=== PATIENT | female | born 1930 | race Caucasian/White ===

== ENCOUNTER 2017-03-31 17:36 | Inpatient (IN) ==
--- NOTE | 2017-03-31 18:25 | Emergency Department Note ---
Disposition Clinical Impression: Elevated troponin Atrial fibrillation Qualifiers: Atrial fibrillation type: unspecified Qualified Code(s): I48.91 - Unspecified atrial fibrillation Chronic kidney disease Qualifiers: Chronic kidney disease stage: unspecified stage Qualified Code(s): N18.9 - Chronic kidney disease, unspecified Disposition: Admitted As Inpatient Condition: Good Referrals: NONE,PCP [Non-Partnered Physician] - Forms: ED Satisfaction Letter General Adult HPI - General Chief complaint: ED Arrhythmia/Palpitations Stated complaint: AFIB per Dr. Schuler Time Seen by Provider: 03/31/17 18:13 Source: patient Limitations: no limitations Nursing Notes Reviewed: Yes Vital Signs Reviewed: Yes - History of Present Illness HPI Narrative: 86 y/o female who has had 2 days of intermittent CP and palpitations. History of Afib many years ago and had an ablation. Has not seen cardiology in approximately 10 years because she has had no issues. No anticoagulation. No other heart history according to the patient. She has not been on rate control medications. Other medical problems include CHF (on lasix) and HTN. She went to see her PCP who recommended she come to the ER. She does not currently feel CP or palpitations. No modifying factors known. Pain Scale: 0 Improves with: nothing Worsens with: nothing Associated symptoms: Reports: denies other symptoms Treatments Prior to Arrival: none - Related Data Home Medications Medication Instructions Recorded Confirmed Multi-Day Vitamins 04/25/15 04/25/15 Oxycodone HCl 04/25/15 04/25/15 Previous Rx's Medication Instructions Recorded Amoxicillin/Clavulanate [Augmentin] 875 mg PO BIDWM #20 tablet 04/25/15 Allergies Allergy/AdvReac Type Severity Reaction Status Date / Time aspirin Allergy Rash Verified 03/31/17 17:52 codeine Allergy Rash Verified 03/31/17 17:52 All systems ED: reviewed and negative except as stated. Constitutional: Denies: fever ENT ED: Denies: throat pain Cardiovascular: Reports: chest pain, palpitations. Denies: dyspnea on exertion Gastrointestinal: Denies: abdominal pain Genitourinary: Denies: dysuria Musculoskeletal: Denies: back pain Integumentary: Denies: rash Neurological: Denies: headache Endocrine: Denies: fatigue Past Medical History - Past Medical History Medical history: Reports: atrial fibrillation, osteoporosis Psychiatric history: Reports: no psych history - Social History Smoking Status: Never smoker Smokeless Tobacco Status: No Alcohol use: Reports: none Drug use: Reports: none Physical Exam - General Limitations: no limitations General appearance: alert, in no apparent distress - Head Head exam: atraumatic - Eye Eye exam: Present: normal appearance, PERRL - ENT ENT exam: normal exam - Neck Neck exam: Present: normal inspection - Chest Chest inspection: Present: normal inspection, symmetric chest wall rise - Respiratory Respiratory exam: Present: normal lung sounds bilaterally. Absent: respiratory distress - Cardiovascular Cardiovascular exam: Present: irregular rhythm - Abdominal Exam Abdominal exam: Present: soft, Non-Tender - Extremities Exam Extremities exam: Present: other (1+ LE edema) - Neurological Exam Neurological exam: Present: alert, oriented X3 - Psychiatric Psychiatric exam: Present: normal affect, normal mood - Skin Skin exam: Present: warm, dry Course Course Narrative: She is currently symptoms free but in an obvious irregular rhythm with a HR in the low 100's. EKG shows HR of 99 with atrial fibrillation. No significant ST deviation is present. Creatinine is at baseline. Troponin is elevated at 0.08. Heparin drip has been ordered. Accepted by Debbi Vital Signs Temperature 98.3 F 03/31/17 17:47 Pulse Rate 106 03/31/17 17:47 Respiratory Rate 16 03/31/17 17:47 Blood Pressure 112/70 03/31/17 17:47 O2 Sat by Pulse Oximetry 94 03/31/17 17:47 Temperature 98.3 F 03/31/17 17:47 Pulse Rate 82 03/31/17 18:41 Respiratory Rate 17 03/31/17 18:41 Blood Pressure 127/72 03/31/17 18:41 O2 Sat by Pulse Oximetry 95 03/31/17 18:41 Oxygen Delivery Oxygen Delivery Room Air Medical Decision Making - Medical Records Medical records reviewed: Yes I reviewed the patient's medical records. - Lab Data Lab results reviewed: Yes I reviewed the patient's lab results. Result diagrams: 03/31/17 18:10 03/31/17 18:10 Lab Results 03/31/17 03/31/17 03/31/17 Range/Units 18:10 18:10 18:10 WBC 7.3 (4.3-11.1) K/mcL RBC 4.82 (3.82-4.97) M/mcL Hgb 14.2 (11.5-15.4) g/dL Hct 45.5 H (35.3-44.9) % MCV 94.4 (83.0-100.0) fL MCH 29.5 (28.0-33.3) pg MCHC 31.2 L (31.6-35.5) g/dL RDW 13.0 (11.5-14.5) % Plt Count 201 (140-400) K/mcL MPV 11.0 (9.4-12.4) fL Immature Gran % 0.5 (0-4) % Seg Neutrophils % 76.9 % Lymphocytes % 14.5 % Monocytes % 5.2 % Eosinophils % 2.2 % Basophils % 0.7 % Neutrophils # 5.6 (1.6-8.9) K/mcL Lymphocytes # 1.1 (0.6-4.6) K/mcL Monocytes # 0.4 (0.0-1.3) K/mcL Eosinophils # 0.2 (0.0-0.6) K/mcL Basophils # 0.1 (0.0-0.2) K/mcL PT 10.6 (9.4-12.1) Seconds INR 1.0 APTT 28.6 (26.0-36.0) Seconds Sodium 140 (136-145) mEq/L Potassium 4.9 H (3.5-4.5) mEq/L Chloride 100 (98-109) mEq/L Carbon Dioxide 32 H (19-29) mEq/L BUN 35 H (7-20) mg/dL Creatinine 1.53 H (0.57-1.11) mg/dL Est GFR ( Amer) 39 L (> 60) Est GFR (Non-Af Amer) 32 L (> 60) BUN/Creatinine Ratio 23 (6-26) Glucose 144 H (70-99) mg/dL Calculated Osmolality 301 H (280-300) Calcium 10.1 (8.6-10.8) mg/dL Magnesium 2.0 (1.6-2.6) mg/dL Troponin I (0-0.03) ng/mL TSH 1.998 (0.350-4.840) mcIU/mL 03/31/17 Range/Units 18:10 WBC (4.3-11.1) K/mcL RBC (3.82-4.97) M/mcL Hgb (11.5-15.4) g/dL Hct (35.3-44.9) % MCV (83.0-100.0) fL MCH (28.0-33.3) pg MCHC (31.6-35.5) g/dL RDW (11.5-14.5) % Plt Count (140-400) K/mcL MPV (9.4-12.4) fL Immature Gran % (0-4) % Seg Neutrophils % % Lymphocytes % % Monocytes % % Eosinophils % % Basophils % % Neutrophils # (1.6-8.9) K/mcL Lymphocytes # (0.6-4.6) K/mcL Monocytes # (0.0-1.3) K/mcL Eosinophils # (0.0-0.6) K/mcL Basophils # (0.0-0.2) K/mcL PT (9.4-12.1) Seconds INR APTT (26.0-36.0) Seconds Sodium (136-145) mEq/L Potassium (3.5-4.5) mEq/L Chloride (98-109) mEq/L Carbon Dioxide (19-29) mEq/L BUN (7-20) mg/dL Creatinine (0.57-1.11) mg/dL Est GFR ( Amer) (> 60) Est GFR (Non-Af Amer) (> 60) BUN/Creatinine Ratio (6-26) Glucose (70-99) mg/dL Calculated Osmolality (280-300) Calcium (8.6-10.8) mg/dL Magnesium (1.6-2.6) mg/dL Troponin I 0.08 H* (0-0.03) ng/mL TSH (0.350-4.840) mcIU/mL - Radiology Data Radiology results reviewed: Yes I reviewed the patient's radiology results. - EKG Data EKG #1 EKG attestation: Yes I reviewed and interpreted this EKG. Rate: tachycardia Imbler/QRS: normal Interpretation: other (New onset atrial fibrillation. HR of 99.)
[2017-03-31 18:28] LABS: Basophils # 0.1 K/mcL (0.0-0.2); Basophils % 0.7 %; Eosinophils # 0.2 K/mcL (0.0-0.6); Eosinophils % 2.2 %; Hematocrit 45.5 % (35.3-44.9); Hemoglobin 14.2 g/dL (11.5-15.4); Immature Granulocytes % 0.5 % (0-4); Lymphocytes # 1.1 K/mcL (0.6-4.6); Lymphocytes % 14.5 %; Mean Corpuscular HGB Conc 31.2 g/dL (31.6-35.5); Mean Corpuscular Hemoglobin 29.5 pg (28.0-33.3); Mean Corpuscular Volume 94.4 fL (83.0-100.0); Monocytes # 0.4 K/mcL (0.0-1.3); Monocytes % 5.2 %; Neutrophils # 5.6 K/mcL (1.6-8.9); Platelet Count 201 K/mcL (140-400); Red Blood Count 4.82 M/mcL (3.82-4.97); Segmented Neutrophils % 76.9 %
[2017-03-31 18:35] LABS: Prothrombin Time 10.6 Seconds (9.4-12.1)
[2017-03-31 18:38] LABS: Activated Partial Thrombo Time 28.6 Seconds (26.0-36.0)
[2017-03-31 18:42] LABS: Calcium 10.1 mg/dL (8.6-10.8); Potassium 4.9 mEq/L (3.5-4.5)
--- NOTE | 2017-03-31 18:52 | Emergency Department Note ---
START Narrative - START START: I examined this patient and my medical decision-making was reviewed with the Resident Physician. I agree with the documented findings, disposition and treatment plan as described except to the extent set forth below. 86 y/o female who has had 2 days of intermittent CP and palpitations. History of Afib many years ago and had an ablation. Has not seen cardiology in approximately 10 years because she has had no issues. No anticoagulation. No other heart history according to the patient. She has not been on rate control medications. Patient in no distress at this time. Patient will need to be admitted.
[2017-03-31] MEDS ORDERED: *HR* Heparin 5,000 UNIT/ML VIAL IVP ONE (19:02)
[2017-03-31] MEDS ORDERED: *HR* Heparin 5,000 UNIT/ML VIAL IVP PRN ×2 (19:02)
[2017-03-31 19:04] LABS: Thyroid Stimulating Hormone 1.998 mcIU/mL (0.350-4.840)
[2017-03-31] MEDS ORDERED: Heparin 25,000 UNIT/500 ML D5W 25,000 UNIT/500 ML MLS IVC SCH (19:15)
[2017-03-31 19:46] LABS: Bilirubin,Urine Negative (Negative); Blood,Urine Negative (Negative); Clarity,Urine Clear (Clear); Color,Urine Yellow (Yellow); Glucose,Urine (UA) Normal (Normal); Ketones,Urine Negative (Negative); Leukocyte Esterase,Urine Small (Negative); Nitrite,Urine Negative (Negative); Protein,Urine Trace mg/dL (Neg-Trace); Specific Gravity,Urine 1.018 (1.010-1.025); Urobilinogen,Urine Normal (Normal)
[2017-03-31 19:49] LABS: Bacteria,Urine None Seen per hpf (None-Few); Hyaline Casts,Urine None Seen per lpf (None-Few); RBC,Urine 0-3 per hpf (0-3); Squamous Epithelial Cell,Urine Many per lpf (None-Few); WBC,Urine 0-3 per hpf (0-3)
[2017-03-31 19:59] LABS: Hematocrit 40.3 % (35.3-44.9); Mean Corpuscular Hemoglobin 29.2 pg (28.0-33.3); Mean Corpuscular Volume 94.2 fL (83.0-100.0); Mean Platelet Volume 10.9 fL (9.4-12.4); Platelet Count 185 K/mcL (140-400); Red Blood Count 4.28 M/mcL (3.82-4.97); Red Cell Distribution Width 12.9 % (11.5-14.5)
[2017-03-31 20:00] LABS: Hemoglobin 12.5 g/dL (11.5-15.4)
[2017-03-31] MEDS ORDERED: Acetaminophen 325 MG TABLET PO PRN (20:32)
[2017-03-31] MEDS ORDERED: Ondansetron 4 MG/2 ML VIAL IVP PRN (20:32)
[2017-03-31] MEDS ORDERED: *HR* Morphine 2 MG/ML SYRINGE IVP PRN (20:32)
[2017-03-31] MEDS ORDERED: Naloxone 0.4 MG/ML INJ IVP PRN (20:32)
--- NOTE | 2017-03-31 21:57 | Internal Med History&Physical ---
Date of Encounter: 04/01/17 Time of Encounter: 21:45 Assessment and Plan (1) Atrial fibrillation Current visit: Yes Status: Acute Paroxysmal Atrial Fibrillation - rate controlled, h/o ablation for A. fib Continue IV Heparin, add Lopressor, statin Patient has not been on any rate controlling medication Cardiology consult Cardiac telemetry, labs in a.m., monitor closely Qualifiers: Atrial fibrillation type: paroxysmal Qualified Code(s): I48.0 - Paroxysmal atrial fibrillation (2) CHF (congestive heart failure) Current visit: Yes Status: Chronic Mild acute exacerbation of chronic diastolic CHF LVEF 65-70% Continue home dose of Lasix, fluid restriction, daily weight, strict I's and O's Cardiac telemetry Qualifiers: Congestive heart failure type: diastolic Congestive heart failure chronicity: acute on chronic Qualified Code(s): I50.33 - Acute on chronic diastolic (congestive) heart failure (3) Elevated troponin Current visit: Yes Status: Acute Slightly elevated troponin, 0.08 - likely due to CHF and atrial fibrillation Patient is asymptomatic - unlikely to be ACS Cycle troponin, continue IV heparin, patient is allergic to aspirin Cardiology consult (4) Chronic kidney disease Current visit: Yes Status: Chronic Chronic kidney disease stage III - stable, GFR and creatinine likely at baseline Repeat labs in a.m. Qualifiers: Chronic kidney disease stage: stage 3 (moderate) Qualified Code(s): N18.3 - Chronic kidney disease, stage 3 (moderate) Internal Medicine - H&P: HPI Chief complaint: Palpitations Admitted From: Emergency Dept Plans for Post Hospital Care: Home History of present illness: Ms. Francois is a 86 year old female with past medical history of atrial fibrillation, chronic back pain, severe diastolic CHF and osteoporosis. Patient presents to the ED with complaints of chest pain and palpitations. Examined. Patient is awake and alert. Not in any distress. Able to provide history. No family members at bedside. Patient states she developed intermittent chest pain and palpitations about 2-3 days ago. She has a history of atrial fibrillation and has had an ablation in the past. She has not followed up with cardiology in several years. She is not on any anticoagulation. She has no other cardiac history. She is not on any rate controlling medication. Patient initially went to see her primary care physician, and was recommended to go to the ER. At present patient denies chest pain, denies palpitations, denies shortness of breath. She states her symptoms have now almost resolved. Patient denies cough, denies headache or vomiting or abdominal pain. No other acute complaints. Initial workup in the ED revealed atrial fibrillation with a controlled rate. Troponin is elevated at 0.08. Patient is on IV heparin. Unlikely to be ACS. BNP peptide is elevated. Patient is being admitted for atrial fibrillation and elevated troponin. CODE STATUS full code. Past Med Surg Social Fam HX - Past Medical History Medical history: atrial fibrillation, osteoporosis Psychiatric history: no psych history - Past Surgical History Surgical History: cholecystectomy, hysterectomy, knee replacement (Bilateral), orthopedic, other (Shoulder surgery) - Social History Smoking Status: Never smoker Smokeless Tobacco Status: No Alcohol use: none Drug use: none - Family History Daughter Living Status: Hx Family Cancer: Yes Internal Medicine - H&P: Meds Multivitamin [Multi-Day Vitamins] 1 each PO DAILY 04/25/15 [History] Oxycodone HCl [Roxicodone 30 MG Immed Release] 30 mg PO QID PRN 04/25/15 [ History] Calcium Carbonate [Calcium] 500 mg PO DAILY 03/31/17 [History] Cephalexin [Keflex] 250 mg PO DAILY 03/31/17 [History] Furosemide [Lasix] 20 mg PO DAILY 03/31/17 [History] Gabapentin [Neurontin] 600 mg PO TID 03/31/17 [History] Magnesium Oxide [Mag-Ox] 400 mg PO DAILY 03/31/17 [History] [place]-3 Fatty Acids [Fish Oil] 600 mg PO DAILY 03/31/17 [History] Potassium Chloride [K-Tab ER] 8 meq PO DAILY 03/31/17 [History] Vit C/Vit E/Lutein/Min/[place]-3 [Ocuvite Softgel] 1 each PO DAILY 03/31/17 [ History] traZODone [TraZODone] 50 mg PO HS PRN 03/31/17 [History] 3 Allergy/AdvReac Type Severity Reaction Status Date / Time aspirin Allergy Rash Verified 03/31/17 17:52 codeine Allergy Rash Verified 03/31/17 17:52 All Systems PM: A 10-system review of systems was performed and is negative for pertinent findings except as documented above in the HPI. - Constitutional Constitutional: no fatigue, no fever(s), no weakness - EENT Eyes: no blurry vision - Cardiovascular Cardiovascular ROS IM: palpitations, no chest pain, no diaphoresis, no dyspnea, no dyspnea on exertion, no edema, no lightheadedness, no orthopnea, no syncope - Respiratory Respiratory: no cough, no dyspnea, no dyspnea on exertion, no wheezing, no chest congestion - Gastrointestinal Gastrointestinal: no abdominal pain, no belching, no bloating, no cramping, no diarrhea, no hematemesis, no hematochezia, no nausea, no vomiting - Genitourinary Genitourinary: no dysuria - Musculoskeletal Musculoskeletal ROS IM: back pain - Neurological Neurological ROS: no abnormal gait, no confusion, no dizziness, no loss of vision, no numbness, no tingling - Constitutional Vitals: Temp Pulse Resp BP Pulse Ox 98.0 F 73 18 148/81 91 03/31/17 21:10 03/31/17 21:10 03/31/17 21:10 03/31/17 21:10 03/31/17 21:10 General appearance: Present: A&O X 3, pleasant, no acute distress, answers questions appropriately - Head Head exam: Present: atraumatic - Eye Eye exam: Present: EOMI - ENT ENT exam: Present: mucous membranes moist - Respiratory Respiratory exam: Present: CTAB. Absent: rales, rhonchi, wheezes, tachypnea - Cardiovascular Cardiovascular exam: Present: irregular rhythm, +S1, +S2 - GI/Abdominal GI/Abdominal exam: Present: soft. Absent: distended, firm, guarding, tenderness - Extremities Exam Extremities exam: Present: radial pulses palpable and symmetrical. Absent: calf tenderness, cyanotic, pedal edema - Neurological Exam Neurological exam: Present: alert, oriented X3, no focal deficits. Absent: facial droop, speech deficit Internal Med - H&P Results - Labs CBC & Chem 7: 03/31/17 19:54 03/31/17 18:10 Labs: Cardiac Enzymes 03/31/17 Range/Units 20:52 Troponin I 0.06 H* (0-0.03) ng/mL
[2017-03-31] MEDS ORDERED: *HR* OxyCODONE Immed Rel 15 MG TABLET PO PRN (23:09)
[2017-03-31] MEDS: Gabapentin 300 MG CAPSULE PO SCH (23:18)
[2017-03-31] MEDS: traZODone 50 MG TABLET PO PRN (23:52)
[2017-04-01 03:33] LABS: INR 1.1; Prothrombin Time 11.6 Seconds (9.4-12.1)
[2017-04-01 04:23] LABS: Calcium 9.4 mg/dL (8.6-10.8); Chol/HDL Ratio 3.2 (0-4.9); Magnesium 1.9 mg/dL (1.6-2.6); Potassium 4.6 mEq/L (3.5-4.5)
[2017-04-01] MEDS ORDERED: Famotidine 20 MG/2 ML VIAL IVP SCH (06:00)
--- NOTE | 2017-04-01 08:13 | Internal Med Progress Note ---
<BertMary - Last Filed: 04/01/17 15:02> Date of Encounter: 04/01/17 Time of Encounter: 08:13 - Assessment and plan (1) Atrial fibrillation Current Visit: Yes Status: Acute Assessment and plan: 86 yo F with Hx of Afib (CHADVASC = 5), HF with preserved ejection fraction, HLD , HTN and osteoporosis presenting with "violent shakes". States the began night prior to admission at 1 AM. Per ED note, patient presented with increased palpitations associated with SOB., twice a week x 2 weeks. She was not on anticoagulation. -This morning, denies SOB, chest pain, palpitations -Increased metoprolol to 25 mg BID - may be used as pt's EF is preserved -TTE 02/2017 showed EF 65-70%. Severe diastolic dysfunction, severely dilated LA. No mitral stenosis. -Nonvalvular Afib -Cardiology on consult and recommend warfarin or Eliquis, appreciate recs - Pt on Eliquis Qualifiers: Atrial fibrillation type: persistent Qualified Code(s): I48.1 - Persistent atrial fibrillation (2) Elevated troponin Current Visit: Yes Status: Acute Assessment and plan: Troponin #1 0.07. Troponin #2 = 0.06 Elevated 2/2 to demand issues vs. renal dysfunction (3) CHF (congestive heart failure) Current Visit: Yes Status: Chronic Assessment and plan: 03/31 CXR - Lungs are clear. Cardiac and mediastinal silhouettes are within normal limits with heart size at upper limits of normal. Currently appears euvolemic. W/o dyspnea, peripheral edema, RUQ Continue conservative PO lasix dose, with some current evidence of decreased organ perfusion with elevated Cr levels Timed BMP Qualifiers: Congestive heart failure type: diastolic Congestive heart failure chronicity: acute on chronic Qualified Code(s): I50.33 - Acute on chronic diastolic (congestive) heart failure (4) Acute kidney injury Current Visit: Yes Status: Acute Assessment and plan: Creatinine of 1.4 is up from baseline GFR decrease > 25% Will monitor closely with, Timed BMP. - Subjective Interval history: Denies SOB. Denies chest pain. Denies heart palpitation when resident MD visited room with notice of elevated HR on telemetry. Increased the metoprolol to 25 mg BID following interview. Active Medications Generic Name Dose Route Start Last Admin Trade Name Freq PRN Reason Stop Dose Admin Acetaminophen 650 mg 03/31/17 20:32 Tylenol PO 09/30/17 20:33 Q6HR PRN Mild Pain (1-3) Apixaban 5 mg 04/01/17 12:30 04/01/17 13:38 Eliquis PO 10/01/17 12:31 5 mg BID HEIDI Administration Calcium Carbonate 500 mg 04/01/17 09:00 04/01/17 08:30 Tums PO 10/01/17 09:01 500 mg DAILY HEIDI Administration Famotidine 20 mg 04/01/17 16:30 Pepcid PO 10/01/17 16:31 0730,1630 [facility] Protocol Furosemide 20 mg 04/01/17 09:00 04/01/17 08:30 Lasix PO 10/01/17 09:01 20 mg DAILY HEIDI Administration Gabapentin 600 mg 03/31/17 21:00 04/01/17 08:30 Neurontin PO 09/30/17 21:01 600 mg TID HEIDI Administration Magnesium Oxide 400 mg 04/01/17 09:00 04/01/17 08:30 Mag-Ox PO 10/01/17 09:01 400 mg DAILY HEIDI Administration Protocol Metoprolol Tartrate 25 mg 04/01/17 21:00 Lopressor PO 10/01/17 21:01 BID [facility] Naloxone HCl 0.4 mg 03/31/17 20:32 Narcan IVP 09/30/17 20:33 Q2MIN PRN Opioid Reversal Ondansetron HCl 4 mg 03/31/17 20:32 Zofran IVP 09/30/17 20:33 Q8HR PRN Nausea And Vomiting Simvastatin 10 mg 04/01/17 21:00 Zocor PO 10/01/17 21:01 HS HEIDI Protocol Trazodone HCl 50 mg 03/31/17 20:37 03/31/17 23:52 Trazodone PO 09/30/17 20:38 50 mg HS PRN Administration Sleep - Constitutional Vitals: Temp Pulse Resp BP Pulse Ox 98.3 F 94 16 143/75 94 04/01/17 07:47 04/01/17 07:47 04/01/17 07:47 04/01/17 07:47 04/01/17 07:47 General appearance: Present: cooperative, A&O X 3, pleasant, no acute distress, answers questions appropriately - Head Head exam: Present: atraumatic, normocephalic - Respiratory Respiratory exam: Present: CTAB. Absent: accessory muscle use, rales, rhonchi, wheezes - Cardiovascular Cardiovascular exam: Present: irregular rhythm, +S1, +S2, tachycardia. Absent: gallop, rubs - GI/Abdominal GI/Abdominal exam: Present: normal bowel sounds, soft, no peritoneal signs. Absent: distended, tenderness Internal Medicine: Result - Labs CBC & Chem 7: 04/01/17 08:37 04/01/17 02:40 Labs: BMP 04/01/17 02:40 Sodium 139 Potassium 4.6 H Chloride 105 Carbon Dioxide 27 BUN 34 H Creatinine 1.40 H Glucose 100 H Calcium 9.4 Cardiac Enzymes 03/31/17 04/01/17 Range/Units 20:52 02:40 Troponin I 0.06 H* 0.07 H* (0-0.03) ng/mL - ABG Interpretation ABG results: PT/INR, D-dimer PT 11.6 Seconds (9.4-12.1) 04/01/17 02:40 Consult Discharge Plan - Plan Referrals: Ernst Schuler MD [Primary Care Provider] - 04/09/17 11:30 am () <Natanael Ivan P - Last Filed: 04/01/17 17:45> Date of Encounter: 04/01/17 - Constitutional Vitals: Temp Pulse Resp BP Pulse Ox 97.7 F 86 17 127/77 94 04/01/17 16:45 04/01/17 16:45 04/01/17 16:45 04/01/17 16:45 04/01/17 16:45 Internal Medicine: Result - Labs CBC & Chem 7: 04/01/17 08:37 04/01/17 02:40 Labs: Short CBC 04/01/17 Range/Units 08:37 WBC 5.7 (4.3-11.1) K/mcL Hgb 12.4 (11.5-15.4) g/dL Hct 40.1 (35.3-44.9) % Plt Count 180 (140-400) K/mcL BMP 04/01/17 02:40 Sodium 139 Potassium 4.6 H Chloride 105 Carbon Dioxide 27 BUN 34 H Creatinine 1.40 H Glucose 100 H Calcium 9.4 Cardiac Enzymes 03/31/17 04/01/17 04/01/17 Range/Units 20:52 02:40 08:37 Troponin I 0.06 H* 0.07 H* 0.06 H* (0-0.03) ng/mL - ABG Interpretation ABG results: PT/INR, D-dimer PT 11.6 Seconds (9.4-12.1) 04/01/17 02:40 - Attending Attestation I examined this patient and my medical decision-making was reviewed with the Resident Physician. I agree with the documented findings, disposition and treatment plan as described except to the extent set forth below.
[2017-04-01] MEDS: Furosemide 20 MG TABLET PO SCH (08:30)
[2017-04-01] MEDS: Gabapentin 300 MG CAPSULE PO SCH ×3 (08:30→20:14)
[2017-04-01] MEDS: Magnesium Oxide 400 MG TABLET PO SCH (08:30)
[2017-04-01] MEDS ORDERED: (Ocuvite Softgel) PO SCH (09:00)
[2017-04-01] MEDS ORDERED: FISH OIL PO SCH (09:00)
[2017-04-01 09:34] LABS: Hematocrit 40.1 % (35.3-44.9); Hemoglobin 12.4 g/dL (11.5-15.4); Mean Corpuscular HGB Conc 30.9 g/dL (31.6-35.5); Mean Corpuscular Hemoglobin 29.4 pg (28.0-33.3); Mean Platelet Volume 11.5 fL (9.4-12.4); Platelet Count 180 K/mcL (140-400); Red Blood Count 4.22 M/mcL (3.82-4.97); Red Cell Distribution Width 13.1 % (11.5-14.5)
--- NOTE | 2017-04-01 10:07 | Cardiology Consult Note ---
Date of Encounter: 04/01/17 Time of Encounter: 10:02 Assessment and Plan (1) Atrial fibrillation Current Visit: Yes Status: Acute Atrial fibrillation with RVR. Reports history of atrial fibrillation seen several years ago. She was transferred to outside hospital and underwent cardioversion. Denies being placed on any medication to control HR or for anticoagulation at that time. HR now rate controlled. Avg HR over 24 hours was 94 bpm. Metoprolol increased this morning. Continue rate control strategy. In-regards to anticoagulation, she is a CHADS VASc=5 (ChF, age2, gender, HTN). Anticoagulation with warfarin or NOAC recommended. I will lay check eliquis. Continue heaprin gtt for now. TTE 02/2017 showed EF 65-70%. Severe daistolic dysfunction, severely dilated LA. Mild MR, mild TR, mild pulmonary hypertension. TSH normal. Qualifiers: Atrial fibrillation type: paroxysmal Qualified Code(s): I48.0 - Paroxysmal atrial fibrillation (2) Elevated troponin Current Visit: Yes Status: Acute Mild troponin elevation, 0.08, 0.07, 0.06. Likely demand ischemia in the setting of atrial fibrillation with RVR, DCHF, and CKD. TTE one month ago showed preserved EF. She denies chest pain. Continue medical management. (3) CHF (congestive heart failure) Current Visit: Yes Status: Chronic H/o severe chronic diastolic CHF. CXR shows no acute finding. BNP 708. No previous BNP to compare. Currently appears euvolemic. Continue oral lasix. Potassium held d/t hyperkalemia. CHF education. Low sodium diet. Qualifiers: Congestive heart failure type: diastolic Congestive heart failure chronicity: acute on chronic Qualified Code(s): I50.33 - Acute on chronic diastolic (congestive) heart failure Discussion w patient/family: The assessment and plan as outlined above was discussed with the patient and/or family members who expressed understanding and agreement. All questions were answered. Thank you for involving us in the care of your patient. Please call with any questions. History of Present Illness Consult date: 04/01/17 Requesting physician: Natanael Ivan Consult reason: Atrial fibrillation Chief complaint: palpitations, SOB History of present illness: Ms. Francois is a 86 year old female with a reported history of PAF s/p previous cardioversion several years ago, HTN, HLD, and severe diastolic dysfunction who presented with increasing palpitations associated with SOB. Reports having palpitations last week that lasted for five hours. She felt it was very hard to breath when the palpitations would occur. Reports symptoms twice a week for the past two weeks. Typically only had symptoms a couple times a month. She was recently seen by her PCP and treated for diastolic CHF with diuretics. She states that after her cardioversion she did not routinely follow with cardiology. She is currently not on anticoagulation. She reports allergy to asa due to rash. Past Med Surg Social Fam HX - Past Medical History Medical history: atrial fibrillation, CHF, hyperlipidemia, hypertension, osteoporosis Psychiatric history: no psych history - Past Surgical History Surgical History: cholecystectomy, hysterectomy, knee replacement (Bilateral), orthopedic, other (Shoulder surgery) - Social History Smoking Status: Never smoker Smokeless Tobacco Status: No Alcohol use: none Drug use: none - Family History Daughter Living Status: Hx Family Cancer: Yes Medications and Allergies Multivitamin [Multi-Day Vitamins] 1 each PO DAILY 04/25/15 [History] Oxycodone HCl [Roxicodone 30 MG Immed Release] 30 mg PO QID PRN 04/25/15 [ History] Calcium Carbonate [Calcium] 500 mg PO DAILY 03/31/17 [History] Cephalexin [Keflex] 250 mg PO DAILY 03/31/17 [History] Furosemide [Lasix] 20 mg PO DAILY 03/31/17 [History] Gabapentin [Neurontin] 600 mg PO TID 03/31/17 [History] Magnesium Oxide [Mag-Ox] 400 mg PO DAILY 03/31/17 [History] [place]-3 Fatty Acids [Fish Oil] 600 mg PO DAILY 03/31/17 [History] Potassium Chloride [K-Tab ER] 8 meq PO DAILY 03/31/17 [History] Vit C/Vit E/Lutein/Min/[place]-3 [Ocuvite Softgel] 1 each PO DAILY 03/31/17 [ History] traZODone [TraZODone] 50 mg PO HS PRN 03/31/17 [History] 3 Allergy/AdvReac Type Severity Reaction Status Date / Time aspirin Allergy Rash Verified 03/31/17 17:52 codeine Allergy Rash Verified 03/31/17 17:52 All Systems Review: A 10-system review of systems was performed and is negative for pertinent findings except as documented above in the HPI. Physical Examination Vital Signs, Last 4 Hours Temp Pulse Resp BP Pulse Ox 04/01/17 07:47 98.3 F 94 16 143/75 94 General: Conversant, No Apparent Distress HEENT: Atraumatic, Normocephaly, Mucus Membranes Moist Neck: No JVD, Normal carotid pulses Cardiac: Other (apical irregular) Lungs: Normal Breath Sounds, No Wheeze, Rales, Rhonchi Neuro: Alert and responsive, No focal deficits noted Abdomen: Soft, Non-Tender Skin: No rashes noted on visualized skin Musculoskeletal: No Chest Wall Tenderness Extremities: No Clubbing, No Cyanosis, No Edema, Normal Pulses Results 04/01/17 08:37 04/01/17 02:40 Lab Results 03/31/17 04/01/17 04/01/17 20:52 02:40 02:40 WBC Hgb Hct Plt Count INR 1.1 APTT Sodium Potassium Chloride Carbon Dioxide BUN Creatinine Glucose Calcium Magnesium Troponin I 0.06 H* 0.07 H* 04/01/17 04/01/17 04/01/17 02:40 02:40 08:37 WBC Hgb Hct Plt Count INR APTT 88.4 H D Sodium 139 Potassium 4.6 H Chloride 105 Carbon Dioxide 27 BUN 34 H Creatinine 1.40 H Glucose 100 H Calcium 9.4 Magnesium 1.9 Troponin I 0.06 H* 04/01/17 04/01/17 08:37 08:37 WBC 5.7 Hgb 12.4 Hct 40.1 Plt Count 180 INR APTT 83.1 H Sodium Potassium Chloride Carbon Dioxide BUN Creatinine Glucose Calcium Magnesium Troponin I Chest X-Ray 03/31/17 18:21 IMPRESSION: No evidence for acute cardiopulmonary process. D/ / 03/31/2017 19:05:30 Erick Mace MD / [email or web address] Interpreting Provider: Erick Mace MD - EKG Interpretation EKG results cardiology: personally reviewed (atrial fibrillation with RVR. No acute ST changes.) Consult Discharge Plan - Plan Referrals: Ernst Schuler MD [Primary Care Provider] - (Web requested 04/01/17)
[2017-04-01] MEDS: APIXABAN 5 MG TABLET PO SCH ×2 (13:38→20:14)
[2017-04-01] MEDS: Famotidine 20 MG TABLET PO SCH (14:54)
[2017-04-02] MEDS: traZODone 50 MG TABLET PO PRN ×2 (00:01→22:57)
[2017-04-02 04:14] LABS: Basophils % 0.7 %; Eosinophils # 0.3 K/mcL (0.0-0.6); Eosinophils % 4.7 %; Hematocrit 39.3 % (35.3-44.9); Hemoglobin 12.3 g/dL (11.5-15.4); Immature Granulocytes % 0.3 % (0-4); Lymphocytes # 1.6 K/mcL (0.6-4.6); Lymphocytes % 27.3 %; Mean Corpuscular HGB Conc 31.3 g/dL (31.6-35.5); Mean Corpuscular Hemoglobin 29.4 pg (28.0-33.3); Mean Platelet Volume 11.3 fL (9.4-12.4); Monocytes # 0.6 K/mcL (0.0-1.3); Neutrophils # 3.3 K/mcL (1.6-8.9); Platelet Count 187 K/mcL (140-400); Red Blood Count 4.18 M/mcL (3.82-4.97); Red Cell Distribution Width 12.9 % (11.5-14.5)
[2017-04-02 04:32] LABS: Calcium 9.5 mg/dL (8.6-10.8); Potassium 4.2 mEq/L (3.5-4.5)
--- NOTE | 2017-04-02 08:07 | Discharge Summary ---
Date of Encounter: 04/02/17 Time of Encounter: 08:06 - Discharge Diagnosis (1) Atrial fibrillation Status: Acute Qualifiers: Atrial fibrillation type: persistent Qualified Code(s): I48.1 - Persistent atrial fibrillation (2) Elevated troponin Status: Acute (3) CHF (congestive heart failure) Status: Chronic Qualifiers: Congestive heart failure type: diastolic Congestive heart failure chronicity: acute on chronic Qualified Code(s): I50.33 - Acute on chronic diastolic (congestive) heart failure (4) Acute kidney injury Status: Acute - Discharge Medications Home Medications: Multivitamin [Multi-Day Vitamins] 1 each PO DAILY 04/25/15 [History] Oxycodone HCl [Roxicodone 30 MG Immed Release] 30 mg PO QID PRN 04/25/15 [ History] Calcium Carbonate [Calcium] 500 mg PO DAILY 03/31/17 [History] Cephalexin [Keflex] 250 mg PO DAILY 03/31/17 [History] Furosemide [Lasix] 20 mg PO DAILY 03/31/17 [History] Gabapentin [Neurontin] 600 mg PO TID 03/31/17 [History] Magnesium Oxide [Mag-Ox] 400 mg PO DAILY 03/31/17 [History] [place]-3 Fatty Acids [Fish Oil] 600 mg PO DAILY 03/31/17 [History] Potassium Chloride [K-Tab ER] 8 meq PO DAILY 03/31/17 [History] Vit C/Vit E/Lutein/Min/[place]-3 [Ocuvite Softgel] 1 each PO DAILY 03/31/17 [ History] traZODone [TraZODone] 50 mg PO HS PRN 03/31/17 [History] Allergies/Adverse Reactions: 3 Allergy/AdvReac Type Severity Reaction Status Date / Time aspirin Allergy Rash Verified 03/31/17 17:52 codeine Allergy Rash Verified 03/31/17 17:52 Date of admission: 03/31/17 20:32 Primary care physician: Ernst Schuler MD Consults: 03/31/17 20:36 Consult to Cardiology [CONS] Routine Comment: Consulting Provider: Cardiology Dittmer Reason for Consult: afib, chest pain, elevated troponin Call Completed: No - Patient Status Condition: Good - Discharge Instructions Follow Up With: Ernst Schuler MD [Primary Care Provider] - 04/09/17 11:30 am () Hospital course: Ms. Francois is a 86 year old female with a past medical history of atrial fibrillation, HF with preserved ejection fraction, hyperlipidemia, hypertension , chronic back pain and osteoporosis presenting with increased palpitations associated with SOB., twice a week x 2 weeks. She was not on anticoagulation. For the patients back pain, she endorsed being recently prescribed roxicodone, which she associated with violent shakes the night prior to admission. She was admitted for atrial fibrillation and mild acute exacerbation of CHF. Over hospitalization, patients heart rate increased to 170s to 180s with activity. Cardiology was placed on consult, she was placed on continuous telemetry, and recommended anticoagulation for nonvalvular atrial fibrillation. Transthoracic echocardiogram in 02/2017 demonstrated EF 65-70% severely dilated LA and no mitral stenosis. CXR showed clear lungs. Cardiac and mediastinal silhouettes were within normal limits with heart size at upper limits of normal. Patients CHADVASC score was 5. For anticoagulation, she was placed on Eliquis. The patients rate was medically managed with metoprolol. - Time Spent with Patient Total time spent providing and/or coordinating discharge services: - Constitutional Vitals: Temp Pulse Resp BP Pulse Ox 97.4 F L 91 15 150/91 97 04/02/17 07:25 04/02/17 07:25 04/02/17 07:25 04/02/17 07:25 04/02/17 07:25 General appearance: Present: cooperative, A&O X 3, pleasant, no acute distress, answers questions appropriately
[2017-04-02] MEDS: Famotidine 20 MG TABLET PO SCH ×2 (08:41→16:12)
[2017-04-02] MEDS: APIXABAN 5 MG TABLET PO SCH (08:42)
[2017-04-02] MEDS: Gabapentin 300 MG CAPSULE PO SCH ×3 (08:42→20:30)
[2017-04-02] MEDS: Magnesium Oxide 400 MG TABLET PO SCH (08:42)
[2017-04-02] MEDS: Furosemide 20 MG TABLET PO SCH (08:42)
--- NOTE | 2017-04-02 09:04 | Internal Med Progress Note ---
Addendum entered and electronically signed by Mary Noel MD 04/02/17 16:51: Addendum -web developer programmer consult was initially made via paging call -Consult service answered by Prashanth NICHOLS -We Requested consult due to blood in vaginal vault on physical exam -Consult advised that if history of hysterectomy, consult would unlikely to be appropriate -Consult was cancelled -Consult service returned call confirming hysterectomy in 1965, and that primary service could "probably cancel the ultrasound" -Primary consult discussed U/S with patient. Patient verbalized understanding she may refuse U/S at any time, even mid-procedure if she elects not to complete -U/S planned for 1700 -Conversation documented per assembly line supervisor request Original Note: <Mary Noel - Last Filed: 04/02/17 14:22> Date of Encounter: 04/02/17 Time of Encounter: 09:02 - Assessment and plan (1) Atrial fibrillation Current Visit: Yes Status: Acute Assessment and plan: 86 yo F with Hx of Afib (CHADVASC = 5), HF with preserved ejection fraction, HLD , HTN and osteoporosis presenting with "violent shakes". States the began night prior to admission at 1 AM. Per ED note, patient presented with increased palpitations associated with SOB., twice a week x 2 weeks. She was not on anticoagulation. -This morning, denies SOB, chest pain, palpitations -Increased metoprolol to 50 mg BID for rate control, compatible with preserved EF per ACCF/AHA guidelines -TTE 02/2017 showed EF 65-70%. Severe diastolic dysfunction, severely dilated LA. No mitral stenosis. -Nonvalvular Afib -Cardiology on consult and recommended warfarin or Eliquis, appreciate recs - Pt was placed on Eliquis, however concern for bleeding this AM - Will hold Eliquis Qualifiers: Atrial fibrillation type: persistent Qualified Code(s): I48.1 - Persistent atrial fibrillation (2) Anticoagulation management encounter Current Visit: Yes Status: Acute Assessment and plan: Pt evaluated this morning for response to Eliquis Hgb stable from yesterday, H/H pending this evening Vaginal speculum exam: bleeding in vaginal vault PLAN: Hold Eliquis Timed H/H Pelvic ultrasound STAT today Hemeoccult pending web developer programmer consult, greatly appreciate recs (3) Elevated troponin Current Visit: Yes Status: Acute Assessment and plan: Troponin #1 0.07. Troponin #2 = 0.06 Elevated 2/2 to demand issues vs. renal dysfunction (4) CHF (congestive heart failure) Current Visit: Yes Status: Chronic Assessment and plan: 03/31 CXR - Lungs are clear. Cardiac and mediastinal silhouettes are within normal limits with heart size at upper limits of normal. Currently appears euvolemic. W/o dyspnea, peripheral edema, RUQ Continue Lasix 20 mg PO Qualifiers: Congestive heart failure type: diastolic Congestive heart failure chronicity: acute on chronic Qualified Code(s): I50.33 - Acute on chronic diastolic (congestive) heart failure (5) Acute kidney injury Current Visit: Yes Status: Acute Assessment and plan: Creatinine of 1.4 on admit up from baseline. Today at 1.19 Overall, GFR decrease > 25% PLAN: Continue to monitor with BMP Will maintain current PO dose of lasix, avoid higher dose if possible And avoid nephrotoxic agents - Subjective Interval history: HR at 170s on mild activity overnight. Pt states that this morning she noticed blood in urine. She noticed dried blood spots on floor. No chest pain. No hemoptysis. No bleeding in gums. Pt has not passed stool today. - Constitutional Vitals: Temp Pulse Resp BP Pulse Ox 97.4 F L 91 15 150/91 97 04/02/17 07:25 04/02/17 07:25 04/02/17 07:25 04/02/17 07:25 04/02/17 07:25 General appearance: Present: cooperative, A&O X 3, pleasant, no acute distress, answers questions appropriately Exam: Dried blood spots on floor and on bed - Respiratory Respiratory exam: Present: CTAB. Absent: accessory muscle use, rales, rhonchi, wheezes - Cardiovascular Cardiovascular exam: Present: irregular rhythm, RRR, +S1, +S2. Absent: rubs, tachycardia - GI/Abdominal GI/Abdominal exam: Present: normal bowel sounds, soft, no peritoneal signs. Absent: distended, tenderness - Specululm exam: Present: vaginal bleeding (blood in vaginal vault ). Absent: vaginal discharge Internal Medicine: Result - Labs CBC & Chem 7: 04/02/17 03:52 04/02/17 03:52 Labs: Short CBC 04/01/17 04/02/17 Range/Units 08:37 03:52 WBC 5.7 5.7 (4.3-11.1) K/mcL Hgb 12.4 12.3 (11.5-15.4) g/dL Hct 40.1 39.3 (35.3-44.9) % Plt Count 180 187 (140-400) K/mcL Neutrophils # 3.3 (1.6-8.9) K/mcL BMP 04/02/17 03:52 Sodium 138 Potassium 4.2 Chloride 105 Carbon Dioxide 25 BUN 28 H Creatinine 1.19 H Glucose 99 Calcium 9.5 Cardiac Enzymes 04/01/17 Range/Units 08:37 Troponin I 0.06 H* (0-0.03) ng/mL - ABG Interpretation ABG results: PT/INR, D-dimer PT 11.6 Seconds (9.4-12.1) 04/01/17 02:40 Consult Discharge Plan - Plan Referrals: Carlos Carmona CNP [Advanced Practice Nurse] - 04/28/17 3:30 pm (please follow up as schedule) Ernst Schuler MD [Primary Care Provider] - 04/09/17 11:30 am () <Natanael Ivan P - Last Filed: 04/02/17 17:45> Date of Encounter: 04/02/17 - Constitutional Vitals: Temp Pulse Resp BP Pulse Ox 98.0 F 84 16 137/87 95 04/02/17 16:58 04/02/17 16:58 04/02/17 16:58 04/02/17 16:58 04/02/17 16:58 Internal Medicine: Result - Labs CBC & Chem 7: 04/02/17 16:33 04/02/17 03:52 Labs: Short CBC 04/02/17 04/02/17 04/02/17 Range/Units 03:52 14:44 16:33 WBC 5.7 6.7 (4.3-11.1) K/mcL Hgb 12.3 13.8 D 13.4 (11.5-15.4) g/dL Hct 39.3 43.3 41.1 (35.3-44.9) % Plt Count 187 192 (140-400) K/mcL Neutrophils # 3.3 5.0 (1.6-8.9) K/mcL BMP 04/02/17 03:52 Sodium 138 Potassium 4.2 Chloride 105 Carbon Dioxide 25 BUN 28 H Creatinine 1.19 H Glucose 99 Calcium 9.5 - ABG Interpretation ABG results: PT/INR, D-dimer PT 11.6 Seconds (9.4-12.1) 04/01/17 02:40 - Impressions Impressions Pelvis Ultrasound 04/02/17 17:00 IMPRESSION: Prior hysterectomy. Nonvisualization of the ovaries. D/ / Cory Mcclellan MD / Cory Mcclellan MD Interpreting Provider: Cory Mcclellan MD - Attending Attestation I examined this patient and my medical decision-making was reviewed with the Resident Physician. I agree with the documented findings, disposition and treatment plan as described except to the extent set forth below. Appreciate cardiology input. We will await for FISHERIES TECHNICIAN responce
--- NOTE | 2017-04-02 10:27 | Cardiology Progress Note ---
Date of Encounter: 04/02/17 Time of Encounter: 10:25 Assessment and Plan (1) Atrial fibrillation Current Visit: Yes Status: Acute Atrial fibrillation with RVR. Reports history of atrial fibrillation seen several years ago. She was transferred to outside hospital and underwent cardioversion at that time. Denies being placed on any medication to control HR or for anticoagulation at that time. HR now rate controlled. Avg HR over 24 hours was 94 bpm. Noted to have afib with RVR with minimal activity, HR up to 160. Continue rate control strategy. Increase metoprolol as tolerated. In-regards to anticoagulation, she is a CHADS VASc=5 (ChF, age2, gender, HTN). Heparin gtt converted to eliquis yesterday. Patient noted to have bleeding from wanda-area. Reported pink urine this morning but she continued to have drainage. Hold eliquis until further evaluation of possible vaginal bleeding in an [address] Ivan notified. Hg stable. Consider re-starting after evaluation if able d/t high risk for CVA. TTE 02/2017 showed EF 65-70%. Severe diastolic dysfunction, severely dilated LA. Mild MR, mild TR, mild pulmonary hypertension. TSH normal. Qualifiers: Atrial fibrillation type: persistent Qualified Code(s): I48.1 - Persistent atrial fibrillation (2) Elevated troponin Current Visit: Yes Status: Acute Mild troponin elevation, 0.08, 0.07, 0.06. Likely demand ischemia in the setting of atrial fibrillation with RVR, DCHF, and CKD. TTE one month ago showed preserved EF. She denies chest pain. Continue medical management. (3) CHF (congestive heart failure) Current Visit: Yes Status: Chronic H/o severe chronic diastolic CHF. CXR shows no acute finding. BNP 708. No previous BNP to compare. Currently appears euvolemic. Continue oral lasix. Potassium held d/t hyperkalemia. CHF education. Low sodium diet. Qualifiers: Congestive heart failure type: diastolic Congestive heart failure chronicity: acute on chronic Qualified Code(s): I50.33 - Acute on chronic diastolic (congestive) heart failure Discussion w patient/family: The assessment and plan as outlined above was discussed with the patient and/or family members who expressed understanding and agreement. All questions were answered. Thank you for involving us in the care of your patient. Please call with any questions. Subjective Principal diagnosis: atrial fibrillation with RVR Interval history: We were called for recommendations after patient had recurrent afib with RVR through the night with activity. She denies palpitations, SOB, or chets pain. Patient noted to have blood on floor , bed, and legs. States urine was pink but she thinks she may have blood coming from somewhere else. She has a history of complete hysterectomy. Objective Vital Signs, Last 4 Hours Temp Pulse Resp BP Pulse Ox 04/02/17 07:25 97.4 F L 91 15 150/91 97 General: Conversant, No Apparent Distress HEENT: Atraumatic, Normocephaly, Mucus Membranes Moist Neck: No JVD, Normal carotid pulses Cardiac: Other (Irregularly irregular.) Lungs: Normal Breath Sounds, No Wheeze, Rales, Rhonchi Neuro: Alert and responsive, No focal deficits noted Abdomen: Soft, Non-Tender Skin: No rashes noted on visualized skin Musculoskeletal: No Chest Wall Tenderness Extremities: No Clubbing, No Cyanosis, No Edema, Normal Pulses Other: Noted to have blood in wanda-area Results 04/02/17 03:52 04/02/17 03:52 Lab Results 04/02/17 04/02/17 04/02/17 03:52 03:52 08:26 WBC 5.7 Hgb 12.3 Hct 39.3 Plt Count 187 APTT 30.2 D Sodium 138 Potassium 4.2 Chloride 105 Carbon Dioxide 25 BUN 28 H Creatinine 1.19 H Glucose 99 Calcium 9.5 - EKG Interpretation EKG results cardiology: personally reviewed Consult Discharge Plan - Plan Referrals: Ernst Schuler MD [Primary Care Provider] - 04/09/17 11:30 am ()
[2017-04-02 14:54] LABS: Hematocrit 43.3 % (35.3-44.9); Hemoglobin 13.8 g/dL (11.5-15.4)
[2017-04-02 16:48] LABS: Basophils # 0.1 K/mcL (0.0-0.2); Basophils % 0.7 %; Eosinophils # 0.2 K/mcL (0.0-0.6); Eosinophils % 2.7 %; Hematocrit 41.1 % (35.3-44.9); Hemoglobin 13.4 g/dL (11.5-15.4); Immature Granulocytes % 0.1 % (0-4); Immature Platelets 4.2 % (1.1-6.1); Lymphocytes # 0.9 K/mcL (0.6-4.6); Lymphocytes % 13.5 %; Mean Corpuscular HGB Conc 32.6 g/dL (31.6-35.5); Mean Corpuscular Hemoglobin 30.5 pg (28.0-33.3); Mean Corpuscular Volume 93.4 fL (83.0-100.0); Mean Platelet Volume 10.9 fL (9.4-12.4); Monocytes # 0.5 K/mcL (0.0-1.3); Monocytes % 7.9 %; Platelet Count 192 K/mcL (140-400); Segmented Neutrophils % 75.1 %
[2017-04-03 05:49] LABS: Basophils % 0.6 %; Eosinophils # 0.3 K/mcL (0.0-0.6); Eosinophils % 3.9 %; Hematocrit 41.6 % (35.3-44.9); Hemoglobin 13.6 g/dL (11.5-15.4); Immature Granulocytes % 0.1 % (0-4); Immature Platelets 4.4 % (1.1-6.1); Lymphocytes # 1.6 K/mcL (0.6-4.6); Lymphocytes % 22.5 %; Mean Corpuscular HGB Conc 32.7 g/dL (31.6-35.5); Mean Corpuscular Hemoglobin 30.5 pg (28.0-33.3); Mean Corpuscular Volume 93.3 fL (83.0-100.0); Mean Platelet Volume 11.1 fL (9.4-12.4); Monocytes # 0.8 K/mcL (0.0-1.3); Neutrophils # 4.3 K/mcL (1.6-8.9); Platelet Count 195 K/mcL (140-400); Red Blood Count 4.46 M/mcL (3.82-4.97); Red Cell Distribution Width 12.9 % (11.5-14.5); Segmented Neutrophils % 61.9 %
[2017-04-03 06:03] LABS: Calcium 9.9 mg/dL (8.6-10.8); Potassium 4.6 mEq/L (3.5-4.5)
[2017-04-03 07:24] VITALS: BP 126/70
[2017-04-03] MEDS: Famotidine 20 MG TABLET PO SCH (08:45)
[2017-04-03] MEDS: Magnesium Oxide 400 MG TABLET PO SCH (08:45)
[2017-04-03] MEDS: Gabapentin 300 MG CAPSULE PO SCH (08:45)
[2017-04-03] MEDS: Furosemide 20 MG TABLET PO SCH (08:46)
--- NOTE | 2017-04-03 09:56 | Discharge Summary ---
Date of Encounter: 04/03/17 Time of Encounter: 09:53 - Discharge Diagnosis (1) Atrial fibrillation Priority: Primary Status: Acute Qualifiers: Atrial fibrillation type: persistent Qualified Code(s): I48.1 - Persistent atrial fibrillation (2) Chronic kidney disease Priority: Secondary Status: Chronic Qualifiers: Chronic kidney disease stage: stage 3 (moderate) Qualified Code(s): N18.3 - Chronic kidney disease, stage 3 (moderate) (3) CHF (congestive heart failure) Priority: Secondary Status: Chronic Qualifiers: Congestive heart failure type: diastolic Congestive heart failure chronicity: chronic Qualified Code(s): I50.32 - Chronic diastolic (congestive ) heart failure (4) Elevated troponin Priority: Secondary Status: Acute - Discharge Medications Prescriptions: Metoprolol [Lopressor] 50 mg PO BID #120 tab Simvastatin [Zocor] 10 mg PO HS #120 tab Home Medications: Multivitamin [Multi-Day Vitamins] 1 each PO DAILY 04/25/15 [History] Oxycodone HCl [Roxicodone 30 MG Immed Release] 30 mg PO QID PRN 04/25/15 [ History] Calcium Carbonate [Calcium] 500 mg PO DAILY 03/31/17 [History] Cephalexin [Keflex] 250 mg PO DAILY 03/31/17 [History] Furosemide [Lasix] 20 mg PO DAILY 03/31/17 [History] Gabapentin [Neurontin] 600 mg PO TID 03/31/17 [History] Magnesium Oxide [Mag-Ox] 400 mg PO DAILY 03/31/17 [History] [place]-3 Fatty Acids [Fish Oil] 600 mg PO DAILY 03/31/17 [History] Potassium Chloride [K-Tab ER] 8 meq PO DAILY 03/31/17 [History] Vit C/Vit E/[place]/Min/[place]-3 [Ocuvite Softgel] 1 each PO DAILY 03/31/17 [ History] traZODone [TraZODone] 50 mg PO HS PRN 03/31/17 [History] Metoprolol [Lopressor] 50 mg PO BID #120 tab 04/03/17 [Rx] Simvastatin [Zocor] 10 mg PO HS #120 tab 04/03/17 [Rx] Allergies/Adverse Reactions: 3 Allergy/AdvReac Type Severity Reaction Status Date / Time aspirin Allergy Rash Verified 03/31/17 17:52 codeine Allergy Rash Verified 03/31/17 17:52 Procedures/tests Complete & Pending: Procedures Performed prior 72 hours Category Date Time Status US pelvis extended [US] Stat Exams 04/02/17 17:00 Completed Date of admission: 03/31/17 20:32 Primary care physician: Ernst Schuler MD Consults: 03/31/17 20:36 Consult to Cardiology [CONS] Routine Comment: Consulting Provider: Cardiology Jeanette Reason for Consult: afib, chest pain, elevated troponin Call Completed: No Discharging clinician: Natanael Ivan - Patient Status Disposition: Home, Self-Care Condition: Good Functional capacity at discharge: independent ambulation Overall status at discharge: patient is progressing back to baseline - Discharge Instructions Follow Up With: Carlos Carmona CNP [Advanced Practice Nurse] - 04/28/17 3:30 pm (please follow up as schedule) Ernst Schuler MD [Primary Care Provider] - 04/09/17 11:30 am () - Diet and Activity Activity: increase activity as tolerated Diet: low fat, low cholesterol Interval History: Patient states she developed intermittent chest pain and palpitations about 2-3 days ago. She has a history of atrial fibrillation and has had an ablation in the past. She has not followed up with cardiology in several years. She is not on any anticoagulation. She has no other cardiac history. She is not on any rate controlling medication. Patient initially went to see her primary care physician, and was recommended to go to the ER. Initial workup in the ED revealed atrial fibrillation with a controlled rate. Troponin is elevated at 0.08. Patient is on IV heparin. Unlikely to be ACS. BNP peptide is elevated. Patient is being admitted for atrial fibrillation and elevated troponin. CODE STATUS full code. Hospital course: Patient was hospitalized. She was started on the metoprolol. She responded well to metoprolol. Her heart rate was controlled. She was started on anticoagulation with the novel anticoagulant. Patient started bleeding from vaginal. Vaginal examination revealed blood. SPOT WELDER was consulted. As per SPOT WELDER patient has a previous hysterectomy in 1965 and the consult was not needed. Ultrasound of the lower abdomen was done. Plan: Patient is keen to go home today. Her heart rate is well controlled. Patient will be going home on a new medication 1. Metoprolol 2. Simvastatin Due to per vaginal bleeding no anticoagulants were prescribed. We will give SPOT WELDER follow-up appointment along with the PCP follow-up. - Time Spent with Patient Total time spent providing and/or coordinating discharge services: - Constitutional Vitals: Temp Pulse Resp BP Pulse Ox 98.4 F 89 17 126/70 95 04/03/17 07:23 04/03/17 07:23 04/03/17 07:23 04/03/17 07:23 04/03/17 07:23 General appearance: Present: cooperative, A&O X 3, pleasant, no acute distress, answers questions appropriately - Head Head exam: Present: atraumatic, normocephalic - Eye Eye exam: Present: PERRL, conjuntiva pink, sclera anicteric Pupils: Present: PERRL - Neck Neck exam general surgery: Present: supple, trachea midline. Absent: lymphadenopathy - Respiratory Respiratory exam: Present: CTAB. Absent: accessory muscle use, rales, rhonchi, wheezes - Cardiovascular Cardiovascular exam: Present: RRR, +S1, +S2. Absent: diastolic murmur, gallop, rubs, systolic murmur - GI/Abdominal GI/Abdominal exam: Present: normal bowel sounds, soft, no peritoneal signs. Absent: distended, tenderness - Extremities Exam Extremities exam: Present: warm, radial pulses palpable and symmetrical. Absent : calf tenderness, cyanotic, pedal edema - Neurological Exam Neurological exam: Present: CN II-XII intact, oriented X3, no focal deficits. Absent: pronater drift, facial droop, speech deficit - Skin Skin exam: Present: dry, intact - VTE Documentation of Mechanical Device: Intermittent pneumatic compression device
[2017-04-03] MEDS ORDERED: FLUARIX QUAD 2017-18 36MOS UP/PF 0.5 ML SYRINGE IM ONE (11:22)
--- NOTE | 2017-04-05 18:42 | Electrocardiograph Report ---
[address] [address] Test Date: 2017-03-31 Pat Name: Nelda Francois Department: 102 Room: 2A Gender: F Resident Care Aid: : 1930 Requested By: Percy Gibbons Order Number: [id number] Reading MD: Tato Rico MD Measurements Intervals [place] Rate: 99 P: IN: 0 QRS: 46 QRSD: 91 T: 39 QT: 338 QTc: 394 Interpretive Statements ATRIAL FIBRILLATION Electronically Signed On 04-05-2017 18:41:18 EDT by Tato Rico MD
== END 2017-04-03 12:45 | disposition home or self-care (01) | DRG 308 ==
LOC: EMEROO 17:36 → 2ANU 17:36
PROVIDERS: ADMIT Pediatrics; ATTEND Internal Medicine

== ENCOUNTER 2017-04-15 01:17 | Observation (INO) ==
--- NOTE | 2017-04-15 01:50 | Emergency Department Note ---
Disposition Clinical Impression: Nausea & vomiting Qualifiers: Vomiting type: unspecified Vomiting Intractability: unspecified Qualified Code( s): R11.2 - Nausea with vomiting, unspecified Disposition: Admitted As Inpatient Condition: Good Time of Disposition: 03:44 Abdominal Pain HPI - General Chief Complaint: ED Nausea/Vomiting/Diarrhea Stated Complaint: "i feel sick" Time Seen by Provider: 04/15/17 01:24 Source: patient Nursing Notes Reviewed: Yes Vital Signs Reviewed: Yes - History of Present Illness HPI Narrative: Patient is a 86-year-old female that presents from home with abdominal pain. Shestates"I feel sick". She was seen in this department approximately 2 days ago for n/v and diarrhea. She had been discharged to home, but return with no improvement of her symptoms. She does describe weakness, decreased appetite, and unable to drink fluids. She describes only being able to drink one bottle of water over the past few days. Pt denies bloody stools, fever, confusion, chest pain, sob, vaginal or GI bleeding. Pain Scale: 6 - Related Data Home Medications Medication Instructions Recorded Confirmed Multivitamin [Multi-Day Vitamins] 1 each PO DAILY 04/25/15 03/31/17 Oxycodone HCl [Roxicodone 30 MG 30 mg PO QID PRN 04/25/15 03/31/17 Immed Release] Calcium Carbonate [Calcium] 500 mg PO DAILY 03/31/17 03/31/17 Cephalexin [Keflex] 250 mg PO DAILY 03/31/17 03/31/17 Furosemide [Lasix] 20 mg PO DAILY 03/31/17 03/31/17 Gabapentin [Neurontin] 600 mg PO TID 03/31/17 03/31/17 Magnesium Oxide [Mag-Ox] 400 mg PO DAILY 03/31/17 03/31/17 [place]-3 Fatty Acids [Fish Oil] 600 mg PO DAILY 03/31/17 03/31/17 Potassium Chloride [K-Tab ER] 8 meq PO DAILY 03/31/17 03/31/17 Vit C/Vit E/[place]in/Min/[place]-3 1 each PO DAILY 03/31/17 03/31/17 [Ocuvite Softgel] traZODone [TraZODone] 50 mg PO HS PRN 03/31/17 03/31/17 Previous Rx's Medication Instructions Recorded Metoprolol [Lopressor] 50 mg PO BID #120 tab 04/03/17 Simvastatin [Zocor] 10 mg PO HS #120 tab 04/03/17 Ondansetron ODT [Zofran ODT] 4 mg SL Q6HR PRN #30 tab.rapdis 04/14/17 Allergies Allergy/AdvReac Type Severity Reaction Status Date / Time aspirin Allergy Rash Verified 04/15/17 01:28 codeine Allergy Rash Verified 04/15/17 01:28 All systems ED: reviewed and negative except as stated. Constitutional: Denies: fever, chills Eyes: Denies: eye discharge, vision change ENT ED: Denies: throat pain Cardiovascular: Denies: palpitations Respiratory: Denies: dyspnea Gastrointestinal: Reports: as per HPI, abdominal pain, nausea, vomiting, diarrhea Genitourinary: Denies: dysuria Musculoskeletal: Denies: back pain Integumentary: Denies: rash Neurological: Denies: weakness Psychiatric: Denies: anxiety Endocrine: Denies: fatigue Hematological/Lymphatic: Denies: easy bleeding Allergic/Immunologic: Denies: facial swelling Abdominal Pain PMH - Past Medical History Medical history: Reports: atrial fibrillation, CHF, hyperlipidemia, hypertension , osteoporosis Female Surgical History: Reports: appendectomy, cholecystectomy Psychiatric history: Reports: no psych history - Social History Smoking status: Never smoker Alcohol use: Reports: none Drug use: Reports: none Physical Exam - General Limitations: no limitations General appearance: alert, in no apparent distress - Head Head exam: normocephalic - Eye Eye exam: Present: EOMI. Absent: conjunctival injection - ENT ENT exam: mucous membranes moist - Neck Neck exam: Present: full ROM - Chest Chest inspection: Present: symmetric chest wall rise - Respiratory Respiratory exam: Present: normal lung sounds bilaterally. Absent: respiratory distress - Cardiovascular Cardiovascular exam: Present: regular rate - Abdominal Exam Abdominal exam: Present: soft, Non-Tender - Extremities Exam Extremities exam: Present: normal inspection, full ROM, normal capillary refill - Back Exam Back exam: Present: normal inspection, full ROM - Neurological Exam Neurological exam: Present: alert, oriented X3 - Psychiatric Psychiatric exam: Present: normal affect, normal mood - Skin Skin exam: Present: warm, dry, intact, normal color. Absent: rash, cyanosis, diaphoresis Course Course Narrative: Patient is a 86-year-old female that presents from home with abdominal pain. She was seen in this department approximately 2 days ago for n/v and diarrhea. She had been discharged to home, but return with no improvement of her symptoms. Patient's lab work was unremarkable at that time, she did have a hyperdensity on her abdominal CT possible choledocholithiasis , and pt status post cholecystectomy. Patient was discussed with Dr. Crowder who also had face time with patient. Movement will repeat her lab work tonight, and consider admission for pain intervention and GI consult. Workup initiated. Pt appears dry mentions no fluid intake at home, will order fluids here, antiemetics and pain meds. Review of Medical records shows h/o of Afib with admission two weeks ago. - Reevaluation(s) Reevaluation #1: Patient's lab work: Some evidence of urinary tract infection. Urine culture pending. Troponin within normal limits. slight elevation of AST and potassium. Hg 11.2. Discussed meds with patient. She seems confused on some of her medications. She seems sure she is not on a anticoagulant, but is uncertain if she is on metoprolol or Lasix or potassium. She feels she may not have been taking her "water pill" Some improvement in her nausea. Will page hospitalist. Time: 03:30 Reevaluation #2: Patient was discussed with hospitalist, Dr. Harry , who accepted patient for observation. Time: 03:44 Vital Signs Temperature 98.3 F 04/15/17 01:18 Pulse Rate 60 04/15/17 01:18 Respiratory Rate 20 04/15/17 01:18 Blood Pressure 157/86 04/15/17 01:18 O2 Sat by Pulse Oximetry 97 04/15/17 01:18 Temperature 98.3 F 04/15/17 01:18 Pulse Rate 82 04/15/17 03:54 Respiratory Rate 12 04/15/17 03:54 Blood Pressure 154/89 04/15/17 03:54 O2 Sat by Pulse Oximetry 97 04/15/17 03:54 Oxygen Delivery Oxygen Delivery Nasal Cannula Abdominal Pain - MDM Narrative Medical decision making narrative: All Lab Results (24 Hours) 04/15/17 04/15/17 04/15/17 Range/Units 01:59 01:59 01:59 WBC 5.9 (4.3-11.1) K/mcL RBC 3.72 L (3.82-4.97) M/mcL Hgb 11.2 L (11.5-15.4) g/dL Hct 35.6 (35.3-44.9) % MCV 95.7 (83.0-100.0) fL MCH 30.1 (28.0-33.3) pg MCHC 31.5 L (31.6-35.5) g/dL RDW 13.0 (11.5-14.5) % Plt Count 165 (140-400) K/mcL MPV 11.1 (9.4-12.4) fL Immature Gran % 0.3 (0-4) % Seg Neutrophils % 76.6 % Lymphocytes % 13.1 % Monocytes % 7.5 % Eosinophils % 2.2 % Basophils % 0.3 % Neutrophils # 4.5 (1.6-8.9) K/mcL Lymphocytes # 0.8 (0.6-4.6) K/mcL Monocytes # 0.4 (0.0-1.3) K/mcL Eosinophils # 0.1 (0.0-0.6) K/mcL Basophils # 0.0 (0.0-0.2) K/mcL Sodium 140 (136-145) mEq/L Potassium 4.7 H (3.5-4.5) mEq/L Chloride 104 (98-109) mEq/L Carbon Dioxide 26 (19-29) mEq/L BUN 18 (7-20) mg/dL Creatinine 1.12 H (0.57-1.11) mg/dL Est GFR ( Amer) 56 L (> 60) Est GFR (Non-Af Amer) 46 L (> 60) BUN/Creatinine Ratio 16 (6-26) Glucose 92 (70-99) mg/dL Calculated Osmolality 292 (280-300) Lactic Acid (0.5-2.2) mmol/L Calcium 9.3 (8.6-10.8) mg/dL Total Bilirubin 0.6 (0.2-1.2) mg/dL Direct Bilirubin 0.3 (0.0-0.5) mg/dL Indirect Bilirubin 0.3 (0.0-1.2) mg/dL AST 35 H (5-34) Units/L ALT 27 (0-55) Units/L Alkaline Phosphatase 82 (38-126) Units/L Troponin I 0.03 (0-0.03) ng/mL Serum Total Protein 6.7 (6.0-8.3) g/dL Albumin 3.7 (3.5-5.0) g/dL Globulin 3.0 (2.4-3.5) g/dL Albumin/Globulin Ratio 1.2 (1.1-2.2) Lipase 23 (8-78) Units/L Urine Color (Yellow) Urine Clarity (Clear) Urine pH (5.0-8.0) pH Units Ur Specific [place] (1.010-1.025) Urine Protein (Neg-Trace) mg/dL Urine Glucose (UA) (Normal) mg/dL Urine Ketones (Negative) mg/dL Urine Blood (Negative) Urine Nitrite (Negative) Urine Bilirubin (Negative) Urine Urobilinogen (Normal) mg/dL Ur Leukocyte Esterase (Negative) Urine Microscopic RBC (0-3) per hpf Urine Microscopic WBC (0-3) per hpf Ur Squamous Epith Cells (None-Few) per lpf Urine Bacteria (None-Few) per hpf Hyaline Casts (None-Few) per lpf Ur Culture Indicated? (NO) 04/15/17 04/15/17 Range/Units 02:25 02:45 WBC (4.3-11.1) K/mcL RBC (3.82-4.97) M/mcL Hgb (11.5-15.4) g/dL Hct (35.3-44.9) % MCV (83.0-100.0) fL MCH (28.0-33.3) pg MCHC (31.6-35.5) g/dL RDW (11.5-14.5) % Plt Count (140-400) K/mcL MPV (9.4-12.4) fL Immature Gran % (0-4) % Seg Neutrophils % % Lymphocytes % % Monocytes % % Eosinophils % % Basophils % % Neutrophils # (1.6-8.9) K/mcL Lymphocytes # (0.6-4.6) K/mcL Monocytes # (0.0-1.3) K/mcL Eosinophils # (0.0-0.6) K/mcL Basophils # (0.0-0.2) K/mcL Sodium (136-145) mEq/L Potassium (3.5-4.5) mEq/L Chloride (98-109) mEq/L Carbon Dioxide (19-29) mEq/L BUN (7-20) mg/dL Creatinine (0.57-1.11) mg/dL Est GFR ( Amer) (> 60) Est GFR (Non-Af Amer) (> 60) BUN/Creatinine Ratio (6-26) Glucose (70-99) mg/dL Calculated Osmolality (280-300) Lactic Acid 0.7 (0.5-2.2) mmol/L Calcium (8.6-10.8) mg/dL Total Bilirubin (0.2-1.2) mg/dL Direct Bilirubin (0.0-0.5) mg/dL Indirect Bilirubin (0.0-1.2) mg/dL AST (5-34) Units/L ALT (0-55) Units/L Alkaline Phosphatase (38-126) Units/L Troponin I (0-0.03) ng/mL Serum Total Protein (6.0-8.3) g/dL Albumin (3.5-5.0) g/dL Globulin (2.4-3.5) g/dL Albumin/Globulin Ratio (1.1-2.2) Lipase (8-78) Units/L Urine Color Yellow (Yellow) Urine Clarity Cloudy A (Clear) Urine pH 5.5 (5.0-8.0) pH Units Ur Specific [place] 1.019 (1.010-1.025) Urine Protein 30 H (Neg-Trace) mg/dL Urine Glucose (UA) Normal (Normal) mg/dL Urine Ketones 15 H (Negative) mg/dL Urine Blood Negative (Negative) Urine Nitrite Negative (Negative) Urine Bilirubin Small H (Negative) Urine Urobilinogen Normal (Normal) mg/dL Ur Leukocyte Esterase Moderate H (Negative) Urine Microscopic RBC 3-5 H (0-3) per hpf Urine Microscopic WBC 15-30 H (0-3) per hpf Ur Squamous Epith Cells Many H (None-Few) per lpf Urine Bacteria Few (None-Few) per hpf Hyaline Casts None Seen (None-Few) per lpf Ur Culture Indicated? YES A (NO) - Lab Data Lab results reviewed: Yes I reviewed the patient's lab results. Result diagrams: 04/15/17 01:59 04/15/17 01:59 Lab Results 04/15/17 04/15/17 04/15/17 Range/Units 01:59 01:59 01:59 WBC 5.9 (4.3-11.1) K/mcL RBC 3.72 L (3.82-4.97) M/mcL Hgb 11.2 L (11.5-15.4) g/dL Hct 35.6 (35.3-44.9) % MCV 95.7 (83.0-100.0) fL MCH 30.1 (28.0-33.3) pg MCHC 31.5 L (31.6-35.5) g/dL RDW 13.0 (11.5-14.5) % Plt Count 165 (140-400) K/mcL MPV 11.1 (9.4-12.4) fL Immature Gran % 0.3 (0-4) % Seg Neutrophils % 76.6 % Lymphocytes % 13.1 % Monocytes % 7.5 % Eosinophils % 2.2 % Basophils % 0.3 % Neutrophils # 4.5 (1.6-8.9) K/mcL Lymphocytes # 0.8 (0.6-4.6) K/mcL Monocytes # 0.4 (0.0-1.3) K/mcL Eosinophils # 0.1 (0.0-0.6) K/mcL Basophils # 0.0 (0.0-0.2) K/mcL Sodium 140 (136-145) mEq/L Potassium 4.7 H (3.5-4.5) mEq/L Chloride 104 (98-109) mEq/L Carbon Dioxide 26 (19-29) mEq/L BUN 18 (7-20) mg/dL Creatinine 1.12 H (0.57-1.11) mg/dL Est GFR ( Amer) 56 L (> 60) Est GFR (Non-Af Amer) 46 L (> 60) BUN/Creatinine Ratio 16 (6-26) Glucose 92 (70-99) mg/dL Calculated Osmolality 292 (280-300) Lactic Acid (0.5-2.2) mmol/L Calcium 9.3 (8.6-10.8) mg/dL Total Bilirubin 0.6 (0.2-1.2) mg/dL Direct Bilirubin 0.3 (0.0-0.5) mg/dL Indirect Bilirubin 0.3 (0.0-1.2) mg/dL AST 35 H (5-34) Units/L ALT 27 (0-55) Units/L Alkaline Phosphatase 82 (38-126) Units/L Troponin I 0.03 (0-0.03) ng/mL Serum Total Protein 6.7 (6.0-8.3) g/dL Albumin 3.7 (3.5-5.0) g/dL Globulin 3.0 (2.4-3.5) g/dL Albumin/Globulin Ratio 1.2 (1.1-2.2) Lipase 23 (8-78) Units/L Urine Color (Yellow) Urine Clarity (Clear) Urine pH (5.0-8.0) pH Units Ur Specific [place] (1.010-1.025) Urine Protein (Neg-Trace) mg/dL Urine Glucose (UA) (Normal) mg/dL Urine Ketones (Negative) mg/dL Urine Blood (Negative) Urine Nitrite (Negative) Urine Bilirubin (Negative) Urine Urobilinogen (Normal) mg/dL Ur Leukocyte Esterase (Negative) Urine Microscopic RBC (0-3) per hpf Urine Microscopic WBC (0-3) per hpf Ur Squamous Epith Cells (None-Few) per lpf Urine Bacteria (None-Few) per hpf Hyaline Casts (None-Few) per lpf Ur Culture Indicated? (NO) 04/15/17 04/15/17 Range/Units 02:25 02:45 WBC (4.3-11.1) K/mcL RBC (3.82-4.97) M/mcL Hgb (11.5-15.4) g/dL Hct (35.3-44.9) % MCV (83.0-100.0) fL MCH (28.0-33.3) pg MCHC (31.6-35.5) g/dL RDW (11.5-14.5) % Plt Count (140-400) K/mcL MPV (9.4-12.4) fL Immature Gran % (0-4) % Seg Neutrophils % % Lymphocytes % % Monocytes % % Eosinophils % % Basophils % % Neutrophils # (1.6-8.9) K/mcL Lymphocytes # (0.6-4.6) K/mcL Monocytes # (0.0-1.3) K/mcL Eosinophils # (0.0-0.6) K/mcL Basophils # (0.0-0.2) K/mcL Sodium (136-145) mEq/L Potassium (3.5-4.5) mEq/L Chloride (98-109) mEq/L Carbon Dioxide (19-29) mEq/L BUN (7-20) mg/dL Creatinine (0.57-1.11) mg/dL Est GFR ( Amer) (> 60) Est GFR (Non-Af Amer) (> 60) BUN/Creatinine Ratio (6-26) Glucose (70-99) mg/dL Calculated Osmolality (280-300) Lactic Acid 0.7 (0.5-2.2) mmol/L Calcium (8.6-10.8) mg/dL Total Bilirubin (0.2-1.2) mg/dL Direct Bilirubin (0.0-0.5) mg/dL Indirect Bilirubin (0.0-1.2) mg/dL AST (5-34) Units/L ALT (0-55) Units/L Alkaline Phosphatase (38-126) Units/L Troponin I (0-0.03) ng/mL Serum Total Protein (6.0-8.3) g/dL Albumin (3.5-5.0) g/dL Globulin (2.4-3.5) g/dL Albumin/Globulin Ratio (1.1-2.2) Lipase (8-78) Units/L Urine Color Yellow (Yellow) Urine Clarity Cloudy A (Clear) Urine pH 5.5 (5.0-8.0) pH Units Ur Specific [place] 1.019 (1.010-1.025) Urine Protein 30 H (Neg-Trace) mg/dL Urine Glucose (UA) Normal (Normal) mg/dL Urine Ketones 15 H (Negative) mg/dL Urine Blood Negative (Negative) Urine Nitrite Negative (Negative) Urine Bilirubin Small H (Negative) Urine Urobilinogen Normal (Normal) mg/dL Ur Leukocyte Esterase Moderate H (Negative) Urine Microscopic RBC 3-5 H (0-3) per hpf Urine Microscopic WBC 15-30 H (0-3) per hpf Ur Squamous Epith Cells Many H (None-Few) per lpf Urine Bacteria Few (None-Few) per hpf Hyaline Casts None Seen (None-Few) per lpf Ur Culture Indicated? YES A (NO) - Radiology Data Radiology results reviewed: Yes I reviewed the patient's radiology results. - EKG Data EKG attestation: Yes I reviewed and interpreted this EKG. EKG results narrative: irreregular junctional, intermittent P waves, and occasional PVCs. CO int 103, qrs dur 94, QT/QTc 438/456 Attestation Statement - Attestation Attestation: I, Brody Crowder MD, personally evaluated this patient and discussed their management with the midlevel provicer, PAC/DOCTOR OF NURSE ANESTHESIA. I reviewed the midlevel provider 's note and agree with the documented findings, medical decision making, and plan of care. 86-year-old female who was seen here 24 hours ago for complaint of nausea and upper abdominal discomfort. She had a workup including a CT scan. CT showed some distal stomach wall thickening consistent with gastritis. Labs were unremarkable. Patient was discharged home but returns tonight complaining of continued severe nausea and some upper abdominal discomfort. No vomiting. On examination patient is a well-developed well-nourished elderly female in no acute distress. She is alert and oriented 3. There is no cyanosis or diaphoresis. Breath sounds are clear and equal bilaterally. Heart regular rate and rhythm. Abdomen is soft with normal bowel sounds. There is mild epigastric tenderness. Labs reviewed. The hospitalist, Dr. Harry, was consulted and accepted admission of the patient.
[2017-04-15] MEDS ORDERED: Ondansetron 4 MG/2 ML VIAL IVP ONE (01:52)
[2017-04-15] MEDS ORDERED: 0.9 % Sodium Chloride 1,000 ML IVC ONE (01:52)
[2017-04-15] MEDS ORDERED: *HR* Morphine 2 MG/ML SYRINGE IVP ONE (01:52)
[2017-04-15 02:05] LABS: Basophils % 0.3 %; Eosinophils # 0.1 K/mcL (0.0-0.6); Eosinophils % 2.2 %; Hematocrit 35.6 % (35.3-44.9); Hemoglobin 11.2 g/dL (11.5-15.4); Immature Granulocytes % 0.3 % (0-4); Lymphocytes # 0.8 K/mcL (0.6-4.6); Lymphocytes % 13.1 %; Mean Corpuscular HGB Conc 31.5 g/dL (31.6-35.5); Mean Corpuscular Hemoglobin 30.1 pg (28.0-33.3); Mean Corpuscular Volume 95.7 fL (83.0-100.0); Mean Platelet Volume 11.1 fL (9.4-12.4); Monocytes # 0.4 K/mcL (0.0-1.3); Monocytes % 7.5 %; Neutrophils # 4.5 K/mcL (1.6-8.9); Platelet Count 165 K/mcL (140-400); Red Blood Count 3.72 M/mcL (3.82-4.97); Segmented Neutrophils % 76.6 %
[2017-04-15 02:22] LABS: Albumin 3.7 g/dL (3.5-5.0); Albumin/Globulin Ratio 1.2 (1.1-2.2); Bilirubin,Direct 0.3 mg/dL (0.0-0.5); Bilirubin,Indirect 0.3 mg/dL (0.0-1.2); Bilirubin,Total 0.6 mg/dL (0.2-1.2); Calcium 9.3 mg/dL (8.6-10.8); Potassium 4.7 mEq/L (3.5-4.5); Total Protein 6.7 g/dL (6.0-8.3)
[2017-04-15 02:51] LABS: Bilirubin,Urine Small (Negative); Blood,Urine Negative (Negative); Clarity,Urine Cloudy (Clear); Color,Urine Yellow (Yellow); Glucose,Urine (UA) Normal (Normal); Ketones,Urine 15 mg/dL (Negative); Leukocyte Esterase,Urine Moderate (Negative); Nitrite,Urine Negative (Negative); PH,Urine 5.5 pH Units (5.0-8.0); Protein,Urine 30 mg/dL (Neg-Trace); Specific Gravity,Urine 1.019 (1.010-1.025); Urobilinogen,Urine Normal (Normal)
[2017-04-15 02:53] LABS: Bacteria,Urine Few per hpf (None-Few); Hyaline Casts,Urine None Seen per lpf (None-Few); Squamous Epithelial Cell,Urine Many per lpf (None-Few); WBC,Urine 15-30 per hpf (0-3)
--- NOTE | 2017-04-15 03:46 | Internal Med History&Physical ---
Date of Encounter: 04/15/17 Time of Encounter: 03:46 Assessment and Plan (1) Abdominal pain Current visit: No Status: Acute CT abd/plv reveals nonspecific mild distal gastric wall thickening which could relate to gastritis. No obstruction, perforation, or abscess. Indeterminate 9 mm long linear hyperdensity at the julian hepatis, choledocholithiasis cannot be excluded. There is no evidence of significant biliary dilatation. Last colonoscopy 12 years ago. FOBT pending NPO Zofran prn Pain control MRCP in AM Recommend GI consult if MRCP abnormal Qualifiers: Abdominal location: generalized Qualified Code(s): R10.84 - Generalized abdominal pain (2) UTI (urinary tract infection) Current visit: Yes Status: Acute Rocephin 1g daily Urine culture pending Qualifiers: Urinary tract infection type: acute cystitis Hematuria presence: without hematuria Qualified Code(s): N30.00 - Acute cystitis without hematuria (3) Atrial fibrillation Current visit: No Status: Acute CHADS-VASc Score 5 Patient was hospitalized 2 weeks ago for atrial fibrillation and was not started on anticoagulation due to vaginal bleeding. Qualifiers: Atrial fibrillation type: persistent Qualified Code(s): I48.1 - Persistent atrial fibrillation (4) HTN (hypertension) Current visit: Yes Status: Acute Continue home meds Qualifiers: Hypertension type: unspecified Qualified Code(s): I10 - Essential (primary ) hypertension (5) HLD (hyperlipidemia) Current visit: Yes Status: Acute Continue home meds Qualifiers: Hyperlipidemia type: unspecified Qualified Code(s): E78.5 - Hyperlipidemia , unspecified (6) CHF (congestive heart failure) Current visit: No Status: Chronic No acute exacerbate. Qualifiers: Congestive heart failure type: diastolic Congestive heart failure chronicity: chronic Qualified Code(s): I50.32 - Chronic diastolic (congestive ) heart failure (7) CKD (chronic kidney disease) stage 3, GFR 30-59 ml/min Current visit: Yes Status: Acute Gentle hydration Continue to monitor (8) DVT prophylaxis Current visit: Yes Status: Acute SCDs Internal Medicine - H&P: HPI Chief complaint: Abd Pain Admitted From: Home Plans for Post Hospital Care: Home History of present illness: Ms. Francois is a 86 year old female with a PMH of atrial fibrillation, CHF, hyperlipidemia, hypertension, and osteoporosis presented c/o abd pain and nausea for the past 3 days. She reports associated anorexia, diarrhea 2 days ago , and inability to tolerate oral pain medicines down due to nausea. Patient was seen in the ED 2 days ago for same and reports no improvement in symptoms. Abdominal CT at that time revealed possible choledocholithiasis and gastritis. She reports prior cholecystectomy due to ruptured gallbladder a few years ago. Patient denies fever, chills, CP, SOB, vomiting, or recent illness. Of note, patient was hospitalized 2 weeks ago for atrial fibrillation and was not started on anticoagulation due to vaginal bleeding. Last colonoscopy was 12 years ago. Past Med Surg Social Fam HX - Past Medical History Medical history: atrial fibrillation, CHF, hyperlipidemia, hypertension, osteoporosis Psychiatric history: no psych history - Past Surgical History Surgical History: cholecystectomy, hysterectomy, knee replacement (Bilateral), orthopedic, other (Shoulder surgery) - Social History Smoking Status: Never smoker Smokeless Tobacco Status: No Alcohol use: none Drug use: none Current living situation: Home, With Family - Family History Daughter Living Status: Hx Family Cancer: Yes Internal Medicine - H&P: Meds Multivitamin [Multi-Day Vitamins] 1 each PO DAILY 04/25/15 [History] Oxycodone HCl [Roxicodone 30 MG Immed Release] 30 mg PO QID PRN 04/25/15 [ History] Calcium Carbonate [Calcium] 500 mg PO DAILY 03/31/17 [History] Cephalexin [Keflex] 250 mg PO DAILY 03/31/17 [History] Furosemide [Lasix] 20 mg PO DAILY 03/31/17 [History] Gabapentin [Neurontin] 600 mg PO TID 03/31/17 [History] Magnesium Oxide [Mag-Ox] 400 mg PO DAILY 03/31/17 [History] [place]-3 Fatty Acids [Fish Oil] 600 mg PO DAILY 03/31/17 [History] Potassium Chloride [K-Tab ER] 8 meq PO DAILY 03/31/17 [History] Vit C/Vit E/Lutein/Min/[place]-3 [Ocuvite Softgel] 1 each PO DAILY 03/31/17 [ History] traZODone [TraZODone] 50 mg PO HS PRN 03/31/17 [History] Metoprolol [Lopressor] 50 mg PO BID #120 tab 04/03/17 [Rx] Simvastatin [Zocor] 10 mg PO HS #120 tab 04/03/17 [Rx] Ondansetron ODT [Zofran ODT] 4 mg SL Q6HR PRN #30 tab.rapdis 04/14/17 [Rx] 3 Allergy/AdvReac Type Severity Reaction Status Date / Time aspirin Allergy Rash Verified 04/15/17 01:28 codeine Allergy Rash Verified 04/15/17 01:28 All Systems PM: A 10-system review of systems was performed and is negative for pertinent findings except as documented above in the HPI. - Constitutional Constitutional: anorexia, no chills, no fatigue, no fever(s), no lethargy, no weight gain, no weight loss - EENT Eyes: no change in vision Ears: decreased hearing Nose, mouth and throat: no nasal congestion, no sinus pressure - Cardiovascular Cardiovascular ROS IM: no chest pain, no diaphoresis, no dyspnea, no palpitations - Respiratory Respiratory: no cough, no dyspnea, no excessive phlegm production - Gastrointestinal Gastrointestinal: abdominal pain, diarrhea, nausea, no bloating, no constipation , no excessive flatus, no hematemesis, no hematochezia, no melena, no vomiting - Genitourinary Genitourinary: no dysuria, no urinary frequency, no urinary urgency - Musculoskeletal Musculoskeletal ROS IM: arthralgias, back pain, no muscle cramps - Integumentary Integumentary IM: no new lesions, no rash - Neurological Neurological ROS: no dizziness, no numbness, no weakness - Psychiatric Psychiatric: anxiety, no depression - Endocrine Endocrine IM: no polydipsia, no polyphagia, no polyuria - Constitutional Vitals: Temp Pulse Resp BP Pulse Ox 98.3 F 82 18 126/52 96 04/15/17 01:18 04/15/17 03:23 04/15/17 03:23 04/15/17 03:23 04/15/17 03:23 Internal Med - H&P Results - Labs CBC & Chem 7: 04/15/17 01:59 04/15/17 01:59 Labs: Short CBC 04/15/17 Range/Units 01:59 WBC 5.9 (4.3-11.1) K/mcL Hgb 11.2 L (11.5-15.4) g/dL Hct 35.6 (35.3-44.9) % Plt Count 165 (140-400) K/mcL Neutrophils # 4.5 (1.6-8.9) K/mcL BMP 04/15/17 01:59 Sodium 140 Potassium 4.7 H Chloride 104 Carbon Dioxide 26 BUN 18 Creatinine 1.12 H Glucose 92 Calcium 9.3 Cardiac Enzymes 04/15/17 Range/Units 01:59 Troponin I 0.03 (0-0.03) ng/mL Liver Function 04/15/17 Range/Units 01:59 Total Bilirubin 0.6 (0.2-1.2) mg/dL Direct Bilirubin 0.3 (0.0-0.5) mg/dL AST 35 H (5-34) Units/L ALT 27 (0-55) Units/L Alkaline Phosphatase 82 (38-126) Units/L Albumin 3.7 (3.5-5.0) g/dL Urine 04/15/17 Range/Units 02:45 Urine Color Yellow (Yellow) Urine Clarity Cloudy A (Clear) Urine pH 5.5 (5.0-8.0) pH Units Ur Specific [place] 1.019 (1.010-1.025) Urine Protein 30 H (Neg-Trace) mg/dL Urine Glucose (UA) Normal (Normal) mg/dL
--- NOTE | 2017-04-15 04:28 | Event Note ---
Date of Encounter: 04/15/17 Time of Encounter: 04:24 Patient seen and examined with emergency medical technician/driver. Patient presents with a main complain of nausea. CT 2 days ago showed gastritis. She denies any hematemesis, melena and hematochezia. Also, questionable UTI. Will start PPI, ceftriaxone, fluids. Observation admission
[2017-04-15] MEDS ORDERED: *HR* Morphine 2 MG/ML SYRINGE IVP PRN (04:41)
[2017-04-15] MEDS ORDERED: Naloxone 0.4 MG/ML INJ IVP PRN (04:41)
[2017-04-15] MEDS ORDERED: Metoclopramide 10 MG/2 ML VIAL IVP PRN (05:46)
[2017-04-15] MEDS: 0.9 % Sodium Chloride 1,000 ML IVC SCH ×2 (05:48→23:41)
[2017-04-15] MEDS ORDERED: Famotidine 20 MG/2 ML VIAL IVP SCH (06:00)
[2017-04-15 10:05] LABS: Magnesium 1.7 mg/dL (1.6-2.6)
[2017-04-15 10:35] LABS: INR 1.1
[2017-04-15 10:38] LABS: Activated Partial Thrombo Time 28.1 Seconds (26.0-36.0)
[2017-04-15] MEDS: *HR* HYDROmorphone (PF) 1 MG/ML SYRINGE IVP PRN ×2 (12:28→21:41)
--- NOTE | 2017-04-15 13:21 | Internal Med Progress Note ---
Date of Encounter: 04/15/17 Time of Encounter: 09:00 - Assessment and plan (1) Abdominal pain Current Visit: Yes Status: Acute Assessment and plan: Pt denies abdominal pain currently. She was admitted with abdominal pain last night, states it was diffuse and not relieved. CT abdomen/pelvis showed nonspecific mild distal gastric wall thickening which could relate to gastritis. There is no obstruction, perforation, or abscess. There is an indeterminate 9 mm long linear height did not T and choledocholithiasis cannot be excluded. Patient is to have an MRCP today. As of this time, has not been done yet. Nothing by mouth Zofran as needed Pain control GI consult if MRCP is abnormal Qualifiers: Abdominal location: generalized Qualified Code(s): R10.84 - Generalized abdominal pain (2) Nausea Current Visit: Yes Status: Acute Assessment and plan: Pt presents with abdominal pain and nausea. Denies now. Continue antiemetics as needed and IVF hydration. (3) UTI (urinary tract infection) Current Visit: Yes Status: Acute Assessment and plan: Urinalysis showed cloudy urine with moderate leukocyte esterase, 5-30 white cells, few bacteria. Culture is pending. She is being treated for urinary tract infection at this point with Rocephin 1000 mg IV daily. Will adjust or discontinue antibiotics when culture results are available. Qualifiers: Urinary tract infection type: acute cystitis Hematuria presence: without hematuria Qualified Code(s): N30.00 - Acute cystitis without hematuria (4) Atrial fibrillation Current Visit: Yes Status: Chronic Assessment and plan: Recent diagnosis. Pt has not started anticoagulation due to vaginal bleeding. Denies vaginal bleeding now and states that she did not follow up for the vaginal bleeding. Qualifiers: Atrial fibrillation type: persistent Qualified Code(s): I48.1 - Persistent atrial fibrillation (5) CHF (congestive heart failure) Current Visit: Yes Status: Chronic Assessment and plan: History. No acute exacerbation. No peripheral edema, lungs are clear. Denies chest pain. Qualifiers: Congestive heart failure type: diastolic Congestive heart failure chronicity: chronic Qualified Code(s): I50.32 - Chronic diastolic (congestive ) heart failure (6) Gastritis Current Visit: No Status: Suspected Assessment and plan: CT/CT abd pelvis wo no iv no oral IMPRESSION: 1. Nonspecific mild distal gastric wall thickening which could relate to gastritis. No obstruction, perforation, or abscess. 2. Indeterminate 9 mm long linear hyperdensity at the julian hepatis, choledocholithiasis cannot be excluded. If clinically indicated further evaluation with MRCP may be helpful. There is no evidence of significant biliary dilatation. 3. Rectocele. D/ / 04/13/2017 22:55:15 Krishna Martines MD / dayron Interpreting Provider: Krishna Martines MD Qualifiers: Gastritis type: unspecified gastritis Chronicity: acute Gastritis bleeding: without bleeding Qualified Code(s): K29.00 - Acute gastritis without bleeding (7) DVT prophylaxis Current Visit: Yes Status: Acute Assessment and plan: Pt takes Xarelto, has been held. Calf pumps and up to chair bid. (8) HLD (hyperlipidemia) Current Visit: Yes Status: Chronic Assessment and plan: Chronic. Continue simvastatin and fish oil after discharge. Qualifiers: Hyperlipidemia type: unspecified Qualified Code(s): E78.5 - Hyperlipidemia , unspecified (9) HTN (hypertension) Current Visit: Yes Status: Chronic Assessment and plan: Chronic. Continue home medications. Well-controlled in inpatient setting. Qualifiers: Hypertension type: unspecified Qualified Code(s): I10 - Essential (primary ) hypertension (10) CKD (chronic kidney disease) stage 3, GFR 30-59 ml/min Current Visit: Yes Status: Chronic Assessment and plan: Serum creatinine is 1.12, GFR is 46. Continue to avoid nephrotoxins, this appears to be patient's baseline. Continue to monitor labs. - Time Spent With Patient less than 15 minutes - Subjective Interval history: Patient was seen and assessed at 9 AM. She was asleep, arouses easily. Currently she denies any abdominal pain or nausea. She states that she never did have abdominal pain, that it was more nausea than anything. Her abdomen is mildly tender in right upper quadrant and epigastric area. Patient is aware of plan of care, questions answered. - Constitutional Vitals: Temp Pulse Resp BP Pulse Ox 98.3 F 66 14 152/83 93 04/15/17 11:00 04/15/17 11:00 04/15/17 11:00 04/15/17 11:00 04/15/17 11:00 General appearance: Present: cooperative, pleasant, no acute distress, answers questions appropriately - Head Head exam: Present: atraumatic, normal inspection, normocephalic - Eye Eye exam: Present: normal appearance, conjuntiva pink, sclera anicteric - Neck Neck exam general surgery: Present: supple, trachea midline. Absent: lymphadenopathy - Respiratory Respiratory exam: Present: decreased breath sounds, CTAB. Absent: accessory muscle use, chest wall tenderness, rales, rhonchi, wheezes - Cardiovascular Cardiovascular exam: Present: RRR, +S1, +S2. Absent: diastolic murmur, gallop, rubs, systolic murmur - GI/Abdominal GI/Abdominal exam: Present: hypoactive bowel sounds, soft, tenderness, no peritoneal signs. Absent: distended, hepatomegaly - Extremities Exam Extremities exam: Present: normal capillary refill, normal inspection, warm, radial pulses palpable and symmetrical. Absent: calf tenderness, cyanotic, pedal edema, tenderness - Neurological Exam Neurological exam: Present: alert, oriented X3, no focal deficits. Absent: facial droop, speech deficit - Skin Skin exam: Present: dry, intact, normal color, warm. Absent: rash Internal Medicine: Result - Labs CBC & Chem 7: 04/15/17 01:59 04/15/17 01:59 - ABG Interpretation ABG results: PT/INR, D-dimer PT 12.0 Seconds (9.4-12.1) 04/15/17 10:23 Consult Discharge Plan - Plan Referrals: Ernst Schuler MD [Primary Care Provider] -
[2017-04-15] MEDS: Ondansetron 4 MG/2 ML VIAL IVP PRN (15:14)
[2017-04-15] MEDS ORDERED: *HR* OxyCODONE Immed Rel 15 MG TABLET PO ONE (23:24)
[2017-04-16] MEDS ORDERED: *HR* Digoxin 0.5 MG/2 ML AMPUL IVP ONE (00:10)
[2017-04-16] MEDS: Ondansetron 4 MG/2 ML VIAL IVP PRN (00:20)
[2017-04-16] MEDS ORDERED: *HR* Metoprolol 5 MG/5 ML VIAL IVP ONE ×2 (00:31→00:38)
[2017-04-16 04:36] LABS: Basophils % 0.5 %; Eosinophils # 0.1 K/mcL (0.0-0.6); Eosinophils % 2.1 %; Hematocrit 37.2 % (35.3-44.9); Hemoglobin 11.8 g/dL (11.5-15.4); Immature Granulocytes % 0.2 % (0-4); Lymphocytes # 1.1 K/mcL (0.6-4.6); Mean Corpuscular HGB Conc 31.7 g/dL (31.6-35.5); Mean Corpuscular Hemoglobin 30.1 pg (28.0-33.3); Mean Corpuscular Volume 94.9 fL (83.0-100.0); Mean Platelet Volume 11.6 fL (9.4-12.4); Monocytes # 0.5 K/mcL (0.0-1.3); Monocytes % 8.6 %; Neutrophils # 4.5 K/mcL (1.6-8.9); Platelet Count 168 K/mcL (140-400); Red Blood Count 3.92 M/mcL (3.82-4.97); Segmented Neutrophils % 71.6 %
[2017-04-16 04:48] LABS: BUN/Creatinine Ratio 14 (6-26); Blood Urea Nitrogen 13 mg/dL (7-20); Calcium 9.1 mg/dL (8.6-10.8); Carbon Dioxide 24 mEq/L (19-29); Chloride 103 mEq/L (98-109); Glucose 70 mg/dL (70-99); Osmolality,Calculated 283 (280-300); Potassium 4.2 mEq/L (3.5-4.5); Sodium 137 mEq/L (136-145); eGFR For African Americans > 60 (> 60); eGFR For Non-African Americans 56 (> 60)
[2017-04-16] MEDS ORDERED: Famotidine 20 MG/2 ML VIAL IVP SCH (06:00)
[2017-04-16] MEDS ORDERED: *HR* OxyCODONE Immed Rel 15 MG TABLET PO PRN (08:28)
[2017-04-16] MEDS ORDERED: traZODone 50 MG TABLET PO PRN (08:28)
[2017-04-16] MEDS ORDERED: Magnesium Oxide 400 MG TABLET PO SCH (09:00)
[2017-04-16] MEDS ORDERED: Furosemide 20 MG TABLET PO SCH (09:00)
[2017-04-16] MEDS ORDERED: Gabapentin 300 MG CAPSULE PO SCH (09:00)
[2017-04-16] MEDS ORDERED: Multivit/Ca/Min/Fe/FA 1 TAB TABLET PO SCH (09:00)
[2017-04-16 16:28] VITALS: BP 136/63
--- NOTE | 2017-04-16 18:15 | Discharge Summary ---
Date of Encounter: 04/16/17 Time of Encounter: 09:00 - Discharge Diagnosis (1) Abdominal pain Priority: Primary Status: Acute Comments: Pt denies abdominal pain currently.CT abdomen/pelvis showed nonspecific mild distal gastric wall thickening which could relate to gastritis. There is no obstruction, perforation, or abscess. There is an indeterminate 9 mm long linear height did not T and choledocholithiasis cannot be excluded. MRCP negative. Will send Zofran home for nausea as needed. Patient has advanced to full liquid diet. She denies pain with eating and will advance to regular diet at dinnertime prior to discharge. Abdomen is soft, slightly rounded, nontender to palpation today, bowel sounds present. Qualifiers: Abdominal location: generalized Qualified Code(s): R10.84 - Generalized abdominal pain (2) Nausea Priority: Secondary Status: Acute Comments: Patient denies nausea. She will sent home with prescription for Zofran ODT. (3) UTI (urinary tract infection) Priority: Secondary Status: Acute Comments: Urine culture was negative. No pathogens isolated. Antibiotic has been stopped. Qualifiers: Urinary tract infection type: acute cystitis Hematuria presence: without hematuria Qualified Code(s): N30.00 - Acute cystitis without hematuria (4) Atrial fibrillation Priority: Secondary Status: Chronic Comments: Patient recently admitted with A. cookie. She was sent home only with medication for rate control. At that time, patient was found to have vaginal bleeding. IN[facility]TEBRATE PALEONTOLOGIST was consulted, they did not see her, or if they did they did not write a note. I spoke with the collection systems technician today who states that she feels she remembers hearing about this patient and that she had heard that perhaps the patient had had a pelvic exam in the emergency department which cause trauma due to the atrophy of her vaginal jefferson which caused bleeding. Pelvic ultrasound was done in previous admission that showed prior hysterectomy. Business Services Administrator and I discussed that patient could perhaps have a cervix, however, the risk of no anticoagulation is greater than the risk of vaginal bleeding at this time. I also discussed this with Karuna Mccarty CNP for cardiology, we agreed that patient will start anticoagulation on discharge. She was originally discharged with Eliquis , which she has taken, and will not be able to afford to fill. Patient recently had a prescription for Xarelto filled at [facility] pharmacy on . She will continue this on discharge. She will follow up in the office with cardiology for evaluation, if patient begins to bleed. They will stop the Xarelto. She is currently rate controlled with metoprolol 75 mg by mouth twice daily. Qualifiers: Atrial fibrillation type: persistent Qualified Code(s): I48.1 - Persistent atrial fibrillation (5) CHF (congestive heart failure) Priority: Secondary Status: Chronic Comments: No acute exacerbation. No peripheral edema, lungs are clear. Denies chest pain. Qualifiers: Congestive heart failure type: diastolic Congestive heart failure chronicity: chronic Qualified Code(s): I50.32 - Chronic diastolic (congestive ) heart failure (6) Gastritis Priority: Secondary Status: Suspected Comments: Per CT scan. Patient denies abdominal pain now. She is able to eat. Abdomen is slightly rounded, soft, nontender. Patient will need to follow with primary care for further evaluation. Qualifiers: Gastritis type: unspecified gastritis Chronicity: acute Gastritis bleeding: without bleeding Qualified Code(s): K29.00 - Acute gastritis without bleeding (7) DVT prophylaxis Priority: Secondary Status: Acute (8) HLD (hyperlipidemia) Priority: Secondary Status: Chronic Comments: Chronic. Continue statin. Qualifiers: Hyperlipidemia type: unspecified Qualified Code(s): E78.5 - Hyperlipidemia , unspecified (9) HTN (hypertension) Priority: Secondary Status: Chronic Comments: Chronic. Continue home medications. Qualifiers: Hypertension type: unspecified Qualified Code(s): I10 - Essential (primary ) hypertension (10) CKD (chronic kidney disease) stage 3, GFR 30-59 ml/min Priority: Secondary Status: Chronic Comments: Renal function has returned to normal. Serum creatinine is 0.94, GFR is 56. Continue to avoid nephrotoxins and follow with primary care for continued evaluation and monitoring. - Discharge Medications Prescriptions: Ondansetron ODT [Zofran ODT] 4 mg SL Q6HR PRN #30 tab.rapdis PRN Reason: Nausea And Vomiting Home Medications: Multivitamin [Multi-Day Vitamins] 1 each PO DAILY 04/25/15 [History] Oxycodone HCl [Roxicodone 30 MG Immed Release] 30 mg PO QID PRN 04/25/15 [ History] Calcium Carbonate [Calcium] 500 mg PO DAILY 03/31/17 [History] Furosemide [Lasix] 20 mg PO DAILY 03/31/17 [History] Gabapentin [Neurontin] 600 mg PO TID 03/31/17 [History] Magnesium Oxide [Mag-Ox] 400 mg PO DAILY 03/31/17 [History] [employer] Fatty Acids [Fish Oil] 600 mg PO DAILY 03/31/17 [History] Potassium Chloride [K-Tab ER] 8 meq PO DAILY 03/31/17 [History] Vit C/Vit E/Lutein/Min/[employer] [Ocuvite Softgel] 1 each PO DAILY 03/31/17 [ History] traZODone [TraZODone] 50 mg PO HS PRN 03/31/17 [History] Metoprolol [Lopressor] 50 mg PO BID #120 tab 04/03/17 [Rx] Simvastatin [Zocor] 10 mg PO HS #120 tab 04/03/17 [Rx] Metoprolol [Lopressor] 50 mg PO BID #0 tablet 04/16/17 [Rx] Multivit/Ca/Min/Fe/FA [Thera M Plus] 1 tab PO DAILY tablet 04/16/17 [Rx] Ondansetron ODT [Zofran ODT] 4 mg SL Q6HR PRN #30 tab.rapdis 04/16/17 [Rx] Allergies/Adverse Reactions: 3 Allergy/AdvReac Type Severity Reaction Status Date / Time aspirin Allergy Rash Verified 04/15/17 01:28 codeine Allergy Rash Verified 04/15/17 01:28 Procedures/tests Complete & Pending: Procedures Performed prior 72 hours Category Date Time Status MR MRCP [MR abdomen wo con] [MR] Routine MRI 04/15/17 05:10 Completed ECG 12 lead ECG [ECG] Routine Y 04/15/17 01:35 Completed Date of admission: 04/15/17 03:52 Primary care physician: Ernst Schuler MD Consults: 04/16/17 11:16 Consult to Gym Manager [CONS] Routine Reason for SW Consult: Xarelto Discharging clinician: Maryanne Lobato Anticipated date of discharge: 04/16/17 - Patient Status Disposition: Home, Self-Care Condition: Good Functional capacity at discharge: uses cane/walker Overall status at discharge: patient is back to baseline - Discharge Instructions Follow Up With: Ernst Schuler MD [Primary Care Provider] - Additional Instructions: Follow-up with your primary care provider within the next 7-10 days for a follow -up visit. Follow-up with cardiology as scheduled. Start taking the Xarelto at home. Continue the rest of her home medications. Resume normal activities as tolerated. Return to the emergency department as needed for any other problems or concerns , or if symptoms return or worsen. - Diet and Activity Activity: increase activity as tolerated Diet: advance to your usual diet Hospital course: Ms. Francois is a 86 year old female with past medical history of coronary artery disease, congestive heart failure, anxiety, recent diagnosis of A. fib, COPD stage III, hyperlipidemia, hypertension. She presented to the emergency department with abdominal pain and weakness. She is being treated for urinary tract infection. Culture returned negative and antibiotics were stopped. She had CT abdomen and pelvis in the emergency department that showed nonspecific mild distal gastric wall thickening which could be related to gastritis. There is an indeterminate 9 mm long linear hyperdensity at the julian hepatis choledocholithiasis cannot be excluded. Patient also has a rectocele. MRCP showed no biliary ductal dilatation or definitive evidence for choledocholithiasis. Patient states that she feels significantly better and is ready to go home. Abdomen is rounded slightly, soft, bowel sounds present, no tenderness to palpation. She is able to eat and drink. Labs have returned to normal, including renal function. Labs are stable and within normal limits. Patient has recent diagnosis of atrial fibrillation. That time she was sent home with no anticoagulation due to possible vaginal bleeding of unknown etiology. She did not follow-up with the vaginal bleeding. Today she tells me that she has not had vaginal bleeding for 10 years. I spoke with the nurse collection systems technician for the SENIOR DIRECT[employer] group, Evon. She states that although the INVERTEBRATE PALEONTOLOGIST consult was made, no one saw her, or there is no note in that we can find. She states that she remembers hearing about the patient and perhaps had heard that she had had a pelvic exam done in the emergency department and vaginal bleeding was due to a tear due to atrophy of patient's vaginal jefferson. Patient is not having a vaginal bleeding at this time. I also discussed this case with cardiology LOG DRIVER, we all agree that the risk of not anticoagulating the patient is higher than if we do. Patient had a pelvic ultrasound done that showed that she has had a prior hysterectomy. She may indeed have a cervix, however cardiology LOG DRIVER states that she will follow up with her and if she does start bleeding they will stop the medication. She was originally discharged with a prescription for Eliquis, and after the first month, she was unable to afford it. Somehow she obtained a prescription for Xarelto, which she just had filled on April 12. She will continue this at home. She will follow up with cardiology outpatient, she will follow up with primary care for continued evaluation and possible evaluation of the rectocele. Patient is ready for discharge. - Time Spent with Patient Total time spent providing and/or coordinating discharge services: Less than 30 minutes - Constitutional Vitals: Temp Pulse Resp BP Pulse Ox 98.4 F 72 15 136/63 92 04/16/17 16:28 04/16/17 16:28 04/16/17 16:28 04/16/17 16:28 04/16/17 16:28 General appearance: Present: cooperative, pleasant, no acute distress, answers questions appropriately - Head Head exam: Present: atraumatic, normal inspection, normocephalic - Eye Eye exam: Present: normal appearance, conjuntiva pink, sclera anicteric - Neck Neck exam general surgery: Present: supple, trachea midline. Absent: lymphadenopathy, tenderness - Respiratory Respiratory exam: Present: CTAB. Absent: accessory muscle use, rales, respiratory distress, rhonchi, wheezes - Cardiovascular Cardiovascular exam: Present: irregular rhythm, +S1, +S2. Absent: diastolic murmur, gallop, rubs, systolic murmur - GI/Abdominal GI/Abdominal exam: Present: normal bowel sounds, soft, no peritoneal signs. Absent: distended, hepatomegaly, tenderness - Extremities Exam Extremities exam: Present: normal capillary refill, normal inspection, warm, radial pulses palpable and symmetrical. Absent: calf tenderness, cyanotic, pedal edema - Neurological Exam Neurological exam: Present: alert, oriented X3, no focal deficits. Absent: facial droop, speech deficit - Skin Skin exam: Present: dry, intact, normal color, warm. Absent: rash - VTE Documentation of Mechanical Device: Intermittent pneumatic compression device
--- NOTE | 2017-04-19 17:19 | Electrocardiograph Report ---
[place] [address] Test Date: 2017-04-16 Pat Name: Nelda Francois Department: 113 Room: 3B23 Gender: F Tobacco Roller: : 1930 Requested By: Maryanne Lobato Order Number: [id number] Reading MD: Kayla Montalvo Measurements Intervals [place] Rate: 113 P: AR: 0 QRS: 66 QRSD: 97 T: -43 QT: 251 QTc: 318 Interpretive Statements ATRIAL FLUTTER/TACHYCARDIA WITH RAPID VENTRICULAR RESPONSE NONSPECIFIC ST & T-WAVE ABNORMALITY Electronically Signed On 04-19-2017 17:18:12 EDT by Kayla Montalvo
--- NOTE | 2017-04-20 17:29 | Electrocardiograph Report ---
[address] [address] Test Date: 2017-04-15 Pat Name: Nelda Francois Department: 103 Room: 3B23 Gender: F Supervisor: BYRON : 1930 Requested By: Maryanne Lobato Order Number: [id number] Reading MD: Mati Gonzalez Measurements Intervals [place] Rate: 69 P: 251 WI: 103 QRS: 42 QRSD: 94 T: 61 QT: 438 QTc: 456 Interpretive Statements Sinus rhythm with a run of PAT Electronically Signed On 04-20-2017 17:27:44 EDT by Mati Gonzalez
== END 2017-04-16 17:01 | disposition home or self-care (01) ==
LOC: 3BNU 01:17 → EMEROO 01:17 → 3BNU 04:21
PROVIDERS: ADMIT Hospitalist; ATTEND Registered Nurse

== ENCOUNTER 2017-05-31 21:54 | Inpatient (IN) ==
--- NOTE | 2017-05-31 22:08 | Emergency Department Note ---
Disposition Clinical Impression: Atrial fibrillation, HLD (hyperlipidemia), HTN (hypertension), Dehydration, Frail elderly, Atrial fibrillation with RVR, Anemia Disposition: Admitted As Inpatient Referrals: Ernst Schuler MD [Primary Care Provider] - Forms: ED Satisfaction Letter General Adult HPI - General Chief complaint: ED Arrhythmia/Palpitations Stated complaint: Tachycardia Source: patient, EMS Limitations: no limitations - History of Present Illness HPI Narrative: 86-year-old female with a history of atrial fibrillation reports emergency department complaining of a high heart rate. The patient is not passed out. She denies chest pain or acute shortness of breath. No leg swelling or pain or coughing up blood. The patient denies anticoagulant therapy. The patient states she takes medication to help regulate her heart rate. There is been no difficulty moving the arms or legs, no unilateral arm or leg weakness or numbness no slurred speech or facial droop no confusion headache neck stiffness rash abdominal pain vomiting or diarrhea. No urinary symptoms. No syncope. She has had no fever. There is no history of bleeding of any type or other complaints or concerns. The patient reports her heart rate is been very fast and slow down some since she got here. Pain Scale: 0 - Related Data Home Medications Medication Instructions Recorded Confirmed RX: Multivitamin [Multi-Day 1 each PO DAILY 04/25/15 04/15/17 Vitamins] RX: Oxycodone HCl [Roxicodone 30 30 mg PO QID PRN 04/25/15 04/15/17 MG Immed Release] RX: Calcium Carbonate [Calcium] 500 mg PO DAILY 03/31/17 04/15/17 RX: Furosemide [Lasix] 20 mg PO DAILY 03/31/17 04/15/17 RX: Gabapentin [Neurontin] 600 mg PO TID 03/31/17 04/15/17 RX: Magnesium Oxide [Mag-Ox] 400 mg PO DAILY 03/31/17 04/15/17 RX: [place]-3 Fatty Acids [Fish Oil] 600 mg PO DAILY 03/31/17 04/15/17 RX: Potassium Chloride [K-Tab ER] 8 meq PO DAILY 03/31/17 04/15/17 RX: Vit C/Vit E/Lutein/Min/[place]-3 1 each PO DAILY 03/31/17 04/15/17 [Ocuvite Softgel] RX: traZODone [TraZODone] 50 mg PO HS PRN 03/31/17 04/15/17 Previous Rx's Medication Instructions Recorded RX: Metoprolol [Lopressor] 50 mg PO BID #120 tab 04/03/17 RX: Simvastatin [Zocor] 10 mg PO HS #120 tab 04/03/17 RX: Metoprolol [Lopressor] 50 mg PO BID #0 tablet 04/16/17 RX: Multivit/Ca/Min/Fe/FA [Thera M 1 tab PO DAILY tablet 04/16/17 Plus] RX: Ondansetron ODT [Zofran ODT] 4 mg SL Q6HR PRN #30 tab.rapdis 04/16/17 Allergies Allergy/AdvReac Type Severity Reaction Status Date / Time aspirin Allergy Rash Verified 04/15/17 01:28 codeine Allergy Rash Verified 04/15/17 01:28 All systems ED: reviewed and negative except as stated. Past Medical History - Past Medical History Medical history: Reports: atrial fibrillation, CHF, hyperlipidemia, hypertension , osteoporosis Surgical history: Reports: cholecystectomy, hysterectomy, knee replacement ( Bilateral), orthopedic, other (Shoulder surgery) Psychiatric history: Reports: no psych history - Social History Smoking Status: Never smoker Smokeless Tobacco Status: No Alcohol use: Reports: none Drug use: Reports: none Physical Exam - General Limitations: no limitations General appearance: alert, in no apparent distress - Head Head exam: atraumatic, normocephalic, normal inspection - Eye Eye exam: Present: normal appearance, PERRL, EOMI - ENT ENT exam: normal exam, normal oropharynx, mucous membranes moist, TM's normal bilaterally, normal external ear exam - Neck Neck exam: Present: normal inspection, full ROM, trachea midline - Chest Chest inspection: Present: symmetric chest wall rise. Absent: tenderness - Respiratory Respiratory exam: Present: normal lung sounds bilaterally - Cardiovascular Cardiovascular exam: Present: tachycardia, irregular rhythm - Abdominal Exam Abdominal exam: Present: soft, Non-Tender, normal bowel sounds. Absent: tenderness, distention, guarding, rebound, rigidity - Extremities Exam Extremities exam: Present: normal inspection, full ROM, normal capillary refill. Absent: tenderness, pedal edema, joint swelling, calf tenderness - Expanded Lower Extremity Exam Lower leg exam: Absent: Homans' sign Neurovascular/Tendon exam: Present: normal capillary refill. Absent: motor deficit, sensory deficit, tendon deficit, extremity cold to touch, pallor - Back Exam Back exam: Present: normal inspection, full ROM. Absent: tenderness, CVA tenderness (R), CVA tenderness (L), vertebral tenderness - Neurological Exam Neurological exam: Present: alert, oriented X3, CN II-XII intact. Absent: motor sensory deficit - Psychiatric Psychiatric exam: Present: normal affect, normal mood - Skin Skin exam: Present: warm, dry, intact, normal color. Absent: rash, cyanosis, diaphoresis, erythema, pallor, mottled Course Vital Signs Temperature 98.2 F 05/31/17 21:56 Pulse Rate 94 05/31/17 21:56 Respiratory Rate 22 05/31/17 21:56 Blood Pressure 142/92 05/31/17 21:56 O2 Sat by Pulse Oximetry 96 05/31/17 21:56 Temperature 98.2 F 05/31/17 21:56 Pulse Rate 94 06/01/17 00:00 Respiratory Rate 18 06/01/17 00:00 Blood Pressure 120/85 06/01/17 00:00 O2 Sat by Pulse Oximetry 93 06/01/17 00:00 Oxygen Delivery Oxygen Delivery Nasal Cannula Medical Decision Making - [facility] Narrative Medical decision making narrative: The patient complains of a fast heart rate, her EKG showed atrial fibrillation just over 100 but in the emergency department her rate went up to 125, she appears to have an element of dehydration, she has a history of chronic renal insufficiency, notably her last BUN was 13 and her creatinine was 0.94. Significant changes noted at 38 and 1.5 today. She may have an element of acute renal insufficiency The patient has not been experiencing chest pain, however persistent tachycardia is noted. The patient was given IV fluids in the emergency department and monitored closely. Based on her age and evident tachycardia and likely dehydration and potential acute kidney injury, I have consult with the hospitalist on-call, I feel be appropriate to admit the patient to the hospital based on her age, abnormal vital signs, and abnormal laboratory testing. The hospitalist has accepted the patient to their care. The patient is currently stable and agreeable. IV fluids were given in the ED. - Lab Data Lab results reviewed: Yes I reviewed the patient's lab results. Result diagrams: 05/31/17 22:23 05/31/17 22:23 Lab Results 11/05/31/17 05/31/17 Range/Units 22:23 22:23 22:23 WBC 5.3 (4.3-11.1) K/mcL RBC 3.57 L (3.82-4.97) M/mcL Hgb 10.9 L (11.5-15.4) g/dL Hct 34.8 L (35.3-44.9) % MCV 97.5 (83.0-100.0) fL MCH 30.5 (28.0-33.3) pg MCHC 31.3 L (31.6-35.5) g/dL RDW 14.5 (11.5-14.5) % Plt Count 149 (140-400) K/mcL MPV 11.3 (9.4-12.4) fL Immature Gran % 0.2 (0-4) % Seg Neutrophils % 75.9 % Lymphocytes % 12.7 % Monocytes % 8.3 % Eosinophils % 2.3 % Basophils % 0.6 % Neutrophils # 4.0 (1.6-8.9) K/mcL Lymphocytes # 0.7 (0.6-4.6) K/mcL Monocytes # 0.4 (0.0-1.3) K/mcL Eosinophils # 0.1 (0.0-0.6) K/mcL Basophils # 0.0 (0.0-0.2) K/mcL PT 16.3 H (9.4-12.1) Seconds INR 1.5 APTT 34.1 (26.0-36.0) Seconds Sodium 140 (136-145) mEq/L Potassium 4.9 H (3.5-4.5) mEq/L Chloride 105 (98-109) mEq/L Carbon Dioxide 28 (19-29) mEq/L BUN 38 H (7-20) mg/dL Creatinine 1.50 H (0.57-1.11) mg/dL Est GFR ( Amer) 40 L (> 60) Est GFR (Non-Af Amer) 33 L (> 60) BUN/Creatinine Ratio 25 (6-26) Glucose 123 H (70-99) mg/dL POC Glucose (58-89) Calculated Osmolality 300 (280-300) Lactic Acid (0.5-2.2) mmol/L Calcium 9.3 (8.6-10.8) mg/dL Magnesium 2.0 (1.6-2.6) mg/dL Total Bilirubin (0.2-1.2) mg/dL Direct Bilirubin (0.0-0.5) mg/dL Indirect Bilirubin (0.0-1.2) mg/dL AST (5-34) Units/L ALT (0-55) Units/L Alkaline Phosphatase (38-126) Units/L Troponin I (0-0.03) ng/mL C-Reactive Protein 2 (Less than 5) mg/L Serum Total Protein (6.0-8.3) g/dL Albumin (3.5-5.0) g/dL Globulin (2.4-3.5) g/dL Albumin/Globulin Ratio (1.1-2.2) Urine Color (Yellow) Urine Clarity (Clear) Urine pH (5.0-8.0) pH Units Ur Specific [place] (1.010-1.025) Urine Protein (Neg-Trace) mg/dL Urine Glucose (UA) (Normal) mg/dL Urine Ketones (Negative) mg/dL Urine Blood (Negative) Urine Nitrite (Negative) Urine Bilirubin (Negative) Urine Urobilinogen (Normal) mg/dL Ur Leukocyte Esterase (Negative) Urine Microscopic RBC (0-3) per hpf Urine Microscopic WBC (0-3) per hpf Ur Squamous Epith Cells (None-Few) per lpf Urine Bacteria (None-Few) per hpf Hyaline Casts (None-Few) per lpf Ur Culture Indicated? (NO) 05/31/17 05/31/17 05/31/17 Range/Units 22:23 22:23 22:23 WBC (4.3-11.1) K/mcL RBC (3.82-4.97) M/mcL Hgb (11.5-15.4) g/dL Hct (35.3-44.9) % MCV (83.0-100.0) fL MCH (28.0-33.3) pg MCHC (31.6-35.5) g/dL RDW (11.5-14.5) % Plt Count (140-400) K/mcL MPV (9.4-12.4) fL Immature Gran % (0-4) % Seg Neutrophils % % Lymphocytes % % Monocytes % % Eosinophils % % Basophils % % Neutrophils # (1.6-8.9) K/mcL Lymphocytes # (0.6-4.6) K/mcL Monocytes # (0.0-1.3) K/mcL Eosinophils # (0.0-0.6) K/mcL Basophils # (0.0-0.2) K/mcL PT (9.4-12.1) Seconds INR APTT (26.0-36.0) Seconds Sodium (136-145) mEq/L Potassium (3.5-4.5) mEq/L Chloride (98-109) mEq/L Carbon Dioxide (19-29) mEq/L BUN (7-20) mg/dL Creatinine (0.57-1.11) mg/dL Est GFR ( Amer) (> 60) Est GFR (Non-Af Amer) (> 60) BUN/Creatinine Ratio (6-26) Glucose (70-99) mg/dL POC Glucose (58-89) Calculated Osmolality (280-300) Lactic Acid 0.9 (0.5-2.2) mmol/L Calcium (8.6-10.8) mg/dL Magnesium (1.6-2.6) mg/dL Total Bilirubin 0.3 (0.2-1.2) mg/dL Direct Bilirubin 0.3 (0.0-0.5) mg/dL Indirect Bilirubin 0.0 (0.0-1.2) mg/dL AST 80 H (5-34) Units/L ALT 65 H (0-55) Units/L Alkaline Phosphatase 104 (38-126) Units/L Troponin I 0.02 (0-0.03) ng/mL C-Reactive Protein (Less than 5) mg/L Serum Total Protein 6.5 (6.0-8.3) g/dL Albumin 3.6 (3.5-5.0) g/dL Globulin 2.9 (2.4-3.5) g/dL Albumin/Globulin Ratio 1.2 (1.1-2.2) Urine Color (Yellow) Urine Clarity (Clear) Urine pH (5.0-8.0) pH Units Ur Specific [place] (1.010-1.025) Urine Protein (Neg-Trace) mg/dL Urine Glucose (UA) (Normal) mg/dL Urine Ketones (Negative) mg/dL Urine Blood (Negative) Urine Nitrite (Negative) Urine Bilirubin (Negative) Urine Urobilinogen (Normal) mg/dL Ur Leukocyte Esterase (Negative) Urine Microscopic RBC (0-3) per hpf Urine Microscopic WBC (0-3) per hpf Ur Squamous Epith Cells (None-Few) per lpf Urine Bacteria (None-Few) per hpf Hyaline Casts (None-Few) per lpf Ur Culture Indicated? (NO) 05/31/17 05/31/17 Range/Units 22:35 23:30 WBC (4.3-11.1) K/mcL RBC (3.82-4.97) M/mcL Hgb (11.5-15.4) g/dL Hct (35.3-44.9) % MCV (83.0-100.0) fL MCH (28.0-33.3) pg MCHC (31.6-35.5) g/dL RDW (11.5-14.5) % Plt Count (140-400) K/mcL MPV (9.4-12.4) fL Immature Gran % (0-4) % Seg Neutrophils % % Lymphocytes % % Monocytes % % Eosinophils % % Basophils % % Neutrophils # (1.6-8.9) K/mcL Lymphocytes # (0.6-4.6) K/mcL Monocytes # (0.0-1.3) K/mcL Eosinophils # (0.0-0.6) K/mcL Basophils # (0.0-0.2) K/mcL PT (9.4-12.1) Seconds INR APTT (26.0-36.0) Seconds Sodium (136-145) mEq/L Potassium (3.5-4.5) mEq/L Chloride (98-109) mEq/L Carbon Dioxide (19-29) mEq/L BUN (7-20) mg/dL Creatinine (0.57-1.11) mg/dL Est GFR ( Amer) (> 60) Est GFR (Non-Af Amer) (> 60) BUN/Creatinine Ratio (6-26) Glucose (70-99) mg/dL POC Glucose 116 H (58-89) Calculated Osmolality (280-300) Lactic Acid (0.5-2.2) mmol/L Calcium (8.6-10.8) mg/dL Magnesium (1.6-2.6) mg/dL Total Bilirubin (0.2-1.2) mg/dL Direct Bilirubin (0.0-0.5) mg/dL Indirect Bilirubin (0.0-1.2) mg/dL AST (5-34) Units/L ALT (0-55) Units/L Alkaline Phosphatase (38-126) Units/L Troponin I (0-0.03) ng/mL C-Reactive Protein (Less than 5) mg/L Serum Total Protein (6.0-8.3) g/dL Albumin (3.5-5.0) g/dL Globulin (2.4-3.5) g/dL Albumin/Globulin Ratio (1.1-2.2) Urine Color Yellow (Yellow) Urine Clarity Clear (Clear) Urine pH 7.5 (5.0-8.0) pH Units Ur Specific [place] 1.020 (1.010-1.025) Urine Protein 100 H (Neg-Trace) mg/dL Urine Glucose (UA) Normal (Normal) mg/dL Urine Ketones Negative (Negative) mg/dL Urine Blood Negative (Negative) Urine Nitrite Negative (Negative) Urine Bilirubin Negative (Negative) Urine Urobilinogen Normal (Normal) mg/dL Ur Leukocyte Esterase Negative (Negative) Urine Microscopic RBC 5-15 H (0-3) per hpf Urine Microscopic WBC 0-3 (0-3) per hpf Ur Squamous Epith Cells Many H (None-Few) per lpf Urine Bacteria None Seen (None-Few) per hpf Hyaline Casts None Seen (None-Few) per lpf Ur Culture Indicated? NO (NO) - Radiology Data Radiology results reviewed: Yes I reviewed the patient's radiology results.
[2017-05-31 22:40] LABS: Basophils % 0.6 %; Eosinophils # 0.1 K/mcL (0.0-0.6); Eosinophils % 2.3 %; Hematocrit 34.8 % (35.3-44.9); Hemoglobin 10.9 g/dL (11.5-15.4); Immature Granulocytes % 0.2 % (0-4); Lymphocytes # 0.7 K/mcL (0.6-4.6); Lymphocytes % 12.7 %; Mean Corpuscular HGB Conc 31.3 g/dL (31.6-35.5); Mean Corpuscular Hemoglobin 30.5 pg (28.0-33.3); Mean Corpuscular Volume 97.5 fL (83.0-100.0); Mean Platelet Volume 11.3 fL (9.4-12.4); Monocytes # 0.4 K/mcL (0.0-1.3); Monocytes % 8.3 %; Platelet Count 149 K/mcL (140-400); Red Blood Count 3.57 M/mcL (3.82-4.97); Red Cell Distribution Width 14.5 % (11.5-14.5); Segmented Neutrophils % 75.9 %
[2017-05-31 22:47] LABS: INR 1.5; Prothrombin Time 16.3 Seconds (9.4-12.1)
[2017-05-31 22:50] LABS: Activated Partial Thrombo Time 34.1 Seconds (26.0-36.0)
[2017-05-31 22:54] LABS: Calcium 9.3 mg/dL (8.6-10.8); Potassium 4.9 mEq/L (3.5-4.5)
[2017-05-31 22:56] LABS: Albumin 3.6 g/dL (3.5-5.0); Albumin/Globulin Ratio 1.2 (1.1-2.2); Bilirubin,Direct 0.3 mg/dL (0.0-0.5); Globulin 2.9 g/dL (2.4-3.5); Total Protein 6.5 g/dL (6.0-8.3)
[2017-05-31 23:04] LABS: Bilirubin,Total 0.3 mg/dL (0.2-1.2)
[2017-05-31] MEDS ORDERED: 0.9 % Sodium Chloride 1,000 ML IVC SCH (23:45)
[2017-05-31 23:52] LABS: Bilirubin,Urine Negative (Negative); Blood,Urine Negative (Negative); Clarity,Urine Clear (Clear); Color,Urine Yellow (Yellow); Glucose,Urine (UA) Normal (Normal); Ketones,Urine Negative (Negative); Leukocyte Esterase,Urine Negative (Negative); Nitrite,Urine Negative (Negative); PH,Urine 7.5 pH Units (5.0-8.0); Protein,Urine 100 mg/dL (Neg-Trace); Urobilinogen,Urine Normal (Normal)
[2017-05-31 23:54] LABS: Bacteria,Urine None Seen per hpf (None-Few); Hyaline Casts,Urine None Seen per lpf (None-Few); Squamous Epithelial Cell,Urine Many per lpf (None-Few); WBC,Urine 0-3 per hpf (0-3)
--- NOTE | 2017-06-01 06:40 | Internal Med History&Physical ---
Date of Encounter: 06/01/17 Time of Encounter: 06:39 Assessment and Plan (1) Atrial fibrillation with RVR Current visit: Yes Status: Acute rate controlled after Cardizem push and hydration.. (2) Acute kidney injury Current visit: No Status: Acute Hydrate (3) Anemia Current visit: Yes Status: Acute Normocytic normochromic anemia. Stable. Likely anemia of chronic disease. Qualifiers: Qualified Code(s): D64.9 - Anemia, unspecified (4) Transaminitis Current visit: Yes Status: Acute Hold statins. Check Tylenol level. Check right upper quadrant ultrasound Internal Medicine - H&P: HPI Chief complaint: palpitations History of present illness: Ms. Francois is a 86 year old female presents to the emergency room today with the main complaint palpitations. Patient describes palpitations as rapid irregular associated with worsening shortness of breath. Patient was found to be in aFib with RVR on arrival to emergency room. Patient denies any lower extremity swelling. she mentioned that she has not been drinking enough fluids recently. She denies any fevers chills cough expectoration. Past Med Surg Social Fam HX - Past Medical History Medical history: atrial fibrillation, CHF, hyperlipidemia, hypertension, osteoporosis Psychiatric history: no psych history - Past Surgical History Surgical History: cholecystectomy, hysterectomy, knee replacement, orthopedic, other - Social History Smoking Status: Never smoker Smokeless Tobacco Status: No Alcohol use: none Drug use: none - Family History Daughter Living Status: Hx Family Cancer: Yes Father Living Status: Hx Family Cardiac Disorders: Yes (heart attack) Internal Medicine - H&P: Meds Multivitamin [Multi-Day Vitamins] 1 each PO DAILY 04/25/15 [History] Oxycodone HCl [Roxicodone 30 MG Immed Release] 30 mg PO QID PRN 04/25/15 [ History] Calcium Carbonate [Calcium] 500 mg PO DAILY 03/31/17 [History] Furosemide [Lasix] 20 mg PO DAILY 03/31/17 [History] Gabapentin [Neurontin] 600 mg PO TID 03/31/17 [History] Magnesium Oxide [Mag-Ox] 400 mg PO DAILY 03/31/17 [History] [place]-3 Fatty Acids [Fish Oil] 600 mg PO DAILY 03/31/17 [History] Potassium Chloride [K-Tab ER] 8 meq PO DAILY 03/31/17 [History] Vit C/Vit E/Lutein/Min/[place]-3 [Ocuvite Softgel] 1 each PO DAILY 03/31/17 [ History] traZODone [TraZODone] 50 mg PO HS PRN 03/31/17 [History] Metoprolol [Lopressor] 50 mg PO BID #120 tab 04/03/17 [Rx] Simvastatin [Zocor] 10 mg PO HS #120 tab 04/03/17 [Rx] Metoprolol [Lopressor] 50 mg PO BID #0 tablet 04/16/17 [Rx] Multivit/Ca/Min/Fe/FA [Thera M Plus] 1 tab PO DAILY tablet 04/16/17 [Rx] Ondansetron ODT [Zofran ODT] 4 mg SL Q6HR PRN #30 tab.rapdis 04/16/17 [Rx] 3 Allergy/AdvReac Type Severity Reaction Status Date / Time aspirin Allergy Rash Verified 04/15/17 01:28 codeine Allergy Rash Verified 04/15/17 01:28 All Systems PM: A 10-system review of systems was performed and is negative for pertinent findings except as documented above in the HPI. Review of systems: 10 point review of systems is negative except for HPI - Constitutional Vitals: Temp Pulse Resp BP Pulse Ox 98.0 F 83 16 127/80 93 06/01/17 01:13 06/01/17 01:13 06/01/17 01:13 06/01/17 01:13 06/01/17 02:03 Exam: Gen.: patient is alert oriented times 3 cardiac: Variable intensity of S1 due to AFib chest: no active wheezing or bronchial breathing abdomen soft nontender nondistended normal bowel sounds lower extremity no swelling. Neuro: no new focal deficits Internal Med - H&P Results - Labs CBC & Chem 7: 05/31/17 22:23 05/31/17 22:23
[2017-06-01 07:20] LABS: Basophils % 0.6 %; Eosinophils # 0.2 K/mcL (0.0-0.6); Hematocrit 32.9 % (35.3-44.9); Hemoglobin 10.3 g/dL (11.5-15.4); Immature Granulocytes % 0.2 % (0-4); Lymphocytes # 1.3 K/mcL (0.6-4.6); Lymphocytes % 26.3 %; Mean Corpuscular HGB Conc 31.3 g/dL (31.6-35.5); Mean Corpuscular Hemoglobin 30.7 pg (28.0-33.3); Mean Corpuscular Volume 97.9 fL (83.0-100.0); Mean Platelet Volume 10.9 fL (9.4-12.4); Monocytes # 0.5 K/mcL (0.0-1.3); Monocytes % 9.9 %; Neutrophils # 2.8 K/mcL (1.6-8.9); Platelet Count 130 K/mcL (140-400); Red Blood Count 3.36 M/mcL (3.82-4.97); Red Cell Distribution Width 14.5 % (11.5-14.5)
[2017-06-01 07:34] LABS: BUN/Creatinine Ratio 26 (6-26); Blood Urea Nitrogen 33 mg/dL (7-20); Calcium 8.6 mg/dL (8.6-10.8); Carbon Dioxide 27 mEq/L (19-29); Chloride 108 mEq/L (98-109); Glucose 87 mg/dL (70-99); Osmolality,Calculated 297 (280-300); Potassium 4.6 mEq/L (3.5-4.5); Sodium 140 mEq/L (136-145); eGFR For African Americans 48 (> 60); eGFR For Non-African Americans 39 (> 60)
[2017-06-01 07:36] LABS: Acetaminophen < 1.0 mcg/mL (10-30)
[2017-06-01] MEDS: Famotidine 20 MG/2 ML VIAL IVP SCH (10:10)
[2017-06-01] MEDS: 0.9 % Sodium Chloride 1,000 ML IVC SCH ×2 (10:10→20:04)
[2017-06-01] MEDS: *HR* OxyCODONE Immed Rel 15 MG TABLET PO PRN ×3 (14:50→23:46)
[2017-06-01] MEDS: Gabapentin 300 MG CAPSULE PO SCH ×2 (14:50→20:02)
--- NOTE | 2017-06-01 17:40 | Event Note ---
Date of Encounter: 06/01/17 Time of Encounter: 17:32 Patient seen and examined at bedside. Says she feels weak and tired but overall better. Does not feel like she is back to baseline and does not think she can go home today. She has some edition has not felt well over the past couple days therefore she has not taken any of her home medications including her BB. 1. Atrial fibrillation: Per history. Presented with worsening palpitations. EKG in the ED showed A. fib with heart rate of 102. Patient reports not taking home BB for 2 days as she did not feel well. Suspect this is the cause of increased palpitations. Rate now controlled. Continue home BB, Xarelto
[2017-06-01] MEDS ORDERED: *HR* Heparin 5,000 UNIT/ML VIAL SQ SCH (18:00)
--- NOTE | 2017-06-02 05:42 | Electrocardiograph Report ---
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
[2017-06-02 06:03] LABS: Hematocrit 33.9 % (35.3-44.9); Hemoglobin 10.5 g/dL (11.5-15.4); Mean Corpuscular Hemoglobin 30.5 pg (28.0-33.3); Mean Corpuscular Volume 98.5 fL (83.0-100.0); Platelet Count 130 K/mcL (140-400); Red Blood Count 3.44 M/mcL (3.82-4.97); Red Cell Distribution Width 14.7 % (11.5-14.5)
[2017-06-02 06:15] LABS: Calcium 8.5 mg/dL (8.6-10.8); Potassium 5.4 mEq/L (3.5-4.5)
[2017-06-02] MEDS ORDERED: *HR* Rivaroxaban 10 MG TABLET PO SCH (09:00)
[2017-06-02] MEDS: Furosemide 20 MG TABLET PO SCH (09:12)
[2017-06-02] MEDS: Gabapentin 300 MG CAPSULE PO SCH ×3 (09:12→21:38)
[2017-06-02] MEDS: Famotidine 20 MG/2 ML VIAL IVP SCH (09:12)
[2017-06-02] MEDS: *HR* OxyCODONE Immed Rel 15 MG TABLET PO PRN ×2 (09:16→17:35)
--- NOTE | 2017-06-02 15:14 | Internal Med Progress Note ---
Date of Encounter: 06/02/17 Time of Encounter: 14:51 - Assessment and plan (1) Atrial fibrillation Current Visit: Yes Status: Chronic Assessment and plan: Nelda Francois is a 86-year-old female with past medical history atrial fibrillation, chronic kidney disease and CAD who presented to [facility] on 06/01/2017 with complaints of palpitations. She was placed in observation status for further workup and treatment. 1. Atrial fibrillation: Per history. With increased palpitations on day of presentation. EKG and ED showed A. fib with heart rates of 102. Patient reported not feeling well and had missed 2 days worth of home BB. Suspect this is the reason of increased palpitations. Evaluated by cardiology on 03/2017 admission and anticoagulation was recommended as well as increasing home BB. Transient tachycardia with activity noted on telemetry, otherwise heart rate is well-controlled. Continue home BB and Xarelto 2. Acute hypoxic respiratory failure: New-onset. Patient does not wear oxygen at home. CXR non-acute. With desaturation into the mid 80s on room air with activity. Adequately oxygenating with 2 L via nasal cannula. Wean O2 as able. Home oxygen qualification to discharge. 3. CKD: per hx. Cr 1.5 on arrival which is slightly worse than baseline. Likely prerenal with decreased by mouth intake. Avoid nephrotoxic agents as possible. Monitor repeat renal function. Cr 1.3 on 06/02 4. Hyperkalemia: K5.4; Kayexalate 1 dose. Monitor repeat potassium level 5. DVT prophylaxis: Xarelto Qualifiers: Atrial fibrillation type: chronic Qualified Code(s): I48.2 - Chronic atrial fibrillation (2) Chronic kidney disease Current Visit: No Status: Chronic Qualifiers: Chronic kidney disease stage: stage 3 (moderate) Qualified Code(s): N18.3 - Chronic kidney disease, stage 3 (moderate) (3) HTN (hypertension) Current Visit: Yes Status: Chronic Qualifiers: Hypertension type: essential hypertension Qualified Code(s): I10 - Essential (primary) hypertension - Subjective Interval history: HEENT examined at bedside. Patient is new to me, information obtained from chart review and patient report. Patient says she still feels a little short winded with activity but overall improved. She tells me that she had not felt well for a couple days prior to presentation and had not ate or drank much as well as miss 2 days of medicine. Has intermittent palpitations but overall improved. No chest pain. - Constitutional Vitals: Temp Pulse Resp BP Pulse Ox 98.0 F 93 16 114/72 95 06/02/17 11:29 06/02/17 11:29 06/02/17 11:29 06/02/17 11:29 06/02/17 11:29 General appearance: Present: A&O X 3, no acute distress, answers questions appropriately - Head Head exam: Present: atraumatic, normocephalic - Eye Eye exam: Present: PERRL, conjuntiva pink, sclera anicteric Pupils: Present: PERRL - Neck Neck exam general surgery: Present: supple, trachea midline. Absent: lymphadenopathy - Respiratory Respiratory exam: Present: CTAB. Absent: accessory muscle use, rales, rhonchi, wheezes - Cardiovascular Cardiovascular exam: Present: irregular rhythm, +S1, +S2. Absent: diastolic murmur, gallop, rubs, systolic murmur - GI/Abdominal GI/Abdominal exam: Present: normal bowel sounds, soft, no peritoneal signs. Absent: distended, tenderness - Extremities Exam Extremities exam: Present: warm, radial pulses palpable and symmetrical. Absent : calf tenderness, cyanotic, pedal edema - Neurological Exam Neurological exam: Present: CN II-XII intact, oriented X3, no focal deficits. Absent: pronater drift, facial droop, speech deficit - Skin Skin exam: Present: dry, intact Internal Medicine: Result - Labs CBC & Chem 7: 06/02/17 05:52 06/02/17 05:52 Labs: Short CBC 06/02/17 Range/Units 05:52 WBC 5.4 (4.3-11.1) K/mcL Hgb 10.5 L (11.5-15.4) g/dL Hct 33.9 L (35.3-44.9) % Plt Count 130 L (140-400) K/mcL BMP 06/02/17 05:52 Sodium 141 Potassium 5.4 H Chloride 111 H Carbon Dioxide 27 BUN 29 H Creatinine 1.32 H Glucose 77 Calcium 8.5 L - ABG Interpretation ABG results: PT/INR, D-dimer PT 16.3 Seconds (9.4-12.1) H 05/31/17 22:23 Consult Discharge Plan - Plan Referrals: Ernst Schuler MD [Primary Care Provider] -
[2017-06-02] MEDS ORDERED: 0.9 % Sodium Chloride 250 ML IVC ONE (15:25)
[2017-06-02] MEDS: *HR* Rivaroxaban 15 MG TABLET PO SCH (17:35)
[2017-06-02] MEDS: 0.9 % Sodium Chloride 1,000 ML IVC SCH (21:40)
[2017-06-03] MEDS: *HR* OxyCODONE Immed Rel 15 MG TABLET PO PRN (00:38)
[2017-06-03] MEDS ORDERED: Acetaminophen 325 MG TABLET PO ONE (04:44)
[2017-06-03 06:05] LABS: Hematocrit 36.1 % (35.3-44.9); Mean Corpuscular HGB Conc 30.5 g/dL (31.6-35.5); Mean Corpuscular Hemoglobin 30.4 pg (28.0-33.3); Mean Corpuscular Volume 99.7 fL (83.0-100.0); Mean Platelet Volume 11.5 fL (9.4-12.4); Platelet Count 147 K/mcL (140-400); Red Blood Count 3.62 M/mcL (3.82-4.97); Red Cell Distribution Width 14.8 % (11.5-14.5)
[2017-06-03 06:16] LABS: Calcium 8.4 mg/dL (8.6-10.8); Potassium 4.8 mEq/L (3.5-4.5)
[2017-06-03] MEDS: Famotidine 20 MG/2 ML VIAL IVP SCH (09:43)
[2017-06-03] MEDS: Furosemide 20 MG TABLET PO SCH (09:44)
[2017-06-03] MEDS: Gabapentin 300 MG CAPSULE PO SCH ×3 (09:44→19:57)
[2017-06-03] MEDS: 0.9 % Sodium Chloride 1,000 ML IVC SCH (09:45)
--- NOTE | 2017-06-03 10:23 | Nephrology Consult Note ---
Date of Encounter: 06/03/17 Time of Encounter: 09:35 Assessment and Plan (1) Acute kidney injury Current Visit: No Status: Acute Unclear if acute kidney injury superimposed on CKD. Most likely in setting of hypovolemia. Diuretic at home with decreased oral intake.Mild hyperkalemia on potassium supplement at home. Renal fct and potassium improved. Will monitor. Avoid nephrotoxins. Accurate I&O's. History of Present Illness - Reason for Consult Acute Kidney Injury, hyperkalemia - History of Present Illness Ms. Francois is an 86 year old female who presented to the ER on May 31 with Afib with RVR, rate 125 associated with increased shortness of breath. Patient did admit had not been drinking enough fluids recently. Patient with prior history of Afib. Other PMH-CHF, hyperlipidemia, hypertension, osteoporosis, cholecystectomy, hysterectomy, knee replacement, orthopedic. At time of consult patient sleeping, arouses after name called several times then readily dozes back off. Able to discern she has been told in past had "kidney Problems" but was unable to elaborate. She states she has not had difficulty urinating. 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 HPI obtained from prior notes. Initial creat 1.50, has been trending downward and today is 1.16 with GFR 44. Potassium peaked at 5.4, today 4.8. Creat in Mar 2017 0.94, however creat prior ranged from 1.2-1.5. Past Med Surg Social Fam HX - Past Medical History Medical history: atrial fibrillation, CHF, hyperlipidemia, hypertension, osteoporosis Psychiatric history: no psych history - Past Surgical History Surgical History: cholecystectomy, hysterectomy, knee replacement, orthopedic, other - Social History Smoking Status: Never smoker Smokeless Tobacco Status: No Alcohol use: none Drug use: none - Family History Daughter Living Status: Hx Family Cancer: Yes Father Living Status: Hx Family Cardiac Disorders: Yes (heart attack) Medications and Allergies Multivitamin [Multi-Day Vitamins] 1 each PO DAILY 04/25/15 [History] Oxycodone HCl [Roxicodone 30 MG Immed Release] 30 mg PO QID PRN 04/25/15 [ History] Calcium Carbonate [Calcium] 500 mg PO DAILY 03/31/17 [History] Furosemide [Lasix] 20 mg PO DAILY 03/31/17 [History] Gabapentin [Neurontin] 600 mg PO TID 03/31/17 [History] Magnesium Oxide [Mag-Ox] 400 mg PO DAILY 03/31/17 [History] [place]-3 Fatty Acids [Fish Oil] 600 mg PO DAILY 03/31/17 [History] Potassium Chloride [K-Tab ER] 8 meq PO DAILY 03/31/17 [History] Vit C/Vit E/Lutein/Min/[place]-3 [Ocuvite Softgel] 1 each PO DAILY 03/31/17 [ History] traZODone [TraZODone] 50 mg PO HS PRN 03/31/17 [History] Simvastatin [Zocor] 10 mg PO HS #120 tab 04/03/17 [Rx] Multivit/Ca/Min/Fe/FA [Thera M Plus] 1 tab PO DAILY tablet 04/16/17 [Rx] Metoprolol [Lopressor] 100 mg PO TID 06/01/17 [History] Rivaroxaban [Xarelto] 20 mg PO DAILY 06/01/17 [History] cephALEXin [Keflex] 250 mg PO DAILY 06/01/17 [History] 3 Allergy/AdvReac Type Severity Reaction Status Date / Time aspirin Allergy Rash Verified 04/15/17 01:28 codeine Allergy Rash Verified 04/15/17 01:28 Review of Systems All Systems: reviewed and no additional remarkable complaints except as stated Exam - Vital Signs Vital signs: Initial Vital Signs Temp Pulse Resp BP Pulse Ox 98.2 F 94 22 142/92 96 05/31/17 21:56 05/31/17 21:56 05/31/17 21:56 05/31/17 21:56 05/31/17 21:56 Vital Signs - Last 8 Hours Temp Pulse Resp BP Pulse Ox 06/03/17 07:29 98.2 F 88 15 133/85 96 06/03/17 03:03 98.2 F 75 16 127/86 97 Intake and Output 06/02/17 06/03/17 06/03/17 23:59 07:59 15:59 Intake Total 600 / 600 Output Total 100 / 100 450 / 450 Balance -100 / -100 150 / 150 Intake: Oral 600 / 600 Output: Urine 100 / 100 450 / 450 Other: Weight 73.618 kg Patient Weight 06/03/17 23:59 Weight 73.618 kg - General Appearance General appearance: appears started age, frail EENT: mucous membranes moist Neck: no JVD Respiratory: clear Cardiology: edema, irregular rhythm Additional Comments: trace pitting Gastrointestinal: normoactive bowel sounds, no tenderness Integumentary: warm and dry Psychiatric: mood/affect appropriate, cooperative Results - Lab Results 06/03/17 04:53 06/03/17 04:53 Most recent lab results Calcium 8.4 mg/dL (8.6-10.8) L 06/03/17 04:53 Magnesium 2.0 mg/dL (1.6-2.6) 06/01/17 07:13 Consult Discharge Plan - Plan Referrals: Ernst Schuler MD [Primary Care Provider] -
[2017-06-03] MEDS: *HR* Rivaroxaban 15 MG TABLET PO SCH (16:02)
--- NOTE | 2017-06-03 16:46 | Internal Med Progress Note ---
Date of Encounter: 06/03/17 Time of Encounter: 16:36 - Assessment and plan (1) Atrial fibrillation Current Visit: Yes Status: Chronic Assessment and plan: Nelda Francois is a 86-year-old female with past medical history atrial fibrillation, chronic kidney disease and CAD who presented to [facility] on 06/01/2017 with complaints of palpitations. She was placed in observation status for further workup and treatment. 1. Atrial fibrillation: Per history. With increased palpitations on day of presentation. EKG in ED showed A. fib with heart rates of 102. Patient reported not feeling well and had missed 2 days of home BB. Suspect this is the reason for increased palpitations. Evaluated by cardiology on 03/2017 admission and anticoagulation was recommended as well as increasing home BB. Transient tachycardia with activity noted on telemetry, otherwise heart rate is well-controlled. Continue home BB and Xarelto 2. Acute hypoxic respiratory failure: New-onset. Patient does not wear oxygen at home. CXR non-acute. With desaturation into the mid 80s on room air with activity. Adequately oxygenating with 2 L via nasal cannula. Wean O2 as able. Home oxygen qualification to discharge. 3. CKD: per hx. Cr 1.5 on arrival which is slightly worse than baseline. Likely prerenal with decreased by mouth intake. Evaluated by Nephrology who noted unclear if JESÚS is superimposed on CKD. Creatinine 1.16 on 06/03. Avoid nephrotoxic agents as possible. 4. Hyperkalemia: K5.4; Kayexalate 1 dose. Repeat potassium normalized. 5. DVT prophylaxis: Xarelto 6. Acute encephalopathy: had an episode of acute confusion on 06/03 afternoon with some expressive aphasia. Episode lasted 3-[address] nonacute. With history of A. fib, Brain MRI pending. UA C&S pending Qualifiers: Atrial fibrillation type: chronic Qualified Code(s): I48.2 - Chronic atrial fibrillation (2) Chronic kidney disease Current Visit: No Status: Chronic Qualifiers: Chronic kidney disease stage: stage 3 (moderate) Qualified Code(s): N18.3 - Chronic kidney disease, stage 3 (moderate) (3) HTN (hypertension) Current Visit: Yes Status: Chronic Qualifiers: Hypertension type: essential hypertension Qualified Code(s): I10 - Essential (primary) hypertension - Subjective Interval history: Seen and examined at bedside at approximately 11:30 this morning patient appeared to be at baseline mentation galaviz. She was resting in bed had no complaints at that time. I was called to the room around 1400 with acute change in mental status. Patient was alert and oriented however with expressive aphasia. Episode lasted approximately 3-4 minutes. - Constitutional Vitals: Temp Pulse Resp BP Pulse Ox 97.9 F 81 16 147/88 99 06/03/17 15:02 06/03/17 15:02 06/03/17 15:02 06/03/17 15:02 06/03/17 15:02 General appearance: Present: A&O X 3, no acute distress, answers questions appropriately - Head Head exam: Present: atraumatic, normocephalic - Eye Eye exam: Present: PERRL, conjuntiva pink, sclera anicteric Pupils: Present: PERRL - Neck Neck exam general surgery: Present: supple, trachea midline. Absent: lymphadenopathy - Respiratory Respiratory exam: Present: CTAB. Absent: accessory muscle use, rales, rhonchi, wheezes - Cardiovascular Cardiovascular exam: Present: RRR, +S1, +S2. Absent: diastolic murmur, gallop, rubs, systolic murmur - GI/Abdominal GI/Abdominal exam: Present: normal bowel sounds, soft, no peritoneal signs. Absent: distended, tenderness - Extremities Exam Extremities exam: Present: warm, radial pulses palpable and symmetrical. Absent : calf tenderness, cyanotic, pedal edema - Neurological Exam Neurological exam: Present: CN II-XII intact, oriented X3, no focal deficits. Absent: pronater drift, facial droop, speech deficit - Skin Skin exam: Present: dry, intact Internal Medicine: Result - Labs CBC & Chem 7: 06/03/17 04:53 06/03/17 04:53 Labs: Short CBC 06/03/17 Range/Units 04:53 WBC 5.9 (4.3-11.1) K/mcL Hgb 11.0 L (11.5-15.4) g/dL Hct 36.1 (35.3-44.9) % Plt Count 147 (140-400) K/mcL BMP 06/03/17 04:53 Sodium 142 Potassium 4.8 H Chloride 109 Carbon Dioxide 27 BUN 25 H Creatinine 1.16 H Glucose 99 Calcium 8.4 L - ABG Interpretation ABG results: PT/INR, D-dimer PT 16.3 Seconds (9.4-12.1) H 05/31/17 22:23 - Impressions Impressions Head CT 06/03/17 13:45 IMPRESSION: No acute intracranial abnormality. D/ / Erick Gardner MD / Erick Gardner MD Interpreting Provider: Erick Gardner MD Consult Discharge Plan - Plan Referrals: Ernst Schuler MD [Primary Care Provider] -
[2017-06-03 18:09] LABS: Bilirubin,Urine Negative (Negative); Blood,Urine Negative (Negative); Clarity,Urine Clear (Clear); Color,Urine Yellow (Yellow); Glucose,Urine (UA) Normal (Normal); Ketones,Urine Negative (Negative); Leukocyte Esterase,Urine Negative (Negative); Nitrite,Urine Negative (Negative); Protein,Urine Negative (Neg-Trace); Specific Gravity,Urine 1.014 (1.010-1.025); Urobilinogen,Urine Normal (Normal)
[2017-06-04] MEDS: 0.9 % Sodium Chloride 1,000 ML IVC SCH ×2 (01:23→08:10)
[2017-06-04] MEDS: *HR* OxyCODONE Immed Rel 15 MG TABLET PO PRN ×3 (01:24→19:18)
[2017-06-04 04:38] LABS: Hematocrit 36.1 % (35.3-44.9); Hemoglobin 11.3 g/dL (11.5-15.4); Mean Corpuscular HGB Conc 31.3 g/dL (31.6-35.5); Mean Corpuscular Hemoglobin 30.6 pg (28.0-33.3); Mean Corpuscular Volume 97.8 fL (83.0-100.0); Mean Platelet Volume 11.4 fL (9.4-12.4); Platelet Count 147 K/mcL (140-400); Red Blood Count 3.69 M/mcL (3.82-4.97); Red Cell Distribution Width 14.2 % (11.5-14.5)
[2017-06-04 04:57] LABS: BUN/Creatinine Ratio 24 (6-26); Blood Urea Nitrogen 24 mg/dL (7-20); Calcium 8.6 mg/dL (8.6-10.8); Carbon Dioxide 27 mEq/L (19-29); Chloride 109 mEq/L (98-109); Glucose 91 mg/dL (70-99); Osmolality,Calculated 294 (280-300); Potassium 4.3 mEq/L (3.5-4.5); Sodium 140 mEq/L (136-145); eGFR For African Americans > 60 (> 60); eGFR For Non-African Americans 52 (> 60)
--- NOTE | 2017-06-04 08:16 | Event Note ---
Date of Encounter: 06/04/17 Time of Encounter: 08:15 Renal fct improved. Relative to advanced age. Potassium normal. Will sign off. Will see PRN in future. Thank You.
[2017-06-04] MEDS: Ipratropium/Albuterol Neb 3 ML IH SCH ×5 (08:26→23:17)
[2017-06-04] MEDS ORDERED: Famotidine 20 MG TABLET PO SCH (09:00)
[2017-06-04] MEDS: Famotidine 20 MG/2 ML VIAL IVP SCH (09:00)
[2017-06-04] MEDS: Furosemide 20 MG TABLET PO SCH (09:00)
[2017-06-04] MEDS: Gabapentin 300 MG CAPSULE PO SCH ×3 (09:00→21:41)
[2017-06-04] MEDS ORDERED: Furosemide 40 MG/4 ML VIAL IVP ONE (11:44)
[2017-06-04] MEDS: *HR* Rivaroxaban 15 MG TABLET PO SCH (16:03)
--- NOTE | 2017-06-04 16:17 | Internal Med Progress Note ---
Date of Encounter: 06/04/17 Time of Encounter: 07:15 - Assessment and plan (1) Atrial fibrillation Current Visit: Yes Status: Chronic Assessment and plan: Nelda Francois is a 86-year-old female with past medical history atrial fibrillation, chronic kidney disease and CAD who presented to [facility] on 06/01/2017 with complaints of palpitations. She was placed in observation status for further workup and treatment. 1. Atrial fibrillation: Per history. With increased palpitations on day of presentation. EKG in ED showed A. fib with heart rates of 102. Patient reported not feeling well and had missed 2 days of home BB. Suspect this is the reason for increased palpitations. Evaluated by cardiology on 03/2017 admission and anticoagulation was recommended as well as increasing home BB. Transient tachycardia with activity noted on telemetry, otherwise heart rate is well-controlled. Continue home BB and Xarelto 2. Acute hypoxic respiratory failure: New-onset. Patient does not wear oxygen at home. Admission CXR non-acute. With desaturation into the mid 80s on room air with activity. Repeat CXR with urinary edema; likely secondary to IV fluids used to treat JESÚS. Received one-time dose IV Lasix. Adequately oxygenating with 2 L via nasal cannula. Wean O2 as able. Home oxygen qualification to discharge. 3. CKD: per hx. Cr 1.5 on arrival which is slightly worse than baseline. Likely prerenal with decreased by mouth intake. Evaluated by Nephrology who noted unclear if JESÚS is superimposed on CKD. Creatinine 1.16 on 06/03. Avoid nephrotoxic agents as possible. 4. Hyperkalemia: K5.4; Kayexalate 1 dose. Repeat potassium normalized. 5. DVT prophylaxis: Xarelto 6. Acute encephalopathy: had an episode of acute confusion on 06/03 afternoon with some expressive aphasia. Episode lasted 3-[address] nonacute. UA without evidence of UTI. With history of A. fib, Brain MRI pending. Qualifiers: Atrial fibrillation type: chronic Qualified Code(s): I48.2 - Chronic atrial fibrillation (2) Chronic kidney disease Current Visit: No Status: Chronic Qualifiers: Chronic kidney disease stage: stage 3 (moderate) Qualified Code(s): N18.3 - Chronic kidney disease, stage 3 (moderate) (3) HTN (hypertension) Current Visit: Yes Status: Chronic Qualifiers: Hypertension type: essential hypertension Qualified Code(s): I10 - Essential (primary) hypertension - Subjective Interval history: Seen and examined at bedside at 0715. She is sitting on edge of bed complaining of shortness of breath. Says she feels like she cannot get air in or out. No chest pain. Nothing is making shortness of breath better or worse. - Constitutional Vitals: Temp Pulse Resp BP Pulse Ox 98.3 F 99 15 127/68 95 06/04/17 15:20 06/04/17 15:20 06/04/17 16:08 06/04/17 15:20 06/04/17 16:08 General appearance: Present: A&O X 3, no acute distress, answers questions appropriately - Head Head exam: Present: atraumatic, normocephalic - Eye Eye exam: Present: PERRL, conjuntiva pink, sclera anicteric Pupils: Present: PERRL - Neck Neck exam general surgery: Present: supple, trachea midline. Absent: lymphadenopathy - Respiratory Respiratory exam: Present: rales. Absent: accessory muscle use, rhonchi, wheezes - Cardiovascular Cardiovascular exam: Present: RRR, +S1, +S2. Absent: diastolic murmur, gallop, rubs, systolic murmur - GI/Abdominal GI/Abdominal exam: Present: normal bowel sounds, soft, no peritoneal signs. Absent: distended, tenderness - Extremities Exam Extremities exam: Present: warm, radial pulses palpable and symmetrical. Absent : calf tenderness, cyanotic, pedal edema - Neurological Exam Neurological exam: Present: CN II-XII intact, oriented X3, no focal deficits. Absent: pronater drift, facial droop, speech deficit - Skin Skin exam: Present: dry, intact Internal Medicine: Result - Labs CBC & Chem 7: 06/04/17 04:02 06/04/17 04:02 Labs: Short CBC 06/04/17 Range/Units 04:02 WBC 6.4 (4.3-11.1) K/mcL Hgb 11.3 L (11.5-15.4) g/dL Hct 36.1 (35.3-44.9) % Plt Count 147 (140-400) K/mcL BMP 06/04/17 04:02 Sodium 140 Potassium 4.3 Chloride 109 Carbon Dioxide 27 BUN 24 H Creatinine 1.00 Glucose 91 Calcium 8.6 Urine 06/03/17 Range/Units 17:55 Urine Color Yellow (Yellow) Urine Clarity Clear (Clear) Urine pH 6.0 (5.0-8.0) pH Units Ur Specific [place] 1.014 (1.010-1.025) Urine Protein Negative (Neg-Trace) mg/dL Urine Glucose (UA) Normal (Normal) mg/dL - ABG Interpretation ABG results: PT/INR, D-dimer PT 16.3 Seconds (9.4-12.1) H 05/31/17 22:23 - Impressions Impressions Chest X-Ray 06/04/17 07:40 IMPRESSION: Cardiomegaly with interval development of diffuse increased interstitial changes suggestive of pulmonary edema with small bilateral pleural effusions and basilar atelectasis. D/ / Sandip Neumann MD / Sandip Neumann MD Interpreting Provider: Sandip Neumann MD Consult Discharge Plan - Plan Referrals: Ernst Schuler MD [Primary Care Provider] -
[2017-06-04] MEDS ORDERED: *HR* LORazepam 2 MG/ML VIAL IVP ONE (16:18)
[2017-06-05] MEDS: *HR* OxyCODONE Immed Rel 15 MG TABLET PO PRN ×2 (01:15→10:37)
[2017-06-05 03:25] LABS: Hematocrit 37.6 % (35.3-44.9); Hemoglobin 11.8 g/dL (11.5-15.4); Mean Corpuscular HGB Conc 31.4 g/dL (31.6-35.5); Mean Corpuscular Hemoglobin 30.6 pg (28.0-33.3); Mean Corpuscular Volume 97.4 fL (83.0-100.0); Mean Platelet Volume 11.9 fL (9.4-12.4); Platelet Count 139 K/mcL (140-400); Red Blood Count 3.86 M/mcL (3.82-4.97); Red Cell Distribution Width 14.4 % (11.5-14.5)
[2017-06-05 03:38] LABS: Calcium 8.6 mg/dL (8.6-10.8); Potassium 3.9 mEq/L (3.5-4.5)
[2017-06-05] MEDS: Ipratropium/Albuterol Neb 3 ML IH SCH ×4 (04:18→16:28)
[2017-06-05] MEDS: Gabapentin 300 MG CAPSULE PO SCH (10:36)
[2017-06-05] MEDS: Furosemide 20 MG TABLET PO SCH (10:37)
[2017-06-05] MEDS: Famotidine 20 MG/2 ML VIAL IVP SCH (10:37)
--- NOTE | 2017-06-05 12:11 | Discharge Summary ---
Date of Encounter: 06/05/17 Time of Encounter: 12:03 - Discharge Diagnosis (1) Atrial fibrillation Priority: Primary Status: Chronic Comments: Nelda Francois is a 86-year-old female with past medical history atrial fibrillation, chronic kidney disease and CAD who presented to [facility] on 06/01/2017 with complaints of palpitations. She was placed in observation status for further workup and treatment. 1. Atrial fibrillation: Per history. With increased palpitations on day of presentation. EKG in ED showed A. fib with HR 102. 02/2017 TTE with EF 65% and severely dilated left atrium. Patient reported missing 2 days of home BB. Suspect this is the reason for increased palpitations. Evaluated by cardiology on 03/2017 admission and anticoagulation was recommended as well as increasing home BB. Transient tachycardia with activity noted on telemetry, otherwise heart rate is well-controlled. Continue home BB and Xarelto 2. Acute hypoxic respiratory failure: New-onset. Patient does not wear oxygen at home. Admission CXR non-acute. With desaturation into the mid 80s on room air with activity. Patient did qualify for home oxygen. Adequately oxygenating with 2 L via nasal cannula. 3. Acute on chronic diastolic heart failure: 02/2017 TTE with EF 65% and severe diastolic dysfunction. 06/04/17 CXR with pulmonary edema; likely secondary to IV fluids used to treat JESÚS. Breathing significantly improved with one-time dose IV Lasix. Appeared euvolemic at discharge. Continue home Lasix 3. CKD: per hx. Cr 1.5 on arrival which is slightly worse than baseline. Likely pre-renal with decreased PO intake. Cr improved with IV fluids. Nephrology followed 4. Hyperkalemia: K5.4; Kayexalate 1 dose. Repeat potassium normalized. Home potassium stopped. Recommend repeat CMP with PCP within one week. Qualifiers: Atrial fibrillation type: chronic Qualified Code(s): I48.2 - Chronic atrial fibrillation (2) Chronic kidney disease Priority: Primary Status: Chronic Qualifiers: Chronic kidney disease stage: stage 3 (moderate) Qualified Code(s): N18.3 - Chronic kidney disease, stage 3 (moderate) (3) Acute on chronic diastolic (congestive) heart failure Priority: Primary Status: Chronic - Discharge Medications Home Medications: Multivitamin [Multi-Day Vitamins] 1 each PO DAILY 10/08/15 [History] Oxycodone HCl [Roxicodone 30 MG Immed Release] 30 mg PO QID PRN 04/25/15 [ History] Calcium Carbonate [Calcium] 500 mg PO DAILY 03/31/17 [History] Furosemide [Lasix] 20 mg PO DAILY 03/31/17 [History] Gabapentin [Neurontin] 600 mg PO TID 03/31/17 [History] Magnesium Oxide [Mag-Ox] 400 mg PO DAILY 03/31/17 [History] [place]-3 Fatty Acids [Fish Oil] 600 mg PO DAILY 03/31/17 [History] Vit C/Vit E/[place]/Min/[place]-3 [Ocuvite Softgel] 1 each PO DAILY 03/31/17 [ History] traZODone [TraZODone] 50 mg PO HS PRN 03/31/17 [History] Simvastatin [Zocor] 10 mg PO HS #120 tab 04/03/17 [Rx] Multivit/Ca/Min/Fe/FA [Thera M Plus] 1 tab PO DAILY tablet 04/16/17 [Rx] Metoprolol [Lopressor] 100 mg PO TID 06/01/17 [History] Rivaroxaban [Xarelto] 20 mg PO DAILY 06/01/17 [History] Allergies/Adverse Reactions: 3 Allergy/AdvReac Type Severity Reaction Status Date / Time aspirin Allergy Rash Verified 04/15/17 01:28 codeine Allergy Rash Verified 04/15/17 01:28 Procedures/tests Complete & Pending: Procedures Performed prior 72 hours Category Date Time Status CT head/brain wo con [CT] Stat Cat Scan 06/03/17 13:45 Completed MR head/brain wo con [MR] Routine MRI 06/04/17 16:49 Completed Date of admission: 06/02/17 18:32 Primary care physician: Ernst Schuler MD Discharging clinician: Judith Pro Anticipated date of discharge: 06/05/17 - Patient Status Disposition: Home Health Service Condition: Good Functional capacity at discharge: uses cane/walker Overall status at discharge: patient is back to baseline - Discharge Instructions Instructions: Atrial Fibrillation (DC), Using Oxygen at Home (DC), Heart Failure (DC) Follow Up With: Ernst Schuler MD [Primary Care Provider] - (appointment has been webrequested ; our offices will call you with an appointment time and date.) Additional Instructions: Please call your family doctor within 24 hours her next business day to make a follow-up appointment within 1 week - Diet and Activity Activity: ambulate only with your walker, as per physical therapy Diet: low fat, low cholesterol Interval History: Seen and examined at bedside. Patient says she feels much better and wants to go home today. She says she is tired otherwise has no complaints. She specifically denies chest pain, no shortness of breath, no palpitations. Hospital course: Ms. Francois is a 86 year old female - Time Spent with Patient Total time spent providing and/or coordinating discharge services: Less than 30 minutes - Constitutional Vitals: Temp Pulse Resp BP Pulse Ox 98.5 F 109 17 121/75 98 06/05/17 11:27 06/05/17 11:27 06/05/17 11:27 06/05/17 11:27 06/05/17 11:27 General appearance: Present: A&O X 3, no acute distress, answers questions appropriately - Head Head exam: Present: atraumatic, normocephalic - Eye Eye exam: Present: PERRL, conjuntiva pink, sclera anicteric Pupils: Present: PERRL - Neck Neck exam general surgery: Present: supple, trachea midline. Absent: lymphadenopathy - Respiratory Respiratory exam: Present: CTAB. Absent: accessory muscle use, rales, rhonchi, wheezes - Cardiovascular Cardiovascular exam: Present: irregular rhythm, +S1, +S2. Absent: diastolic murmur, gallop, rubs, systolic murmur - GI/Abdominal GI/Abdominal exam: Present: normal bowel sounds, soft, no peritoneal signs. Absent: distended, tenderness - Extremities Exam Extremities exam: Present: warm, radial pulses palpable and symmetrical. Absent : calf tenderness, cyanotic, pedal edema - Neurological Exam Neurological exam: Present: CN II-XII intact, oriented X3, no focal deficits. Absent: pronater drift, facial droop, speech deficit - Skin Skin exam: Present: dry, intact
--- NOTE | 2017-06-05 12:54 | Physician Discharge Referral ---
Home Health/Hosp Referral Info Transfer to: Home Health Attending Provider: Judith Pro CNP Provider in Charge Post Discharge: PCP - Diagnosis (1) Atrial fibrillation Status: Chronic (2) Chronic kidney disease Status: Chronic (3) Acute on chronic diastolic (congestive) heart failure Status: Chronic - Respiratory Orders Oxygen / L per min (2) Smoking Cessation: Smoking cessation has been advised. For more information, call the [place] Tobacco Quit Line at 3-918-OOBF-NOW. - Diet/Nutrition Diet/Nutrition Orders: Regular - Activity Activity Orders: Walker - Services Needed Following services are medically necessary services: Nursing, Home Health Aide, Physical Therapy, Occupational Therapy - Transfer Medications Home Medications: Multivitamin [Multi-Day Vitamins] 1 each PO DAILY 04/25/15 [History] Oxycodone HCl [Roxicodone 30 MG Immed Release] 30 mg PO QID PRN 04/25/15 [ History] Calcium Carbonate [Calcium] 500 mg PO DAILY 03/31/17 [History] Furosemide [Lasix] 20 mg PO DAILY 03/31/17 [History] Gabapentin [Neurontin] 600 mg PO TID 03/31/17 [History] Magnesium Oxide [Mag-Ox] 400 mg PO DAILY 03/31/17 [History] [place]-3 Fatty Acids [Fish Oil] 600 mg PO DAILY 03/31/17 [History] Vit C/Vit E/Lutein/Min/[place]-3 [Ocuvite Softgel] 1 each PO DAILY 03/31/17 [ History] traZODone [TraZODone] 50 mg PO HS PRN 03/31/17 [History] Simvastatin [Zocor] 10 mg PO HS #120 tab 04/03/17 [Rx] Multivit/Ca/Min/Fe/FA [Thera M Plus] 1 tab PO DAILY tablet 04/16/17 [Rx] Metoprolol [Lopressor] 100 mg PO TID 06/01/17 [History] Rivaroxaban [Xarelto] 20 mg PO DAILY 06/01/17 [History] Allergies/Adverse Reactions: 3 Allergy/AdvReac Type Severity Reaction Status Date / Time aspirin Allergy Rash Verified 04/15/17 01:28 codeine Allergy Rash Verified 04/15/17 01:28 Certification: Further, I certify that my clinical findings support that this patient is homebound (i.e. absences from home require considerable and taxing effort and are for medical reasons or jew services or infrequently or short duration when for other reasons) because: Homebound Reason: Patient requires assistance of a person or device to safely leave home Attestation: My signature below is to certify that this patient is under my care and that I, or nurse practitioner, or a physician's environmental services assistant working with me, has a face-to -face encounter with this patient.
[2017-06-05 14:49] VITALS: BP 109/66
== END 2017-06-05 18:20 | disposition home health service (06) | DRG 308 ==
LOC: EMEROO 21:54 → 3BNU 21:54
PROVIDERS: ADMIT Registered Nurse; ATTEND Registered Nurse

== ENCOUNTER 2017-06-17 18:54 | Inpatient (IN) ==
[2017-06-17] MEDS ORDERED: *HR* Metoprolol 5 MG/5 ML VIAL IVP SCH (19:15)
[2017-06-17 19:34] LABS: Basophils % 0.5 %; Eosinophils # 0.1 K/mcL (0.0-0.6); Eosinophils % 2.1 %; Hematocrit 36.7 % (35.3-44.9); Hemoglobin 11.4 g/dL (11.5-15.4); Immature Granulocytes % 0.3 % (0-4); Lymphocytes # 0.8 K/mcL (0.6-4.6); Lymphocytes % 13.1 %; Mean Corpuscular HGB Conc 31.1 g/dL (31.6-35.5); Mean Corpuscular Hemoglobin 30.2 pg (28.0-33.3); Mean Corpuscular Volume 97.3 fL (83.0-100.0); Mean Platelet Volume 10.9 fL (9.4-12.4); Monocytes # 0.5 K/mcL (0.0-1.3); Monocytes % 8.9 %; Neutrophils # 4.4 K/mcL (1.6-8.9); Platelet Count 192 K/mcL (140-400); Red Blood Count 3.77 M/mcL (3.82-4.97); Red Cell Distribution Width 13.9 % (11.5-14.5); Segmented Neutrophils % 75.1 %
[2017-06-17 19:38] LABS: Bilirubin,Urine Negative (Negative); Blood,Urine Negative (Negative); Clarity,Urine Clear (Clear); Color,Urine Yellow (Yellow); Glucose,Urine (UA) Normal (Normal); Ketones,Urine Negative (Negative); Leukocyte Esterase,Urine Trace (Negative); Nitrite,Urine Negative (Negative); Protein,Urine Negative (Neg-Trace); Specific Gravity,Urine 1.013 (1.010-1.025); Urobilinogen,Urine Normal (Normal)
[2017-06-17 19:38] LABS: INR 2.5
[2017-06-17 19:40] LABS: Activated Partial Thrombo Time 37.2 Seconds (26.0-36.0)
[2017-06-17 19:40] LABS: Bacteria,Urine None Seen per hpf (None-Few); Hyaline Casts,Urine None Seen per lpf (None-Few); RBC,Urine 0-3 per hpf (0-3); Squamous Epithelial Cell,Urine Many per lpf (None-Few); WBC,Urine 0-3 per hpf (0-3)
[2017-06-17 19:44] LABS: Calcium 9.5 mg/dL (8.6-10.8); Potassium 5.4 mEq/L (3.5-4.5)
--- NOTE | 2017-06-17 19:45 | Emergency Department Note ---
Disposition Clinical Impression: Acute renal insufficiency, Hyperkalemia, Atrial fibrillation with RVR CHF (congestive heart failure) Qualifiers: Congestive heart failure type: diastolic Congestive heart failure chronicity: chronic Qualified Code(s): I50.32 - Chronic diastolic (congestive) heart failure Foot contusion Qualifiers: Encounter type: initial encounter Laterality: right Qualified Code(s): S90.31XA - Contusion of right foot, initial encounter Disposition: Admitted As Inpatient Condition: Fair General Adult HPI - General Chief complaint: ED Shortness of Breath/Dyspnea Stated complaint: louie Time Seen by Provider: 06/17/17 18:58 Source: EMS Mode of arrival: EMS Limitations: no limitations Nursing Notes Reviewed: Yes Vital Signs Reviewed: Yes - History of Present Illness HPI Narrative: 86-year-old female presents to the emergency department with worsening shortness of breath that started a couple hours ago. Patient states that she has COPD, was recently in the hospital with issues with controlling the rate of her atrial fibrillation. Patient states that she is on oxygen at home and today her normal oxygen would not help her shortness of breath. Patient is also complaining of some mild discomfort in her right foot. Patient denies any recent trauma to it. Patient has a known diabetic and has diabetic peripheral neuropathy. Pain Scale: 0 - Related Data Home Medications Medication Instructions Recorded Confirmed Multivitamin [Multi-Day Vitamins] 1 each PO DAILY 04/25/15 06/17/17 Oxycodone HCl [Roxicodone 30 MG 30 mg PO QID PRN 04/25/15 06/17/17 Immed Release] Calcium Carbonate [Calcium] 500 mg PO DAILY 03/31/17 06/17/17 Furosemide [Lasix] 20 mg PO DAILY 03/31/17 06/17/17 Gabapentin [Neurontin] 600 mg PO TID 03/31/17 06/17/17 Magnesium Oxide [Mag-Ox] 400 mg PO DAILY 03/31/17 06/17/17 [place]-3 Fatty Acids [Fish Oil] 600 mg PO DAILY 03/31/17 06/17/17 Vit C/Vit E/Lutein/Min/[place]-3 1 each PO DAILY 03/31/17 06/17/17 [Ocuvite Softgel] traZODone [TraZODone] 50 mg PO HS PRN 03/31/17 06/17/17 Metoprolol [Lopressor] 100 mg PO BID 06/01/17 06/17/17 Rivaroxaban [Xarelto] 20 mg PO DAILY 06/01/17 06/17/17 Previous Rx's Medication Instructions Recorded Simvastatin [Zocor] 10 mg PO HS #120 tab 04/03/17 Multivit/Ca/Min/Fe/FA [Thera M 1 tab PO DAILY tablet 04/16/17 Plus] Allergies Allergy/AdvReac Type Severity Reaction Status Date / Time aspirin Allergy Rash Verified 06/17/17 20:30 codeine Allergy Rash Verified 06/17/17 20:30 All systems ED: reviewed and negative except as stated. Review of Systems: As Per HPI Cardiovascular: Denies: chest pain Respiratory: Reports: dyspnea. Denies: cough, wheezes Past Medical History - Past Medical History Medical history: Reports: atrial fibrillation, CHF, COPD, hyperlipidemia, hypertension, osteoporosis Surgical history: Reports: cholecystectomy, hysterectomy, knee replacement, orthopedic, other Psychiatric history: Reports: anxiety - Social History Smoking Status: Never smoker Smokeless Tobacco Status: No Alcohol use: Reports: none Drug use: Reports: none Physical Exam CONSTITUTIONAL: Alert , thin-appearing female who does not appear to be in any acute distress HEAD: Normocephalic; atraumatic. EYES: PERRL, no scleral icterus. NOSE: The nose is normal in appearance without rhinorrhea RESP: Normal chest excursion with respiration; breath sounds clear and equal bilaterally; no wheezes, rhonchi, or rales CARD: Regular rhythm, without murmurs, rub or gallop ABD: Non-distended; non-tender, soft,without rigidity, rebound or guarding SKIN: Normal for age and race; warm and dry; no apparent lesions Lower extremities: Right leg appears more swollen than left, there are no palpable cords, no erythema, there is some ecchymosis along the anterior barroso of the right leg, there is also some bruising along the fourth and fifth metacarpal. - General General appearance: in no apparent distress Course Vital Signs Temperature 97.7 F 06/17/17 18:56 Pulse Rate 109 06/17/17 18:56 Respiratory Rate 16 06/17/17 18:56 Blood Pressure 149/99 06/17/17 18:56 O2 Sat by Pulse Oximetry 100 06/17/17 18:56 Temperature 97.7 F 06/17/17 18:56 Pulse Rate 88 06/17/17 20:13 Respiratory Rate 16 06/17/17 20:13 Blood Pressure 137/99 06/17/17 20:13 O2 Sat by Pulse Oximetry 98 06/17/17 20:13 Oxygen Delivery Oxygen Delivery Nasal Cannula Medical Decision Making - MDM Narrative Medical decision making narrative: An 86-year-old female presents to the emergency department with concern for A. fib with RVR causing her to be short of breath. Patient was recently admitted to the hospital for this. An echocardiogram revealed atrial fibrillation with RVR with a ventricular rate of approximately 109 bpm. Patient was not hypoxic here in the emergency department. She was 96% on 2 L of oxygen via nasal cannula. Patient was given 5 mg of her metoprolol here in the emergency department. The patient was not hypoxic, did not have an altered mental status , was not having any chest pain pressure or tightness. Patient is hyperkalemic with a potassium of 5.4. This is higher than she has been in the past. This is probably likely due to her acute renal insufficiency with a creatinine of 1.73. She does have chronic kidney disease. We have given a gram of calcium gluconate here in the emergency department as well as Kayexalate. Patient does not have any peaked T waves on electrocardiogram. Patient's urinalysis does not reveal any evidence of infection. Patient has a hemoglobin 11.4. This is about where her normal hemoglobin rest. After administration of 5 mg of Lopressor here in the emergency Department the IV, heart rate has been in the mid 80s. Blood pressure is 149/99. We obtained a foot x-ray of the right foot as it was some ecchymosis and bruising of her third and fourth metacarpal. His x-ray did not reveal any acute fractures. I spoke with the hospitalist regarding this patient's admission and he agreed to accept her. I also spoke with the patient and family at bedside and they agreed as well. Patient was admitted to the hospitalist. I have ordered a magnesium and the hospitalist stated that he would check his lab. Chest X-Ray 06/17/17 19:00 IMPRESSION: Evidence of pulmonary edema, for lesser degree than the prior study. Moderate right pleural effusion, also present on the prior study. D/ / Aranza Bridges Cha, MD / Aranza Bridges Cha, MD Interpreting Provider: Aranza Bridges Cha, MD Vital Signs Temperature 97.7 F 06/17/17 18:56 Pulse Rate 109 06/17/17 18:56 Respiratory Rate 16 06/17/17 18:56 Blood Pressure 149/99 06/17/17 18:56 O2 Sat by Pulse Oximetry 100 06/17/17 18:56 Temperature 97.7 F 06/17/17 18:56 Pulse Rate 109 06/17/17 18:56 Respiratory Rate 16 06/17/17 18:56 Blood Pressure 149/99 06/17/17 18:56 O2 Sat by Pulse Oximetry 100 06/17/17 18:56 Oxygen Delivery Oxygen Delivery Nasal Cannula Chest X-Ray 06/17/17 19:00 IMPRESSION: Evidence of pulmonary edema, for lesser degree than the prior study. Moderate right pleural effusion, also present on the prior study. D/ / Aranza Bridges Cha, MD / Aranza Bridges Cha, MD Interpreting Provider: Aranza Bridges Cha, MD Foot X-Ray 06/17/17 19:19 IMPRESSION: No fracture malalignment. Please note subtle nondisplaced fractures could be missed due to osteopenia. Consider follow-up radiographs in 2 weeks to assess for evidence of healing if there is ongoing clinical concern. D/ / Nick Morfin / Nick Morfin Interpreting Provider: Nick Morfin - Medical Records Medical records reviewed: Yes I reviewed the patient's medical records. - Lab Data Lab results reviewed: Yes I reviewed the patient's lab results. Result diagrams: 06/17/17 19:22 06/17/17 19:22 Lab Results 06/17/17 06/17/17 06/17/17 Range/Units 19:22 19:22 19:22 WBC 5.8 (4.3-11.1) K/mcL RBC 3.77 L (3.82-4.97) M/mcL Hgb 11.4 L (11.5-15.4) g/dL Hct 36.7 (35.3-44.9) % MCV 97.3 (83.0-100.0) fL MCH 30.2 (28.0-33.3) pg MCHC 31.1 L (31.6-35.5) g/dL RDW 13.9 (11.5-14.5) % Plt Count 192 (140-400) K/mcL MPV 10.9 (9.4-12.4) fL Immature Gran % 0.3 (0-4) % Seg Neutrophils % 75.1 % Lymphocytes % 13.1 % Monocytes % 8.9 % Eosinophils % 2.1 % Basophils % 0.5 % Neutrophils # 4.4 (1.6-8.9) K/mcL Lymphocytes # 0.8 (0.6-4.6) K/mcL Monocytes # 0.5 (0.0-1.3) K/mcL Eosinophils # 0.1 (0.0-0.6) K/mcL Basophils # 0.0 (0.0-0.2) K/mcL PT 28.0 H (9.4-12.1) Seconds INR 2.5 APTT 37.2 H (26.0-36.0) Seconds Sodium 140 (136-145) mEq/L Potassium 5.4 H (3.5-4.5) mEq/L Chloride 101 (98-109) mEq/L Carbon Dioxide 28 (19-29) mEq/L BUN 38 H (7-20) mg/dL Creatinine 1.73 H (0.57-1.11) mg/dL Est GFR ( Amer) 34 L (> 60) Est GFR (Non-Af Amer) 28 L (> 60) BUN/Creatinine Ratio 22 (6-26) Glucose 105 H (70-99) mg/dL Calculated Osmolality 299 (280-300) Calcium 9.5 (8.6-10.8) mg/dL Troponin I (0-0.03) ng/mL B-Natriuretic Peptide (0-100) pg/mL TSH 2.180 (0.350-4.840) mcIU/mL Urine Color (Yellow) Urine Clarity (Clear) Urine pH (5.0-8.0) pH Units Ur Specific [place] (1.010-1.025) Urine Protein (Neg-Trace) mg/dL Urine Glucose (UA) (Normal) mg/dL Urine Ketones (Negative) mg/dL Urine Blood (Negative) Urine Nitrite (Negative) Urine Bilirubin (Negative) Urine Urobilinogen (Normal) mg/dL Ur Leukocyte Esterase (Negative) Urine Microscopic RBC (0-3) per hpf Urine Microscopic WBC (0-3) per hpf Ur Squamous Epith Cells (None-Few) per lpf Urine Bacteria (None-Few) per hpf Hyaline Casts (None-Few) per lpf Ur Culture Indicated? (NO) 06/17/17 06/17/17 06/17/17 Range/Units 19:22 19:22 19:28 WBC (4.3-11.1) K/mcL RBC (3.82-4.97) M/mcL Hgb (11.5-15.4) g/dL Hct (35.3-44.9) % MCV (83.0-100.0) fL MCH (28.0-33.3) pg MCHC (31.6-35.5) g/dL RDW (11.5-14.5) % Plt Count (140-400) K/mcL MPV (9.4-12.4) fL Immature Gran % (0-4) % Seg Neutrophils % % Lymphocytes % % Monocytes % % Eosinophils % % Basophils % % Neutrophils # (1.6-8.9) K/mcL Lymphocytes # (0.6-4.6) K/mcL Monocytes # (0.0-1.3) K/mcL Eosinophils # (0.0-0.6) K/mcL Basophils # (0.0-0.2) K/mcL PT (9.4-12.1) Seconds INR APTT (26.0-36.0) Seconds Sodium (136-145) mEq/L Potassium (3.5-4.5) mEq/L Chloride (98-109) mEq/L Carbon Dioxide (19-29) mEq/L BUN (7-20) mg/dL Creatinine (0.57-1.11) mg/dL Est GFR ( Amer) (> 60) Est GFR (Non-Af Amer) (> 60) BUN/Creatinine Ratio (6-26) Glucose (70-99) mg/dL Calculated Osmolality (280-300) Calcium (8.6-10.8) mg/dL Troponin I 0.03 (0-0.03) ng/mL B-Natriuretic Peptide 779 H (0-100) pg/mL TSH (0.350-4.840) mcIU/mL Urine Color Yellow (Yellow) Urine Clarity Clear (Clear) Urine pH 6.0 (5.0-8.0) pH Units Ur Specific [place] 1.013 (1.010-1.025) Urine Protein Negative (Neg-Trace) mg/dL Urine Glucose (UA) Normal (Normal) mg/dL Urine Ketones Negative (Negative) mg/dL Urine Blood Negative (Negative) Urine Nitrite Negative (Negative) Urine Bilirubin Negative (Negative) Urine Urobilinogen Normal (Normal) mg/dL Ur Leukocyte Esterase Trace H (Negative) Urine Microscopic RBC 0-3 (0-3) per hpf Urine Microscopic WBC 0-3 (0-3) per hpf Ur Squamous Epith Cells Many H (None-Few) per lpf Urine Bacteria None Seen (None-Few) per hpf Hyaline Casts None Seen (None-Few) per lpf Ur Culture Indicated? YES A (NO) - Radiology Data Radiology results reviewed: Yes I reviewed the patient's radiology results. Chest X-Ray 06/17/17 19:00 IMPRESSION: Evidence of pulmonary edema, for lesser degree than the prior study. Moderate right pleural effusion, also present on the prior study. D/ / Aranza Bridges Cha, MD / Aranza Bridges Cha, MD Interpreting Provider: Aranza Bridges Cha, MD Foot X-Ray 06/17/17 19:19 IMPRESSION: No fracture malalignment. Please note subtle nondisplaced fractures could be missed due to osteopenia. Consider follow-up radiographs in 2 weeks to assess for evidence of healing if there is ongoing clinical concern. D/ / Nick Morfin / Nick Morfin Interpreting Provider: Nick Morfin Attestation Statement - Attestation Attestation: I examined this patient and my medical decision-making was reviewed with the Resident Physician, Dr. Deng. I agree with the documented findings, disposition and treatment plan as described except to the extent set forth below. Patient is an 86-year-old white female with a history of COPD an chronic A. fib on anticoagulation who presents to the emergency room today with a history of worsening shortness of breath that began today. Patient is a poor historian and difficult to know she is appropriately taking her medications as instructed by her doctor but suspect that she has not been taking her meds crackly. Patient arrives in atrial ablation with RVR with a stable blood pressure. She is not having any respiratory distress on arrival but just complains of only shortness of breath. Patient denies any chest pain pressure or heaviness, no palpitations, no diaphoresis, no lightheadedness or syncope, no abdominal pain nausea vomiting. Patient also has some lower extremity edema that is worse on the right than the left and a noticeable contusion to the dorsum of her right foot that she states she cannot feel due to her neuropathy and denies any knowledge of any injury. I agree with patient's physical exam findings as documented. Patient's EKG shows atrial fibrillation with RVR, no acute ischemia is noted. Patient was placed on desk monitor and continuous pulse ox, IV saline while was established labs were drawn and sent and patient was given aspirin and Lopressor 5 mg IV. Chest x-ray shows some mild pulmonary edema but improved from prior imaging. Patient's BNP is elevated and she is having worsening acute on chronic renal insufficiency with mild hyperkalemia. We began treatment with calcium gluconate and Kayexalate for the hyperkalemia. Patient has been doing well with a heart rate in the 80s following a single dose of Lopressor IV. Blood pressure is stable. We will admit the patient for further evaluation of atrial fibrillation, acute on chronic renal insufficiency with hyperkalemia, CHF, and foot contusion. We did also obtain a lower extreme E Doppler in her right leg which was negative for DVT. Case was discussed with the hospitalist except the patient for admission.
[2017-06-17 20:08] LABS: Thyroid Stimulating Hormone 2.18 mcIU/mL (0.350-4.840)
[2017-06-17 21:07] LABS: Magnesium 1.8 mg/dL (1.6-2.6)
--- NOTE | 2017-06-17 21:18 | Internal Med History&Physical ---
Date of Encounter: 06/17/17 Time of Encounter: 21:15 Assessment and Plan (1) CHF (congestive heart failure) Current visit: Yes Status: Chronic TTE 02/2017 showed EF 65-70%. Severe diastolic dysfunction, severely dilated LA. Mild MR, mild TR, mild pulmonary hypertension. CXR shows pulmonary congestion and right pleural effusion that is minimally improved from previous Likely the cause of her shortness of breath 1+ pitting edema on right LE BNP minimally elevated from previous at 779 Denies PND or orthopnea No tobacco use, no history of CAD Increasing Lasix to 40mg IV qd Strict I&Os Cardiac diet Fluid restriction 1500 Qualifiers: Congestive heart failure type: diastolic Congestive heart failure chronicity: acute on chronic Qualified Code(s): I50.33 - Acute on chronic diastolic (congestive) heart failure (2) Atrial fibrillation with RVR Current visit: Yes Status: Acute HR in 130s per EMS and HR 109 on arrival One dose of Lopressor - pulse down to 80s Still in atrial fibrillation Continue AV blockade with Lopressor and watch for spontaneous conversion to NS Telemetry Continue Xarelto (3) Acute on chronic renal insufficiency Current visit: Yes Status: Acute Cr 1.73, BUN 38 Previous known Cr 1.10 on 06/05/17 Likely due to renal congestion from CHF Diuresis and will Repeat BMP in the am (4) Shortness of breath Current visit: Yes Status: Acute Likely due to CHF. See above No formal PFTs per EMR and patient review Started on home oxygen 3L at night after previous admission with acute respiratory failure. No tobacco use CXR shows right pleural effusion and pulmonary congestion, both seen on previous that is minimally improved Will continue to [place] oxygen 2L Continuous pulse ox (5) Hyperkalemia Current visit: Yes Status: Acute K 5.4. Given Calcium and Kayexalyate. Recheck in the morning Likely due to renal insufficiency along with continued use of potassium supplements after instructed to discontinue last week No EKG changes Will continue cardiac monitoring (6) Anemia Current visit: No Status: Acute Hgb 11.4 and near baseline. Will continue to follow. Qualifiers: Anemia type: due to chronic kidney disease Chronic kidney disease stage: stage 3 (moderate) Qualified Code(s): N18.3 - Chronic kidney disease, stage 3 (moderate); D63.1 - Anemia in chronic kidney disease; D63.1 - Anemia in chronic kidney disease (7) HLD (hyperlipidemia) Current visit: No Status: Chronic History of transaminitis during previous admission. Held Zocor at that time. Will continue to do so and can restart statin therapy with PCP pending lipid panel and LFTs. Qualifiers: Hyperlipidemia type: unspecified Qualified Code(s): E78.5 - Hyperlipidemia , unspecified (8) HTN (hypertension) Current visit: No Status: Chronic Appears to be stable at this time. No changes. Qualifiers: Hypertension type: essential hypertension Qualified Code(s): I10 - Essential (primary) hypertension (9) Chronic pain syndrome Current visit: Yes Status: Chronic Takes Roxicodone 30mg four times per day. Will continue PRN during stay (10) Insomnia Current visit: Yes Status: Chronic Takes Trazadone at home. Will continue therapy Qualifiers: Insomnia type: due to medical condition Qualified Code(s): G47.01 - Insomnia due to medical condition Internal Medicine - H&P: HPI Chief complaint: shortness of breath Admitted From: Home Plans for Post Hospital Care: Home History of present illness: Ms. Francois is a very pleasant 86 year old female with a past medical history of CHF, CKD III, chronic respiratory failure, paroxysmal atrial fibrillation, HLD and chronic pain syndrome who presents to the [facility] Emergency Department with a chief complaint of shortness of breath. She reports that since her discharge from the hospital on 06/05/17, she has been experiencing shortness of breath during the day. Patient was hospitalized for new onset atrial fibrillation and started on Lopressor and Xarelto, as well as home oxygen d/t acute respiratory failure 3L at night. She is able to ambulate without dyspnea throughout the day but has noticed a slight progression over the last 7 days. Additionally, she is complaining of right lower leg edema and right foot pain. This afternoon, she told her that while using oxygen at home, she was unable to "get enough air", and decided to come to the ED. EMS reports a HR of 130s and on arrival, EKG demonstrated afib with RVR with HR 109. Initial blood work demonstrates potassium 5.4, Hgb 11.4, Cr 1.73, BUN 38 and BNP 779. No peaked T waves. CXR shoes vascular congestion with improvement from previous. Right foot XR neg. Doppler US of right LE neg. She was given lopressor with HR drop to 80s. Calcium and kayexalate were administered. Oxygen at 2L was started and she was sating in mid 90s. On evaluation, she denies any tobacco or EtOH abuse. Patient has a poor appetite and only ate barone over the last two days. She has a hospital followup and was told to stop taking her potassium pills but mistakenly continued taking them three times per day. Patient is a poor historian and is concerned about not being able to take care of everything for his . We will admit Mrs. Francois to for further observation and management. Past Med Surg Social Fam HX - Past Medical History Medical history: atrial fibrillation, CHF, COPD, hyperlipidemia, hypertension, osteoporosis Psychiatric history: anxiety - Past Surgical History Surgical History: cholecystectomy, hysterectomy, knee replacement, orthopedic, other - Social History Smoking Status: Never smoker Smokeless Tobacco Status: No Alcohol use: none Drug use: none - Family History Daughter Living Status: Hx Family Cancer: Yes Father Living Status: Hx Family Cardiac Disorders: Yes (heart attack) Internal Medicine - H&P: Meds Multivitamin [Multi-Day Vitamins] 1 each PO DAILY 04/25/15 [History] Oxycodone HCl [Roxicodone 30 MG Immed Release] 30 mg PO QID PRN 04/25/15 [ History] Calcium Carbonate [Calcium] 500 mg PO DAILY 03/31/17 [History] Furosemide [Lasix] 20 mg PO DAILY 03/31/17 [History] Gabapentin [Neurontin] 600 mg PO TID 03/31/17 [History] Magnesium Oxide [Mag-Ox] 400 mg PO DAILY 03/31/17 [History] [place]-3 Fatty Acids [Fish Oil] 600 mg PO DAILY 03/31/17 [History] Vit C/Vit E/Lutein/Min/[place]-3 [Ocuvite Softgel] 1 each PO DAILY 03/31/17 [ History] traZODone [TraZODone] 50 mg PO HS PRN 03/31/17 [History] Simvastatin [Zocor] 10 mg PO HS #120 tab 04/03/17 [Rx] Multivit/Ca/Min/Fe/FA [Thera M Plus] 1 tab PO DAILY tablet 04/16/17 [Rx] Metoprolol [Lopressor] 100 mg PO BID 06/01/17 [History] Rivaroxaban [Xarelto] 20 mg PO DAILY 06/01/17 [History] 3 Allergy/AdvReac Type Severity Reaction Status Date / Time aspirin Allergy Rash Verified 06/17/17 20:30 codeine Allergy Rash Verified 06/17/17 20:30 All Systems PM: A 10-system review of systems was performed and is negative for pertinent findings except as documented above in the HPI. - Constitutional Constitutional: no fatigue, no fever(s) - EENT Eyes: no blurry vision - Cardiovascular Cardiovascular ROS IM: no chest pain, no diaphoresis, no lightheadedness, no palpitations - Respiratory Respiratory: no wheezing - Gastrointestinal Gastrointestinal: no abdominal pain, no constipation, no diarrhea - Genitourinary Genitourinary: no dysuria - Musculoskeletal Musculoskeletal ROS IM: arthralgias, back pain - Integumentary Integumentary IM: no new lesions - Neurological Neurological ROS: no frequent falls, no headache(s) - Constitutional Vitals: Temp Pulse Resp BP Pulse Ox 97.7 F 88 16 137/99 98 06/17/17 18:56 06/17/17 20:13 06/17/17 20:13 06/17/17 20:13 06/17/17 20:13 General appearance: Present: cooperative, A&O X 3, no acute distress - Head Head exam: Present: atraumatic, normocephalic - Eye Eye exam: Present: EOMI, conjuntiva pink, sclera anicteric - ENT ENT exam: Present: mucous membranes moist - Neck Neck exam general surgery: Present: supple, trachea midline - Respiratory Respiratory exam: Present: CTAB. Absent: rales, respiratory distress, rhonchi, wheezes - Cardiovascular Cardiovascular exam: Present: RRR, +S1, +S2 - GI/Abdominal GI/Abdominal exam: Present: normal bowel sounds, soft. Absent: distended, tenderness - Extremities Exam Extremities exam: Present: pedal edema (1+ RLE), warm. Absent: calf tenderness , tenderness - Neurological Exam Neurological exam: Present: alert, oriented X3. Absent: speech deficit - Psychiatric Psychiatric exam: Present: normal affect, normal mood - Skin Skin exam: Present: dry, normal color, warm. Absent: cyanosis, diaphoretic Internal Med - H&P Results - Labs CBC & Chem 7: 06/17/17 19:22 06/17/17 19:22 Labs: Short CBC 06/17/17 Range/Units 19:22 WBC 5.8 (4.3-11.1) K/mcL Hgb 11.4 L (11.5-15.4) g/dL Hct 36.7 (35.3-44.9) % Plt Count 192 (140-400) K/mcL Neutrophils # 4.4 (1.6-8.9) K/mcL BMP 06/17/17 19:22 Sodium 140 Potassium 5.4 H Chloride 101 Carbon Dioxide 28 BUN 38 H Creatinine 1.73 H Glucose 105 H Calcium 9.5 Cardiac Enzymes 06/17/17 Range/Units 19:22 Troponin I 0.03 (0-0.03) ng/mL Urine 06/17/17 Range/Units 19:28 Urine Color Yellow (Yellow) Urine Clarity Clear (Clear) Urine pH 6.0 (5.0-8.0) pH Units Ur Specific [place] 1.013 (1.010-1.025) Urine Protein Negative (Neg-Trace) mg/dL Urine Glucose (UA) Normal (Normal) mg/dL - Impressions ITS Impressions Chest X-Ray 06/17/17 19:00 IMPRESSION: Evidence of pulmonary edema, for lesser degree than the prior study. Moderate right pleural effusion, also present on the prior study. D/ / Aranza Bridges Cha, MD / Aranza Bridges Cha, MD Interpreting Provider: Aranza Bridges Cha, MD Foot X-Ray 06/17/17 19:19 IMPRESSION: No fracture malalignment. Please note subtle nondisplaced fractures could be missed due to osteopenia. Consider follow-up radiographs in 2 weeks to assess for evidence of healing if there is ongoing clinical concern. D/ / Nick Morfin / Nick Morfin Interpreting Provider: Nick Morfin
[2017-06-17] MEDS ORDERED: Ondansetron 4 MG/2 ML VIAL IVP PRN (22:55)
[2017-06-17] MEDS ORDERED: Naloxone 0.4 MG/ML INJ IVP PRN (22:55)
[2017-06-17] MEDS ORDERED: traZODone 50 MG TABLET PO PRN (23:06)
[2017-06-17] MEDS ORDERED: Furosemide 40 MG/4 ML VIAL IVP SCH (23:30)
[2017-06-17] MEDS: *HR* OxyCODONE Immed Rel 15 MG TABLET PO PRN (23:56)
[2017-06-17] MEDS: Metoprolol 100 MG TABLET PO SCH (23:56)
--- NOTE | 2017-06-18 01:47 | Event Note ---
Date of Encounter: 06/18/17 Time of Encounter: 00:30 Shortly after midnight, there was an overhead code called for Mrs. Francois after she sustained an unwitnessed fall. Per nursing, her bed alarm was on and she apparently slid out of bed and alarm did go off. Patient was found down and was immediately brought up to her bedside commode. She denies any LOC but does report left hip pain. No neurological deficits noted on exam. Vital signs were checked and stable. XR Left hip demonstrate periprosthetic femur fracture. Head CT neg. Gaxiola placed due to pain with bed pain and immobilization. Orthopedic consult placed for the morning. Bed rest and pain control for now. Patient is in stable condition and will hold xarelto.
--- NOTE | 2017-06-18 01:57 | Event Note ---
Date of Encounter: 06/18/17 Time of Encounter: 01:57 Patient seen and examined with medical staff specialist. Agree with assessment and plan
[2017-06-18] MEDS: *HR* OxyCODONE Immed Rel 15 MG TABLET PO PRN ×3 (06:21→23:45)
[2017-06-18 06:22] LABS: Calcium 9.7 mg/dL (8.6-10.8)
[2017-06-18 06:23] LABS: Potassium 4.8 mEq/L (3.5-4.5)
[2017-06-18] MEDS: Furosemide 40 MG/4 ML VIAL IVP SCH (07:50)
[2017-06-18] MEDS: Metoprolol 100 MG TABLET PO SCH ×2 (07:50→20:33)
[2017-06-18] MEDS: Gabapentin 300 MG CAPSULE PO SCH ×3 (07:50→20:33)
[2017-06-18] MEDS ORDERED: *HR* Rivaroxaban 10 MG TABLET PO SCH (09:00)
--- NOTE | 2017-06-18 12:07 | Internal Med Progress Note ---
Date of Encounter: 06/18/17 Time of Encounter: 12:05 - Assessment and plan (1) Periprosthetic fracture around internal prosthetic hip joint Current Visit: Yes Status: Acute Assessment and plan: probably related to fall out of bed; left hip XRay showed periprosthetic fracture; likely nonoperative management. Orthopedics consulted; continue pain control with PRN Percocet; weight bearing per Ortho recommendations; PT/OT evaluation; Qualifiers: Encounter type: subsequent encounter Laterality: left Qualified Code(s): M97.02XD - Periprosthetic fracture around internal prosthetic left hip joint, subsequent encounter; T84.041D - Periprosthetic fracture around internal prosthetic left hip joint, subsequent encounter (2) Atrial fibrillation Current Visit: Yes Status: Chronic Assessment and plan: presented with atrial fibrillation with RVR; HR was better controlled with a dose of IV beta gunner in ER; continue home regimen; is on longterm anticoagulation with Xarelto, which is held now due to fall last night and left hip periprosthetic fracture. Qualifiers: Atrial fibrillation type: permanent Qualified Code(s): I48.2 - Chronic atrial fibrillation (3) Chronic kidney disease Current Visit: Yes Status: Chronic Assessment and plan: serum creatinine stable, around baseline; continue to monitor; Qualifiers: Chronic kidney disease stage: stage 3 (moderate) Qualified Code(s): N18.3 - Chronic kidney disease, stage 3 (moderate) (4) CHF (congestive heart failure) Current Visit: Yes Status: Chronic Assessment and plan: dyspnea could be due to mild CHF; recent echocardiogram shows EF 65-70%. Severe diastolic dysfunction, severely dilated LA. Mild MR, mild TR, mild pulmonary hypertension. Lasix has been increased; continue beta gunner; fluid restriction ; Qualifiers: Congestive heart failure type: diastolic Congestive heart failure chronicity: acute on chronic Qualified Code(s): I50.33 - Acute on chronic diastolic (congestive) heart failure (5) HLD (hyperlipidemia) Current Visit: Yes Status: Chronic Qualifiers: Hyperlipidemia type: unspecified Qualified Code(s): E78.5 - Hyperlipidemia , unspecified (6) HTN (hypertension) Current Visit: Yes Status: Chronic Qualifiers: Hypertension type: essential hypertension Qualified Code(s): I10 - Essential (primary) hypertension (7) Anemia Current Visit: Yes Status: Chronic Qualifiers: Anemia type: due to chronic kidney disease Chronic kidney disease stage: stage 3 (moderate) Qualified Code(s): N18.3 - Chronic kidney disease, stage 3 (moderate); D63.1 - Anemia in chronic kidney disease; D63.1 - Anemia in chronic kidney disease (8) Chronic pain syndrome Current Visit: Yes Status: Chronic (9) Insomnia Current Visit: Yes Status: Chronic Qualifiers: Insomnia type: unspecified Qualified Code(s): G47.00 - Insomnia, unspecified - Subjective Interval history: Noted to be awake and alert; oriented in general but does not remember what brought her to the hospital; had an unwitnessed fall last night and reports left hip and thigh pain; no shortness of breath, chest pain, palpitations; - Constitutional Vitals: Temp Pulse Resp BP Pulse Ox 98 F 83 17 120/70 96 06/18/17 10:43 06/18/17 10:43 06/18/17 10:43 06/18/17 10:43 06/18/17 10:43 General appearance: Present: cooperative, A&O X 3, answers questions appropriately - Respiratory Respiratory exam: Present: CTAB. Absent: accessory muscle use, rales, rhonchi, wheezes - Cardiovascular Cardiovascular exam: Present: irregular rhythm, +S1, +S2. Absent: diastolic murmur, gallop, rubs, systolic murmur - GI/Abdominal GI/Abdominal exam: Present: normal bowel sounds, soft, no peritoneal signs. Absent: distended, tenderness - Extremities Exam Extremities exam: Present: pedal edema, tenderness (over left anterolateral proximal thigh and lateral hip; slightly restricted ROM), warm, radial pulses palpable and symmetrical. Absent: calf tenderness, cyanotic Additional comments: ecchymoses noted on left lateral thigh - Neurological Exam Neurological exam: Present: CN II-XII intact, oriented X3, no focal deficits. Absent: pronater drift, facial droop, speech deficit - Skin Skin exam: Present: dry, intact, petechiae (ecchymoses on B/L LE) Internal Medicine: Result - Labs CBC & Chem 7: 06/17/17 19:22 06/18/17 05:46 Labs: BMP 06/18/17 05:46 Sodium 141 Potassium 4.8 H Chloride 99 Carbon Dioxide 34 H BUN 36 H Creatinine 1.61 H Glucose 93 Calcium 9.7 - ABG Interpretation ABG results: PT/INR, D-dimer PT 28.0 Seconds (9.4-12.1) H 06/17/17 19:22 - Impressions Impressions Head CT 06/18/17 00:52 IMPRESSION: No acute intracranial abnormality. D/ / Satinder Clark MD / Satinder Clark MD Interpreting Provider: Satinder Clark MD Hip X-Ray 06/18/17 00:52 IMPRESSION: Acute periprosthetic fracture. Given apparent bony demineralization on these overexposed images this may represent a [place] B3 fracture. D/ / Satinder Clark MD / Satinder Clark MD Interpreting Provider: Satinder Clark MD Consult Discharge Plan - Plan Referrals: Louise Zarate, ROLLER CLEANER [Primary Care Provider] -
--- NOTE | 2017-06-18 15:26 | Orthopedic Consult Note ---
Date of Encounter: 06/18/17 Time of Encounter: 16:29 Assessment and Plan (1) Periprosthetic fracture around internal prosthetic hip joint Current Visit: Yes Status: Acute There is some lucency distally around the NOAM stem but the components appear stable and there is minimal displacement of the fracture. We will treat this non -operatively. Recommend PWB with a walker. Will have her follow up with Dr Billingsley 's PA, Elizabeth Hartmann in the office in 2 weeks. Qualifiers: Qualified Code(s): M97.8XXA - Periprosthetic fracture around other internal prosthetic joint, initial encounter; Z96.649 - Presence of unspecified artificial hip joint; Z96.649 - Presence of unspecified artificial hip joint History of Present Illness HPI: Ms. Francois is a 86 year old female admitted for a CHF exacerbation who had an unwitnessed fall out of bed early this AM. She denies blacking out or passing out before or after the fall. Complained of left hip pain after the fall, x- rays obtained show periprosthetic femur fracture. Denies any other ortho complaints. Previous NOAM was performed by Dr Billingsley several years ago, patient unsure of how long. Denies hip problems prior to this fall. No N/T distally. Past Med Surg Social Fam HX - Past Medical History Medical history: atrial fibrillation, CHF, COPD, hyperlipidemia, hypertension, osteoporosis Psychiatric history: anxiety - Past Surgical History Surgical History: cholecystectomy, hysterectomy, knee replacement, orthopedic, other - Social History Smoking Status: Never smoker Smokeless Tobacco Status: No Alcohol use: none Drug use: none - Family History Daughter Living Status: Hx Family Cancer: Yes Father Living Status: Hx Family Cardiac Disorders: Yes (heart attack) Medications and Allergies Multivitamin [Multi-Day Vitamins] 1 each PO DAILY 04/25/15 [History] Oxycodone HCl [Roxicodone 30 MG Immed Release] 30 mg PO QID PRN 04/25/15 [ History] Calcium Carbonate [Calcium] 500 mg PO DAILY 03/31/17 [History] Furosemide [Lasix] 20 mg PO DAILY 03/31/17 [History] Gabapentin [Neurontin] 600 mg PO TID 03/31/17 [History] Magnesium Oxide [Mag-Ox] 400 mg PO DAILY 03/31/17 [History] [place]-3 Fatty Acids [Fish Oil] 600 mg PO DAILY 03/31/17 [History] Vit C/Vit E/Lutein/Min/[place]-3 [Ocuvite Softgel] 1 each PO DAILY 03/31/17 [ History] traZODone [TraZODone] 50 mg PO HS PRN 03/31/17 [History] Simvastatin [Zocor] 10 mg PO HS #120 tab 04/03/17 [Rx] Multivit/Ca/Min/Fe/FA [Thera M Plus] 1 tab PO DAILY tablet 04/16/17 [Rx] Metoprolol [Lopressor] 100 mg PO BID 06/01/17 [History] Rivaroxaban [Xarelto] 20 mg PO DAILY 06/01/17 [History] 3 Allergy/AdvReac Type Severity Reaction Status Date / Time aspirin Allergy Rash Verified 06/17/17 20:30 codeine Allergy Rash Verified 06/17/17 20:30 All Systems Reviewed: A 10-system review of systems was performed and is negative for pertinent findings except as documented above in the HPI. Physical Exam - Constitutional Vitals: Temp Pulse Resp BP Pulse Ox 98.5 F 105 14 102/64 95 06/18/17 14:12 06/18/17 14:12 06/18/17 14:12 06/18/17 14:12 06/18/17 14:12 Exam: Consult Exam: Constitutional -Vitals reviewed -The patient is well developed and well nourished. -Mood is pleasant. -The patient is well groomed. Psychiatric -The patient is fully alert and oriented x 3. Respiratory: -Respiratory effort normal Abdomen: -Soft abdomen -Non tender -Non distended: Left upper extremity: -No deformities. The overlying skin is intact. No obvious signs of acute trauma. -No tenderness to palpation throughout. -No significant pain with passive motion of the shoulder, elbow, wrist, and fingers within the limits of the bed. -Able to make an "OK" sign, cross the index and long fingers, and extend the thumb. -Sensation grossly intact to light touch throughout the median, radial, and ulnar distributions. -Radial pulse is present; Fingers have good capillary refill. Right upper extremity: -No deformities. The overlying skin is intact. No obvious signs of acute trauma. -No tenderness to palpation throughout. -No significant pain with passive motion of the shoulder, elbow, wrist, and fingers within the limits of the bed. -Able to make an "OK" sign, cross the index and long fingers, and extend the thumb. -Sensation grossly intact to light touch throughout the median, radial, and ulnar distributions. -Radial pulse is present; Fingers have good capillary refill. Left lower extremity: -No deformities. The overlying skin is intact. -TTP over left hip -Pain with log roll/IR left hip. -Pain with axial loading of the thigh. -Able to dorsiflex and plantarflex the ankle and toes without pain -Sensation is grossly intact to light touch throughout the sural, saphenous, superficial peroneal, and deep peroneal distributions. -Toes have good capillary refill. Right lower extremity: -No deformities. The overlying skin is intact. No obvious signs of acute trauma. -No tenderness to palpation throughout. -No pain with passive motion of the hip, knee, ankle, and toes within the limits of the bed. -No pain with axial loading of the thigh. -Able to dorsiflex and plantarflex the ankle and toes. -Sensation is grossly intact to light touch throughout the sural, saphenous, superficial peroneal, and deep peroneal distributions. -Toes have good capillary refill. Results - Labs Result Diagrams: 06/17/17 19:22 06/18/17 05:46 Labs: Abnormal lab results RBC 3.77 M/mcL (3.82-4.97) L 06/17/17 19:22 Hgb 11.4 g/dL (11.5-15.4) L 06/17/17 19:22 MCHC 31.1 g/dL (31.6-35.5) L 06/17/17 19:22 PT 28.0 Seconds (9.4-12.1) H 06/17/17 19:22 APTT 37.2 Seconds (26.0-36.0) H 06/17/17 19:22 Potassium 4.8 mEq/L (3.5-4.5) H 06/18/17 05:46 Carbon Dioxide 34 mEq/L (19-29) H 06/18/17 05:46 BUN 36 mg/dL (7-20) H 06/18/17 05:46 Creatinine 1.61 mg/dL (0.57-1.11) H 06/18/17 05:46 Est GFR ( Amer) 37 (> 60) L 06/18/17 05:46 Est GFR (Non-Af Amer) 30 (> 60) L 06/18/17 05:46 B-Natriuretic Peptide 779 pg/mL (0-100) H 06/17/17 19:22 Ur Leukocyte Esterase Trace (Negative) H 06/17/17 19:28 Ur Squamous Epith Cells Many per lpf (None-Few) H 06/17/17 19:28 Ur Culture Indicated? YES (NO) A 06/17/17 19:28 All other labs normal. - Diagnostic results Hip x-ray: image reviewed (Periprostetic fracture of the left proximal femur in the intertroch region. Proximal fixation of NOAM stem appears stable) Consult Discharge Plan - Plan Referrals: Louise Zarate, MANAGED CARE PROVIDER [Primary Care Provider] -
--- NOTE | 2017-06-18 17:38 | Electrocardiograph Report ---
[place] [id number] Test Date: 2017-06-17 Pat Name: Nelda Francois Department: 104 Room: 3B Gender: F Casting Cleaner: DAMARIS : 1930 Requested By: Zaheer Deng Order Number: [id number] Reading MD: Jose F Aguila DO Measurements Intervals [place] Rate: 109 P: VT: 0 QRS: 66 QRSD: 88 T: 5 QT: 329 QTc: 393 Interpretive Statements Atrial fibrillation with RVR Nonspecific ST-T changes Electronically Signed On 06-18-2017 16:59:59 EST by Jose F Aguila DO
[2017-06-19] MEDS ORDERED: *HR* OxyCODONE Immed Rel 5 MG TABLET PO ONE (03:57)
[2017-06-19 05:00] LABS: Basophils % 0.2 %; Eosinophils # 0.2 K/mcL (0.0-0.6); Eosinophils % 2.2 %; Hematocrit 32.2 % (35.3-44.9); Immature Granulocytes % 0.4 % (0-4); Lymphocytes # 0.8 K/mcL (0.6-4.6); Lymphocytes % 10.1 %; Mean Corpuscular HGB Conc 31.1 g/dL (31.6-35.5); Mean Corpuscular Hemoglobin 29.9 pg (28.0-33.3); Mean Corpuscular Volume 96.1 fL (83.0-100.0); Mean Platelet Volume 10.8 fL (9.4-12.4); Monocytes # 0.7 K/mcL (0.0-1.3); Monocytes % 8.9 %; Neutrophils # 6.3 K/mcL (1.6-8.9); Platelet Count 180 K/mcL (140-400); Red Blood Count 3.35 M/mcL (3.82-4.97); Red Cell Distribution Width 13.8 % (11.5-14.5); Segmented Neutrophils % 78.2 %
[2017-06-19 05:14] LABS: Calcium 8.4 mg/dL (8.6-10.8); Potassium 4.3 mEq/L (3.5-4.5)
[2017-06-19] MEDS: *HR* OxyCODONE Immed Rel 15 MG TABLET PO PRN ×2 (06:35→20:40)
[2017-06-19] MEDS: Gabapentin 300 MG CAPSULE PO SCH ×3 (08:40→20:40)
[2017-06-19] MEDS: Furosemide 40 MG/4 ML VIAL IVP SCH (08:40)
[2017-06-19] MEDS: Metoprolol 100 MG TABLET PO SCH ×2 (08:40→20:40)
[2017-06-19] MEDS ORDERED: *HR* Digoxin 0.5 MG/2 ML AMPUL IVP ONE (12:18)
--- NOTE | 2017-06-19 12:24 | Internal Med Progress Note ---
Date of Encounter: 06/19/17 Time of Encounter: 12:22 - Assessment and plan (1) Atrial fibrillation Current Visit: Yes Status: Chronic Assessment and plan: Rate is still in the high 90s and 120 range not well controlled at this point. We will add digoxin IV and the by mouth every other day Qualifiers: Atrial fibrillation type: permanent Qualified Code(s): I48.2 - Chronic atrial fibrillation (2) Chronic kidney disease Current Visit: Yes Status: Chronic Assessment and plan: Chronic and stable Qualifiers: Chronic kidney disease stage: stage 3 (moderate) Qualified Code(s): N18.3 - Chronic kidney disease, stage 3 (moderate) (3) CHF (congestive heart failure) Current Visit: Yes Status: Chronic Assessment and plan: Diastolic heart failure clinically has improved Qualifiers: Congestive heart failure type: diastolic Congestive heart failure chronicity: acute on chronic Qualified Code(s): I50.33 - Acute on chronic diastolic (congestive) heart failure (4) Hyperkalemia Current Visit: Yes Status: Acute (5) Chronic pain syndrome Current Visit: Yes Status: Chronic (6) Periprosthetic fracture around internal prosthetic hip joint Current Visit: Yes Status: Acute Assessment and plan: See orthopedic evaluationof surgical intervention at this point Qualifiers: Encounter type: subsequent encounter Laterality: left Qualified Code(s): M97.02XD - Periprosthetic fracture around internal prosthetic left hip joint, subsequent encounter; T84.041D - Periprosthetic fracture around internal prosthetic left hip joint, subsequent encounter - Subjective Interval history: Patient with history of failure CTD, anemia, high cholesterol, hypertension, chronic pain syndrome. Patient was admitted with increased shortness of breath and atrial fibrillation RVR. The patient slipped out of bed and fell and sustained fracture of the left hip syndrome by orthopedic that surgical intervention indicated today says feel better sob is better no chest pain - Constitutional Vitals: Temp Pulse Resp BP Pulse Ox 98.5 F 122 96 103/60 95 06/19/17 12:01 06/19/17 12:01 06/19/17 12:01 06/19/17 12:01 06/19/17 07:19 General appearance: Present: cooperative, A&O X 3, answers questions appropriately - Eye Eye exam: Present: PERRL, conjuntiva pink, sclera anicteric Pupils: Present: PERRL - Neck Neck exam general surgery: Present: supple, trachea midline. Absent: lymphadenopathy - Respiratory Respiratory exam: Present: rhonchi - Cardiovascular Cardiovascular exam: Present: +S1, systolic murmur - GI/Abdominal GI/Abdominal exam: Present: normal bowel sounds, soft, no peritoneal signs. Absent: distended, tenderness - Extremities Exam Extremities exam: Present: warm, radial pulses palpable and symmetrical. Absent : calf tenderness, cyanotic, pedal edema Internal Medicine: Result - Labs CBC & Chem 7: 06/19/17 04:34 06/19/17 04:34 Labs: Short CBC 06/19/17 Range/Units 04:34 WBC 8.0 (4.3-11.1) K/mcL Hgb 10.0 L (11.5-15.4) g/dL Hct 32.2 L (35.3-44.9) % Plt Count 180 (140-400) K/mcL Neutrophils # 6.3 (1.6-8.9) K/mcL BMP 06/19/17 04:34 Sodium 138 Potassium 4.3 Chloride 97 L Carbon Dioxide 30 H BUN 34 H Creatinine 1.73 H Glucose 102 H Calcium 8.4 L - ABG Interpretation ABG results: PT/INR, D-dimer PT 28.0 Seconds (9.4-12.1) H 06/17/17 19:22 Consult Discharge Plan - Plan Referrals: Louise Zarate CNP [Primary Care Provider] -
[2017-06-20] MEDS: *HR* OxyCODONE Immed Rel 15 MG TABLET PO PRN ×2 (00:30→15:40)
[2017-06-20] MEDS: Furosemide 40 MG/4 ML VIAL IVP SCH (08:57)
[2017-06-20] MEDS: *HR* Digoxin 0.125 MG TABLET PO SCH (08:57)
[2017-06-20] MEDS: Gabapentin 300 MG CAPSULE PO SCH ×3 (08:57→19:53)
[2017-06-20] MEDS: Metoprolol 100 MG TABLET PO SCH ×2 (08:57→19:53)
--- NOTE | 2017-06-20 16:04 | Internal Med Progress Note ---
Date of Encounter: 06/21/17 Time of Encounter: 15:30 - Assessment and plan (1) Periprosthetic fracture around internal prosthetic hip joint Current Visit: Yes Status: Acute Assessment and plan: Probably related to recent fall out of her bed. X-ray showed periprosthetic fracture around the left prosthetic hip joint. Orthopedics consult appreciated , recommended weightbearing as tolerated and pain control, outpatient follow-up with orthopedics. Continue pain control with when necessary oxycodone. Physical and occupational therapy evaluation pending. Qualifiers: Encounter type: subsequent encounter Laterality: left Qualified Code(s): M97.02XD - Periprosthetic fracture around internal prosthetic left hip joint, subsequent encounter; T84.041D - Periprosthetic fracture around internal prosthetic left hip joint, subsequent encounter (2) Atrial fibrillation Current Visit: Yes Status: Chronic Assessment and plan: Presented with tachycardia. Has been started on digoxin, heart rate currently improving with intermittent tachycardia. Continue metoprolol. Long-term anticoagulation has been held due to recent fall and fracture. Telemetry monitoring. Qualifiers: Atrial fibrillation type: permanent Qualified Code(s): I48.2 - Chronic atrial fibrillation (3) Chronic kidney disease Current Visit: Yes Status: Chronic Assessment and plan: Serum creatinine noted to be stable. Avoid nephrotoxic agents. Qualifiers: Chronic kidney disease stage: stage 3 (moderate) Qualified Code(s): N18.3 - Chronic kidney disease, stage 3 (moderate) (4) CHF (congestive heart failure) Current Visit: Yes Status: Chronic Assessment and plan: recent echocardiogram shows EF 65-70%. Severe diastolic dysfunction, severely dilated LA. Mild MR, mild TR, mild pulmonary hypertension. Continue low dose IV Lasix and continue beta gunner; fluid restriction; Qualifiers: Congestive heart failure type: diastolic Congestive heart failure chronicity: acute on chronic Qualified Code(s): I50.33 - Acute on chronic diastolic (congestive) heart failure (5) HLD (hyperlipidemia) Current Visit: Yes Status: Chronic Qualifiers: Hyperlipidemia type: unspecified Qualified Code(s): E78.5 - Hyperlipidemia , unspecified (6) HTN (hypertension) Current Visit: Yes Status: Chronic Qualifiers: Hypertension type: essential hypertension Qualified Code(s): I10 - Essential (primary) hypertension (7) Anemia Current Visit: Yes Status: Chronic Qualifiers: Anemia type: due to chronic kidney disease Chronic kidney disease stage: stage 3 (moderate) Qualified Code(s): N18.3 - Chronic kidney disease, stage 3 (moderate); D63.1 - Anemia in chronic kidney disease; D63.1 - Anemia in chronic kidney disease (8) Chronic pain syndrome Current Visit: Yes Status: Chronic (9) Insomnia Current Visit: Yes Status: Chronic Qualifiers: Insomnia type: unspecified Qualified Code(s): G47.00 - Insomnia, unspecified - Subjective Interval history: Reports left hip pain, worse on movement and ambulation; no chest pain, dyspnea ; HR noted to be occasionally high; not seen by PT; - Constitutional Vitals: Temp Pulse Resp BP Pulse Ox 99.6 F 97 15 101/63 92 06/20/17 11:32 06/20/17 11:32 06/20/17 11:32 06/20/17 11:32 06/20/17 11:32 General appearance: Present: cooperative, A&O X 2, answers questions appropriately - Respiratory Respiratory exam: Present: CTAB. Absent: accessory muscle use, rales, rhonchi, wheezes - Cardiovascular Cardiovascular exam: Present: irregular rhythm, +S1, +S2, tachycardia. Absent: diastolic murmur, gallop, rubs, systolic murmur - GI/Abdominal GI/Abdominal exam: Present: normal bowel sounds, soft, no peritoneal signs. Absent: distended, tenderness - Extremities Exam Extremities exam: Present: full ROM (restricted at left hip), warm, radial pulses palpable and symmetrical. Absent: calf tenderness, cyanotic, pedal edema - Neurological Exam Neurological exam: Present: CN II-XII intact, oriented X3, no focal deficits. Absent: pronater drift, facial droop, speech deficit Internal Medicine: Result - Labs CBC & Chem 7: 06/19/17 04:34 06/21/17 05:35 - ABG Interpretation ABG results: PT/INR, D-dimer PT 28.0 Seconds (9.4-12.1) H 06/17/17 19:22 Consult Discharge Plan - Plan Referrals: Louise Zarate, DIRECTOR OF RETAIL MARKETING [Primary Care Provider] -
[2017-06-21] MEDS: *HR* OxyCODONE Immed Rel 15 MG TABLET PO PRN ×2 (05:20→15:05)
[2017-06-21 05:56] LABS: Calcium 8.7 mg/dL (8.6-10.8); Potassium 4.4 mEq/L (3.5-4.5)
[2017-06-21] MEDS: Furosemide 40 MG/4 ML VIAL IVP SCH (08:31)
[2017-06-21] MEDS: Gabapentin 300 MG CAPSULE PO SCH ×3 (08:31→21:16)
[2017-06-21] MEDS: Metoprolol 100 MG TABLET PO SCH ×2 (08:31→21:17)
--- NOTE | 2017-06-21 14:51 | Internal Med Progress Note ---
Date of Encounter: 06/21/17 Time of Encounter: 14:48 - Assessment and plan (1) Periprosthetic fracture around internal prosthetic hip joint Current Visit: Yes Status: Acute Assessment and plan: Probably related to recent fall out of her bed. X-ray showed periprosthetic fracture around the left prosthetic hip joint. Orthopedics consult appreciated , recommended weightbearing as tolerated and pain control, outpatient follow-up with orthopedics. Continue pain control with when necessary oxycodone. Physical and occupational therapy evaluation noted, recommend placement in extended care facility for continued rehabilitation. guest services manager on board. Qualifiers: Encounter type: subsequent encounter Laterality: left Qualified Code(s): M97.02XD - Periprosthetic fracture around internal prosthetic left hip joint, subsequent encounter; T84.041D - Periprosthetic fracture around internal prosthetic left hip joint, subsequent encounter (2) Atrial fibrillation Current Visit: Yes Status: Chronic Assessment and plan: Presented with tachycardia. heart rate currently improving with intermittent tachycardia. Averaged 24-hour heart rate noted to be 101, which is acceptable. Continue digoxin and metoprolol. We will restart Long-term anticoagulation with Xarelto. Telemetry monitoring. Qualifiers: Atrial fibrillation type: permanent Qualified Code(s): I48.2 - Chronic atrial fibrillation (3) Chronic kidney disease Current Visit: Yes Status: Chronic Assessment and plan: Serum creatinine noted to be stable. Avoid nephrotoxic agents. Qualifiers: Chronic kidney disease stage: stage 3 (moderate) Qualified Code(s): N18.3 - Chronic kidney disease, stage 3 (moderate) (4) CHF (congestive heart failure) Current Visit: Yes Status: Chronic Assessment and plan: recent echocardiogram shows EF 65-70%. Severe diastolic dysfunction, severely dilated LA. Mild MR, mild TR, mild pulmonary hypertension. Continue low dose IV Lasix and continue beta gunner; fluid restriction; Qualifiers: Congestive heart failure type: diastolic Congestive heart failure chronicity: acute on chronic Qualified Code(s): I50.33 - Acute on chronic diastolic (congestive) heart failure (5) HLD (hyperlipidemia) Current Visit: Yes Status: Chronic Qualifiers: Hyperlipidemia type: unspecified Qualified Code(s): E78.5 - Hyperlipidemia , unspecified (6) HTN (hypertension) Current Visit: Yes Status: Chronic Qualifiers: Hypertension type: essential hypertension Qualified Code(s): I10 - Essential (primary) hypertension (7) Anemia Current Visit: Yes Status: Chronic Qualifiers: Anemia type: due to chronic kidney disease Chronic kidney disease stage: stage 3 (moderate) Qualified Code(s): N18.3 - Chronic kidney disease, stage 3 (moderate); D63.1 - Anemia in chronic kidney disease; D63.1 - Anemia in chronic kidney disease (8) Chronic pain syndrome Current Visit: Yes Status: Chronic (9) Insomnia Current Visit: Yes Status: Chronic Qualifiers: Insomnia type: unspecified Qualified Code(s): G47.00 - Insomnia, unspecified - Subjective Interval history: Reports feeling well except left hip pain on changes in posture or weight bearing; no nausea, vomiting, chest pain, shortness of breath; noted to have low grade fever last night; - Constitutional Vitals: Temp Pulse Resp BP Pulse Ox 98.3 F 82 17 109/68 97 06/21/17 11:17 06/21/17 11:17 06/21/17 11:17 06/21/17 11:17 06/21/17 11:17 General appearance: Present: cooperative, A&O X 3, answers questions appropriately - Respiratory Respiratory exam: Present: CTAB. Absent: accessory muscle use, rales, rhonchi, wheezes - Cardiovascular Cardiovascular exam: Present: irregular rhythm, +S1, +S2. Absent: diastolic murmur, gallop, rubs, systolic murmur - GI/Abdominal GI/Abdominal exam: Present: normal bowel sounds, soft, no peritoneal signs. Absent: distended, tenderness - Extremities Exam Extremities exam: Present: full ROM (restricted in left hip), warm, radial pulses palpable and symmetrical. Absent: calf tenderness, cyanotic, pedal edema Internal Medicine: Result - Labs CBC & Chem 7: 06/19/17 04:34 06/21/17 05:35 Labs: BMP 06/21/17 05:35 Sodium 138 Potassium 4.4 Chloride 99 Carbon Dioxide 28 BUN 26 H Creatinine 1.14 H Glucose 93 Calcium 8.7 - ABG Interpretation ABG results: PT/INR, D-dimer PT 28.0 Seconds (9.4-12.1) H 06/17/17 19:22 Consult Discharge Plan - Plan Referrals: Louise Zarate, [facility] [Primary Care Provider] -
[2017-06-21] MEDS ORDERED: *HR* Rivaroxaban 10 MG TABLET PO SCH (17:00)
[2017-06-22] MEDS: *HR* OxyCODONE Immed Rel 15 MG TABLET PO PRN ×3 (02:13→19:46)
--- NOTE | 2017-06-22 03:06 | Event Note ---
<Jatin Baker - Last Filed: 06/22/17 03:01> Date of Encounter: 06/22/17 Time of Encounter: 02:50 Per nurse's report, patient was experiencing spikes in her HR to around 175 and then returning back to 75. BP was stable. Lopressor was held by nurse. Will continue to monitor HR. Patient had an irregular rhythm on auscultation. Patient has history of A-fib but is currently controlled. Nurse also want to mention that she found a vaginal prolapse that she has not seen before. When I spoke to patient, she says this has been a chronic issue and than she has seen an [facility] physician and describes that she has a cystocele. I advised her to f/ u with her STORY EDITOR physician. <Zurdo Werner - Last Filed: 06/22/17 06:45> Date of Encounter: 06/22/17 See my follow up EVENT NOTE. RN called me later with persistent A. Fib with HR 110-170's and BP in the 80-100/70's. I ordered fluid bolus, cessation of Lasix , and transfer to for Amiodarone drip (no bolus).
[2017-06-22] MEDS ORDERED: Amiodarone Premix 360 MG/200 ML BAG IVC ONE (05:05)
[2017-06-22] MEDS ORDERED: 0.9 % Sodium Chloride 1,000 ML ONE (05:07)
--- NOTE | 2017-06-22 05:09 | Event Note ---
Date of Encounter: 06/22/17 Time of Encounter: 05:07 Called by RN for concerns of patient having A. Fib/RVR running from 110's to 170 's throughout the night with BP 80-100/70's. Patient is asymptomatic. I gave RN orders to stop Lasix, give 500 cc NS bolus, and I am transferring patient to and starting Amiodarone drip with no bolus.
[2017-06-22 07:23] LABS: Digoxin 0.6 ng/mL (0.8-2.0)
[2017-06-22 07:27] LABS: Magnesium 1.4 mg/dL (1.6-2.6)
[2017-06-22] MEDS: Gabapentin 300 MG CAPSULE PO SCH ×2 (07:43→19:46)
[2017-06-22] MEDS: *HR* Digoxin 0.125 MG TABLET PO SCH (07:43)
[2017-06-22] MEDS: Metoprolol 100 MG TABLET PO SCH ×2 (09:07→19:46)
--- NOTE | 2017-06-22 11:28 | Internal Med Progress Note ---
<Tenisha Rajan - Last Filed: 06/22/17 13:27> Date of Encounter: 06/22/17 Time of Encounter: 11:24 - Assessment and plan (1) Atrial fibrillation with RVR Current Visit: Yes Status: Acute Assessment and plan: Patient is with new onset atrial fibrillation. Now with RVR. Transferred to 2 N. overnight. Continue cardiac telemetry. Continue amiodarone IV load, will plan to transition to oral amiodarone tomorrow. Continue to digoxin. Patient has history of G.I. bleed for her with aspirin. (2) Periprosthetic fracture around internal prosthetic hip joint Current Visit: Yes Status: Acute Assessment and plan: Had a lot of during hospital stay. This fracture is likely related to her fall. X-ray showed periprosthetic fracture around the left prosthetic hip joint. Orthopedics consult appreciated, recommended weightbearing as tolerated and pain control. No plans for operative intervention at this time. Patient will follow-up in orthopedics office 2 weeks after discharge. Continue pain control with when necessary oxycodone. Physical and occupational therapy both recommend placement after discharge. client services assistant on board. Will plan on placement after discharge when medically stable. Qualifiers: Encounter type: subsequent encounter Laterality: left Qualified Code(s): M97.02XD - Periprosthetic fracture around internal prosthetic left hip joint, subsequent encounter; T84.041D - Periprosthetic fracture around internal prosthetic left hip joint, subsequent encounter (3) CHF (congestive heart failure) Current Visit: Yes Status: Chronic Assessment and plan: recent echocardiogram shows EF 65-70%. Severe diastolic dysfunction, severely dilated LA. Mild MR, mild TR, mild pulmonary hypertension. Continue fluid restriction. Continue Lopressor, patient only received 75 mg today given coadministration of digoxin and amiodarone. Previously received Lasix, patient currently appears to be usually make. No Lasix given today. Qualifiers: Congestive heart failure type: diastolic Congestive heart failure chronicity: acute on chronic Qualified Code(s): I50.33 - Acute on chronic diastolic (congestive) heart failure (4) HLD (hyperlipidemia) Current Visit: Yes Status: Chronic Assessment and plan: Chronic. Stable. Continue home statin Qualifiers: Hyperlipidemia type: unspecified Qualified Code(s): E78.5 - Hyperlipidemia , unspecified (5) HTN (hypertension) Current Visit: Yes Status: Chronic Assessment and plan: Chronic. Stable. Blood pressure controlled. Qualifiers: Hypertension type: essential hypertension Qualified Code(s): I10 - Essential (primary) hypertension (6) CKD (chronic kidney disease) stage 3, GFR 30-59 ml/min Current Visit: No Status: Chronic Assessment and plan: Chronic. Stable. Kidney function at baseline. (7) Anemia Current Visit: Yes Status: Chronic Qualifiers: Anemia type: due to chronic kidney disease Chronic kidney disease stage: stage 3 (moderate) Qualified Code(s): N18.3 - Chronic kidney disease, stage 3 (moderate); D63.1 - Anemia in chronic kidney disease; D63.1 - Anemia in chronic kidney disease (8) Insomnia Current Visit: Yes Status: Chronic Assessment and plan: Continue trazodone. Qualifiers: Insomnia type: unspecified Qualified Code(s): G47.00 - Insomnia, unspecified - Subjective Interval history: Patient admitted or shortness of breath noted to have atrial fibrillation. While she has been in the hospital she had a fall out of bed and has a fracture around her prosthetic left hip joint, orthopedics has seen her in his recommending current nonoperative management. Overnight patient developed RVR with severely elevated heart rate and resultant hypotension. She has been transferred to [facility] for more intensive monitoring. She is currently on digoxin and is on IV amiodarone for loading. Patient seen and examined this morning. She states that she has never had any known history of heart problems or irregular heartbeat previously. She reports that she has previously had a gastrointestinal bleed while on aspirin. She denies any chest pain or shortness of breath and states from that standpoint she feels improved from admission. She denies feeling any palpitations. She does report some left hip pain when she moves. She has no other concerns or complaints at this time - Constitutional Vitals: Temp Pulse Resp BP Pulse Ox 100.1 F H 91 16 108/68 95 06/22/17 03:20 06/22/17 11:00 06/22/17 07:12 06/22/17 11:00 06/22/17 03:20 General appearance: Present: cooperative, A&O X 3, pleasant, answers questions appropriately - Head Head exam: Present: atraumatic, normocephalic - ENT ENT exam: Present: mucous membranes moist - Neck Neck exam general surgery: Present: supple, trachea midline - Respiratory Respiratory exam: Present: CTAB. Absent: rales, stridor, wheezes - Cardiovascular Cardiovascular exam: Present: irregular rhythm, +S1, +S2, tachycardia - GI/Abdominal GI/Abdominal exam: Present: normal bowel sounds, soft. Absent: distended, firm , guarding, rigid, tenderness - Extremities Exam Extremities exam: Present: normal capillary refill. Absent: pedal edema - Skin Skin exam: Present: dry, intact, warm Internal Medicine: Result - Labs CBC & Chem 7: 06/19/17 04:34 06/21/17 05:35 - ABG Interpretation ABG results: PT/INR, D-dimer PT 28.0 Seconds (9.4-12.1) H 06/17/17 19:22 - Impressions Impressions Chest X-Ray 06/21/17 13:41 IMPRESSION: Regression of right pleural effusion. Mild residual bibasilar atelectasis. D/ / Star Ontiveros MD / Star Ontiveros MD Interpreting Provider: Star Ontiveros MD Consult Discharge Plan - Plan Referrals: Louise Zarate CNP [Primary Care Provider] - (Patient is going to [facility] no PCP appointment needed) <Rogelio Whiting - Last Filed: 06/22/17 18:56> Date of Encounter: 06/22/17 - Assessment and plan (1) Atrial fibrillation Current Visit: Yes Status: Acute Qualifiers: Atrial fibrillation type: persistent Qualified Code(s): I48.1 - Persistent atrial fibrillation (2) CHF (congestive heart failure) Current Visit: Yes Status: Chronic Qualifiers: Congestive heart failure type: diastolic Congestive heart failure chronicity: acute on chronic Qualified Code(s): I50.33 - Acute on chronic diastolic (congestive) heart failure (3) Chronic pain syndrome Current Visit: Yes Status: Chronic (4) HTN (hypertension) Current Visit: Yes Status: Chronic Qualifiers: Hypertension type: essential hypertension Qualified Code(s): I10 - Essential (primary) hypertension (5) CKD (chronic kidney disease) stage 3, GFR 30-59 ml/min Current Visit: No Status: Chronic (6) Anemia Current Visit: Yes Status: Chronic Qualifiers: Anemia type: due to chronic kidney disease Chronic kidney disease stage: stage 3 (moderate) Qualified Code(s): N18.3 - Chronic kidney disease, stage 3 (moderate); D63.1 - Anemia in chronic kidney disease; D63.1 - Anemia in chronic kidney disease - Constitutional Vitals: Temp Pulse Resp BP Pulse Ox 98.7 F 85 17 95/61 92 06/22/17 15:48 06/22/17 18:00 06/22/17 15:48 06/22/17 18:00 06/22/17 15:48 Internal Medicine: Result - Labs CBC & Chem 7: 06/19/17 04:34 06/21/17 05:35 - ABG Interpretation ABG results: PT/INR, D-dimer PT 28.0 Seconds (9.4-12.1) H 06/17/17 19:22 - Attending Attestation I examined this patient and my medical decision-making was reviewed with the Resident Physician on 06/22/17. I agree with the documented findings, disposition and treatment plan as described except to the extent set forth below. Ms Francois is currently admitted for hip fracture and has developed persistent a fib with RVR. She is on amio drip. She remains moderate to high risk due to potential for worsening cardiac status. Ms Francois is resting comfortably. No fever or chills. Tolerating amiodarone. Heartrate has been improving. No CP or SOB. No GI issues. Exam Alert. Comfortable Mucus membranes dry Heart irreg Lungs clear Abd soft I/P 1. A fib 2. Hip fracture. Further diagnoses and plan as above.
[2017-06-22] MEDS: Amiodarone Premix 360 MG/200 ML BAG IVC SCH (11:47)
[2017-06-22] MEDS: *HR* Rivaroxaban 15 MG TABLET PO SCH (16:00)
--- NOTE | 2017-06-22 22:38 | Electrocardiograph Report ---
[address] [address] Test Date: 2017-06-19 Pat Name: Nelda Francois Department: 113 Room: 2N15 Gender: F Housing Liaison: JOE : 1930 Requested By: Jacinta Morrow Order Number: [id number] Reading MD: Desiree Gonzalez Measurements Intervals [place] Rate: 128 P: ME: 0 QRS: 59 QRSD: 85 T: 268 QT: 262 QTc: 338 Interpretive Statements ATRIAL FIBRILLATION WITH RAPID VENTRICULAR RESPONSE ST DEVIATION AND MODERATE T-WAVE ABNORMALITY, CONSIDER INFERIOR ISCHEMIA Electronically Signed On 06-22-2017 22:36:45 EST by Desiree Gonzalez
[2017-06-23] MEDS: Amiodarone Premix 360 MG/200 ML BAG IVC SCH ×2 (00:35→10:43)
[2017-06-23] MEDS: *HR* OxyCODONE Immed Rel 15 MG TABLET PO PRN ×3 (03:18→22:19)
[2017-06-23 07:08] LABS: Basophils % 0.5 %; Eosinophils # 0.4 K/mcL (0.0-0.6); Eosinophils % 5.9 %; Hematocrit 29.9 % (35.3-44.9); Hemoglobin 9.4 g/dL (11.5-15.4); Immature Granulocytes % 0.3 % (0-4); Lymphocytes # 1.1 K/mcL (0.6-4.6); Lymphocytes % 17.4 %; Mean Corpuscular HGB Conc 31.4 g/dL (31.6-35.5); Mean Corpuscular Hemoglobin 29.9 pg (28.0-33.3); Mean Corpuscular Volume 95.2 fL (83.0-100.0); Mean Platelet Volume 11.1 fL (9.4-12.4); Monocytes # 0.7 K/mcL (0.0-1.3); Monocytes % 10.4 %; Neutrophils # 4.1 K/mcL (1.6-8.9); Platelet Count 177 K/mcL (140-400); Red Blood Count 3.14 M/mcL (3.82-4.97); Red Cell Distribution Width 13.6 % (11.5-14.5); Segmented Neutrophils % 65.5 %
[2017-06-23 07:12] LABS: BUN/Creatinine Ratio 27 (6-26); Blood Urea Nitrogen 25 mg/dL (7-20); Calcium 8.6 mg/dL (8.6-10.8); Carbon Dioxide 27 mEq/L (19-29); Chloride 100 mEq/L (98-109); Glucose 96 mg/dL (70-99); Magnesium 1.3 mg/dL (1.6-2.6); Osmolality,Calculated 290 (280-300); Potassium 4.3 mEq/L (3.5-4.5); Sodium 138 mEq/L (136-145); eGFR For African Americans > 60 (> 60); eGFR For Non-African Americans 58 (> 60)
[2017-06-23] MEDS: Metoprolol 100 MG TABLET PO SCH ×2 (09:07→20:16)
[2017-06-23] MEDS: Gabapentin 300 MG CAPSULE PO SCH ×2 (09:07→20:16)
[2017-06-23] MEDS ORDERED: *HR* OxyCODONE/APAP 10/325 TABLET PO ONE (14:56)
[2017-06-23] MEDS: *HR* Amiodarone 200 MG TABLET PO SCH ×2 (15:51→20:16)
[2017-06-23] MEDS: *HR* Rivaroxaban 15 MG TABLET PO SCH (15:51)
--- NOTE | 2017-06-23 16:35 | Internal Med Progress Note ---
<Khoi Montana - Last Filed: 06/23/17 16:32> Date of Encounter: 06/23/17 Time of Encounter: 16:33 - Assessment and plan (1) Atrial fibrillation with RVR Current Visit: Yes Status: Acute Assessment and plan: Patient is with new onset atrial fibrillation, went into RVR, started on amiodarone gtt and transferred to . Etiology unclear. Plan: continue tele transitioned to oral amiodarone follow up outpatient with cardiology. likely discharge tomorrow. (2) Periprosthetic fracture around internal prosthetic hip joint Current Visit: Yes Status: Acute Assessment and plan: hip Xray showed acute periprosthetic fracture. patient was evaluated by orthopedics. they recommended treatment non operatively. Qualifiers: Encounter type: subsequent encounter Laterality: left Qualified Code(s): M97.02XD - Periprosthetic fracture around internal prosthetic left hip joint, subsequent encounter; T84.041D - Periprosthetic fracture around internal prosthetic left hip joint, subsequent encounter (3) CHF (congestive heart failure) Current Visit: Yes Status: Chronic Assessment and plan: last echo 03/01/17 showed normal LV systolic function, LVEF 65-70%, mild concentric LVH, severe LV diastolic dysfunction, normal RV size and function, severely dilated left atrium, mild mitral regurg, mild tricuspid regurg, mild pulmonary HTN originally admittef or acute CHF, currently resolved. Qualifiers: Congestive heart failure type: diastolic Congestive heart failure chronicity: acute on chronic Qualified Code(s): I50.33 - Acute on chronic diastolic (congestive) heart failure (4) HLD (hyperlipidemia) Current Visit: Yes Status: Chronic Assessment and plan: continue statin Qualifiers: Hyperlipidemia type: unspecified Qualified Code(s): E78.5 - Hyperlipidemia , unspecified (5) HTN (hypertension) Current Visit: Yes Status: Chronic Assessment and plan: currently hypotensive. hold lasix. continue to monitor. Qualifiers: Hypertension type: essential hypertension Qualified Code(s): I10 - Essential (primary) hypertension (6) Chronic kidney disease Current Visit: Yes Status: Chronic Assessment and plan: kidney function at baseline at this time. Qualifiers: Chronic kidney disease stage: stage 3 (moderate) Qualified Code(s): N18.3 - Chronic kidney disease, stage 3 (moderate) (7) Anemia Current Visit: Yes Status: Chronic Assessment and plan: H/H stable at this time. Qualifiers: Anemia type: due to chronic kidney disease Chronic kidney disease stage: stage 3 (moderate) Qualified Code(s): N18.3 - Chronic kidney disease, stage 3 (moderate); D63.1 - Anemia in chronic kidney disease; D63.1 - Anemia in chronic kidney disease (8) DVT prophylaxis Current Visit: No Status: Acute Assessment and plan: Xarelto - Subjective Interval history: 86F evaluated at bedside. she denies nausea, vomiting, diarrhea, fever, chills, chest pain, shortness of breath. she denies any further problems today. - Constitutional Vitals: Temp Pulse Resp BP Pulse Ox 98.4 F 76 14 102/51 96 06/23/17 11:00 06/23/17 15:57 06/23/17 15:57 06/23/17 11:00 06/23/17 15:57 General appearance: Present: cooperative, A&O X 3, pleasant, answers questions appropriately - Neck Neck exam general surgery: Present: supple, trachea midline - Respiratory Respiratory exam: Present: CTAB - Cardiovascular Cardiovascular exam: Present: irregular rhythm - GI/Abdominal GI/Abdominal exam: Present: normal bowel sounds, soft. Absent: distended, tenderness - Extremities Exam Extremities exam: Absent: cyanotic, pedal edema - Neurological Exam Neurological exam: Present: alert, oriented X3, no focal deficits - Psychiatric Psychiatric exam: Present: normal affect, normal mood Internal Medicine: Result - Labs CBC & Chem 7: 06/23/17 06:41 06/23/17 06:41 Labs: Short CBC 06/23/17 Range/Units 06:41 WBC 6.3 (4.3-11.1) K/mcL Hgb 9.4 L (11.5-15.4) g/dL Hct 29.9 L (35.3-44.9) % Plt Count 177 (140-400) K/mcL Neutrophils # 4.1 (1.6-8.9) K/mcL BMP 06/23/17 06:41 Sodium 138 Potassium 4.3 Chloride 100 Carbon Dioxide 27 BUN 25 H Creatinine 0.91 Glucose 96 Calcium 8.6 - ABG Interpretation ABG results: PT/INR, D-dimer PT 28.0 Seconds (9.4-12.1) H 06/17/17 19:22 Consult Discharge Plan - Plan Referrals: Louise Zarate, [employer] [Primary Care Provider] - (Patient is going to [facility] no PCP appointment needed) <Rogelio Whiting - Last Filed: 06/23/17 18:09> Date of Encounter: 06/23/17 - Assessment and plan (1) Atrial fibrillation Current Visit: Yes Status: Acute Qualifiers: Atrial fibrillation type: persistent Qualified Code(s): I48.1 - Persistent atrial fibrillation (2) CHF (congestive heart failure) Current Visit: Yes Status: Chronic Qualifiers: Congestive heart failure type: diastolic Congestive heart failure chronicity: acute on chronic Qualified Code(s): I50.33 - Acute on chronic diastolic (congestive) heart failure (3) Periprosthetic fracture around internal prosthetic hip joint Current Visit: Yes Status: Acute Qualifiers: Encounter type: subsequent encounter Laterality: left Qualified Code(s): M97.02XD - Periprosthetic fracture around internal prosthetic left hip joint, subsequent encounter; T84.041D - Periprosthetic fracture around internal prosthetic left hip joint, subsequent encounter (4) HTN (hypertension) Current Visit: Yes Status: Chronic Qualifiers: Hypertension type: essential hypertension Qualified Code(s): I10 - Essential (primary) hypertension (5) CKD (chronic kidney disease) stage 3, GFR 30-59 ml/min Current Visit: No Status: Chronic (6) Anemia Current Visit: Yes Status: Chronic Qualifiers: Anemia type: due to chronic kidney disease Chronic kidney disease stage: stage 3 (moderate) Qualified Code(s): N18.3 - Chronic kidney disease, stage 3 (moderate); D63.1 - Anemia in chronic kidney disease; D63.1 - Anemia in chronic kidney disease (7) Chronic pain syndrome Current Visit: Yes Status: Chronic - Constitutional Vitals: Temp Pulse Resp BP Pulse Ox 98.6 F 85 16 100/66 96 06/23/17 17:02 06/23/17 17:02 06/23/17 17:02 06/23/17 17:02 06/23/17 15:57 Internal Medicine: Result - Labs CBC & Chem 7: 06/23/17 06:41 06/23/17 06:41 Labs: Short CBC 06/23/17 Range/Units 06:41 WBC 6.3 (4.3-11.1) K/mcL Hgb 9.4 L (11.5-15.4) g/dL Hct 29.9 L (35.3-44.9) % Plt Count 177 (140-400) K/mcL Neutrophils # 4.1 (1.6-8.9) K/mcL BMP 06/23/17 06:41 Sodium 138 Potassium 4.3 Chloride 100 Carbon Dioxide 27 BUN 25 H Creatinine 0.91 Glucose 96 Calcium 8.6 - ABG Interpretation ABG results: PT/INR, D-dimer PT 28.0 Seconds (9.4-12.1) H 06/17/17 19:22 - Attending Attestation I examined this patient and my medical decision-making was reviewed with the Resident Physician on 06/23/17. I agree with the documented findings, disposition and treatment plan as described except to the extent set forth below. Ms Francois is currently admitted for rapid a fib and fracture of hip. She remains on IV drip (amio). She remains moderate to high risk due to potential for worsening cardiac status. Ms Francois feels OK. No CP or SOB. Heart rate better controlled today. No fever or chills. No GI issues. Exam Alert. Comfortable Mucus membranes dry Heart irreg - not tachy Lungs diminished Abd soft I/P 1. A fib - transition to PO med 2. Hip fracture. Further diagnoses and plan as above.
[2017-06-24 04:54] LABS: Basophils % 0.5 %; Eosinophils # 0.3 K/mcL (0.0-0.6); Eosinophils % 4.6 %; Hematocrit 32.1 % (35.3-44.9); Hemoglobin 10.2 g/dL (11.5-15.4); Immature Granulocytes % 0.6 % (0-4); Lymphocytes % 15.7 %; Mean Corpuscular HGB Conc 31.8 g/dL (31.6-35.5); Mean Corpuscular Hemoglobin 30.1 pg (28.0-33.3); Mean Corpuscular Volume 94.7 fL (83.0-100.0); Monocytes # 0.6 K/mcL (0.0-1.3); Monocytes % 9.6 %; Neutrophils # 4.4 K/mcL (1.6-8.9); Platelet Count 194 K/mcL (140-400); Red Blood Count 3.39 M/mcL (3.82-4.97); Red Cell Distribution Width 13.6 % (11.5-14.5)
[2017-06-24 05:01] LABS: BUN/Creatinine Ratio 29 (6-26); Blood Urea Nitrogen 24 mg/dL (7-20); Carbon Dioxide 27 mEq/L (19-29); Chloride 101 mEq/L (98-109); Glucose 102 mg/dL (70-99); Osmolality,Calculated 292 (280-300); Potassium 4.4 mEq/L (3.5-4.5); Sodium 139 mEq/L (136-145); eGFR For African Americans > 60 (> 60); eGFR For Non-African Americans > 60 (> 60)
[2017-06-24] MEDS: *HR* OxyCODONE Immed Rel 15 MG TABLET PO PRN ×2 (05:08→13:34)
[2017-06-24] MEDS: Gabapentin 300 MG CAPSULE PO SCH (08:54)
[2017-06-24] MEDS: *HR* Amiodarone 200 MG TABLET PO SCH (08:54)
[2017-06-24] MEDS: Metoprolol 100 MG TABLET PO SCH (08:54)
--- NOTE | 2017-06-24 10:48 | Discharge Summary ---
<Tenisha Rajan - Last Filed: 06/24/17 21:54> Date of Encounter: 06/24/17 Time of Encounter: 10:45 - Discharge Diagnosis (1) Atrial fibrillation with RVR Priority: Primary Status: Acute Comments: Patient has known history of atrial fibrillation. She has had prior ablation and has not followed with cardiology for some time. Per review of records she was also admitted in 03/2017 with atrial fibrillation She initially presenetd with acute dyspnea and fluid retention. Developed atrial fibrillation with RVR during hospital stay requiring transfer to step down unit. Placed on amiodarone drip and transitioned to oral medication of 200 mg BID Her lopressor was chanegd to 100 mg BID. She was briefly placed on digoxin, however she never received a digoxin load and therefore tehre was a decision to not continue the medication given presence of CKD stage 3. Rate was controlled with lopressor 100 mg BID and amiodarone 200 BID Given her fall during stay, she will require transfer to [facility] on discharge. SHoudl follow up with PCP as out patient (2) Periprosthetic fracture around internal prosthetic hip joint Priority: Primary Status: Acute Comments: Patient had unwitnessed fall from ebd while in hospital This resulted in a fracture around her left hip replacement Orthpedics consulted, felt fracture was well aligned and did not recommend operative management, recommended weight ebaring as tolerated and pain control. Should follow up with orthopedics in 2 weeks after discharge. WIll be transferred to SNF for further rehab and management Qualifiers: Encounter type: subsequent encounter Laterality: left Qualified Code(s): M97.02XD - Periprosthetic fracture around internal prosthetic left hip joint, subsequent encounter; T84.041D - Periprosthetic fracture around internal prosthetic left hip joint, subsequent encounter (3) CHF (congestive heart failure) Priority: Primary Status: Chronic Comments: Patient presenetd with acute dyspnea. She has a chest xray in the ER with increasing pulmonary congestion as well as an increasing right pleural effusion. She was diuresed with IV lasix and was discharged on her home dose. Last echo 03/04 LVEF 65-70%, severe diastolic dysfunction, dialated left atrium, mild mitral reguritation, mild tricuspid regurgitation and mild pulmonary hypertension Will continue lasix 40 mg daily on discharge. Qualifiers: Congestive heart failure type: diastolic Congestive heart failure chronicity: acute on chronic Qualified Code(s): I50.33 - Acute on chronic diastolic (congestive) heart failure (4) HLD (hyperlipidemia) Priority: Secondary Status: Chronic Comments: Chronic. Patient previously ons tatin, however developed transaminitis during prior hospital stay and medication was stopped. Will defer to PCP as to benefit vs risk of restarting medication in patient once home Qualifiers: Hyperlipidemia type: unspecified Qualified Code(s): E78.5 - Hyperlipidemia , unspecified (5) HTN (hypertension) Priority: Secondary Status: Chronic Comments: Chronic. Continued home medications. Qualifiers: Hypertension type: essential hypertension Qualified Code(s): I10 - Essential (primary) hypertension (6) CKD (chronic kidney disease) stage 3, GFR 30-59 ml/min Priority: Secondary Status: Chronic Comments: Known history. Developed mild JESÚS during hospital stay likely secondaryto diuesis. Discharged on normal home lasix daily (7) Anemia Priority: Secondary Status: Chronic Comments: Chronic. Stable. No signs of active bleeding during stay Qualifiers: Anemia type: due to chronic kidney disease Chronic kidney disease stage: stage 3 (moderate) Qualified Code(s): N18.3 - Chronic kidney disease, stage 3 (moderate); D63.1 - Anemia in chronic kidney disease; D63.1 - Anemia in chronic kidney disease (8) Insomnia Priority: Secondary Status: Chronic Comments: Chronic. Stable Continued on trazadone Qualifiers: Insomnia type: unspecified Qualified Code(s): G47.00 - Insomnia, unspecified - Discharge Medications Prescriptions: Oxycodone HCl [Roxicodone 30 MG Immed Release] 30 mg PO QID PRN #10 tablet PRN Reason: Pain Home Medications: Multivitamin [Multi-Day Vitamins] 1 each PO DAILY 04/25/15 [History] Calcium Carbonate [Calcium] 500 mg PO DAILY 03/31/17 [History] Furosemide [Lasix] 20 mg PO DAILY 03/31/17 [History] Magnesium Oxide [Mag-Ox] 400 mg PO DAILY 03/31/17 [History] [place]-3 Fatty Acids [Fish Oil] 600 mg PO DAILY 03/31/17 [History] Vit C/Vit E/Lutein/Min/[place]-3 [Ocuvite Softgel] 1 each PO DAILY 03/31/17 [ History] traZODone [TraZODone] 50 mg PO HS PRN 03/31/17 [History] Simvastatin [Zocor] 10 mg PO HS #120 tab 04/03/17 [Rx] Multivit/Ca/Min/Fe/FA [Thera M Plus] 1 tab PO DAILY tablet 04/16/17 [Rx] Rivaroxaban [Xarelto] 20 mg PO DAILY 06/01/17 [History] Amiodarone [Cordarone] 200 mg PO BID tablet 06/24/17 [Rx] Gabapentin [Neurontin] 300 mg PO BID capsule 06/24/17 [Rx] Metoprolol [Lopressor] 100 mg PO BID tablet 06/24/17 [Rx] Oxycodone HCl [Roxicodone 30 MG Immed Release] 30 mg PO QID PRN #10 tablet 06/24 [Rx] Allergies/Adverse Reactions: 3 Allergy/AdvReac Type Severity Reaction Status Date / Time aspirin Allergy Rash Verified 06/17/17 20:30 codeine Allergy Rash Verified 06/17/17 20:30 Date of admission: 06/17/17 20:55 Primary care physician: Louise Zarate Consults: 06/17/17 21:54 Consult to Global Product Manager [CONS] Routine Reason for SW Consult: HAS HOME HEALTH, READMISSION THIS WEEK. 06/18/17 02:07 Consult to Orthopedic Surgery [CONS] Routine Consulting Provider: [facility] Reason for Consult: Periprosthetic femur fracture s/p unwitnessed fall Call Completed: Yes 06/20/17 14:12 Consult to Occupational Therapy [CONS] Routine Comment: Evaluate, develop and implement POC Reason for Consult: Generalized weakness, left hip pain s/p fall Consult to Physical Therapy [CONS] Routine Comment: Evaluate, develop and implement POC Reason for Consult: Generalized weakness, left hip pain s/p fall Discharging clinician: Rogelio Whiting - Patient Status Disposition: Transfer SNF Condition: Fair - Discharge Instructions Follow Up With: Elizabeth Hartmann PAC [Physician Site Lead] - 07/07/17 9:15 Louise Read, SOCIAL INSURANCE ADMINISTRATOR [Primary Care Provider] - (Patient is going to [facility] no PCP appointment needed) Hospital course: Ms. Francois is a 86 year old female with past medical history of CHF, CKD, atrial fibrillation who presenet dto the ED with complaints of progressive shortness of breathw hile walking. Was found to be in CHF and afib with rapid rate and was admitted for further treatment. Upon arrival to floor she was strated on lasix for her CHF and lopressor for her atrial fibrillation. Initial creatinine was increased from alst known prior but did improve and returned to baseline during hospital stay. She slid out of bed after arrival to floor and sustained a fracture around her previous hip replacement in the left hip. Xray showed minimal displacement. Orthopedics was consulted. Recommended non operative management with weight bearinga s tolerated and pain control. Recommend follow up in ortho clinic for 2 weeks after discharge. During ehr stay on morning of 06/22, he developed atrial fibrillation with RVR. This required transfer to the step down unit. She was placed on an amiodarone drip and her lopressor was adjusted. She receievd 2 doses of digoxin during her stay,however she did not receive a digoxin load. Due to the presence of her CKD this medication was stopped. Her heart rate stabilized on amiodarone and she was able to be trasnitioned to oral medication. On day of discharge, she was doing well and was stable to transfer to a SNF where she will complete rehab. - Time Spent with Patient Total time spent providing and/or coordinating discharge services: - Constitutional Vitals: Temp Pulse Resp BP Pulse Ox 98.7 F 99 16 87/65 96 06/24/17 10:26 06/24/17 10:26 06/24/17 07:44 06/24/17 10:26 06/24/17 10:26 General appearance: Present: cooperative, pleasant, no acute distress, underweight - Head Head exam: Present: atraumatic, normocephalic - Neck Neck exam general surgery: Present: supple, trachea midline - Respiratory Respiratory exam: Present: CTAB. Absent: rales, rhonchi, stridor, wheezes - Cardiovascular Cardiovascular exam: Present: irregular rhythm - GI/Abdominal GI/Abdominal exam: Present: normal bowel sounds, soft. Absent: tenderness - Extremities Exam Extremities exam: Present: warm. Absent: pedal edema - Skin Skin exam: Present: intact, warm <Rogelio Whiting - Last Filed: 06/25/17 09:49> Date of Encounter: 06/24/17 - Discharge Diagnosis (1) CHF (congestive heart failure) Priority: Primary Status: Chronic Qualifiers: Congestive heart failure type: diastolic Congestive heart failure chronicity: acute on chronic Qualified Code(s): I50.33 - Acute on chronic diastolic (congestive) heart failure (2) Atrial fibrillation Priority: Primary Status: Acute Qualifiers: Atrial fibrillation type: persistent Qualified Code(s): I48.1 - Persistent atrial fibrillation (3) Periprosthetic fracture around internal prosthetic hip joint Priority: Secondary Status: Acute Qualifiers: Encounter type: subsequent encounter Laterality: left Qualified Code(s): M97.02XD - Periprosthetic fracture around internal prosthetic left hip joint, subsequent encounter; T84.041D - Periprosthetic fracture around internal prosthetic left hip joint, subsequent encounter (4) HTN (hypertension) Priority: Secondary Status: Chronic Qualifiers: Hypertension type: essential hypertension Qualified Code(s): I10 - Essential (primary) hypertension (5) CKD (chronic kidney disease) stage 3, GFR 30-59 ml/min Priority: Secondary Status: Chronic (6) Anemia Priority: Secondary Status: Chronic Qualifiers: Anemia type: due to chronic kidney disease Chronic kidney disease stage: stage 3 (moderate) Qualified Code(s): N18.3 - Chronic kidney disease, stage 3 (moderate); D63.1 - Anemia in chronic kidney disease; D63.1 - Anemia in chronic kidney disease (7) Chronic pain syndrome Priority: Secondary Status: Chronic Date of admission: 06/17/17 20:55 Primary care physician: Louise Zarate Consults: 06/17/17 21:54 Consult to Global Product Manager [CONS] Routine Reason for SW Consult: HAS HOME HEALTH, READMISSION THIS WEEK. 06/18/17 02:07 Consult to Orthopedic Surgery [CONS] Routine Consulting Provider: [facility] Reason for Consult: Periprosthetic femur fracture s/p unwitnessed fall Call Completed: Yes 06/20/17 14:12 Consult to Occupational Therapy [CONS] Routine Comment: Evaluate, develop and implement POC Reason for Consult: Generalized weakness, left hip pain s/p fall Consult to Physical Therapy [CONS] Routine Comment: Evaluate, develop and implement POC Reason for Consult: Generalized weakness, left hip pain s/p fall Anticipated date of discharge: 06/24/17 - Patient Status Functional capacity at discharge: uses cane/walker Overall status at discharge: patient is progressing back to baseline - Diet and Activity Activity: as per physical therapy, increase activity as tolerated Diet: low fat, low cholesterol, low salt diet Hospital course: Ms. Francois is a 86 year old female with hx of CHF, CKD and atrial fibrillation presented to ED with complaints of progressive dyspnea. She was evaluated in ED and found to be in CHF and rapid a fib. She was admitted for further treatment. Ms Francois was admitted to [facility]. She was started on increased Lasix for CHF exacerbation and was given Lopressor for her a fib with RVR. Her creatinine was higher than baseline but ultimately improved. Her potassium was slightly high and she was treated in ED. Shortly after arrival on [facility] floor she slid out of bed and was found to have L hip periprosthetic fracture. She was evaluated by orthopedics and nonoperative management pursued. She continued to have issues with rapid a fib and medications were adjusted. On the morning of 06/22 her heartrate was markedly uncontrolled. Despite conservative measures it persisted and she was transferred to and placed on amio drip. She had good improvement in her heartrate and she was switched to PO med. Digoxin was stopped and Lopressor adjusted. She continued to clinically improve. On 06/24 she was doing fairly well. She was approved for transfer to SNF and arrangements were for discharge today. - Time Spent with Patient Total time spent providing and/or coordinating discharge services: 39min - Constitutional Vitals: Temp Pulse Resp BP Pulse Ox 98.7 F 78 16 111/78 95 06/24/17 10:26 06/24/17 13:36 06/24/17 07:44 06/24/17 13:36 06/24/17 13:36 - Head Head exam: Present: normocephalic - Eye Eye exam: Present: EOMI, conjuntiva pink - ENT ENT exam: Present: mucous membranes dry - Respiratory Respiratory exam: Present: decreased breath sounds, CTAB - Cardiovascular Cardiovascular exam: Present: irregular rhythm. Absent: tachycardia - GI/Abdominal GI/Abdominal exam: Present: soft. Absent: tenderness - Extremities Exam Extremities exam: Present: warm. Absent: tenderness - Neurological Exam Neurological exam: Present: alert, oriented X3 - Skin Skin exam: Present: warm. Absent: dry, rash - Attending Attestation I examined this patient and my medical decision-making was reviewed with the Resident Physician on 06/24/17. I agree with the documented findings, disposition and treatment plan as described except to the extent set forth below. Ms Francois has been admitted for acute exac CHF. She has also had a periprosthetic hip frature. She developed rapid a fib and has been controlled with med adjustments. She is afebrile with stable vitals and ready for discharge to SNF. Exam Alert. Comfortable Mucus membranes dry Heart irreg - not tachy Lungs diminished Abd soft Plan D/C to SNF today.
--- NOTE | 2017-06-24 10:52 | Physician Discharge Referral ---
<Tenisha Rajan - Last Filed: 06/24/17 10:52> [facility] Referral Info Transfer To: [facility] Level of Care: Skilled - Diagnosis (1) Atrial fibrillation with RVR Priority: Primary Status: Acute (2) Periprosthetic fracture around internal prosthetic hip joint Priority: Primary Status: Acute (3) CHF (congestive heart failure) Priority: Secondary Status: Chronic (4) HLD (hyperlipidemia) Priority: Secondary Status: Chronic (5) HTN (hypertension) Priority: Secondary Status: Chronic (6) CKD (chronic kidney disease) stage 3, GFR 30-59 ml/min Priority: Secondary Status: Chronic (7) Anemia Priority: Secondary Status: Chronic (8) Insomnia Priority: Secondary Status: Chronic Prognosis: Good - Transfer Medications Prescriptions: Oxycodone HCl [Roxicodone 30 MG Immed Release] 30 mg PO QID PRN #10 tablet PRN Reason: Pain Home Medications: Multivitamin [Multi-Day Vitamins] 1 each PO DAILY 04/25/15 [History] Calcium Carbonate [Calcium] 500 mg PO DAILY 03/31/17 [History] Furosemide [Lasix] 20 mg PO DAILY 03/31/17 [History] Magnesium Oxide [Mag-Ox] 400 mg PO DAILY 03/31/17 [History] [place]-3 Fatty Acids [Fish Oil] 600 mg PO DAILY 03/31/17 [History] Vit C/Vit E/Lutein/Min/[place]-3 [Ocuvite Softgel] 1 each PO DAILY 03/31/17 [ History] traZODone [TraZODone] 50 mg PO HS PRN 03/31/17 [History] Simvastatin [Zocor] 10 mg PO HS #120 tab 04/03/17 [Rx] Multivit/Ca/Min/Fe/FA [Thera M Plus] 1 tab PO DAILY tablet 04/16/17 [Rx] Rivaroxaban [Xarelto] 20 mg PO DAILY 06/01/17 [History] Amiodarone [Cordarone] 200 mg PO BID tablet 06/24/17 [Rx] Gabapentin [Neurontin] 300 mg PO BID capsule 06/24/17 [Rx] Metoprolol [Lopressor] 100 mg PO BID tablet 06/24/17 [Rx] Oxycodone HCl [Roxicodone 30 MG Immed Release] 30 mg PO QID PRN #10 tablet 06/24 [Rx] Allergies/Adverse Reactions: 3 Allergy/AdvReac Type Severity Reaction Status Date / Time aspirin Allergy Rash Verified 06/17/17 20:30 codeine Allergy Rash Verified 06/17/17 20:30 - Respiratory Orders Smoking Cessation: Smoking cessation has been advised. For more information, call the [employer] [place] [employer] Quit Line at 1-964-TPPX-NOW. CERTIFICATION: I certify that the transfer of the above named patient to an Extended Care Facility is necessary for the continuing treatment of the diagnosis listed. The above information is true and accurate reflection of patient's current condition. Confidential - Redisclosure prohibited without a patient's written consent. <Rogelio Whiting - Last Filed: 06/24/17 14:01> [facility] Provider in Charge after Transfer: PCP - Diagnosis (1) Atrial fibrillation Status: Acute (2) CHF (congestive heart failure) Status: Chronic (3) Periprosthetic fracture around internal prosthetic hip joint Status: Acute (4) HTN (hypertension) Status: Chronic (5) CKD (chronic kidney disease) stage 3, GFR 30-59 ml/min Status: Chronic (6) Anemia Status: Chronic (7) Chronic pain syndrome Priority: Secondary Status: Chronic Aware of Diagnosis: Patient, Family Aware of Prognosis: Patient, Family - Respiratory Orders Oxygen / L per min (Keep oxygen saturation greater than 90%) Smoking Cessation: Smoking cessation has been advised. For more information, call the [place] [employer] Quit Line at 4-706-CKLE-NOW. - Lab Orders Lab Orders: 2 Step Mantoux Test per State regulation - Ancillary Orders May use pressure relief devices daily prn, May consult with Dentist, Front Desk Administrator, County Assessor PRN - Advance Directives Code Status: Full Code - Mobility Orders Ambulate - Rehabiliation Orders Rehab Potential: Fair Rehab Orders: Evaluation for Physical Therapy, Evaluation for Occupational Therapy - Treatments Skin tear care topically daily PRN per policy, May check for fecal impaction rectally daily PRN, Fleet enema rectally every other day PRN cleansing purposes - Diet Orders Cardiac CERTIFICATION: I certify that the transfer of the above named patient to an Extended Care Facility is necessary for the continuing treatment of the diagnosis listed. The above information is true and accurate reflection of patient's current condition. Confidential - Redisclosure prohibited without a patient's written consent.
[2017-06-24 13:37] VITALS: BP 111/78
== END 2017-06-24 15:50 | DRG 291 ==
LOC: 3BNU 18:54 → EMEROO 18:54 → SUATTDRO 20:55 → 3BNU 21:21 → 2NNU 06-22 05:36
PROVIDERS: ADMIT Pediatrics; ATTEND Internal Medicine

== ENCOUNTER 2017-08-02 13:45 | Inpatient (IN) ==
--- NOTE | 2017-08-01 17:05 | Discharge Summary ---
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, subsequent encounter (2) Paroxysmal atrial fibrillation Priority: Secondary Status: Chronic (3) Osteoporosis Priority: Secondary Status: Chronic Qualifiers: Osteoporosis type: unspecified Presence of current pathological fracture: unspecified Qualified Code(s): M81.0 - Age-related osteoporosis without current pathological fracture (4) Oxygen dependent Priority: Secondary Status: Chronic (5) Chronic kidney disease Priority: Secondary Status: Chronic Qualifiers: Chronic kidney disease stage: unspecified stage Qualified Code(s): N18.9 - Chronic kidney disease, unspecified (6) CHF (congestive heart failure) Priority: Secondary Status: Chronic Qualifiers: Congestive heart failure type: unspecified Congestive heart failure chronicity: unspecified Qualified Code(s): I50.9 - Heart failure, unspecified (7) HLD (hyperlipidemia) Priority: Secondary Status: Chronic Qualifiers: Hyperlipidemia type: unspecified (8) HTN (hypertension) Priority: Secondary Status: Chronic Qualifiers: Hypertension type: unspecified Qualified Code(s): I10 - Essential (primary ) hypertension (9) Chronic pain syndrome Priority: Secondary Status: Chronic - Discharge Medications Home Medications: Multivitamin [Multi-Day Vitamins] 1 each PO DAILY 04/25/15 [History] Calcium Carbonate [Calcium] 500 mg PO HS 03/31/17 [History] Furosemide [Lasix] 20 mg PO DAILY 03/31/17 [History] Magnesium Oxide [Mag-Ox] 400 mg PO HS 03/31/17 [History] [place]-3 Fatty Acids [Fish Oil] 600 mg PO DAILY 03/31/17 [History] Vit C/Vit E/Lutein/Min/[place]-3 [Ocuvite Softgel] 1 each PO HS 03/31/17 [History] Multivit/Ca/Min/Fe/FA [Thera M Plus] 1 tab PO DAILY tablet 04/16/17 [Rx] Rivaroxaban [Xarelto] 20 mg PO DAILY 06/01/17 [History] Amiodarone [Cordarone] 200 mg PO BID tablet 06/24/17 [Rx] Gabapentin [Neurontin] 300 mg PO BID capsule 06/24/17 [Rx] Oxycodone HCl [Roxicodone 30] 30 mg PO QID PRN #10 tablet 06/24/17 [Rx] Benzonatate [Tessalon] 100 mg PO TID 07/19/17 [History] Chloraseptic [place] [Chloraseptic] 1 spray MM Q2H PRN 07/19/17 [History] Guaifenesin [Mucinex] 1,200 mg PO BID 07/19/17 [History] Ipratropium/Albuterol Neb [Duoneb] 3 ml IH QID 07/19/17 [History] Ipratropium/Albuterol Neb [Duoneb] 3 ml IH QID PRN 07/19/17 [History] Melatonin [Melatin] 3 mg PO HS PRN 07/19/17 [History] Oxygen 2 l NS AD 07/19/17 [History] Simvastatin [Zocor] 10 mg PO HS 07/19/17 [History] Acetaminophen [Tylenol] 650 mg PO Q6HR PRN tablet 07/22/17 [Rx] Clindamycin HCl 600 mg PO TID #18 capsule 07/23/17 [Rx] Metoprolol [Lopressor] 75 mg PO TID #90 tablet 07/23/17 [Rx] Allergies/Adverse Reactions: 3 Allergy/AdvReac Type Severity Reaction Status Date / Time amlodipine Allergy See Verified 08/02/17 13:55 Comments aspirin Allergy Rash Verified 08/02/17 13:55 codeine Allergy Rash Verified 08/02/17 13:55 Primary care physician: Daniel Stringer MD - Patient Status Disposition: Transfer Inpatient Rehab Fac Condition: Good - Discharge Instructions Follow Up With: Daniel Stringer MD [Primary Care Provider] - - Hospital Course Hospital course: Ms. Francois is a 86 year old female - Time Spent with Patient Total time spent providing and/or coordinating discharge services: <Tip Billingsley - Last Filed: 08/04/17 09:02> Date of Encounter: 08/04/17 Time of Encounter: 09:02 - Discharge Diagnosis (1) Atrial fibrillation Priority: Secondary Status: Chronic Qualifiers: Atrial fibrillation type: permanent Qualified Code(s): I48.2 - Chronic atrial fibrillation (2) Chronic kidney disease Priority: Secondary Status: Chronic Qualifiers: Chronic kidney disease stage: stage 3 (moderate) Qualified Code(s): N18.3 - Chronic kidney disease, stage 3 (moderate) (3) CHF (congestive heart failure) Priority: Secondary Status: Chronic Qualifiers: Congestive heart failure type: diastolic Congestive heart failure chronicity: unspecified Qualified Code(s): I50.30 - Unspecified diastolic ( congestive) heart failure (4) HLD (hyperlipidemia) Priority: Secondary Status: Chronic Qualifiers: Hyperlipidemia type: unspecified Qualified Code(s): E78.5 - Hyperlipidemia , unspecified (5) HTN (hypertension) Priority: Secondary Status: Chronic Qualifiers: Hypertension type: unspecified Qualified Code(s): I10 - Essential (primary ) hypertension (6) CKD (chronic kidney disease) stage 3, GFR 30-59 ml/min Priority: Secondary Status: Chronic (7) Acute on chronic diastolic (congestive) heart failure Priority: Secondary Status: Chronic (8) Chronic respiratory failure Status: Acute Qualifiers: Respiratory failure complication: hypoxia Qualified Code(s): J96.11 - Chronic respiratory failure with hypoxia (9) Periprosthetic fracture around internal prosthetic hip joint Priority: Primary Status: Chronic Qualifiers: Encounter type: subsequent encounter Laterality: left Qualified Code(s): M97.02XD - Periprosthetic fracture around internal prosthetic left hip joint, subsequent encounter; T84.041D - Periprosthetic fracture around internal prosthetic left hip joint, subsequent encounter (10) Osteoporosis Priority: Secondary Status: Chronic Qualifiers: Osteoporosis type: unspecified Presence of current pathological fracture: unspecified Qualified Code(s): M81.0 - Age-related osteoporosis without current pathological fracture (11) Oxygen dependent Priority: Secondary Status: Chronic (12) Status post total hip replacement, left Priority: Secondary Status: Chronic Primary care physician: Daniel Stringer MD - Patient Status Functional capacity at discharge: uses cane/walker Overall status at discharge: patient is progressing back to baseline - Hospital Course Hospital course: Ms. Francois is a 86 year old female Status post revision left femoral component The patient had an uneventful postoperative course. They received antibiotics and physical therapy and were discharged in stable condition. There will follow -up in the office in 2 weeks. - Time Spent with Patient Total time spent providing and/or coordinating discharge services:
--- NOTE | 2017-08-01 21:01 | Physician Discharge Referral ---
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 Priority: Primary Status: Chronic (2) Paroxysmal atrial fibrillation Priority: Secondary Status: Chronic (3) Osteoporosis Priority: Secondary Status: Chronic (4) Oxygen dependent Priority: Secondary Status: Chronic (5) Chronic kidney disease Priority: Secondary Status: Chronic (6) CHF (congestive heart failure) Priority: Secondary Status: Chronic (7) HLD (hyperlipidemia) Priority: Secondary Status: Chronic (8) HTN (hypertension) Priority: Secondary Status: Chronic (9) Chronic pain syndrome Priority: Secondary Status: Chronic (10) Status post total hip replacement, left Priority: Primary Status: Acute Expected Duration of Placement: less than 30 days Prognosis: Good Aware of Diagnosis: Patient Aware of Prognosis: Patient - Transfer Medications Home Medications: Multivitamin [Multi-Day Vitamins] 1 each PO DAILY 04/25/15 [History] Calcium Carbonate [Calcium] 500 mg PO HS 03/31/17 [History] Furosemide [Lasix] 20 mg PO DAILY 03/31/17 [History] Magnesium Oxide [Mag-Ox] 400 mg PO HS 03/31/17 [History] [place]-3 Fatty Acids [Fish Oil] 600 mg PO DAILY 03/31/17 [History] Vit C/Vit E/[place]utein/Min/[place]-3 [Ocuvite Softgel] 1 each PO HS 03/31/17 [History] Multivit/Ca/Min/Fe/FA [Thera M Plus] 1 tab PO DAILY tablet 04/16/17 [Rx] Rivaroxaban [Xarelto] 20 mg PO DAILY 06/01/17 [History] Amiodarone [Cordarone] 200 mg PO BID tablet 06/24/17 [Rx] Gabapentin [Neurontin] 300 mg PO BID capsule 06/24/17 [Rx] Oxycodone HCl [Roxicodone 30 MG Immed Release] 30 mg PO QID PRN #10 tablet 06/24 [Rx] Benzonatate [Tessalon] 100 mg PO TID 07/19/17 [History] Chloraseptic [place] [Chloraseptic] 1 spray MM Q2H PRN 07/19/17 [History] Guaifenesin [Mucinex] 1,200 mg PO BID 07/19/17 [History] Ipratropium/Albuterol Neb [Duoneb] 3 ml IH QID 07/19/17 [History] Ipratropium/Albuterol Neb [Duoneb] 3 ml IH QID PRN 07/19/17 [History] Melatonin [Melatin] 3 mg PO HS PRN 07/19/17 [History] Oxygen 2 l NS AD 07/19/17 [History] Simvastatin [Zocor] 10 mg PO HS 07/19/17 [History] Acetaminophen [Tylenol] 650 mg PO Q6HR PRN tablet 07/22/17 [Rx] Clindamycin HCl 600 mg PO TID #18 capsule 07/23/17 [Rx] Metoprolol [Lopressor] 75 mg PO TID #90 tablet 07/23/17 [Rx] Allergies/Adverse Reactions: 3 Allergy/AdvReac Type Severity Reaction Status Date / Time amlodipine Allergy See Verified 07/14/17 10:29 Comments aspirin Allergy Rash Verified 07/14/17 10:29 codeine Allergy Rash Verified 07/14/17 10:29 - Respiratory Orders Smoking Cessation: Smoking cessation has been advised. For more information, call the [place] Tobacco Quit Line at 2-975-ELOJ-NOW. - Ancillary Orders May use pressure relief devices daily prn, May go on BEATRIZ w/family/respon constitution party w /meds at nurse discretion PRN, May consult with Dentist, Park Recreation Manager, Leather Stripping Machine Operator PRN - Mobility Orders Chair, Ambulate - Rehabiliation Orders Rehab Potential: Good Rehab Orders: Evaluation for Physical Therapy, Evaluation for Occupational Therapy Other: Total Hip replacement Precautions Apply cold therapy 3-6x/day for 20 minutes at a time. Encourage ambulation throughout the day and incentive spirometer 10x/hour. Elevate affected extremity as tolerated. Brace: Wear hip abduction pillow when laying/sleeping - Treatments Skin tear care topically daily PRN per policy List/Other: Opsite placed. Keep dressing intact until first follow up appointment. If > 50% saturated, notify office, remove dressing and place appropriate dressing back in place. Leave Wilbert and Zipline intact. Opsite dressing is water resistant, not water-proof. OK to shower, but do not get dressing wet. - Diet Orders Regular CERTIFICATION: I certify that the transfer of the above named patient to an Extended Care Facility is necessary for the continuing treatment of the diagnosis listed. The above information is true and accurate reflection of patient's current condition. Confidential - Redisclosure prohibited without a patient's written consent.
[2017-08-02] MEDS ORDERED: CeFAZolin Syr 2,000MG/20 ML 2,000 MG/20 ML SYRINGE IVPB ONE (14:07)
[2017-08-02] MEDS ORDERED: Ringers Solution, Lactated 1,000 ML IVC SCH (14:15)
--- NOTE | 2017-08-02 15:23 | History & Physical Report ---
Date of Encounter: 08/02/17 Time of Encounter: 15:23 24 Hour HP Update - Instructions Instructions: If the History and Physical is less than 30 days old and was completed prior to A.M. admission and or procedure and has NOT been updated on calendar day of procedure please complete this update prior to performing procedure. - Update Patient reports changes in Medical Condition: No Changes in examination, assessment, or condition: No Changes in Medication: No Preop tests/diagnostics Reviewed: Yes Surgery Remains Indicated: Yes Consent for Planned Operative Procedure(s) Verified: Yes - Pre-Operative Checklist Preoperative Checklist Indicated: No Prophylactic Antibiotic Ordered: Yes Is VTE Prophylaxis Indicated?: Yes
--- NOTE | 2017-08-02 15:23 | Anesthesia Evaluation PreOp ---
Date of Encounter: 08/02/17 Time of Encounter: 15:21 - Past History Planned Operation: Left Total Hip Femoral Revision Cardiac History: CHF, HTN, Hyperlipidemia, Arrhythmia (H/O A-Fib) Pulmonary History: Denies Any Significant HX HEAD OF ACQUISITIONS History: Denies Any Significant HX Other Medical History: Denies Any Significant HX Anesthesia History: No Prior Anesthetic Complications, Past Anesthesia Alcohol Use: none Drug use: none Medications and Allergies Multivitamin [Multi-Day Vitamins] 1 each PO DAILY 04/25/15 [History] Calcium Carbonate [Calcium] 500 mg PO HS 03/31/17 [History] Furosemide [Lasix] 20 mg PO DAILY 03/31/17 [History] Magnesium Oxide [Mag-Ox] 400 mg PO HS 03/31/17 [History] [place]-3 Fatty Acids [Fish Oil] 600 mg PO DAILY 03/31/17 [History] Vit C/Vit E/Lutein/Min/[place]-3 [Ocuvite Softgel] 1 each PO HS 03/31/17 [History] Multivit/Ca/Min/Fe/FA [Thera M Plus] 1 tab PO DAILY tablet 04/16/17 [Rx] Rivaroxaban [Xarelto] 20 mg PO DAILY 06/01/17 [History] Amiodarone [Cordarone] 200 mg PO BID tablet 06/24/17 [Rx] Gabapentin [Neurontin] 300 mg PO BID capsule 06/24/17 [Rx] Oxycodone HCl [Roxicodone 30 MG Immed Release] 30 mg PO QID PRN #10 tablet 06/24 [Rx] Benzonatate [Tessalon] 100 mg PO TID 07/19/17 [History] Chloraseptic [place] [Chloraseptic] 1 spray MM Q2H PRN 07/19/17 [History] Guaifenesin [Mucinex] 1,200 mg PO BID 07/19/17 [History] Ipratropium/Albuterol Neb [Duoneb] 3 ml IH QID 07/19/17 [History] Ipratropium/Albuterol Neb [Duoneb] 3 ml IH QID PRN 07/19/17 [History] Melatonin [Melatin] 3 mg PO HS PRN 07/19/17 [History] Oxygen 2 l NS AD 07/19/17 [History] Simvastatin [Zocor] 10 mg PO HS 07/19/17 [History] Acetaminophen [Tylenol] 650 mg PO Q6HR PRN tablet 07/22/17 [Rx] Clindamycin HCl 600 mg PO TID #18 capsule 07/23/17 [Rx] Metoprolol [Lopressor] 75 mg PO TID #90 tablet 07/23/17 [Rx] 3 Allergy/AdvReac Type Severity Reaction Status Date / Time amlodipine Allergy See Verified 08/02/17 13:55 Comments aspirin Allergy Rash Verified 08/02/17 13:55 codeine Allergy Rash Verified 08/02/17 13:55 - Meds/Allergy Pre-op Review Medications Reviewed: Yes Allergies Reviewed: Yes Beta Blockers on Current Med List: No Anesthesia Results - Labs Laboratory Tests 07/14/17 07/20/17 07/20/17 10:40 04:16 04:16 WBC 9.2 Hgb 9.4 L Hct 30.4 L Plt Count 188 PT 35.9 H INR 3.3 APTT 45.6 H Sodium 135 L Potassium 4.3 BUN 24 H Creatinine 1.03 - Imaging EKG: report reviewed (07/20/2017 ATRIAL FIBRILLATION WITH RAPID VENTRICULAR RESPONSE RIGHT BUNDLE BRANCH BLOCK) Additional studies: 03/01/2017 Echo Impressions: Normal LV systolic function, LVEF 65-70%. Mild concentric left ventricular hypertrophy. Severe left ventricular diastolic dysfunction. Normal right ventricular size and function. Severely dilated left atrium. Mild mitral regurgitation. Mild tricuspid regurgitation. Mild pulmonary hypertension. Estimated RVSP = 41 mmHg. Anesthesia Exam O2 Sat Height 1.59 m Height 1.59 m Weight 68.039 kg Weight 68.039 kg O2 Sat by Pulse Oximetry 94 Vital Signs Temp Pulse Resp BP Pulse Ox 98.9 F 86 16 130/68 94 08/02/17 14:01 08/02/17 14:01 08/02/17 14:01 08/02/17 14:01 08/02/17 14:01 Height: 5'2.5" Weight: 150 lbs NPO (# of Hours): 8 Pain Scale: 8 (left hip) Pain Scale Used: Numeric (1 - 10) - HEENT Pupil (Motor): EOMI Mallampati: II Teeth: Edentulous Oral Opening: Greater than 3 - HEAD OF ACQUISITIONS LOC: Oriented HEAD OF ACQUISITIONS Motor: Normal RUE, Normal LUE, Normal RLE, Normal LLE, Normal Face HEAD OF ACQUISITIONS Sensory: Normal: RUE, LUE, RLE, LLE, Face - Cardiac Rhythm: Irregular Murmur: None - Pulmonary Breath Sounds: bilateral Clear Respiratory Effort: Symmetrical Anesthesia Assess/Plan ASA Score: 3 Modified Celia Scale for Level of Consciousness: Cooperative, oriented, and tranquil Anesthetic Plan: General Monitoring Plan: Standard Monitors Recovery Plan: PACU
[2017-08-02] MEDS ORDERED: Povidone-Iodine 5% 60 ML, Sodium Chloride IRRigation 500 ML IR ONE (15:55)
[2017-08-02] MEDS ORDERED: *HR* Midazolam HCl 2 MG/2 ML VIAL ONE (16:48)
[2017-08-02] MEDS ORDERED: Lidocaine -MPF 4% 5 ML AMPUL ONE (16:48)
[2017-08-02] MEDS ORDERED: *HR* Propofol 200 MG/20 ML VIAL IVP ONE (16:48)
[2017-08-02] MEDS ORDERED: Dexamethasone 4 MG/ML VIAL ONE (16:48)
[2017-08-02] MEDS ORDERED: Ondansetron 4 MG/2 ML VIAL ONE (16:48)
[2017-08-02] MEDS ORDERED: *HR* FentaNYL (PF) 100 MCG/2 ML VIAL ONE ×2 (16:48→19:05)
[2017-08-02] MEDS ORDERED: Lidocaine -MPF 2% 2 ML VIAL ONE (16:48)
[2017-08-02] MEDS ORDERED: Ethanol\\Acetic Acid\\Na Ace\\Ben 1,000 ML IRRIG.SOLN IR ONE (18:15)
[2017-08-02] MEDS ORDERED: *HR* Metoprolol 5 MG/5 ML VIAL IVP ONE ×3 (18:51→22:38)
[2017-08-02] MEDS ORDERED: Esmolol 100 MG/10 ML VIAL IVP ONE (18:59)
[2017-08-02] MEDS ORDERED: *HR* PHENYLEPHRINE 1,000 MCG/10 ML SYRINGE IVP ONE (19:15)
[2017-08-02] MEDS ORDERED: *HR* Morphine 2 MG/ML SYRINGE IVP PRN (19:17)
--- NOTE | 2017-08-02 19:35 | Orthopedic Operative Note ---
Date of procedure: 08/02/17 Pre-op diagnosis: Periprosthetic fracture left femur femoral loosening Post-op diagnosis: same Procedure: Procedure: Left Revision femur of Total Hip Replacment Estimated blood loss: 300 cc Hardware: Metal and polyethylene replacement. Biomet Cuong 20 x 150 stem, 80 D body +12 head with poly-one super cable Procedural Notes: Loose femoral stem. Secondary to periprosthetic femoral fracture. Operative procedure: The patient was brought to the operating room and placed on the operating room table. After general anesthesia was administered the patient was placed in the lateral decubitus position with the operative leg up. All pressure points were padded appropriately and the head was stabilized in the neutral position. The operative extremity was prepped and draped in the sterile surgical fashion patient received IV antibiotic prior to skin incision. A standard posterior approach is made to the operative hip, through the old incision. The incision was made through the skin and subcutaneous tissue hemostasis was obtained with Bovie cautery. Using careful sharp dissection the fascia was identified and incised patient had significant scar tissue within the posterior aspect. This was resected. Cultures were obtained at the level hip joint, normal joint fluid was encountered. Hip was brought into internal rotation. Soft tissue was removed from around the proximal femur. The component was removed without incident. The femur was reamed distally up to a size 20 x 150, the stem was impacted in place. Trial reduction with a 80, D cone body revealed the hip to be relocatable. The real 80, D cone body was impacted in place in 20 degrees of anteversion trial reduction revealed excellent stability with a 12 metal head with the appropriate poly-. The trials were removed and the real implants were impacted in place. The hip was reduced, patient had apparent equal leg lengths. The hip had excellent stability with forward flexion to 90 degrees adduction of 30 degrees and internal rotation of 60 degrees. The hip had no shuck. One super cable was passed around the proximal femur to secure the fracture subperiosteally. The hips after 2 minutes with a Betadine saline solution. The hip was closed by the PA. It was irrigated out with 2 L of pulse irrigation. Fascia was closed with a running #2 PDS suture. The deep tissue was irrigated and closed deep with #1 PDS suture superficially with 0 PDS suture and skin was closed with Dermabond and skin jaja. The patient was placed in a sterile dressing and abduction pillow. The patient was extubated and transferred to the recovery room in stable condition. Anesthesia: GETA Surgeon: Tip Billingsley Was there an assistant financial accountant present: No Estimated blood loss (cc): 300 Condition: stable Disposition: PACU
[2017-08-02] MEDS ORDERED: *HR* HYDROmorphone (PF) 1 MG/ML SYRINGE ONE ×2 (20:30→20:49)
[2017-08-02] MEDS: *HR* HYDROmorphone (PF) 1 MG/ML SYRINGE IVP PRN ×3 (20:32→20:50)
[2017-08-02 20:48] LABS: Hemoglobin 11.7 g/dL (11.5-15.4)
[2017-08-02] MEDS ORDERED: Naloxone 0.4 MG/ML INJ IVP PRN (22:18)
[2017-08-02] MEDS ORDERED: Ipratropium/Albuterol Neb 3 ML IH PRN (22:18)
[2017-08-02] MEDS ORDERED: Chloraseptic Spray 177 ML BOTTLE MM PRN (22:18)
[2017-08-02] MEDS ORDERED: MOM Conc 10 ML UD.LIQ PO PRN (22:18)
[2017-08-02] MEDS ORDERED: NON-FORMULARY MEDICATION 1 EACH EACH (Oxygen [Oxygen] 2 L) NS SCH (22:18)
[2017-08-02] MEDS ORDERED: Sennosides 8.6 MG TABLET PO PRN (22:18)
--- NOTE | 2017-08-02 23:11 | Anesthesia Evaluation Post Op ---
Date of Encounter: 08/02/17 Time of Encounter: 21:50 - Vital Signs Vital Signs: Last Vital Signs Temp 98.0 F 08/02/17 21:50 Pulse 112 08/02/17 21:50 Resp 14 08/02/17 21:50 BP 92/66 08/02/17 21:50 Pulse Ox 97 08/02/17 21:50 - Lungs Lungs: Clear Ascult./Percussion - Airway Airway: Non-obstructed - Cardiovascular Regular Rate - Mental Status Mental Status: Alert & Oriented, Answers Appropriately - Pain Pain Scale: 2 - Nausea Vomiting Nausea Vomiting: Not Present - Hydration Hydration: NPO - Discharge PostOp Status: Transfer Patient to floor
[2017-08-03] MEDS: *HR* OxyCODONE Immed Rel 5 MG TABLET PO PRN ×4 (00:14→19:04)
[2017-08-03] MEDS: *HR* Amiodarone 200 MG TABLET PO SCH ×5 (01:07→22:58)
[2017-08-03] MEDS: Ondansetron 4 MG/2 ML VIAL IVP PRN ×2 (01:07→22:59)
[2017-08-03] MEDS: Benzonatate 100 MG CAPSULE PO SCH ×5 (01:07→22:59)
[2017-08-03] MEDS: Ascorbic Acid 500 MG TABLET PO SCH ×4 (01:08→16:56)
[2017-08-03] MEDS: Gabapentin 300 MG CAPSULE PO SCH ×4 (01:09→22:59)
[2017-08-03] MEDS: CeFAZolin Premix DUPLEX 2,000 MG/50 ML BAG IVPB SCH ×2 (01:09→07:55)
[2017-08-03] MEDS: Magnesium Oxide 400 MG TABLET PO SCH ×3 (01:18→22:58)
[2017-08-03] MEDS: Ringers Solution, Lactated 1,000 ML IVC SCH (01:36)
[2017-08-03] MEDS: OMEGA PO SCH ×2 (02:42→23:14)
[2017-08-03] MEDS: LUTEIN PO SCH ×2 (02:42→23:14)
[2017-08-03] MEDS: VIT E PO SCH ×2 (02:42→23:14)
[2017-08-03] MEDS: VIT C PO SCH ×2 (02:42→23:14)
[2017-08-03] MEDS: Ipratropium/Albuterol Neb 3 ML IH SCH ×4 (04:01→22:46)
[2017-08-03 04:44] LABS: Hematocrit 33.3 % (35.3-44.9); Hemoglobin 10.5 g/dL (11.5-15.4)
--- NOTE | 2017-08-03 07:16 | Orthopedics Progress Note ---
Date of Encounter: 08/03/17 Time of Encounter: 07:16 - Assessment and Plan (1) Atrial fibrillation Current Visit: No Status: Chronic Qualifiers: Atrial fibrillation type: permanent Qualified Code(s): I48.2 - Chronic atrial fibrillation (2) Chronic kidney disease Current Visit: No Status: Chronic Qualifiers: Chronic kidney disease stage: stage 3 (moderate) Qualified Code(s): N18.3 - Chronic kidney disease, stage 3 (moderate) (3) CHF (congestive heart failure) Current Visit: No Status: Chronic Qualifiers: Congestive heart failure type: diastolic Congestive heart failure chronicity: unspecified Qualified Code(s): I50.30 - Unspecified diastolic ( congestive) heart failure (4) HLD (hyperlipidemia) Current Visit: No Status: Chronic Qualifiers: Hyperlipidemia type: unspecified Qualified Code(s): E78.5 - Hyperlipidemia , unspecified (5) HTN (hypertension) Current Visit: No Status: Chronic Qualifiers: Hypertension type: unspecified Qualified Code(s): I10 - Essential (primary ) hypertension (6) CKD (chronic kidney disease) stage 3, GFR 30-59 ml/min Current Visit: No Status: Chronic (7) Acute on chronic diastolic (congestive) heart failure Current Visit: No Status: Chronic (8) Chronic respiratory failure Current Visit: No Status: Acute Qualifiers: Respiratory failure complication: hypoxia Qualified Code(s): J96.11 - Chronic respiratory failure with hypoxia (9) Periprosthetic fracture around internal prosthetic hip joint Current Visit: No Status: Chronic Qualifiers: Encounter type: subsequent encounter Laterality: left Qualified Code(s): M97.02XD - Periprosthetic fracture around internal prosthetic left hip joint, subsequent encounter; T84.041D - Periprosthetic fracture around internal prosthetic left hip joint, subsequent encounter (10) Osteoporosis Current Visit: No Status: Chronic Qualifiers: Osteoporosis type: unspecified Presence of current pathological fracture: unspecified Qualified Code(s): M81.0 - Age-related osteoporosis without current pathological fracture (11) Oxygen dependent Current Visit: No Status: Chronic (12) Status post total hip replacement, left Current Visit: No Status: Chronic Subjective Interval history: Patient was seen this morning doing well without complaints. Afebrile vital signs stable. Operative extremity: Neurovascularly intact Dressing clean dry and intact Calves nontender Assessment and plan: Continue with postoperative care Hematocrit 33 Objective Vital signs: Vital Signs Temp Pulse Resp BP Pulse Ox 08/03/17 06:52 98.2 F 129 16 104/69 96 08/03/17 03:54 97.6 F 132 15 103/49 99 08/03/17 01:20 98.4 F 119 16 103/69 99 08/03/17 00:20 98.3 F 121 14 99/72 99 08/02/17 23:20 98.1 F 122 16 120/78 99 08/02/17 22:50 97.9 F 115 116 110/80 99 08/02/17 22:20 97.5 F L 120 16 116/82 99 08/02/17 21:50 98.0 F 112 14 92/66 97 08/02/17 21:40 98.0 F 128 14 90/80 99 08/02/17 21:30 131 14 117/89 98 08/02/17 21:20 135 14 108/84 96 08/02/17 21:10 98.3 F 133 14 97/83 98 08/02/17 21:00 129 13 102/79 98 08/02/17 20:50 135 17 108/95 99 08/02/17 20:40 98.3 F 125 14 99/75 98 08/02/17 20:30 130 20 113/88 98 08/02/17 20:20 140 20 117/97 99 08/02/17 20:10 99.7 F H 116 16 147/115 95 08/02/17 18:56 98.9 F 86 16 130/68 94 08/02/17 14:01 98.9 F 86 16 130/68 94 Intake and Output 08/02/17 08/02/17 08/03/17 15:59 23:59 07:59 Output Total 300 / 300 850 / 850 Balance -300 / -300 -850 / -850 Output: Urine 0 / 0 850 / 850 Estimated Blood Loss 300 / 300 Other: Weight 68.039 kg 68.039 kg - Labs CBC & BMP: 08/03/17 04:36 08/03/17 04:36 Labs: Abnormal lab results Hgb 10.5 g/dL (11.5-15.4) L 08/03/17 04:36 Hct 33.3 % (35.3-44.9) L 08/03/17 04:36 BUN 25 mg/dL (8-23) H 08/03/17 04:36 Creatinine 1.60 mg/dL (0.60-1.20) H 08/03/17 04:36 Est GFR ( Amer) 37 (> 60) L 08/03/17 04:36 Est GFR (Non-Af Amer) 30 (> 60) L 08/03/17 04:36 Glucose 174 mg/dL (70-105) H 08/03/17 04:36 - VTE Documentation of Mechanical Device: Venous foot pump, device Consult Discharge Plan - Plan Referrals: Daniel Stringer MD [Primary Care Provider] -
[2017-08-03] MEDS: (Omega-3 Fatty Acids [Fish Oil] 600 MG) PO SCH (07:52)
[2017-08-03] MEDS: Furosemide 20 MG TABLET PO SCH (07:52)
[2017-08-03] MEDS: Multivit/Ca/Min/Fe/FA 1 TAB TABLET PO SCH (07:53)
[2017-08-03] MEDS ORDERED: NON-FORMULARY MEDICATION 1 EACH EACH (Multivitamin [Multi-Day Vitamins] 1 EACH) PO SCH (09:00)
[2017-08-03] MEDS ORDERED: *HR* Rivaroxaban 10 MG TABLET PO SCH (09:00)
[2017-08-03] MEDS ORDERED: Multivit/Ca/Min/Fe/FA 1 TAB TABLET PO SCH (09:00)
[2017-08-03] MEDS ORDERED: 0.9 % Sodium Chloride 250 ML ONE (11:32)
[2017-08-03] MEDS: *HR* Rivaroxaban 15 MG TABLET PO SCH (16:56)
--- NOTE | 2017-08-03 17:17 | Event Note ---
Date of Encounter: 08/03/17 Time of Encounter: 12:00 PCR- POD#1 L THR revision femoral Billingsley 08/02/17 PCR - Patient seen at bedside. She is pleasantly confused. Pain control: Adequate Participating in PT. All questions and concerns addressed. Educated on use of incentive spirometer, ambulation, and hydration. Patient educated on post-operative restrictions and care. Addressed: Patient receiving 1 unit of blood. Patient having some nausea - getting phenergan for relief as needed. D/C plan: ECF - returning to her previous facility for rehab once medically stable and ready for discharge.
[2017-08-04] MEDS: *HR* OxyCODONE Immed Rel 5 MG TABLET PO PRN ×2 (01:59→06:38)
[2017-08-04] MEDS: Ipratropium/Albuterol Neb 3 ML IH SCH ×4 (04:08→22:10)
[2017-08-04 06:49] LABS: Hematocrit 31.1 % (35.3-44.9); Hemoglobin 10.1 g/dL (11.5-15.4)
[2017-08-04 07:10] LABS: Calcium 8.4 mg/dL (8.6-10.3); Potassium 4.4 mEq/L (3.5-5.1)
[2017-08-04] MEDS: Furosemide 20 MG TABLET PO SCH (08:25)
[2017-08-04] MEDS: *HR* Amiodarone 200 MG TABLET PO SCH ×2 (08:25→20:54)
[2017-08-04] MEDS: Benzonatate 100 MG CAPSULE PO SCH ×3 (08:25→20:56)
[2017-08-04] MEDS: Gabapentin 300 MG CAPSULE PO SCH ×2 (08:25→20:54)
[2017-08-04] MEDS: Ascorbic Acid 500 MG TABLET PO SCH ×2 (08:25→16:38)
[2017-08-04] MEDS: Multivit/Ca/Min/Fe/FA 1 TAB TABLET PO SCH (08:26)
--- NOTE | 2017-08-04 09:03 | Orthopedics Progress Note ---
Date of Encounter: 08/04/17 Time of Encounter: 09:03 - Assessment and Plan (1) Atrial fibrillation Current Visit: No Status: Chronic Qualifiers: Atrial fibrillation type: permanent Qualified Code(s): I48.2 - Chronic atrial fibrillation (2) Chronic kidney disease Current Visit: No Status: Chronic Qualifiers: Chronic kidney disease stage: stage 3 (moderate) Qualified Code(s): N18.3 - Chronic kidney disease, stage 3 (moderate) (3) CHF (congestive heart failure) Current Visit: No Status: Chronic Qualifiers: Congestive heart failure type: diastolic Congestive heart failure chronicity: unspecified Qualified Code(s): I50.30 - Unspecified diastolic ( congestive) heart failure (4) HLD (hyperlipidemia) Current Visit: No Status: Chronic Qualifiers: Hyperlipidemia type: unspecified Qualified Code(s): E78.5 - Hyperlipidemia , unspecified (5) HTN (hypertension) Current Visit: No Status: Chronic Qualifiers: Hypertension type: unspecified Qualified Code(s): I10 - Essential (primary ) hypertension (6) CKD (chronic kidney disease) stage 3, GFR 30-59 ml/min Current Visit: No Status: Chronic (7) Acute on chronic diastolic (congestive) heart failure Current Visit: No Status: Chronic (8) Chronic respiratory failure Current Visit: No Status: Acute Qualifiers: Respiratory failure complication: hypoxia Qualified Code(s): J96.11 - Chronic respiratory failure with hypoxia (9) Periprosthetic fracture around internal prosthetic hip joint Current Visit: No Status: Chronic Qualifiers: Encounter type: subsequent encounter Laterality: left Qualified Code(s): M97.02XD - Periprosthetic fracture around internal prosthetic left hip joint, subsequent encounter; T84.041D - Periprosthetic fracture around internal prosthetic left hip joint, subsequent encounter (10) Osteoporosis Current Visit: No Status: Chronic Qualifiers: Osteoporosis type: unspecified Presence of current pathological fracture: unspecified Qualified Code(s): M81.0 - Age-related osteoporosis without current pathological fracture (11) Oxygen dependent Current Visit: No Status: Chronic (12) Status post total hip replacement, left Current Visit: No Status: Chronic Subjective Interval history: Patient was seen this morning doing well without complaints. Afebrile vital signs stable. Operative extremity: Neurovascularly intact Dressing clean dry and intact Calves nontender Assessment and plan: Continue with postoperative care Hematocrit 31 dc today Objective Vital signs: Vital Signs Temp Pulse Resp BP Pulse Ox 08/04/17 06:49 98.7 F 114 16 91/61 96 08/04/17 05:21 98.2 F 113 18 102/70 95 08/04/17 04:08 14 95 08/04/17 00:45 98.4 F 107 16 98/67 96 08/03/17 22:46 94 08/03/17 19:34 98.7 F 110 18 100/66 97 08/03/17 16:32 18 98 08/03/17 14:58 98.6 F 98 16 107/76 98 08/03/17 11:47 97.7 F 130 16 100/69 96 08/03/17 11:44 98.1 F 142 16 101/71 98 08/03/17 11:10 16 96 Intake and Output 08/03/17 08/04/17 08/04/17 23:59 07:59 15:59 Intake Total 200 / 200 100 / 100 Balance 200 / 200 100 / 100 Intake: Oral 200 / 200 100 / 100 Other: Meal Breakfast Percent of Meal Consumed 10% - Labs CBC & BMP: 08/04/17 06:33 08/04/17 06:33 Labs: Abnormal lab results Hgb 10.1 g/dL (11.5-15.4) L 08/04/17 06:33 Hct 31.1 % (35.3-44.9) L 08/04/17 06:33 Sodium 132 mEq/L (136-145) L 08/04/17 06:33 BUN 37 mg/dL (8-23) H 08/04/17 06:33 Creatinine 2.05 mg/dL (0.60-1.20) H 08/04/17 06:33 Est GFR ( Amer) 28 (> 60) L 08/04/17 06:33 Est GFR (Non-Af Amer) 23 (> 60) L 08/04/17 06:33 Glucose 114 mg/dL (70-105) H 08/04/17 06:33 Calcium 8.4 mg/dL (8.6-10.3) L 08/04/17 06:33 - VTE Documentation of Mechanical Device: Venous foot pump, device Consult Discharge Plan - Plan Referrals: Daniel Stringer MD [Primary Care Provider] -
[2017-08-04] MEDS: (Omega-3 Fatty Acids [Fish Oil] 600 MG) PO SCH (10:35)
[2017-08-04] MEDS ORDERED: 0.9 % Sodium Chloride 500 ML IVC ONE ×3 (12:00→20:24)
--- NOTE | 2017-08-04 15:41 | Event Note ---
Date of Encounter: 08/04/17 Time of Encounter: 15:39 Received call from nurse this afternoon that patient was not acting well, bump in SCr and decline in GFR as well as had become tachycardic. Obtained EKG showing changes including atrial flutter. With patient becoming symptomatic, consult to hospitalist. S/w Dr. Harry who is going to evaluate patient.
[2017-08-04] MEDS ORDERED: 0.9 % Sodium Chloride 1,000 ML IVC ONE (16:11)
[2017-08-04] MEDS: *HR* Rivaroxaban 15 MG TABLET PO SCH (16:38)
[2017-08-04] MEDS ORDERED: *HR* Digoxin 0.5 MG/2 ML AMPUL IVP ONE (16:42)
--- NOTE | 2017-08-04 16:43 | Event Note ---
Date of Encounter: 08/04/17 Time of Encounter: 12:50 PCR- POD#2 L THR revision femoral Billingsley 08/02/17 PCR - Patient seen at bedside. Pain control: Adequate, states she feels pretty good at this time, will be receiving fluid bolus at time of visit for change in renal labs/tachycardia. Will continue to monitor progress after fluids. Participating in PT. All questions and concerns addressed. Educated on use of incentive spirometer, ambulation, and hydration. Patient educated on post-operative restrictions and care. Addressed: Patient received 1 unit of blood. D/C plan: ECF - returning to her previous facility [facility] for rehab once medically stable.
[2017-08-04 16:59] LABS: Calcium 8.3 mg/dL (8.6-10.3); Magnesium 1.9 mg/dL (1.6-2.6); Potassium 4.2 mEq/L (3.5-5.1)
--- NOTE | 2017-08-04 17:12 | Internal Medicine Consult Note ---
Date of Encounter: 08/04/17 Time of Encounter: 16:00 - Assessment and Plan (1) Atrial fibrillation with RVR Current Visit: No Status: Acute Assessment and plan: Patient has a history of paroxysmal atrial fibrillation presently her rate is in the 120s with a blood pressure systolic in the 90s. She denies any chest pain palpitations or shortness of breath. Presently on amiodarone 200 twice a day as well as metoprolol 75 mg 3 times a day. We will decrease her metoprolol to 50 twice a day and give a dose of digoxin 0.25 IV push now. We will also give IV fluids. Consult cardiology Continuous cardiac monitoring Patient is anticoagulated with Xarelto which we will continue We will obtain VQ scan to rule out possible PE-due to patient unable to have CTA due to JESÚS (2) Acute on chronic renal insufficiency Current Visit: No Status: Acute Assessment and plan: Patient has a history C Araceli stage III it appears prior to surgery patient's creatinine was 1.1 yesterday it was 1.6 and this morning it was 2.05. Suspect this may be related to hypoperfusion secondary to atrial fibrillation and low blood pressure. We will hold antihypertensives for now hold Lasix and avoid nephrotoxins continue to monitor creatinine We will give gentle IV fluid overnight (3) CHF (congestive heart failure) Current Visit: No Status: Chronic Assessment and plan: Patient does not appear to be fluid overloaded at this time we will hold Lasix due to hypotension and a KI Obtain chest x-ray Monitor intake output we will place a [place] catheter Qualifiers: Congestive heart failure type: diastolic Congestive heart failure chronicity: unspecified Qualified Code(s): I50.30 - Unspecified diastolic ( congestive) heart failure (4) Status post total hip replacement, left Current Visit: No Status: Chronic Assessment and plan: 1 doing well-management per orthopedics (5) DVT prophylaxis Current Visit: No Status: Acute Assessment and plan: Patient is on Xarelto Internal Medicine - CN: HPI - Data of Consult Patient: new to practice Consult date: 08/04/17 Requesting Physician: Tip Billingsley MD - Consult Narrative Reason for consult: hypotension History of present illness: Ms. Francois is a 86 year old female past medical history of hypertension hyperlipidemia diastolic heart failure paroxysmal atrial fibrillation CK D3. Patient underwent left revision femur of total hip replacement Wednesday08/03/[address] Billingsley. Patient was doing well today she began to experience some hypotension, tachycardia. It was also noted her creatinine had elevated from 1- 2. She was given 500 mL fluid bolus with no improvement. Hospital services have been consulted concerning A. fib RVR. Presently patient's ranges 1 teens to 120s she is in atrial fibrillation systolic blood pressure is 94 she denies any chest pain shortness of breath or palpitations at this time. Patient was given another 500 mL IV fluid bolus. I reviewed the case with Dr. Harry who agrees with plan Past Med Surg Social Fam HX - Past Medical History Medical history: atrial fibrillation, CHF, COPD, hyperlipidemia, hypertension, osteoporosis Psychiatric history: anxiety - Past Surgical History Surgical History: cholecystectomy, hysterectomy, knee replacement, orthopedic, other - Social History Smoking Status: Never smoker Smokeless Tobacco Status: No Alcohol use: none Drug use: none - Family History Daughter Living Status: Hx Family Cancer: Yes Father Living Status: Hx Family Cardiac Disorders: Yes (heart attack) - Cardiovascular Cardiovascular ROS IM: as per HPI - Respiratory Respiratory: as per HPI - Gastrointestinal Gastrointestinal: as per HPI - Genitourinary Genitourinary: as per HPI - Musculoskeletal Musculoskeletal ROS IM: as per HPI - Neurological Neurological ROS: as per HPI Internal Medicine - CN: Meds Multivitamin [Multi-Day Vitamins] 1 each PO DAILY 04/25/15 [History] Calcium Carbonate [Calcium] 500 mg PO HS 03/31/17 [History] Furosemide [Lasix] 20 mg PO DAILY 03/31/17 [History] Magnesium Oxide [Mag-Ox] 400 mg PO HS 03/31/17 [History] [place]-3 Fatty Acids [Fish Oil] 600 mg PO DAILY 03/31/17 [History] Vit C/Vit E/Lutein/Min/[place]-3 [Ocuvite Softgel] 1 each PO HS 03/31/17 [History] Multivit/Ca/Min/Fe/FA [Thera M Plus] 1 tab PO DAILY tablet 04/16/17 [Rx] Rivaroxaban [Xarelto] 20 mg PO DAILY 06/01/17 [History] Amiodarone [Cordarone] 200 mg PO BID tablet 06/24/17 [Rx] Gabapentin [Neurontin] 300 mg PO BID capsule 06/24/17 [Rx] Oxycodone HCl [Roxicodone 30] 30 mg PO QID PRN #10 tablet 06/24/17 [Rx] Benzonatate [Tessalon] 100 mg PO TID 07/19/17 [History] Chloraseptic [place] [Chloraseptic] 1 spray MM Q2H PRN 07/19/17 [History] Guaifenesin [Mucinex] 1,200 mg PO BID 07/19/17 [History] Ipratropium/Albuterol Neb [Duoneb] 3 ml IH QID 07/19/17 [History] Ipratropium/Albuterol Neb [Duoneb] 3 ml IH QID PRN 07/19/17 [History] Melatonin [Melatin] 3 mg PO HS PRN 07/19/17 [History] Oxygen 2 l NS AD 07/19/17 [History] Simvastatin [Zocor] 10 mg PO HS 07/19/17 [History] Acetaminophen [Tylenol] 650 mg PO Q6HR PRN tablet 07/22/17 [Rx] Clindamycin HCl 600 mg PO TID #18 capsule 07/23/17 [Rx] Metoprolol [Lopressor] 75 mg PO TID #90 tablet 07/23/17 [Rx] 3 Allergy/AdvReac Type Severity Reaction Status Date / Time amlodipine Allergy See Verified 08/02/17 13:55 Comments aspirin Allergy Rash Verified 08/02/17 13:55 codeine Allergy Rash Verified 08/02/17 13:55 Internal Medicine - CN: Exam - Constitutional Vitals: Temp Pulse Resp BP Pulse Ox 98.7 F 114 16 95/61 97 08/04/17 15:43 08/04/17 15:43 08/04/17 16:29 08/04/17 15:43 08/04/17 16:29 General appearance IM: Present: A&O X 3 - Head Head exam: Present: atraumatic - Respiratory Respiratory exam: Present: CTAB - Cardiovascular Cardiovascular exam IM: Present: irregular rhythm, +S1, +S2 - GI/Abdominal GI/Abdominal exam IM: Present: soft - Extremities Exam Extremities exam IM: Present: normal capillary refill, radial pulses palpable and symmetrical - Expanded Lower Extremities Exam Hip exam: Present: ecchymosis, swelling - Neurological Exam Neurological exam: Present: alert, CN II-XII intact Internal Medicine - CN: Reslt - Labs CBC & Chem 7: 08/04/17 06:33 08/04/17 16:39 Labs: Short CBC 08/04/17 Range/Units 06:33 Hgb 10.1 L (11.5-15.4) g/dL Hct 31.1 L (35.3-44.9) % BMP 08/04/17 08/04/17 06:33 16:39 Sodium 132 L 132 L Potassium 4.4 4.2 Chloride 99 100 Carbon Dioxide 26 25 BUN 37 H 37 H Creatinine 2.05 H 1.88 H Glucose 114 H 108 H Calcium 8.4 L 8.3 L Cardiac Enzymes 08/04/17 Range/Units 16:33 Troponin I 0.03 (< 0.04) ng/mL - EKG Data EKG comments: 08/04/17 17:31 Atrial flutter Consult Discharge Plan - Plan Referrals: Daniel Stringer MD [Primary Care Provider] -
[2017-08-04] MEDS ORDERED: Magnesium Sulfate 1 GM in D5% in Water 100 ML IVPB ONE (18:09)
--- NOTE | 2017-08-04 18:11 | Event Note ---
Date of Encounter: 08/04/17 Time of Encounter: 18:10 Patient seen and examined with nurse practitioner. Agree with assessment and plan
[2017-08-04] MEDS: VIT E PO SCH (20:45)
[2017-08-04] MEDS: OMEGA PO SCH (20:45)
[2017-08-04] MEDS: LUTEIN PO SCH (20:45)
[2017-08-04] MEDS: VIT C PO SCH (20:45)
[2017-08-04] MEDS: Magnesium Oxide 400 MG TABLET PO SCH (20:54)
[2017-08-04] MEDS: 0.9 % Sodium Chloride 1,000 ML IVC SCH (21:31)
[2017-08-05] MEDS: Ipratropium/Albuterol Neb 3 ML IH SCH ×4 (04:36→22:00)
[2017-08-05] MEDS: Gabapentin 300 MG CAPSULE PO SCH ×2 (09:08→21:34)
[2017-08-05] MEDS: Multivit/Ca/Min/Fe/FA 1 TAB TABLET PO SCH (09:08)
[2017-08-05] MEDS: Ascorbic Acid 500 MG TABLET PO SCH ×2 (09:08→16:19)
[2017-08-05] MEDS: Benzonatate 100 MG CAPSULE PO SCH ×3 (09:08→21:34)
[2017-08-05] MEDS: *HR* Amiodarone 200 MG TABLET PO SCH ×2 (09:08→21:34)
[2017-08-05] MEDS: (Omega-3 Fatty Acids [Fish Oil] 600 MG) PO SCH (09:09)
--- NOTE | 2017-08-05 09:30 | Cardiology Consult Note ---
Addendum entered and electronically signed by Zaheer Deng DO 08/05/17 13:58: Add to Assessment and Plan: Patient's Hb has dropped to 8.9 from 10.1 in 24 hours after administration of 1 unit of blood. At this time, we will stop the Xarelto and not recommend starting any further anti-coagulation. DVT prophylaxis will be initiated with SCDs. Original Note: <Zaheer Deng - Last Filed: 08/05/17 10:29> Date of Encounter: 08/05/17 Time of Encounter: 09:30 Assessment and Plan (1) Atrial fibrillation with RVR Current Visit: Yes Status: Acute a-fib with RVR- Patient's heart rate ranges from the 120s to the 140s. She is not currently having any symptoms such as shortness of breath, palpitations, she denies chest pain. Toponin is mildly elevated at .04. She has had higher troponins in the past with previous episodes of A-fib with RVR. We will initiate amiodarone drip at this time. Stop this evening's dose of 200 mg amiodarone. Patient will get 0.5 mg of amiodarone every minute over the next 24 hours. Will not administer loading dose as patient's blood pressure has been Patient is also on 50 mg Lopressor BID. We will continue monitoring her heart rate, and check blood pressure every hour as patient has been borderline hypotensive. Systolic is currently 101. Will obtain chest x-ray, TSH, BNP. Will make sure patient is not in an exacerbation of her CHF. Monitor volume status. Plan to obtain echocardiogram wants heart rate is under control. Patient is currently afebrile and shows no signs of infection. Pulmonary emoblism is unlikely as patient has a negative VQ scan from yesterday and is currently therapeutic on Xarelto. Renal- Patient is currently on Xarelto 15 mg once a day for anticoagulation. Current GFR is 25. Creatinine is currently 1.88 which has improved since yesterday after administration of fluids and blood products, creatinine clearance is 22 mL /minute. Rate control of heart should also improve renal function. Would recommend to consider discontinuation of this as this patient has had episodes of reduced creatinine clearance during previous hospitalizations while on the Xarelto. We recommend initiation of Coumadin instead. (2) Acute on chronic renal insufficiency Current Visit: Yes Status: Acute See Above Discussion w patient/family: The assessment and plan as outlined above was discussed with the patient and/or family members who expressed understanding and agreement. All questions were answered. Thank you for involving us in the care of your patient. Please call with any questions. History of Present Illness Consult date: 08/05/17 Requesting physician: Solange Bales Consult reason: a-fib with RVR Chief complaint: left hip pain History of present illness: Ms. Francois is a 86 year old female postop day 3 from left hip arthroplasty. Cardiology consult was made because patient was in atrial fibrillation with RVR. Patient states she has had a chronic history of this. Patient denies having any symptoms of chest pain, shortness of breath, palpitations, lower extremity edema. Past Med Surg Social Fam HX - Past Medical History Medical history: atrial fibrillation, CHF, COPD, hyperlipidemia, hypertension, osteoporosis Psychiatric history: anxiety - Past Surgical History Surgical History: cholecystectomy, hysterectomy, knee replacement, orthopedic, other - Social History Smoking Status: Never smoker Smokeless Tobacco Status: No Alcohol use: none Drug use: none - Family History Daughter Living Status: Hx Family Cancer: Yes Father Living Status: Hx Family Cardiac Disorders: Yes (heart attack) Medications and Allergies Multivitamin [Multi-Day Vitamins] 1 each PO DAILY 04/25/15 [History] Calcium Carbonate [Calcium] 500 mg PO HS 03/31/17 [History] Furosemide [Lasix] 20 mg PO DAILY 03/31/17 [History] Magnesium Oxide [Mag-Ox] 400 mg PO HS 03/31/17 [History] [place]-3 Fatty Acids [Fish Oil] 600 mg PO DAILY 03/31/17 [History] Vit C/Vit E/Lutein/Min/[place]-3 [Ocuvite Softgel] 1 each PO HS 03/31/17 [History] Multivit/Ca/Min/Fe/FA [Thera M Plus] 1 tab PO DAILY tablet 04/16/17 [Rx] Rivaroxaban [Xarelto] 20 mg PO DAILY 06/01/17 [History] Amiodarone [Cordarone] 200 mg PO BID tablet 06/24/17 [Rx] Gabapentin [Neurontin] 300 mg PO BID capsule 06/24/17 [Rx] Oxycodone HCl [Roxicodone 30] 30 mg PO QID PRN #10 tablet 06/24/17 [Rx] Benzonatate [Tessalon] 100 mg PO TID 07/19/17 [History] Chloraseptic [place] [Chloraseptic] 1 spray MM Q2H PRN 07/19/17 [History] Guaifenesin [Mucinex] 1,200 mg PO BID 07/19/17 [History] Ipratropium/Albuterol Neb [Duoneb] 3 ml IH QID 07/19/17 [History] Ipratropium/Albuterol Neb [Duoneb] 3 ml IH QID PRN 07/19/17 [History] Melatonin [Melatin] 3 mg PO HS PRN 07/19/17 [History] Oxygen 2 l NS AD 07/19/17 [History] Simvastatin [Zocor] 10 mg PO HS 07/19/17 [History] Acetaminophen [Tylenol] 650 mg PO Q6HR PRN tablet 07/22/17 [Rx] Clindamycin HCl 600 mg PO TID #18 capsule 07/23/17 [Rx] Metoprolol [Lopressor] 75 mg PO TID #90 tablet 07/23/17 [Rx] 3 Allergy/AdvReac Type Severity Reaction Status Date / Time amlodipine Allergy See Verified 08/02/17 13:55 Comments aspirin Allergy Rash Verified 08/02/17 13:55 codeine Allergy Rash Verified 08/02/17 13:55 All Systems Review: A 10-system review of systems was performed and is negative for pertinent findings except as documented above in the HPI. - Constitutional Constitutional: no fatigue, no fever(s), no lethargy, no malaise - Cardiovascular Cardiovascular: no chest pain at rest, no chest pain with exertion, no diaphoresis, no dyspnea at rest, no dyspnea on exertion, no leg edema, no lightheadedness, no palpitations - Respiratory Respiratory: no cough, no hemoptysis - Gastrointestinal Gastrointestinal: no abdominal pain, no coffee ground emesis, no constipation - Genitourinary Genitourinary: no dysuria - Integumentary Integumentary: no rash - Psychiatric Psychiatric: no anxiety Physical Examination Vital Signs, Last 4 Hours Temp Pulse Resp BP Pulse Ox 08/05/17 06:58 98.4 F 115 16 101/63 100 General: Conversant, No Apparent Distress HEENT: Atraumatic, Normocephaly Neck: No JVD, Normal carotid pulses Cardiac: Other (tachycardic, irregular rhythm) Lungs: Normal Breath Sounds, No Wheeze, Rales, Rhonchi Neuro: Alert and responsive, No focal deficits noted Abdomen: Soft, Non-Tender Skin: No rashes noted on visualized skin Musculoskeletal: No Chest Wall Tenderness Extremities: No Edema Results 08/04/17 06:33 08/04/17 16:39 Lab Results 08/04/17 08/04/17 08/04/17 16:33 16:39 22:28 Sodium 132 L Potassium 4.2 Chloride 100 Carbon Dioxide 25 BUN 37 H Creatinine 1.88 H Glucose 108 H Calcium 8.3 L Magnesium 1.9 Troponin I 0.03 0.03 08/05/17 04:32 Sodium Potassium Chloride Carbon Dioxide BUN Creatinine Glucose Calcium Magnesium Troponin I 0.04 H* Consult Discharge Plan - Plan Referrals: Daniel Stringer MD [Primary Care Provider] - <Kayla Montalvo - Last Filed: 08/05/17 15:45> Date of Encounter: 08/05/17 - Attending Attestation I have seen and examined Nelda Francois independently of the house staff resident and discussed with him all pertinent findings. I personally reviewed all available clinical data related to today's encounter. I have been fully involved in formulation of the above documented assessment and plan and has been discussed with the resident. 1. Atrial fibrillation: Known history of atrial fibrillation having developed postoperative AFIB with RVR. Heart rates appear better controlled today. Recommend continuing home dose of amiodarone and lopressor. If heart rates remain uncontrolled, recommend amiodarone gtt without bolus since BP is borderline. In regards to anticoagulation, she has been maintained on low dose xarelto as an outpatient. Looking back at her trend in renal function over the past few months, it has been quite variable. It may be in her best interest to consider coumadin in the future. However, at this time xarelto was stopped due to drop in Hgb. Recommend evaluation for possible bleeding. If workup is unremarkable and Hgb remains stable, may consider Nephrology evaluation to help in decision making for choice of anticoagulant. 2. History of diastolic CHF: Patient currently on IV normal saline drip. Recommend careful watch on fluid status given history of diastolic CHF. Assessment and Plan Discussion w patient/family: The assessment and plan as outlined above was discussed with the patient and/or family members who expressed understanding and agreement. All questions were answered. Thank you for involving us in the care of your patient. Please call with any questions. History of Present Illness History of present illness: Ms. Francois is a 86 year old female All Systems Review: A 10-system review of systems was performed and is negative for pertinent findings except as documented above in the HPI. Results 08/05/17 10:25 08/04/17 16:39 Lab Results 08/04/17 08/04/17 08/04/17 16:33 16:39 22:28 WBC Hgb Hct Plt Count Sodium 132 L Potassium 4.2 Chloride 100 Carbon Dioxide 25 BUN 37 H Creatinine 1.88 H Glucose 108 H Calcium 8.3 L Magnesium 1.9 Troponin I 0.03 0.03 B-Natriuretic Peptide TSH 08/05/17 08/05/17 08/05/17 04:32 10:25 10:25 WBC 8.3 Hgb 8.9 L Hct 28.0 L Plt Count 190 Sodium Potassium Chloride Carbon Dioxide BUN Creatinine Glucose Calcium Magnesium Troponin I 0.04 H* 0.03 B-Natriuretic Peptide TSH 08/05/17 08/05/17 10:25 10:25 WBC Hgb Hct Plt Count Sodium Potassium Chloride Carbon Dioxide BUN Creatinine Glucose Calcium Magnesium 2.1 Troponin I B-Natriuretic Peptide 341 H TSH 4.844
[2017-08-05] MEDS: 0.9 % Sodium Chloride 1,000 ML IVC SCH (10:15)
[2017-08-05 10:35] LABS: Eosinophils # 0.1 K/mcL (0.0-0.6); Eosinophils % 0.7 %; Hemoglobin 8.9 g/dL (11.5-15.4); Immature Granulocytes % 0.7 % (0-4); Immature Platelets 2.8 % (1.1-6.1); Lymphocytes # 0.5 K/mcL (0.6-4.6); Lymphocytes % 5.8 %; Mean Corpuscular HGB Conc 31.8 g/dL (31.6-35.5); Mean Corpuscular Volume 91.2 fL (83.0-100.0); Mean Platelet Volume 10.4 fL (9.4-12.4); Monocytes # 0.6 K/mcL (0.0-1.3); Neutrophils # 7.2 K/mcL (1.6-8.9); Platelet Count 190 K/mcL (140-400); Red Blood Count 3.07 M/mcL (3.82-4.97); Red Cell Distribution Width 16.3 % (11.5-14.5); Segmented Neutrophils % 85.8 %
[2017-08-05] MEDS ORDERED: Amiodarone Premix 360 MG/200 ML BAG IVC ONE (10:35)
[2017-08-05 11:00] LABS: Magnesium 2.1 mg/dL (1.6-2.6)
[2017-08-05] MEDS ORDERED: Amiodarone Premix 360 MG/200 ML BAG IVC SCH (11:00)
[2017-08-05 11:05] LABS: Thyroid Stimulating Hormone 4.844 mcIU/mL (0.340-5.600)
--- NOTE | 2017-08-05 12:04 | Orthopedics Progress Note ---
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, subsequent encounter (2) Paroxysmal atrial fibrillation Current Visit: No Status: Chronic (3) Osteoporosis Current Visit: No Status: Chronic Qualifiers: Osteoporosis type: unspecified Presence of current pathological fracture: unspecified Qualified Code(s): M81.0 - Age-related osteoporosis without current pathological fracture (4) Oxygen dependent Current Visit: No Status: Chronic (5) Chronic kidney disease Current Visit: No Status: Chronic Qualifiers: Chronic kidney disease stage: stage 3 (moderate) Qualified Code(s): N18.3 - Chronic kidney disease, stage 3 (moderate) (6) CHF (congestive heart failure) Current Visit: No Status: Chronic Qualifiers: Congestive heart failure type: diastolic Congestive heart failure chronicity: unspecified Qualified Code(s): I50.30 - Unspecified diastolic ( congestive) heart failure (7) HLD (hyperlipidemia) Current Visit: No Status: Chronic Qualifiers: Hyperlipidemia type: unspecified Qualified Code(s): E78.5 - Hyperlipidemia , unspecified (8) HTN (hypertension) Current Visit: No Status: Chronic Qualifiers: Hypertension type: unspecified Qualified Code(s): I10 - Essential (primary ) hypertension (9) Chronic pain syndrome Current Visit: No Status: Chronic (10) Status post total hip replacement, left Current Visit: Yes Status: Acute (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 Patient denies chest pain, shortness of breath, dizziness, or palpitations. Objective: Afebrile. Vital signs variable with elevated HR and borderline hypotension. Yesterday patient became weak and tele revealed HR in 120's consistently which was a ion exchange operator the previous 24 hours. She does have a history of paroxysma atrial fibrillation but given patient's symptoms EKG was obtained revealing Atrial Flutter - Hospitalist was consulted for management. On exam patient is alert, sitting in chair reading and eating breakfast which is a tremendous improvement over the past 48 hours. She points to pain in the left thigh which reveals ecchymosis which is expected postoperatively. Operative extremity: Neurovascularly intact Dressing clean dry and intact Calves nontender Assessment: POD#3 L THR revision femoral component Billings[place] 08/02/17 Atrial Flutter Plan: Hospitalist on board working to manage atrial fibrillation. Call received re: critical Troponin 0.04 this morning from charge nurse - call placed to hospitalist secondary to critical lab --- consult to cardio placed. Continue with postoperative care Patient is resident at [facility] - will postpone discharge until stabilized by hospitalist and cardio teams. Objective Vital signs: Vital Signs Temp Pulse Resp BP Pulse Ox 08/05/17 11:10 98.2 F 102 18 101/67 100 08/05/17 10:19 16 88 08/05/17 06:58 98.4 F 115 16 101/63 100 08/05/17 04:36 17 100 08/05/17 04:05 97.6 F 90 15 103/55 96 08/05/17 00:12 97.7 F 104 14 106/55 95 08/04/17 22:10 16 96 08/04/17 19:58 97.6 F 128 14 89/57 94 08/04/17 16:29 16 97 08/04/17 15:43 98.7 F 114 16 95/61 96 08/04/17 13:05 98.5 F 110 18 99/61 97 Intake and Output 08/04/17 08/05/17 08/05/17 23:59 07:59 15:59 Intake Total 250 / 250 120 / 120 Output Total 100 / 100 Balance 150 / 150 120 / 120 Intake: Oral 250 / 250 120 / 120 Output: Catheter 100 / 100 Urethral ([place]) 100 / 100 Other: Meal Dinner Breakfast Percent of Meal Consumed 50% 50% - Labs CBC & BMP: 08/05/17 10:25 08/04/17 16:39 Labs: Abnormal lab results RBC 3.07 M/mcL (3.82-4.97) L 08/05/17 10:25 Hgb 8.9 g/dL (11.5-15.4) L 08/05/17 10:25 Hct 28.0 % (35.3-44.9) L 08/05/17 10:25 RDW 16.3 % (11.5-14.5) H 08/05/17 10:25 Lymphocytes # 0.5 K/mcL (0.6-4.6) L 08/05/17 10:25 Sodium 132 mEq/L (136-145) L 08/04/17 16:39 BUN 37 mg/dL (8-23) H 08/04/17 16:39 Creatinine 1.88 mg/dL (0.60-1.20) H 08/04/17 16:39 Est GFR ( Amer) 31 (> 60) L 08/04/17 16:39 Est GFR (Non-Af Amer) 25 (> 60) L 08/04/17 16:39 Glucose 108 mg/dL (70-105) H 08/04/17 16:39 Calcium 8.3 mg/dL (8.6-10.3) L 08/04/17 16:39 B-Natriuretic Peptide 341 pg/mL (Less than 100) H 08/05/17 10:25 - VTE Documentation of Mechanical Device: Venous foot pump, device Consult Discharge Plan - Plan Referrals: Daniel Stringer MD [Primary Care Provider] -
--- NOTE | 2017-08-05 12:19 | Event Note ---
<Zaheer Deng - Last Filed: 08/05/17 12:16> Date of Encounter: 08/05/17 Time of Encounter: 12:16 Patient cannot receive amiodarone drip on 3 NE. A request was made for transfer to 2 N. or ICU. Patient's heart rate is currently in the 80s and 90s now. This has significantly improved from where her heart rate was earlier. At this time, we will continue administration of patient's current regiment of 200 mg amiodarone twice a day and cancel the request for transfer to a separate floor. We will discontinue the amiodarone drip. We will monitor the patient's heart rate over the next 24 hours. Awaiting results from a chest x-ray that was ordered and taken yesterday. <Kayla Montalvo - Last Filed: 08/05/17 16:17> Date of Encounter: 08/05/17 Agree with Resident's updated note and recommendations.
--- NOTE | 2017-08-05 17:33 | Internal Med Progress Note ---
Date of Encounter: 08/05/17 Time of Encounter: 17:29 - Assessment and plan (1) Status post total hip replacement, left Current Visit: No Status: Chronic (2) Atrial fibrillation with RVR Current Visit: Yes Status: Acute Assessment and plan: Cardiology consulted, recommendations appreciated Amio drip has been initiated by cardiology. Blood pressure monitoring every hour. V/Q Scan: low probability of PE Chest x-ray: No acute process TSH: 4.8 BNP: 341 Echocardiogram: Pending D/canticoagulation because of acute drop in hemoglobin. (3) Acute on chronic renal failure Current Visit: Yes Status: Acute Qualifiers: Acute renal failure type: unspecified Chronic kidney disease stage: stage 3 (moderate) Qualified Code(s): N17.9 - Acute kidney failure, unspecified; N18.3 - Chronic kidney disease, stage 3 (moderate); N18.3 - Chronic kidney disease, stage 3 (moderate) (4) (HFpEF) heart failure with preserved ejection fraction Current Visit: Yes Status: Acute (5) DVT prophylaxis Current Visit: No Status: Acute - Subjective Interval history: No complaints, no acute events per patient and nursing. - Constitutional Vitals: Temp Pulse Resp BP Pulse Ox 98.9 F 114 16 93/55 100 08/05/17 16:07 08/05/17 16:07 08/05/17 16:32 08/05/17 16:07 08/05/17 16:32 Exam: General appearance IM: Present: A&O X 3 - Head Head exam: Present: atraumatic - Respiratory Respiratory exam: Present: CTAB - Cardiovascular Cardiovascular exam IM: Present: irregular rhythm, +S1, +S2 - GI/Abdominal GI/Abdominal exam IM: Present: soft - Extremities Exam Extremities exam IM: Present: normal capillary refill, radial pulses palpable and symmetrical - Expanded Lower Extremities Exam Hip exam: Present: ecchymosis, swelling - Neurological Exam Neurological exam: Present: alert, CN II-XII intact Internal Medicine: Result - Labs CBC & Chem 7: 08/05/17 10:25 08/04/17 16:39 Labs: Short CBC 08/05/17 Range/Units 10:25 WBC 8.3 (4.3-11.1) K/mcL Hgb 8.9 L (11.5-15.4) g/dL Hct 28.0 L (35.3-44.9) % Plt Count 190 (140-400) K/mcL Neutrophils # 7.2 (1.6-8.9) K/mcL Cardiac Enzymes 08/04/17 08/05/17 08/05/17 Range/Units 22:28 04:32 10:25 Troponin I 0.03 0.04 H* 0.03 (< 0.04) ng/mL - Impressions Impressions Pulmonary Perfusion Imaging 08/04/17 16:41 IMPRESSION: Low Probability for Pulmonary Embolus. D/ / 08/04/2017 18:35:58 Mag Gibson MD / srinivas Interpreting Provider: Mag Gibson MD Chest X-Ray 08/04/17 17:18 IMPRESSION: Unchanged enlarged cardiomediastinal silhouette. No radiographic evidence of acute cardiopulmonary process. D/ / Julius Gibson MD / Julius Gibson MD Interpreting Provider: Julius Gibson MD Chest X-Ray 08/05/17 12:07 IMPRESSION: No significant interval change since 08/04/2017. Unchanged enlarged cardiomediastinal silhouette. No radiographic evidence of acute cardiopulmonary process. D/ / Julius Gibson MD / Julius Gibson MD Interpreting Provider: Julius Gibson MD - VTE Documentation of Mechanical Device: Venous foot pump, device Consult Discharge Plan - Plan Referrals: Daniel Stringer MD [Primary Care Provider] -
[2017-08-05] MEDS: Magnesium Oxide 400 MG TABLET PO SCH (21:34)
[2017-08-05] MEDS: VIT C PO SCH (21:34)
[2017-08-05] MEDS: OMEGA PO SCH (21:34)
[2017-08-05] MEDS: LUTEIN PO SCH (21:34)
[2017-08-05] MEDS: VIT E PO SCH (21:34)
[2017-08-05] MEDS: *HR* OxyCODONE Immed Rel 5 MG TABLET PO PRN (21:50)
[2017-08-05] MEDS: Ringers Solution, Lactated 1,000 ML IVC SCH (21:50)
[2017-08-06] MEDS: Ipratropium/Albuterol Neb 3 ML IH SCH ×4 (04:15→22:33)
[2017-08-06 06:19] LABS: Basophils % 0.2 %; Eosinophils # 0.2 K/mcL (0.0-0.6); Eosinophils % 2.6 %; Hematocrit 25.3 % (35.3-44.9); Hemoglobin 7.9 g/dL (11.5-15.4); Immature Granulocytes % 0.7 % (0-4); Lymphocytes # 0.9 K/mcL (0.6-4.6); Lymphocytes % 14.8 %; Mean Corpuscular HGB Conc 31.2 g/dL (31.6-35.5); Mean Corpuscular Hemoglobin 28.6 pg (28.0-33.3); Mean Corpuscular Volume 91.7 fL (83.0-100.0); Mean Platelet Volume 10.4 fL (9.4-12.4); Monocytes # 0.5 K/mcL (0.0-1.3); Monocytes % 8.2 %; Neutrophils # 4.2 K/mcL (1.6-8.9); Platelet Count 170 K/mcL (140-400); Red Blood Count 2.76 M/mcL (3.82-4.97); Red Cell Distribution Width 16.3 % (11.5-14.5); Segmented Neutrophils % 73.5 %
[2017-08-06 06:59] LABS: BUN/Creatinine Ratio 23 (6-26); Blood Urea Nitrogen 21 mg/dL (8-23); Calcium 8.1 mg/dL (8.6-10.3); Carbon Dioxide 26 mEq/L (23-29); Chloride 107 mEq/L (98-107); Glucose 97 mg/dL (70-105); Osmolality,Calculated 285 (280-300); Potassium 3.5 mEq/L (3.5-5.1); Sodium 136 mEq/L (136-145); eGFR For African Americans > 60 (> 60); eGFR For Non-African Americans 57 (> 60)
--- NOTE | 2017-08-06 08:24 | Cardiology Progress Note ---
<Zaheer Deng - Last Filed: 08/06/17 14:08> Date of Encounter: 08/06/17 Time of Encounter: 11:50 Assessment and Plan (1) Atrial fibrillation with RVR Current Visit: Yes Status: Acute a-fib with RVR- Patient's heart rate ranges from the 110s to 120s. She is not currently having any symptoms such as shortness of breath, palpitations, she denies chest pain. TSH was normal. Chest Xray does reveals enlarged cardiomediastinal silhouette. Start Amiodarone drip .5mg every minute for 24 hours. Floor has been informed that patient requires transfer. Acute on Chronic Renal Insufficiency- Renal function has improved. Continue management per hospitalist. Anemia- The patient's hemoglobin continues to drop. Currently 7.9. Not currently on anticoagulation. Patient denies any hemoptysis, hematemesis, hematuria, melena , or hematochezia. Continue management per hospitalist. 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 D/ / Kranthi Gomez MD / Kranthi Gomez MD Interpreting Provider: Kranthi Gomez MD Pulmonary Perfusion Imaging 08/04/17 16:41 IMPRESSION: Low Probability for Pulmonary Embolus. D/ / 08/04/2017 18:35:58 Mag Gibson MD / [facility] Interpreting Provider: Mag Gibson MD Chest X-Ray 08/05/17 12:07 IMPRESSION: No significant interval change since 08/04/2017. Unchanged enlarged cardiomediastinal silhouette. No radiographic evidence of acute cardiopulmonary process. D/ / Julius Gibson MD / Julius Gibson MD Interpreting Provider: Julius Gibson MD . (2) Anemia Current Visit: Yes Status: Acute Hemoglobin has dropped to 7.9. See above (3) Acute on chronic renal insufficiency Current Visit: Yes Status: Acute See Above Discussion w patient/family: The assessment and plan as outlined above was discussed with the patient and/or family members who expressed understanding and agreement. All questions were answered. Thank you for involving us in the care of your patient. Please call with any questions. Subjective Principal diagnosis: s/p L THR revision Interval history: Patient currently not having any complaints of chest pain, shortness of breath, palpitations. States that her hip is feeling better. She states she has not had a bowel movement in a few days. Patient denies any hemoptysis, hematemesis , melenic stool, hematochezia. Patient does report being constipated and not having a bowel movement since her operation. Nurse states that heart rate has started to increase over the last couple hours into the 120s. Heart rate was in the 70s and 80s earlier this morning around 7 AM. Objective Vital Signs, Last 4 Hours Temp Pulse Resp BP Pulse Ox 08/06/17 06:45 8.5 F L 76 18 108/56 99 08/06/17 05:04 98.7 F 69 16 106/52 100 General: Conversant, No Apparent Distress HEENT: Atraumatic, Normocephaly Neck: No JVD, Normal carotid pulses Cardiac: Other (Irregular rate) Lungs: Normal Breath Sounds, No Wheeze, Rales, Rhonchi Neuro: Alert and responsive, No focal deficits noted Abdomen: Soft, Non-Tender Skin: No rashes noted on visualized skin Musculoskeletal: No Chest Wall Tenderness Extremities: No Edema Other: Telemetry: A. fib with RVR with rate ranging from the 110s to 120s. Results 08/06/17 05:57 08/06/17 05:57 Lab Results 08/05/17 08/05/17 08/05/17 10:25 10:25 10:25 WBC 8.3 Hgb 8.9 L Hct 28.0 L Plt Count 190 Sodium Potassium Chloride Carbon Dioxide BUN Creatinine Glucose Calcium Magnesium 2.1 Troponin I 0.03 B-Natriuretic Peptide TSH 4.844 08/05/17 08/06/17 08/06/17 10:25 05:57 05:57 WBC 5.8 Hgb 7.9 L Hct 25.3 L Plt Count 170 Sodium 136 Potassium 3.5 Chloride 107 Carbon Dioxide 26 BUN 21 Creatinine 0.93 Glucose 97 Calcium 8.1 L Magnesium Troponin I B-Natriuretic Peptide 341 H TSH - VTE Documentation of Mechanical Device: Venous foot pump, device Consult Discharge Plan - Plan Referrals: Daniel Stringer MD [Primary Care Provider] - <Kayla Montalvo - Last Filed: 08/06/17 20:31> Date of Encounter: 08/06/17 Assessment and Plan Discussion w patient/family: I examined this patient and my medical decision-making was reviewed with the Resident Physician. I agree with the documented findings, disposition and treatment plan. Ms. Francois's heart rates range from 110s to 120s. Notably, her hemoglobin has further decreased. We recommend transfusion to keep Hgb>8. Further workup for blood loss should be evaluated. If heart rates do not improve after blood transfusion, can consider re-loading amiodarone with drip. In regards to anticoagulation, this is been held temporarily to explore anemia. Objective Vital Signs, Last 4 Hours Temp Pulse Resp BP Pulse Ox 08/06/17 06:45 8.5 F L 76 18 108/56 99 Results 08/06/17 05:57 08/06/17 05:57 Lab Results 08/05/17 08/05/17 08/05/17 10:25 10:25 10:25 WBC 8.3 Hgb 8.9 L Hct 28.0 L Plt Count 190 Sodium Potassium Chloride Carbon Dioxide BUN Creatinine Glucose Calcium Magnesium 2.1 Troponin I 0.03 B-Natriuretic Peptide TSH 4.844 08/05/17 08/06/17 08/06/17 10:25 05:57 05:57 WBC 5.8 Hgb 7.9 L Hct 25.3 L Plt Count 170 Sodium 136 Potassium 3.5 Chloride 107 Carbon Dioxide 26 BUN 21 Creatinine 0.93 Glucose 97 Calcium 8.1 L Magnesium Troponin I B-Natriuretic Peptide 341 H TSH
[2017-08-06] MEDS: *HR* Amiodarone 200 MG TABLET PO SCH ×2 (08:58→21:02)
[2017-08-06] MEDS: Multivit/Ca/Min/Fe/FA 1 TAB TABLET PO SCH (08:58)
[2017-08-06] MEDS: Gabapentin 300 MG CAPSULE PO SCH ×2 (08:58→21:01)
[2017-08-06] MEDS: Benzonatate 100 MG CAPSULE PO SCH ×3 (08:59→21:01)
[2017-08-06] MEDS: (Omega-3 Fatty Acids [Fish Oil] 600 MG) PO SCH (08:59)
[2017-08-06] MEDS: Ascorbic Acid 500 MG TABLET PO SCH ×2 (09:02→17:38)
[2017-08-06] MEDS ORDERED: Amiodarone Premix 360 MG/200 ML BAG IVC SCH (12:45)
--- NOTE | 2017-08-06 16:30 | Event Note ---
Date of Encounter: 08/06/17 Time of Encounter: 12:35 PCR- POD#4 L THR revision femoral [place] 08/02/17 PCR - Patient seen at bedside. Pain control: Adequate, states she feels pretty good at this time, denies any chest pain, SOB. Afib continues to be an issue. Cardiology/ hospitalist managing. Trialed PO amiodarone but had to switch back to drip. Participating in PT. All questions and concerns addressed. Educated on use of incentive spirometer, ambulation, and hydration. Patient educated on post-operative restrictions and care. Addressed: Patient received 1 unit of blood. D/C plan: ECF - returning to her previous facility ([facility]) for rehab once medically stable.
--- NOTE | 2017-08-06 18:05 | Orthopedics Progress Note ---
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, subsequent encounter (2) Paroxysmal atrial fibrillation Current Visit: No Status: Chronic (3) Osteoporosis Current Visit: No Status: Chronic Qualifiers: Osteoporosis type: unspecified Presence of current pathological fracture: unspecified Qualified Code(s): M81.0 - Age-related osteoporosis without current pathological fracture (4) Oxygen dependent Current Visit: No Status: Chronic (5) Chronic kidney disease Current Visit: No Status: Chronic Qualifiers: Chronic kidney disease stage: stage 3 (moderate) Qualified Code(s): N18.3 - Chronic kidney disease, stage 3 (moderate) (6) CHF (congestive heart failure) Current Visit: No Status: Chronic Qualifiers: Congestive heart failure type: diastolic Congestive heart failure chronicity: unspecified Qualified Code(s): I50.30 - Unspecified diastolic ( congestive) heart failure (7) HLD (hyperlipidemia) Current Visit: No Status: Chronic Qualifiers: Hyperlipidemia type: unspecified Qualified Code(s): E78.5 - Hyperlipidemia , unspecified (8) HTN (hypertension) Current Visit: No Status: Chronic Qualifiers: Hypertension type: unspecified Qualified Code(s): I10 - Essential (primary ) hypertension (9) Chronic pain syndrome Current Visit: No Status: Chronic (10) Status post total hip replacement, left Current Visit: Yes Status: Acute (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 Patient denies chest pain, shortness of breath, dizziness, or palpitations. Objective: Afebrile. Vital signs variable with elevated HR and borderline hypotension. 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 She does have a history of paroxysmal atrial fibrillation but given patient's symptoms EKG was obtained revealing Atrial Flutter - Hospitalist was consulted for management. Cardio was consulted as well. On exam patient is asleep, easily awoken.She denies any concerns. Operative extremity: Neurovascularly intact Dressing clean dry and intact Calves nontender Assessment: POD#4 L THR revision femoral component Bill[place] 08/02/17 Atrial Flutter Plan: Hospitalist and Cardiology on board working to manage atrial fibrillation. Continue with postoperative care Patient is resident at [facility] - will postpone discharge until stabilized by hospitalist and cardio teams. Objective Vital signs: Vital Signs Temp Pulse Resp BP Pulse Ox 08/06/17 15:56 18 97 08/06/17 15:53 99.1 F 91 15 122/85 100 08/06/17 15:08 99.6 F 99 18 118/85 100 08/06/17 11:01 98.7 F 76 16 117/58 100 08/06/17 10:54 18 100 08/06/17 10:51 98.3 F 64 16 114/56 97 08/06/17 06:45 98.5 F 76 18 108/56 99 08/06/17 05:04 98.7 F 69 16 106/52 100 08/06/17 04:15 17 98 08/05/17 23:53 98.2 F 105 18 91/54 100 08/05/17 22:01 18 99 08/05/17 21:53 117 103/63 08/05/17 21:00 100 08/05/17 20:02 98.6 F 84 17 101/65 98 Intake and Output 08/06/17 08/06/17 08/06/17 07:59 15:59 23:59 Intake Total 240 / 240 Balance 240 / 240 Intake: Oral 240 / 240 Other: Meal Breakfast Percent of Meal Consumed 80% - Labs CBC & BMP: 08/06/17 05:57 08/06/17 05:57 Labs: Abnormal lab results RBC 2.76 M/mcL (3.82-4.97) L 08/06/17 05:57 Hgb 7.9 g/dL (11.5-15.4) L 08/06/17 05:57 Hct 25.3 % (35.3-44.9) L 08/06/17 05:57 MCHC 31.2 g/dL (31.6-35.5) L 08/06/17 05:57 RDW 16.3 % (11.5-14.5) H 08/06/17 05:57 Est GFR (Non-Af Amer) 57 (> 60) L 08/06/17 05:57 Calcium 8.1 mg/dL (8.6-10.3) L 08/06/17 05:57 B-Natriuretic Peptide 341 pg/mL (Less than 100) H 08/05/17 10:25 - VTE Documentation of Mechanical Device: Venous foot pump, device Consult Discharge Plan - Plan Referrals: Daniel Stringer MD [Primary Care Provider] -
[2017-08-06] MEDS ORDERED: 0.9 % Sodium Chloride 250 ML ONE (18:07)
[2017-08-06] MEDS: *HR* OxyCODONE Immed Rel 5 MG TABLET PO PRN (19:42)
[2017-08-06] MEDS: Melatonin 3 MG TABLET PO PRN (21:01)
[2017-08-06] MEDS: Magnesium Oxide 400 MG TABLET PO SCH (21:01)
--- NOTE | 2017-08-06 21:51 | Internal Med Progress Note ---
Date of Encounter: 08/06/17 Time of Encounter: 14:51 - Assessment and plan (1) Status post total hip replacement, left Current Visit: No Status: Chronic (2) Atrial fibrillation with RVR Current Visit: Yes Status: Acute Assessment and plan: Cardiology consulted, recommendations appreciated Amio drip has been initiated by cardiology. Blood pressure monitoring every hour. V/Q Scan: low probability of PE Chest x-ray: No acute process TSH: 4.8 BNP: 341 Echocardiogram: Pending Transfer to floor to transition to amio drip anticoagulation DC'd because of acute drop in hemoglobin. (3) Acute on chronic renal failure Current Visit: Yes Status: Acute Qualifiers: Acute renal failure type: unspecified Chronic kidney disease stage: stage 3 (moderate) Qualified Code(s): N17.9 - Acute kidney failure, unspecified; N18.3 - Chronic kidney disease, stage 3 (moderate); N18.3 - Chronic kidney disease, stage 3 (moderate) (4) (HFpEF) heart failure with preserved ejection fraction Current Visit: Yes Status: Acute (5) DVT prophylaxis Current Visit: No Status: Acute (6) Anemia Current Visit: Yes Status: Acute Assessment and plan: Acute on chronic. Baseline hemoglobin in 2017 is 10.0 Will transfuse patient 1 unit PRBC since she is a cardiac patient will set goal hemoglobin at >8.0. Order in EMR states for 2 units, discussed with nurse on that intent is for 1 unit. Qualifiers: Anemia type: iron deficiency Iron deficiency anemia type: unspecified iron deficiency Qualified Code(s): D50.9 - Iron deficiency anemia, unspecified - Subjective Interval history: No complaints, no acute events per patient and nursing. Setting up to have 1 unit PRBC - Constitutional Vitals: Temp Pulse Resp BP Pulse Ox 99.5 F 98 18 119/84 100 08/06/17 21:09 08/06/17 21:09 08/06/17 21:09 08/06/17 21:09 08/06/17 21:09 Exam: General appearance IM: Present: A&O X 3 - Head Head exam: Present: atraumatic - Respiratory Respiratory exam: Present: CTAB - Cardiovascular Cardiovascular exam IM: Present: irregular rhythm, +S1, +S2 - GI/Abdominal GI/Abdominal exam IM: Present: soft - Extremities Exam Extremities exam IM: Present: normal capillary refill, radial pulses palpable and symmetrical - Expanded Lower Extremities Exam Hip exam: Present: ecchymosis, swelling - Neurological Exam Neurological exam: Present: alert, CN II-XII intact Internal Medicine: Result - Labs CBC & Chem 7: 08/06/17 05:57 08/06/17 05:57 Labs: Short CBC 08/06/17 Range/Units 05:57 WBC 5.8 (4.3-11.1) K/mcL Hgb 7.9 L (11.5-15.4) g/dL Hct 25.3 L (35.3-44.9) % Plt Count 170 (140-400) K/mcL Neutrophils # 4.2 (1.6-8.9) K/mcL BMP 08/06/17 05:57 Sodium 136 Potassium 3.5 Chloride 107 Carbon Dioxide 26 BUN 21 Creatinine 0.93 Glucose 97 Calcium 8.1 L - VTE Documentation of Mechanical Device: Venous foot pump, device Consult Discharge Plan - Plan Referrals: Daniel Stringer MD [Primary Care Provider] -
[2017-08-06] MEDS: Temazepam 15 MG CAPSULE PO PRN (22:30)
[2017-08-07] MEDS: *HR* OxyCODONE Immed Rel 15 MG TABLET PO PRN ×3 (00:23→20:25)
[2017-08-07] MEDS ORDERED: 0.9 % Sodium Chloride 250 ML ONE (02:00)
[2017-08-07] MEDS: Ipratropium/Albuterol Neb 3 ML IH SCH ×4 (04:22→22:49)
--- NOTE | 2017-08-07 06:41 | Electrocardiograph Report ---
[address] [place], [place] [address] Test Date: 2017-08-04 Pat Name: Nelda Francois Department: 114 Room: 2N08 Gender: F Loader Technician: : [id number] Requested By: Elizabeth Hartmann Order Number: [id number] Reading MD: Tato Rico MD Measurements Intervals [place] Rate: 107 P: HI: 0 QRS: 15 QRSD: 162 T: 52 QT: 418 QTc: 481 Interpretive Statements ATRIAL FIBRILLATION WITH RAPID VENTRICULAR RESPONSE INDETERMINATE AXIS RIGHT BUNDLE BRANCH BLOCK Electronically Signed On 08-07-2017 6:39:46 EST by Tato Rico MD
--- NOTE | 2017-08-07 07:57 | Orthopedics Progress Note ---
Date of Encounter: 08/07/17 Time of Encounter: 07:55 Subjective Principal diagnosis: s/p L THR revision Interval history: Subjective:Pain well controlled. No overnight issues. No CP/SOB. Objective: AFVSS last 24 hours GEN: NAD, AAOx3 Operative extremity: Neurovascularly intact Dressing clean dry and intact Calves nontender Assessment: POD#5 L THR revision femoral component with atrial flutter Plan: Continue medical management with hospitalist and operations asst Continue with postoperative care Patient is resident at [facility] - will postpone discharge until stabilized by hospitalist and cardio teams. Objective Vital signs: Vital Signs Temp Pulse Resp BP Pulse Ox 08/07/17 07:41 97.4 F L 78 18 112/54 98 08/07/17 04:22 18 99 08/07/17 04:17 97.8 F 82 19 99/61 100 08/07/17 02:30 97.8 F 81 16 91/64 100 08/07/17 02:11 97.9 F 84 16 95/65 100 08/06/17 22:33 17 100 08/06/17 21:09 99.5 F 98 18 119/84 100 08/06/17 19:30 100 08/06/17 19:18 100.2 F H 107 17 113/78 100 08/06/17 18:28 99.1 F 111 16 123/75 100 08/06/17 18:12 99 F 100 16 134/98 100 08/06/17 15:56 18 97 08/06/17 15:53 99.1 F 91 15 122/85 100 08/06/17 15:08 99.6 F 99 18 118/85 100 08/06/17 11:01 98.7 F 76 16 117/58 100 08/06/17 10:54 18 100 08/06/17 10:51 98.3 F 64 16 114/56 97 Intake and Output 08/06/17 08/06/17 08/07/17 15:59 23:59 07:59 Intake Total 240 / 240 810 / 810 264 / 264 Output Total 575 / 575 450 / 450 Balance 240 / 240 235 / 235 -186 / -186 Intake: IV Fluids 50 / 50 Amiodarone Drip Premix 360mg/ 50 / 50 200mL 360 mg In 200 ml @ 0.5 MG /MIN 16.667 mls/hr IVC CONT HEIDI Rx#:[id number] Oral 240 / 240 480 / 480 0 / 0 Blood Product 280 / 280 264 / 264 Rbcs Leuko Poor As-1 Unit 280 / 280 [id number] Rbcs Leuko Poor As-3 Ph Unit 264 / 264 [id number] Output: Urine 0 / 0 Catheter 575 / 575 450 / 450 Other: Meal Breakfast Dinner Percent of Meal Consumed 80% 85% Weight 69.1 kg Patient Weight 08/07/17 23:59 Weight 69.1 kg - Labs CBC & BMP: 08/06/17 05:57 08/06/17 05:57 Labs: Abnormal lab results RBC 2.76 M/mcL (3.82-4.97) L 08/06/17 05:57 Hgb 7.9 g/dL (11.5-15.4) L 08/06/17 05:57 Hct 25.3 % (35.3-44.9) L 08/06/17 05:57 MCHC 31.2 g/dL (31.6-35.5) L 08/06/17 05:57 RDW 16.3 % (11.5-14.5) H 08/06/17 05:57 Est GFR (Non-Af Amer) 57 (> 60) L 08/06/17 05:57 Calcium 8.1 mg/dL (8.6-10.3) L 08/06/17 05:57 B-Natriuretic Peptide 341 pg/mL (Less than 100) H 08/05/17 10:25 - VTE Documentation of Mechanical Device: Venous foot pump, device Consult Discharge Plan - Plan Referrals: Daniel Stringer MD [Primary Care Provider] -
[2017-08-07] MEDS: Benzonatate 100 MG CAPSULE PO SCH ×3 (09:37→20:24)
[2017-08-07] MEDS: (Omega-3 Fatty Acids [Fish Oil] 600 MG) PO SCH (09:38)
[2017-08-07] MEDS: Ascorbic Acid 500 MG TABLET PO SCH ×2 (09:38→20:24)
[2017-08-07] MEDS: Multivit/Ca/Min/Fe/FA 1 TAB TABLET PO SCH (09:38)
[2017-08-07] MEDS: *HR* Amiodarone 200 MG TABLET PO SCH ×2 (09:38→20:24)
[2017-08-07] MEDS: Gabapentin 300 MG CAPSULE PO SCH ×2 (09:38→20:25)
[2017-08-07 10:22] LABS: Basophils % 0.3 %; Eosinophils # 0.3 K/mcL (0.0-0.6); Eosinophils % 4.5 %; Hematocrit 35.2 % (35.3-44.9); Immature Granulocytes % 0.6 % (0-4); Lymphocytes # 0.8 K/mcL (0.6-4.6); Lymphocytes % 12.3 %; Mean Corpuscular HGB Conc 31.3 g/dL (31.6-35.5); Mean Corpuscular Hemoglobin 28.6 pg (28.0-33.3); Mean Corpuscular Volume 91.7 fL (83.0-100.0); Mean Platelet Volume 9.7 fL (9.4-12.4); Monocytes # 0.5 K/mcL (0.0-1.3); Monocytes % 7.3 %; Neutrophils # 4.7 K/mcL (1.6-8.9); Platelet Count 164 K/mcL (140-400); Red Blood Count 3.84 M/mcL (3.82-4.97); Red Cell Distribution Width 17.2 % (11.5-14.5)
[2017-08-07 10:41] LABS: BUN/Creatinine Ratio 19 (6-26); Blood Urea Nitrogen 16 mg/dL (8-23); Calcium 8.5 mg/dL (8.6-10.3); Carbon Dioxide 27 mEq/L (23-29); Chloride 106 mEq/L (98-107); Glucose 128 mg/dL (70-105); Osmolality,Calculated 287 (280-300); Potassium 3.8 mEq/L (3.5-5.1); Sodium 137 mEq/L (136-145); eGFR For African Americans > 60 (> 60); eGFR For Non-African Americans > 60 (> 60)
--- NOTE | 2017-08-07 13:20 | Cardiology Progress Note ---
Date of Encounter: 08/07/17 Time of Encounter: 11:00 Assessment and Plan (1) Atrial fibrillation Current Visit: No Status: Chronic Heart rates improved over the past 24h after transfusion. Average hear rate 90 to low 100's. Recommend continuing oral amiodarone and BB. See 'Anemia' section for recommendations regarding anticoagulation. Qualifiers: Atrial fibrillation type: permanent Qualified Code(s): I48.2 - Chronic atrial fibrillation (2) Anemia Current Visit: Yes Status: Acute Hemoglobin improved with blood transfusion. Etiology is unclear - possibly post op related? Has been intermittently low in the recent past but has not decreased to this extent. In consideration of restarting anticoagulation, would recommend checking stool guiac. If negative, would consider restarting anticoagulation. I discussed choice of anticoagulant with the patient. Her renal function has fluctuated significantly over the past few months but always returns to her baseline. Can consider continuing xarelto at reduced dose, 15mg daily with careful watch on kidney function. If she continues to have periods of acute kidney dysfunction where CrCl <30, then would consider stopping xarelto in favor of coumadin. Qualifiers: Anemia type: iron deficiency Iron deficiency anemia type: unspecified iron deficiency Qualified Code(s): D50.9 - Iron deficiency anemia, unspecified Discussion w patient/family: Plan and recommendations discussed with the patient. Subjective Principal diagnosis: s/p L THR revision Interval history: Patient has no new complaints. Resting comfortably in bed. Objective Vital Signs, Last 4 Hours Temp Pulse Resp BP Pulse Ox 08/07/17 11:19 98.6 F 92 18 106/74 100 08/07/17 10:26 16 112/54 100 General: Conversant, No Apparent Distress HEENT: Atraumatic Neck: No JVD Cardiac: Other (irregularly irregular) Lungs: Normal Breath Sounds Neuro: Alert and responsive, No focal deficits noted Abdomen: Soft, Non-Tender, Other (bowel sounds present) Extremities: No Edema Results 08/07/17 10:00 08/07/17 10:00 Lab Results 08/07/17 08/07/17 10:00 10:00 WBC 6.3 Hgb 11.0 L D Hct 35.2 L Plt Count 164 Sodium 137 Potassium 3.8 Chloride 106 Carbon Dioxide 27 BUN 16 Creatinine 0.83 Glucose 128 H Calcium 8.5 L - VTE Documentation of Mechanical Device: Venous foot pump, device Consult Discharge Plan - Plan Referrals: Daniel Stringer MD [Primary Care Provider] -
[2017-08-07] MEDS: *HR* OxyCODONE Immed Rel 5 MG TABLET PO PRN (14:03)
--- NOTE | 2017-08-07 15:20 | Internal Med Progress Note ---
Date of Encounter: 08/07/17 Time of Encounter: 15:02 - Assessment and plan (1) Status post total hip replacement, left Current Visit: No Status: Chronic (2) Atrial fibrillation with RVR Current Visit: Yes Status: Acute Assessment and plan: Cardiology consulted, recommendations appreciated Amio drip has been initiated by cardiology. Blood pressure monitoring every hour. V/Q Scan: low probability of PE Chest x-ray: No acute process TSH: 4.8 BNP: 341 Has been on amiodarone drip and now transitioned to PO amiodarone Anticoagulation DC'd because of acute drop in hemoglobin to 7.9 on 08/06. She received 1 units PRBC Hemoglobin 08/07 is 11.0, if remains stable will consider anticoagulation again. (3) Anemia Current Visit: Yes Status: Acute Assessment and plan: Acute on chronic. Baseline hemoglobin in 2017 is 10.0 Anticoagulation DC'd because of acute drop in hemoglobin to 7.9 on 08/06. Cardiac patient ideal hemoglobin >8.0. She received 1 units PRBC Hemoglobin on 08/07 is 11.0, if remains stable will consider anticoagulation again. Qualifiers: Anemia type: iron deficiency Iron deficiency anemia type: unspecified iron deficiency Qualified Code(s): D50.9 - Iron deficiency anemia, unspecified (4) Acute on chronic renal failure Current Visit: Yes Status: Acute Qualifiers: Acute renal failure type: unspecified Chronic kidney disease stage: stage 3 (moderate) Qualified Code(s): N17.9 - Acute kidney failure, unspecified; N18.3 - Chronic kidney disease, stage 3 (moderate); N18.3 - Chronic kidney disease, stage 3 (moderate) (5) (HFpEF) heart failure with preserved ejection fraction Current Visit: Yes Status: Acute (6) DVT prophylaxis Current Visit: No Status: Acute - Subjective Interval history: No complaints, no acute events per patient and nursing. - Constitutional Vitals: Temp Pulse Resp BP Pulse Ox 98.6 F 92 18 106/74 100 08/07/17 11:19 08/07/17 11:19 08/07/17 11:19 08/07/17 11:19 08/07/17 11:19 Exam: Gen: NAD CVS: irregularly irregular rhythm, normal rate. Lungs: CTAB Abd: NT/ND Ext: No edema Internal Medicine: Result - Labs CBC & Chem 7: 08/07/17 10:00 08/07/17 10:00 Labs: Short CBC 08/07/17 Range/Units 10:00 WBC 6.3 (4.3-11.1) K/mcL Hgb 11.0 L D (11.5-15.4) g/dL Hct 35.2 L (35.3-44.9) % Plt Count 164 (140-400) K/mcL Neutrophils # 4.7 (1.6-8.9) K/mcL BMP 08/07/17 10:00 Sodium 137 Potassium 3.8 Chloride 106 Carbon Dioxide 27 BUN 16 Creatinine 0.83 Glucose 128 H Calcium 8.5 L - VTE Documentation of Mechanical Device: Venous foot pump, device Consult Discharge Plan - Plan Referrals: Daniel Stringer MD [Primary Care Provider] -
[2017-08-07] MEDS: Magnesium Oxide 400 MG TABLET PO SCH (20:24)
[2017-08-07] MEDS: Temazepam 15 MG CAPSULE PO PRN (21:19)
[2017-08-08] MEDS: *HR* OxyCODONE Immed Rel 15 MG TABLET PO PRN ×4 (00:18→21:16)
[2017-08-08] MEDS: Melatonin 3 MG TABLET PO PRN (00:19)
[2017-08-08] MEDS: Ipratropium/Albuterol Neb 3 ML IH SCH ×4 (04:52→21:54)
[2017-08-08 06:01] LABS: Basophils % 0.5 %; Eosinophils # 0.3 K/mcL (0.0-0.6); Eosinophils % 4.8 %; Hematocrit 32.2 % (35.3-44.9); Immature Granulocytes % 0.5 % (0-4); Lymphocytes # 1.3 K/mcL (0.6-4.6); Lymphocytes % 21.6 %; Mean Corpuscular HGB Conc 31.1 g/dL (31.6-35.5); Mean Corpuscular Hemoglobin 28.4 pg (28.0-33.3); Mean Corpuscular Volume 91.5 fL (83.0-100.0); Mean Platelet Volume 10.1 fL (9.4-12.4); Monocytes # 0.6 K/mcL (0.0-1.3); Monocytes % 9.3 %; Neutrophils # 3.9 K/mcL (1.6-8.9); Platelet Count 174 K/mcL (140-400); Red Blood Count 3.52 M/mcL (3.82-4.97); Red Cell Distribution Width 17.5 % (11.5-14.5); Segmented Neutrophils % 63.3 %
[2017-08-08 06:16] LABS: BUN/Creatinine Ratio 21 (6-26); Blood Urea Nitrogen 17 mg/dL (8-23); Calcium 8.3 mg/dL (8.6-10.3); Carbon Dioxide 27 mEq/L (23-29); Chloride 106 mEq/L (98-107); Glucose 98 mg/dL (70-105); Osmolality,Calculated 286 (280-300); Potassium 3.8 mEq/L (3.5-5.1); Sodium 137 mEq/L (136-145); eGFR For African Americans > 60 (> 60); eGFR For Non-African Americans > 60 (> 60)
[2017-08-08] MEDS: Benzonatate 100 MG CAPSULE PO SCH ×3 (07:56→21:16)
[2017-08-08] MEDS: *HR* Amiodarone 200 MG TABLET PO SCH ×2 (07:56→21:18)
[2017-08-08] MEDS: Multivit/Ca/Min/Fe/FA 1 TAB TABLET PO SCH (07:56)
[2017-08-08] MEDS: Gabapentin 300 MG CAPSULE PO SCH ×2 (07:56→21:16)
[2017-08-08] MEDS: Ascorbic Acid 500 MG TABLET PO SCH ×2 (07:57→17:45)
[2017-08-08] MEDS: (Omega-3 Fatty Acids [Fish Oil] 600 MG) PO SCH (07:57)
[2017-08-08] MEDS: Furosemide 20 MG TABLET PO SCH (09:52)
--- NOTE | 2017-08-08 11:51 | Cardiology Progress Note ---
Date of Encounter: 08/08/17 Time of Encounter: 09:30 Assessment and Plan (1) Atrial fibrillation Current Visit: No Status: Chronic Heart rate's 90-110's. Presently 90's at the bedside. Recommend continuing oral amiodarone and BB. In regards to anticoagulation, recommend checking stool for blood. Hemoglobin decreased from 11 to 10 today. If Hgb remains stable and if there's no occult blood in stool, recommend restarting xarelto at low dose 15mg daily with careful watch on renal function as an outpatient. If she continues to have periods of acute kidney dysfunction where CrCl <30, then would consider stopping xarelto in favor of coumadin. Qualifiers: Atrial fibrillation type: permanent Qualified Code(s): I48.2 - Chronic atrial fibrillation (2) Anemia Current Visit: Yes Status: Acute Hemoglobin slightly decreased today. Recommend re-evaluation tomorrow. Waiting on stool to check for occult blood. I discussed choice of anticoagulant with the patient. Her renal function has fluctuated significantly over the past few months but always returns to her baseline. Can consider continuing xarelto at reduced dose, 15mg daily with careful watch on kidney function. If she continues to have periods of acute kidney dysfunction where CrCl <30, then would consider stopping xarelto in favor of coumadin. Qualifiers: Anemia type: iron deficiency Iron deficiency anemia type: unspecified iron deficiency Qualified Code(s): D50.9 - Iron deficiency anemia, unspecified Discussion w patient/family: Plan and recommendations discussed with the patient. Subjective Principal diagnosis: s/p L THR revision Interval history: No new complaints. Patient resting comfortably. Heart rates 90's at bedside. Objective Vital Signs, Last 4 Hours Temp Pulse Resp BP Pulse Ox 08/08/17 11:20 16 97 08/08/17 08:05 98.4 F 118 18 108/72 97 General: Conversant, No Apparent Distress Neck: No JVD Cardiac: Other (irregularly irregular, no signicant murmur appreciated) Lungs: Normal Breath Sounds Neuro: Alert and responsive, No focal deficits noted Abdomen: Soft, Other (bowel sounds present) Extremities: Other (no significant LE edema) Results 08/08/17 05:15 08/08/17 05:15 Lab Results 08/08/17 08/08/17 05:15 05:15 WBC 6.1 Hgb 10.0 L Hct 32.2 L Plt Count 174 Sodium 137 Potassium 3.8 Chloride 106 Carbon Dioxide 27 BUN 17 Creatinine 0.82 Glucose 98 Calcium 8.3 L - EKG Interpretation EKG results cardiology: other (24h telemetry reviewed, average HR 90-110's, no concerning dysrhythmia) - VTE Documentation of Mechanical Device: Venous foot pump, device Consult Discharge Plan - Plan Referrals: Daniel Stringer MD [Primary Care Provider] -
[2017-08-08] MEDS: *HR* OxyCODONE Immed Rel 5 MG TABLET PO PRN (17:47)
[2017-08-08] MEDS: Magnesium Oxide 400 MG TABLET PO SCH (21:16)
[2017-08-08] MEDS: Temazepam 15 MG CAPSULE PO PRN (21:17)
--- NOTE | 2017-08-08 21:47 | Internal Med Progress Note ---
Date of Encounter: 08/08/17 Time of Encounter: 13:46 - Assessment and plan (1) Status post total hip replacement, left Current Visit: No Status: Chronic (2) Atrial fibrillation with RVR Current Visit: Yes Status: Acute Assessment and plan: Cardiology consulted, recommendations appreciated Amio drip has been initiated by cardiology. Blood pressure monitoring every hour. V/Q Scan: low probability of PE Chest x-ray: No acute process TSH: 4.8 BNP: 341 Has been on amiodarone drip and now transitioned to PO amiodarone Anticoagulation DC'd because of acute drop in hemoglobin to 7.9 on 08/06. She received 1 units PRBC Hemoglobin 08/07 is 11.0, if remains stable will consider anticoagulation again. (3) Anemia Current Visit: Yes Status: Acute Assessment and plan: Acute on chronic. Baseline hemoglobin in 2017 is 10.0 Anticoagulation DC'd because of acute drop in hemoglobin to 7.9 on 08/06. Cardiac patient ideal hemoglobin >8.0. She received 1 units PRBC Hemoglobin on 08/07 is 11.0, today is 10.0, if remains stable will consider anticoagulation again. Qualifiers: Anemia type: iron deficiency Iron deficiency anemia type: unspecified iron deficiency Qualified Code(s): D50.9 - Iron deficiency anemia, unspecified (4) Acute on chronic renal failure Current Visit: Yes Status: Resolved Assessment and plan: Creatinine now within normal limits. Qualifiers: Acute renal failure type: unspecified Chronic kidney disease stage: stage 3 (moderate) Qualified Code(s): N17.9 - Acute kidney failure, unspecified; N18.3 - Chronic kidney disease, stage 3 (moderate); N18.3 - Chronic kidney disease, stage 3 (moderate) (5) (HFpEF) heart failure with preserved ejection fraction Current Visit: Yes Status: Acute (6) DVT prophylaxis Current Visit: No Status: Acute - Subjective Interval history: No complaints, no acute events per patient and nursing. She is more active. - Constitutional Vitals: Temp Pulse Resp BP Pulse Ox 98.9 F 105 18 110/73 96 08/08/17 19:46 08/08/17 19:46 08/08/17 19:46 08/08/17 19:46 08/08/17 19:46 Exam: Gen: NAD CVS: irregularly irregular rhythm, normal rate. Lungs: CTAB Abd: NT/ND Ext: No edema Internal Medicine: Result - Labs CBC & Chem 7: 08/08/17 05:15 08/08/17 05:15 Labs: Short CBC 08/08/17 Range/Units 05:15 WBC 6.1 (4.3-11.1) K/mcL Hgb 10.0 L (11.5-15.4) g/dL Hct 32.2 L (35.3-44.9) % Plt Count 174 (140-400) K/mcL Neutrophils # 3.9 (1.6-8.9) K/mcL BMP 08/08/17 05:15 Sodium 137 Potassium 3.8 Chloride 106 Carbon Dioxide 27 BUN 17 Creatinine 0.82 Glucose 98 Calcium 8.3 L - VTE Documentation of Mechanical Device: Venous foot pump, device Consult Discharge Plan - Plan Referrals: Daniel Stringer MD [Primary Care Provider] -
[2017-08-09] MEDS: *HR* OxyCODONE Immed Rel 5 MG TABLET PO PRN ×4 (02:13→20:36)
[2017-08-09] MEDS: Melatonin 3 MG TABLET PO PRN ×2 (02:13→20:35)
[2017-08-09] MEDS: Ipratropium/Albuterol Neb 3 ML IH SCH ×4 (04:41→22:21)
[2017-08-09] MEDS: *HR* OxyCODONE Immed Rel 15 MG TABLET PO PRN ×2 (06:12→13:49)
[2017-08-09 06:47] LABS: Hematocrit 31.4 % (35.3-44.9); Hemoglobin 9.7 g/dL (11.5-15.4); Immature Granulocytes % 1.3 % (0-4); Lymphocytes % 17.7 %; Mean Corpuscular HGB Conc 30.9 g/dL (31.6-35.5); Mean Corpuscular Hemoglobin 28.6 pg (28.0-33.3); Mean Corpuscular Volume 92.6 fL (83.0-100.0); Mean Platelet Volume 9.9 fL (9.4-12.4); Monocytes % 9.2 %; Platelet Count 184 K/mcL (140-400); Red Blood Count 3.39 M/mcL (3.82-4.97); Red Cell Distribution Width 17.4 % (11.5-14.5); Segmented Neutrophils % 67.5 %
[2017-08-09 06:48] LABS: Basophils % 0.3 %; Eosinophils # 0.3 K/mcL (0.0-0.6); Lymphocytes # 1.1 K/mcL (0.6-4.6); Monocytes # 0.6 K/mcL (0.0-1.3); Neutrophils # 4.2 K/mcL (1.6-8.9)
[2017-08-09 06:56] LABS: BUN/Creatinine Ratio 21 (6-26); Blood Urea Nitrogen 17 mg/dL (8-23); Calcium 8.4 mg/dL (8.6-10.3); Carbon Dioxide 29 mEq/L (23-29); Chloride 104 mEq/L (98-107); Glucose 94 mg/dL (70-105); Osmolality,Calculated 287 (280-300); Sodium 138 mEq/L (136-145); eGFR For African Americans > 60 (> 60); eGFR For Non-African Americans > 60 (> 60)
--- NOTE | 2017-08-09 08:09 | Cardiology Progress Note ---
Addendum entered and electronically signed by Zaheer Deng DO 08/09/17 14:43: Add to Assessment and Plan: After recheck of vitals and telemetry, patient's heart rate was climbing back into the 110s-120s again. We will increase amiodarone dose to 400 mg twice a day for 2 weeks. Then we will have her taper down to 200 mg twice a day. Continue Lopressor 50 mg twice a day. We will have her follow-up with an appointment outpatient in 4 weeks. Continue simvastatin 10 mg PO once daily Restart aspirin 81 mg once a day as this patient is at high risk for stroke as we await further recommendations for anticoagulation by gastroenterology. At this time, we will sign off on the care of this patient and follow-up on a PRN basis while the patient is in the hospital. Original Note: <Zaheer Deng - Last Filed: 08/09/17 13:41> Date of Encounter: 08/09/17 Time of Encounter: 11:32 Assessment and Plan (1) Atrial fibrillation with RVR Current Visit: Yes Status: Acute a-fib with RVR- Patient's heart rate is stable in the 90s on amiodarone 200 mg twice a day as well as Lopressor 50 mg twice a day. Continue treatment is currently managed. Patient has a positive Hemoccult and has received 3 units of blood secondary to her anemia. The relative has been stopped and patient is currently not on any anticoagulation. Gastroenterology was consulted for follow-up for her GI bleed. Patient is currently hemodynamically stable with blood pressure at 103/ 65 and pulse in the 90s which is apparently her baseline. I recommend to await the recommendations of gastroenterology prior to restarting of anticoagulation therapy as this patient has a GI bleed. At this time, we will sign off on the care of this patient and follow-up on a PRN basis while the patient is in the hospital. GI bleed- Positive Hemoccult. Hemoglobin has been stable over the last 2 days with yesterday being 10 and today being 9.7. Gastroenterology has agreed to follow. 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 D/ / Kranthi Gomez MD / Kranthi Gomez MD Interpreting Provider: Kranthi Gomez MD Pulmonary Perfusion Imaging 08/04/17 16:41 IMPRESSION: Low Probability for Pulmonary Embolus. D/ / 08/04/2017 18:35:58 Mag Gibson MD / srinivas Interpreting Provider: Mag Gibson MD Chest X-Ray 08/05/17 12:07 IMPRESSION: No significant interval change since 08/04/2017. Unchanged enlarged cardiomediastinal silhouette. No radiographic evidence of acute cardiopulmonary process. D/ / Julius Gibson MD / Julius Gibson MD Interpreting Provider: Julius Gibson MD . (2) GI bleed Current Visit: Yes Status: Acute see above Qualifiers: GI bleed type/associated pathology: unspecified gastrointestinal hemorrhage type Qualified Code(s): K92.2 - Gastrointestinal hemorrhage, unspecified (3) Anemia Current Visit: Yes Status: Acute See above (4) Acute on chronic renal insufficiency Current Visit: Yes Status: Acute See Above Discussion w patient/family: The assessment and plan as outlined above was discussed with the patient and/or family members who expressed understanding and agreement. All questions were answered. Thank you for involving us in the care of your patient. Please call with any questions. Subjective Principal diagnosis: s/p L THR revision Interval history: Patient currently not having any complaints of chest pain, shortness of breath, palpitations. Patient denies any hemoptysis, hematemesis, melenic stool, hematochezia. Patient does reports being constipated and not having a bowel movement. Nurse states that heart rate has been in the 90s with administration of amiodarone 200 mg twice a day and metoprolol tartrate 50 mg twice a day. Objective Vital Signs, Last 4 Hours Temp Pulse Resp BP Pulse Ox 08/09/17 08:02 95 16 93 08/09/17 07:38 99 F 94 15 103/65 98 08/09/17 04:42 15 99 General: Conversant, No Apparent Distress HEENT: Atraumatic, Normocephaly, Mucus Membranes Moist Neck: No JVD Cardiac: Reg Rate and Rhythm, Normal S1 and S2 Lungs: Normal Breath Sounds, No Wheeze, Rales, Rhonchi Neuro: Alert and responsive, No focal deficits noted Abdomen: Soft, Non-Tender Skin: No rashes noted on visualized skin Musculoskeletal: No Chest Wall Tenderness Extremities: No Edema Results 08/09/17 06:10 08/09/17 06:10 Lab Results 08/09/17 08/09/17 06:10 06:10 WBC 6.2 Hgb 9.7 L Hct 31.4 L Plt Count 184 Sodium 138 Potassium 4.0 Chloride 104 Carbon Dioxide 29 BUN 17 Creatinine 0.80 Glucose 94 Calcium 8.4 L - VTE Documentation of Mechanical Device: Venous foot pump, device Consult Discharge Plan - Plan Referrals: Daniel Stringer MD [Primary Care Provider] - <Ashwin Kingston - Last Filed: 08/09/17 19:25> Date of Encounter: 08/09/17 Assessment and Plan Discussion w patient/family: The assessment and plan as outlined above was discussed with the patient and/or family members who expressed understanding and agreement. All questions were answered. Thank you for involving us in the care of your patient. Please call with any questions. Objective Vital Signs, Last 4 Hours Temp Pulse Resp BP Pulse Ox 08/09/17 18:26 110 20 98 08/09/17 15:57 18 97 08/09/17 15:51 96 08/09/17 15:47 98.8 F 110 18 101/66 97 Results 08/09/17 06:10 08/09/17 06:10 Lab Results 08/09/17 08/09/17 06:10 06:10 WBC 6.2 Hgb 9.7 L Hct 31.4 L Plt Count 184 Sodium 138 Potassium 4.0 Chloride 104 Carbon Dioxide 29 BUN 17 Creatinine 0.80 Glucose 94 Calcium 8.4 L - Attending Attestation I examined this patient and my medical decision-making was reviewed with the Resident Physician. I agree with the documented findings, disposition and treatment plan as described except to the extent set forth below. Pt reports heart racing and skipping has resolved. She notes her heart pounding with ambulation, with mild shortness of breath during physical therapy , which resolved with rest. IMP: 1. Atrial fib with RVR, ventricular response rate better controlled at rest, but rapid response with activity. Will increase amiodarone back 400 mg bid x 2 weeks, monitor heart rate response, then decrease to 200 mg q d. 2. Anticoagulation for primary stroke risk reduction or A fib, aspirin only, pt is not a candidate for factor ten or antithrombin agents due to heme positive stools, possible occult GI BLEED.
[2017-08-09] MEDS: Benzonatate 100 MG CAPSULE PO SCH ×3 (08:23→20:35)
[2017-08-09] MEDS: Gabapentin 300 MG CAPSULE PO SCH ×2 (08:23→20:35)
[2017-08-09] MEDS: Ascorbic Acid 500 MG TABLET PO SCH ×2 (08:24→17:03)
[2017-08-09] MEDS: Multivit/Ca/Min/Fe/FA 1 TAB TABLET PO SCH (08:24)
[2017-08-09] MEDS: Furosemide 20 MG TABLET PO SCH (08:24)
[2017-08-09] MEDS: *HR* Amiodarone 200 MG TABLET PO SCH ×2 (08:24→20:36)
[2017-08-09] MEDS: (Omega-3 Fatty Acids [Fish Oil] 600 MG) PO SCH (08:29)
--- NOTE | 2017-08-09 08:43 | Orthopedics Progress Note ---
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, subsequent encounter (2) Paroxysmal atrial fibrillation Current Visit: No Status: Chronic (3) Osteoporosis Current Visit: No Status: Chronic Qualifiers: Osteoporosis type: unspecified Presence of current pathological fracture: unspecified Qualified Code(s): M81.0 - Age-related osteoporosis without current pathological fracture (4) Oxygen dependent Current Visit: No Status: Chronic (5) Chronic kidney disease Current Visit: No Status: Chronic Qualifiers: Chronic kidney disease stage: stage 3 (moderate) Qualified Code(s): N18.3 - Chronic kidney disease, stage 3 (moderate) (6) CHF (congestive heart failure) Current Visit: No Status: Chronic Qualifiers: Congestive heart failure type: diastolic Congestive heart failure chronicity: unspecified Qualified Code(s): I50.30 - Unspecified diastolic ( congestive) heart failure (7) HLD (hyperlipidemia) Current Visit: No Status: Chronic Qualifiers: Hyperlipidemia type: unspecified Qualified Code(s): E78.5 - Hyperlipidemia , unspecified (8) HTN (hypertension) Current Visit: No Status: Chronic Qualifiers: Hypertension type: unspecified Qualified Code(s): I10 - Essential (primary ) hypertension (9) Chronic pain syndrome Current Visit: No Status: Chronic (10) Status post total hip replacement, left Current Visit: Yes Status: Acute Hospitalist and Cardiology on board working to manage atrial fibrillation and other medical comorbidites. Continue with postoperative care - d/w nurse Johnson that dressing will need changed. Recommended that dressing be taken down, cleansed with either Hibiclens or soap and water then patted dry and iodine applied to incision then new honeycomb dressing placed. PT/OT needs to work with patient in bed if patient still restricted to bedrest - crucial for patient's recovery. Patient is resident at [facility] - discharge has been held the past 5 days secondary to cardiac issues D/w hospitalist regarding patient service - he agreed to take primary. Ortho will sign off Ms Francois's case at this time. If inpatient on date that her outpatient follow up is scheduled - will see her as inpatient and order xrays at that time. (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 Patient denies chest pain, shortness of breath, dizziness, or palpitations. Objective: Afebrile. Vital signs variable with elevated HR. Patient diagnosed with atrial fibrillation - no longer in RVR - was transferred to for amiodarone drip. 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 She does have a history of paroxysmal atrial fibrillation but given patient's symptoms EKG was obtained revealing Atrial Flutter - Hospitalist was consulted for management. Cardio was consulted as well.] On exam patient is awake and alert in bed, eating breakfast. She denies any concerns. Operative extremity: Neurovascularly intact Dressing saturated with serous fluid Calves nontender Assessment: POD#6 L THR revision femoral component Billingsley 08/02/17 - now with persistent atrial fibrillation Plan: Hospitalist and Cardiology on board working to manage atrial fibrillation and other medical comorbidites. Continue with postoperative care - d/w nurse Elizabeth that dressing will need changed. Recommended that dressing be taken down, cleansed with either Hibiclens or soap and water then patted dry and iodine applied to incision then new honeycomb dressing placed. PT/OT needs to work with patient in bed if patient still restricted to bedrest - crucial for patient's recovery. Patient is resident at [facility] - discharge has been held the past 5 days secondary to cardiac issues D/w hospitalist regarding patient service - he agreed to take primary. Ortho will sign off Ms Francois's case at this time. If inpatient on date that her outpatient follow up is scheduled - will see her as inpatient and order xrays at that time. Objective Vital signs: Vital Signs Temp Pulse Resp BP Pulse Ox 08/09/17 08:10 110 08/09/17 08:02 95 16 93 08/09/17 07:38 99 F 94 15 103/65 98 08/09/17 04:42 15 99 08/09/17 03:52 98.1 F 94 16 95/50 96 08/09/17 00:07 99.7 F H 112 18 102/63 99 08/08/17 21:54 16 95 08/08/17 20:55 99 08/08/17 19:46 98.9 F 105 18 110/73 96 08/08/17 16:41 99.4 F 102 18 112/76 96 08/08/17 16:38 16 96 08/08/17 12:02 98.4 F 81 18 95/56 97 08/08/17 11:20 16 97 Intake and Output 08/08/17 08/09/17 08/09/17 23:59 07:59 15:59 Intake Total 100 / 100 Output Total 550 / 550 150 / 150 Balance -450 / -450 -150 / -150 Intake: Oral 100 / 100 Output: Urine 550 / 550 150 / 150 Other: # Voids 1 Weight 65.2 kg Patient Weight 08/09/17 23:59 Weight 65.2 kg - Labs CBC & BMP: 08/09/17 06:10 08/09/17 06:10 Labs: Abnormal lab results RBC 3.39 M/mcL (3.82-4.97) L 08/09/17 06:10 Hgb 9.7 g/dL (11.5-15.4) L 08/09/17 06:10 Hct 31.4 % (35.3-44.9) L 08/09/17 06:10 MCHC 30.9 g/dL (31.6-35.5) L 08/09/17 06:10 RDW 17.4 % (11.5-14.5) H 08/09/17 06:10 Calcium 8.4 mg/dL (8.6-10.3) L 08/09/17 06:10 B-Natriuretic Peptide 341 pg/mL (Less than 100) H 08/05/17 10:25 - VTE Documentation of Mechanical Device: Venous foot pump, device Consult Discharge Plan - Plan Referrals: Daniel Stringer MD [Primary Care Provider] -
[2017-08-09] MEDS: Magnesium Oxide 400 MG TABLET PO SCH (20:37)
--- NOTE | 2017-08-10 02:08 | Internal Med Progress Note ---
Date of Encounter: 08/09/17 Time of Encounter: 15:06 - Assessment and plan (1) Status post total hip replacement, left Current Visit: No Status: Chronic (2) Atrial fibrillation with RVR Current Visit: Yes Status: Acute Assessment and plan: Has been on amiodarone drip and now transitioned to PO amiodarone, dose titrated , Digoxin discontinued. Anticoagulation DC'd because of acute drop in hemoglobin to 7.9 on 08/06. She received 1 units PRBC (3) Anemia Current Visit: Yes Status: Acute Assessment and plan: Acute on chronic. Baseline hemoglobin in 2017 is 10.0 Anticoagulation DC'd because of acute drop in hemoglobin to 7.9 on 08/06. Cardiac patient ideal hemoglobin >8.0. She received 1 units PRBC Hemoglobin on 08/07 is 11.0, today is 10.0, if remains stable will consider anticoagulation again. Consult GI Qualifiers: Anemia type: iron deficiency Iron deficiency anemia type: unspecified iron deficiency Qualified Code(s): D50.9 - Iron deficiency anemia, unspecified (4) Acute on chronic renal failure Current Visit: Yes Status: Resolved Assessment and plan: Creatinine now within normal limits. Qualifiers: Acute renal failure type: unspecified Chronic kidney disease stage: stage 3 (moderate) Qualified Code(s): N17.9 - Acute kidney failure, unspecified; N18.3 - Chronic kidney disease, stage 3 (moderate); N18.3 - Chronic kidney disease, stage 3 (moderate) (5) (HFpEF) heart failure with preserved ejection fraction Current Visit: Yes Status: Acute (6) DVT prophylaxis Current Visit: No Status: Acute - Subjective Interval history: No complaints, no acute events per patient and nursing. - Constitutional Vitals: Temp Pulse Resp BP Pulse Ox 99.1 F 103 20 99/68 96 08/09/17 23:58 08/09/17 23:58 08/09/17 23:58 08/09/17 23:58 08/09/17 23:58 Exam: Gen: NAD CVS: irregularly irregular rate and rhythm Lungs: CTAB Ext: no edema Internal Medicine: Result - Labs CBC & Chem 7: 08/09/17 06:10 08/09/17 06:10 Labs: Short CBC 08/09/17 Range/Units 06:10 WBC 6.2 (4.3-11.1) K/mcL Hgb 9.7 L (11.5-15.4) g/dL Hct 31.4 L (35.3-44.9) % Plt Count 184 (140-400) K/mcL Neutrophils # 4.2 (1.6-8.9) K/mcL BMP 08/09/17 06:10 Sodium 138 Potassium 4.0 Chloride 104 Carbon Dioxide 29 BUN 17 Creatinine 0.80 Glucose 94 Calcium 8.4 L - Impressions Impressions Pulmonary Perfusion Imaging 08/04/17 16:41 IMPRESSION: Low Probability for Pulmonary Embolus. D/ / 08/04/2017 18:35:58 Mag Gibson MD / [facility] Interpreting Provider: Mag Gibson MD Echocardiogram Limited Views 08/09/17 07:00 Impressions: LVEF 60%. Normal LV chamber size and function. Mild concentric left ventricular hypertrophy. Left Ventricular Wall Motion: Rest Echo Findings All wall segments showed normal motion. Findings: Study Quality * Technically adequate exam. ECG Findings * Atrial fibrillation. Left Ventricle * LVEF 60%. * Normal LV chamber size and function. * Mild concentric left ventricular hypertrophy. Right Ventricle * Normal right ventricular structure and function. Aorta * Normally sized aortic root. Pericardium * The pericardium appears normal. IVC * Normal IVC dimensions and inspiratory collapse. - VTE Documentation of Mechanical Device: Intermittent pneumatic compression device Consult Discharge Plan - Plan Referrals: Daniel Stringer MD [Primary Care Provider] -
[2017-08-10] MEDS: *HR* OxyCODONE Immed Rel 15 MG TABLET PO PRN ×5 (02:26→20:43)
[2017-08-10] MEDS: Ipratropium/Albuterol Neb 3 ML IH SCH ×4 (04:06→22:32)
[2017-08-10 05:26] LABS: Basophils % 0.3 %; Eosinophils # 0.3 K/mcL (0.0-0.6); Eosinophils % 4.5 %; Hematocrit 31.1 % (35.3-44.9); Hemoglobin 9.6 g/dL (11.5-15.4); Immature Granulocytes % 1.4 % (0-4); Lymphocytes # 1.2 K/mcL (0.6-4.6); Lymphocytes % 18.7 %; Mean Corpuscular HGB Conc 30.9 g/dL (31.6-35.5); Mean Corpuscular Hemoglobin 28.7 pg (28.0-33.3); Mean Corpuscular Volume 93.1 fL (83.0-100.0); Monocytes # 0.5 K/mcL (0.0-1.3); Monocytes % 7.8 %; Neutrophils # 4.5 K/mcL (1.6-8.9); Platelet Count 189 K/mcL (140-400); Red Blood Count 3.34 M/mcL (3.82-4.97); Red Cell Distribution Width 17.4 % (11.5-14.5); Segmented Neutrophils % 67.3 %
[2017-08-10 05:45] LABS: BUN/Creatinine Ratio 22 (6-26); Blood Urea Nitrogen 21 mg/dL (8-23); Calcium 8.4 mg/dL (8.6-10.3); Carbon Dioxide 31 mEq/L (23-29); Chloride 103 mEq/L (98-107); Glucose 108 mg/dL (70-105); Osmolality,Calculated 290 (280-300); Sodium 138 mEq/L (136-145); eGFR For African Americans > 60 (> 60); eGFR For Non-African Americans 56 (> 60)
[2017-08-10] MEDS: *HR* Amiodarone 200 MG TABLET PO SCH ×2 (08:33→20:42)
[2017-08-10] MEDS: Benzonatate 100 MG CAPSULE PO SCH ×2 (08:34→15:36)
[2017-08-10] MEDS: Furosemide 20 MG TABLET PO SCH (08:34)
[2017-08-10] MEDS: Gabapentin 300 MG CAPSULE PO SCH ×2 (08:34→20:42)
[2017-08-10] MEDS: Multivit/Ca/Min/Fe/FA 1 TAB TABLET PO SCH (08:34)
[2017-08-10] MEDS: (Omega-3 Fatty Acids [Fish Oil] 600 MG) PO SCH (08:34)
[2017-08-10] MEDS: Ascorbic Acid 500 MG TABLET PO SCH ×2 (08:34→16:59)
--- NOTE | 2017-08-10 10:51 | Gastroenterology Consult Note ---
<Silvio Mills - Last Filed: 08/10/17 10:47> Date of Encounter: 08/10/17 Time of Encounter: 09:50 - Assessment and plan (1) Anemia Current Visit: Yes Status: Acute Assessment and plan: On admission, Hgb 11.7, which dropped to 7.9 on 08/06 and she received 2 units PRBC. Hgb improved to 11, but this AM Hgb 9.6. Continue to monitor CBC and transfuse PRBC as needed. Recommend imaging of left hip to rule out bleeding into leg. Will discuss colonoscopy with Dr. Terrell. Qualifiers: Anemia type: iron deficiency Iron deficiency anemia type: unspecified iron deficiency Qualified Code(s): D50.9 - Iron deficiency anemia, unspecified (2) Atrial fibrillation Current Visit: No Status: Chronic Qualifiers: Atrial fibrillation type: permanent Qualified Code(s): I48.2 - Chronic atrial fibrillation - Time Spent With Patient Total time spent is greater than 50% in coordination of care (as documented) at patient's floor/unit and/or counseling patient: GI History of Present Illness - Data of Consult Patient: new to practice Consult date: 08/10/17 Requesting Physician: Nery Britt MD - Consult Narrative Reason for consult: anemia History of present illness: Ms. Francois is a 86 year old female with PMHx of Afib, CHF, COPD, HLD, HTN, and CKD 3 who underwent left revision femur of total hip replacement Wednesday with Dr. Billingsley. The patient was doing well and then began to experience hypotension and Afib with RVR. Cardiology was consulted for her Afib with RVR, and was started on amiodarone gtt. Pt was anticoagulated with Xarelto, but that was held due to anemia. We were consulted to evaluate her anemia. On admission, Hgb 11.7, which dropped to 7.9 on 08/06 and she received 2 units PRBC. Hgb improved to 11, but this AM Hgb 9.6. Pt denies any hematemesis, melena, or hematochezia. Procedures: ERCP 04/01/2013 Dr. Smith: Sludge was found. Colonoscopy 05/05/2005 Dr. Cardenas: Hyperplastic polyp. NSAIDs: None Anticoagulation: Xarelto Past Med Surg Social Fam HX - Past Medical History Medical history: atrial fibrillation, CHF, COPD, hyperlipidemia, hypertension, osteoporosis Psychiatric history: anxiety - Past Surgical History Surgical History: cholecystectomy, hysterectomy, knee replacement, orthopedic, other - Social History Smoking Status: Never smoker Smokeless Tobacco Status: No Alcohol use: none Drug use: none - Family History Daughter Living Status: Hx Family Cancer: Yes Father Living Status: Hx Family Cardiac Disorders: Yes (heart attack) - Gastrointestinal Gastrointestinal: Present: as per HPI - Constitutional Constitutional: as per HPI - EENT Eyes: as per HPI Ears: Present: as per HPI Nose, mouth and throat: Present: as per HPI - Cardiovascular Cardiovascular ROS: Present: as per HPI - Respiratory Respiratory IM: Present: as per HPI - Genitourinary Genitourinary: Absent: change in color, Urinary frequency - Neurological ROS Neurological GI: Present: as per HPI - Hematologic/Lymphatic Hematologic/Lymphatic pediatric: Present: as per HPI - Musculoskeletal Musculoskeletal ROS GI: Present: as per HPI - Integumentary Integumentary GI: Present: as per HPI - Psychiatric ROS Psychiatric GI: Present: as per HPI - Endocrine Endocrine IM: Present: as per HPI - Constitutional Vitals: Temp Pulse Resp BP Pulse Ox 99.2 F 105 19 109/72 97 08/10/17 07:20 08/10/17 07:20 08/10/17 04:08 08/10/17 07:20 08/10/17 07:20 General appearance: Present: cooperative, A&O X 3, no acute distress, answers questions appropriately - Head Head exam: Present: atraumatic, normocephalic - Eye Eye exam: Present: normal appearance, sclera anicteric - ENT ENT exam: Present: mucous membranes dry - Neck Neck exam general surgery: Present: normal inspection, trachea midline - Respiratory Respiratory exam: Present: CTAB. Absent: rales, rhonchi - Cardiovascular Cardiovascular exam: Present: RRR, +S1, +S2 - GI/Abdominal GI/Abdominal exam: Present: soft, no peritoneal signs. Absent: distended, firm , guarding, tenderness - Rectal Rectal exam: Present: deferred - Extremities Exam Extremities exam: Present: warm Additional comments: Surgical dressing in place left hip. - Neurological Exam Neurological exam: Present: no focal deficits - Psychiatric Psychiatric exam: Present: normal affect, normal mood - Skin Skin exam: Present: dry, intact, normal color, warm Results - Labs CBC & Chem 7: 08/10/17 05:05 08/10/17 05:05 Labs: Last Result Calcium 8.4 mg/dL (8.6-10.3) L 08/10/17 05:05 Troponin I 0.03 ng/mL (< 0.04) 08/05/17 10:25 Stool Occult Blood Positive (Negative) A 08/09/17 10:00 Entire Visit Hgb 9.6 g/dL (11.5-15.4) L 08/10/17 05:05 Hct 31.1 % (35.3-44.9) L 08/10/17 05:05 - Impressions Impressions Echocardiogram Limited Views 08/09/17 07:00 Impressions: LVEF 60%. Normal LV chamber size and function. Mild concentric left ventricular hypertrophy. Left Ventricular Wall Motion: Rest Echo Findings All wall segments showed normal motion. Findings: Study Quality * Technically adequate exam. ECG Findings * Atrial fibrillation. Left Ventricle * LVEF 60%. * Normal LV chamber size and function. * Mild concentric left ventricular hypertrophy. Right Ventricle * Normal right ventricular structure and function. Aorta * Normally sized aortic root. Pericardium * The pericardium appears normal. IVC * Normal IVC dimensions and inspiratory collapse. Consult Discharge Plan - Plan Referrals: Daniel Stringer MD [Primary Care Provider] - <Rodwy Terrell - Last Filed: 08/14/17 13:40> Date of Encounter: 08/10/16 - Time Spent With Patient Total time spent is greater than 50% in coordination of care (as documented) at patient's floor/unit and/or counseling patient: GI History of Present Illness - Data of Consult Requesting Physician: Nery Britt MD - Consult Narrative History of present illness: Ms. Francois is a 86 year old female - Constitutional Vitals: Temp Pulse Resp BP Pulse Ox 98.4 F 116 18 136/95 97 08/14/17 12:00 08/14/17 12:00 08/14/17 12:00 08/14/17 12:00 08/14/17 12:00 Results - Labs CBC & Chem 7: 08/14/17 03:30 08/14/17 08:59 Labs: Last Result Calcium 8.7 mg/dL (8.6-10.3) 08/14/17 08:59 Troponin I 0.03 ng/mL (< 0.04) 08/05/17 10:25 Stool Occult Blood Positive (Negative) A 08/09/17 10:00 Entire Visit Hgb 9.4 g/dL (11.5-15.4) L 08/14/17 03:30 Hct 30.6 % (35.3-44.9) L 08/14/17 03:30 - Attending Attestation Ms. Francois presents with left hip fracture and underwent an operative repair of a left hip and noted her hemoglobin dropped 2 g at least no evidence of any gross GI bleeding was noted. She had no chest no chest or shortness of breath. She does not history of follow-up also O Yoselyn 15 years ago when she went to [place] and underwent blood transfusion there. for an ulcer. Given this would recommend upper endoscopy but I do not feel she has agastrointestinal cause for this drop. Patient anticoagulated. Check ultrasound left hip to exclude bleeding I have personally performed a face to face evaluation on this patient. I have reviewed and agree with the care plan. History and Exam by me shows:
--- NOTE | 2017-08-10 11:59 | Internal Med Progress Note ---
Date of Encounter: 08/10/17 Time of Encounter: 11:59 - Subjective Interval history: 86 year old female who underwent left revision femur of total hip replacement . She subsequently developed Afib with RVR. Cardiology was consulted and an amiodarone drip was Xarelto were started. Her hemaglobin dropped to 7.9 from 11.7 on 08/06 and she received 2 units PRBC and GI was consulted Following the transfusion her Hgb drifed down to 10-9.7 range without hematemesis, melena , or hematochezia. An U/S of her hip was done today to r/u hematoma as a cause of her anemia but it dd not show a hematoma. Her additional comorbid conditions include with CHF, COPD, HLD, HTN, and CKD 3 Interval changes: She is A&O and in no acute distress. Physical Exam: See below Assessment and Plan: Acute blood loss anemia: Possible colonoscopy. No hematoma form hip surgery. Cnontinue to monitor Hgb. Acute on chronic renal failure Creatinine now within normal limits. Continue to monitor (HFpEF) heart failure with preserved ejection fraction Well compensated. Continue current medications. S/P Hip replacement: On Dilaudid and Roxicodone for pain. Try to wean off narcotic medications. Continue PT/OT. contiunue bowel regimen. - Constitutional Vitals: Temp Pulse Resp BP Pulse Ox 99.2 F 87 19 109/72 97 08/10/17 07:20 08/10/17 09:20 08/10/17 04:08 08/10/17 07:20 08/10/17 07:20 General appearance: Present: A&O X 3 - Head Head exam: Present: atraumatic, normocephalic - Eye Eye exam: Present: PERRL, conjuntiva pink, sclera anicteric Pupils: Present: PERRL - Neck Neck exam general surgery: Present: supple, trachea midline. Absent: lymphadenopathy - Respiratory Respiratory exam: Present: CTAB. Absent: accessory muscle use, rales, rhonchi, wheezes - Cardiovascular Cardiovascular exam: Present: RRR, +S1, +S2. Absent: diastolic murmur, gallop, rubs, systolic murmur - GI/Abdominal GI/Abdominal exam: Present: normal bowel sounds, soft, no peritoneal signs. Absent: distended, tenderness - Extremities Exam Extremities exam: Present: warm, radial pulses palpable and symmetrical. Absent : calf tenderness, cyanotic, pedal edema - Neurological Exam Neurological exam: Present: CN II-XII intact, oriented X3, no focal deficits. Absent: pronater drift, facial droop, speech deficit - Skin Skin exam: Present: dry, intact Internal Medicine: Result - Labs CBC & Chem 7: 08/10/17 05:05 08/10/17 05:05 Labs: Short CBC 08/10/17 Range/Units 05:05 WBC 6.6 (4.3-11.1) K/mcL Hgb 9.6 L (11.5-15.4) g/dL Hct 31.1 L (35.3-44.9) % Plt Count 189 (140-400) K/mcL Neutrophils # 4.5 (1.6-8.9) K/mcL BMP 08/10/17 05:05 Sodium 138 Potassium 4.0 Chloride 103 Carbon Dioxide 31 H BUN 21 Creatinine 0.95 Glucose 108 H Calcium 8.4 L - Impressions Impressions Echocardiogram Limited Views 08/09/17 07:00 Impressions: LVEF 60%. Normal LV chamber size and function. Mild concentric left ventricular hypertrophy. Left Ventricular Wall Motion: Rest Echo Findings All wall segments showed normal motion. Findings: Study Quality * Technically adequate exam. ECG Findings * Atrial fibrillation. Left Ventricle * LVEF 60%. * Normal LV chamber size and function. * Mild concentric left ventricular hypertrophy. Right Ventricle * Normal right ventricular structure and function. Aorta * Normally sized aortic root. Pericardium * The pericardium appears normal. IVC * Normal IVC dimensions and inspiratory collapse. - VTE Documentation of Mechanical Device: Venous foot pump, device Consult Discharge Plan - Plan Referrals: Daniel Stringer MD [Primary Care Provider] -
[2017-08-10] MEDS ORDERED: Benzonatate 100 MG CAPSULE PO PRN (15:50)
[2017-08-10] MEDS: Melatonin 3 MG TABLET PO PRN (20:42)
[2017-08-10] MEDS: Magnesium Oxide 400 MG TABLET PO SCH (20:42)
[2017-08-11] MEDS: Ipratropium/Albuterol Neb 3 ML IH SCH ×4 (04:58→22:17)
[2017-08-11] MEDS: Multivit/Ca/Min/Fe/FA 1 TAB TABLET PO SCH (08:56)
[2017-08-11] MEDS: Gabapentin 300 MG CAPSULE PO SCH ×2 (08:56→21:18)
[2017-08-11] MEDS: *HR* Amiodarone 200 MG TABLET PO SCH ×2 (08:56→21:17)
[2017-08-11] MEDS: Ascorbic Acid 500 MG TABLET PO SCH ×2 (08:56→15:45)
[2017-08-11] MEDS: Furosemide 20 MG TABLET PO SCH (08:56)
[2017-08-11] MEDS: (Omega-3 Fatty Acids [Fish Oil] 600 MG) PO SCH (08:57)
[2017-08-11] MEDS: *HR* OxyCODONE Immed Rel 15 MG TABLET PO PRN ×3 (09:00→21:19)
--- NOTE | 2017-08-11 13:39 | Internal Med Progress Note ---
Date of Encounter: 08/11/17 Time of Encounter: 13:38 - Subjective Interval history: 86 year old female who underwent left revision femur of total hip replacement . She subsequently developed Afib with RVR. Cardiology was consulted and an amiodarone drip was Xarelto were started. Her hemaglobin dropped to 7.9 from 11.7 on 08/06 and she received 2 units PRBC and GI was consulted Following the transfusion her Hgb drifed down to 10-9.7 range without hematemesis, melena , or hematochezia. An U/S of her hip was done today to r/u hematoma as a cause of her anemia but it dd not show a hematoma. Her additional comorbid conditions include with CHF, COPD, HLD, HTN, and CKD 3 Interval changes: 08/10/2017: She is A&O and in no acute distress. 08/11/2017: She is A&O and in no acute distress. She had a BM today but per report no hematochezia or melana. No cp or SOB. No Abd bennett. Physical Exam: See below Assessment and Plan: Acute blood loss anemia: Possible colonoscopy. No hematoma form hip surgery. Cnontinue to monitor Hgb. Acute on chronic renal failure Creatinine now within normal limits. Continue to monitor (HFpEF) heart failure with preserved ejection fraction Well compensated. Continue current medications. S/P Hip replacement: On Dilaudid and Roxicodone for pain. Try to wean off narcotic medications. Continue PT/OT. contiunue bowel regimen. General appearance: Present: A&O X 3 - Head Head exam: Present: atraumatic, normocephalic - Eye Eye exam: Present: PERRL, conjuntiva pink, sclera anicteric Pupils: Present: PERRL - Neck Neck exam general surgery: Present: supple, trachea midline. Absent: lymphadenopathy - Respiratory Respiratory exam: Present: CTAB. Absent: accessory muscle use, rales, rhonchi, wheezes - Cardiovascular Cardiovascular exam: Present: RRR, +S1, +S2. Absent: diastolic murmur, gallop, rubs, systolic murmur - GI/Abdominal GI/Abdominal exam: Present: normal bowel sounds, soft, no peritoneal signs. Absent: distended, tenderness - Extremities Exam Extremities exam: Present: warm, radial pulses palpable and symmetrical. Absent : calf tenderness, cyanotic, pedal edema - Neurological Exam Neurological exam: Present: CN II-XII intact, oriented X3, no focal deficits. Absent: pronater drift, facial droop, speech deficit - Skin Skin exam: Present: dry, intact - Constitutional Vitals: Temp Pulse Resp BP Pulse Ox 97.6 F 99 15 109/56 90 08/11/17 11:55 08/11/17 11:55 08/11/17 11:55 08/11/17 11:55 08/11/17 11:55 General appearance: Present: A&O X 3 - Head Head exam: Present: atraumatic, normocephalic - Eye Eye exam: Present: PERRL, conjuntiva pink, sclera anicteric Pupils: Present: PERRL Internal Medicine: Result - Labs CBC & Chem 7: 08/10/17 05:05 08/10/17 05:05 - Impressions Impressions Extremity Ultrasound 08/10/17 13:00 IMPRESSION: No evidence of hematoma in the lateral proximal left thigh by sonography in the area of concern. There is a slightly echogenic appearance of the subcutaneous soft tissues in this region. D/ / 08/10/2017 14:05:09 Sukhwinder Charlton MD / [facility] Interpreting Provider: Sukhwinder Charlton MD - VTE Documentation of Mechanical Device: Venous foot pump, device Consult Discharge Plan - Plan Referrals: Daniel Stringer MD [Primary Care Provider] -
[2017-08-11] MEDS ORDERED: *HR* FentaNYL (PF) 100 MCG/2 ML VIAL ONE (17:27)
[2017-08-11] MEDS ORDERED: *HR* Midazolam HCl 5 MG/5 ML VIAL IVP ONE (17:27)
[2017-08-11] MEDS ORDERED: *HR* Midazolam HCl 2 MG/2 ML VIAL IVP ONE (17:44)
[2017-08-11] MEDS ORDERED: *HR* FentaNYL (PF) 100 MCG/2 ML VIAL IVP ONE (17:44)
[2017-08-11] MEDS ORDERED: Simethicone 40 MG/0.6 ML MLS IR ONE (17:44)
[2017-08-11] MEDS ORDERED: Tetracaine/Benzocaine/Butamben 200MG/SPRAY (100SPY/BOT) MM ONE (17:44)
[2017-08-11] MEDS ORDERED: 0.9 % Sodium Chloride 1,000 ML IVC SCH (17:45)
[2017-08-11] MEDS: Magnesium Oxide 400 MG TABLET PO SCH (21:18)
[2017-08-11] MEDS: Melatonin 3 MG TABLET PO PRN (21:19)
[2017-08-11] MEDS: Temazepam 15 MG CAPSULE PO PRN (21:19)
[2017-08-12] MEDS: *HR* OxyCODONE Immed Rel 5 MG TABLET PO PRN ×3 (03:52→17:11)
[2017-08-12] MEDS: Ipratropium/Albuterol Neb 3 ML IH SCH ×4 (04:31→22:36)
[2017-08-12 05:04] LABS: Basophils % 0.3 %; Eosinophils # 0.3 K/mcL (0.0-0.6); Eosinophils % 3.6 %; Hematocrit 30.5 % (35.3-44.9); Hemoglobin 9.6 g/dL (11.5-15.4); Lymphocytes # 0.8 K/mcL (0.6-4.6); Mean Corpuscular HGB Conc 31.5 g/dL (31.6-35.5); Mean Corpuscular Hemoglobin 29.3 pg (28.0-33.3); Mean Platelet Volume 10.2 fL (9.4-12.4); Monocytes # 0.6 K/mcL (0.0-1.3); Monocytes % 7.9 %; Neutrophils # 5.3 K/mcL (1.6-8.9); Platelet Count 211 K/mcL (140-400); Red Blood Count 3.28 M/mcL (3.82-4.97); Red Cell Distribution Width 17.2 % (11.5-14.5); Segmented Neutrophils % 75.2 %
[2017-08-12 06:45] LABS: BUN/Creatinine Ratio 23 (6-26); Blood Urea Nitrogen 19 mg/dL (8-23); Calcium 8.5 mg/dL (8.6-10.3); Carbon Dioxide 29 mEq/L (23-29); Chloride 103 mEq/L (98-107); Glucose 95 mg/dL (70-105); Osmolality,Calculated 288 (280-300); Potassium 3.9 mEq/L (3.5-5.1); Sodium 138 mEq/L (136-145); eGFR For African Americans > 60 (> 60); eGFR For Non-African Americans > 60 (> 60)
[2017-08-12] MEDS: *HR* Amiodarone 200 MG TABLET PO SCH ×2 (07:56→21:05)
[2017-08-12] MEDS: Ascorbic Acid 500 MG TABLET PO SCH ×2 (07:56→17:12)
[2017-08-12] MEDS: (Omega-3 Fatty Acids [Fish Oil] 600 MG) PO SCH (07:57)
[2017-08-12] MEDS: Gabapentin 300 MG CAPSULE PO SCH ×2 (07:57→21:06)
[2017-08-12] MEDS: Furosemide 20 MG TABLET PO SCH (07:57)
[2017-08-12] MEDS: Multivit/Ca/Min/Fe/FA 1 TAB TABLET PO SCH (07:57)
--- NOTE | 2017-08-12 14:34 | Orthopedics Progress Note ---
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, subsequent encounter (2) Paroxysmal atrial fibrillation Current Visit: No Status: Chronic (3) Osteoporosis Current Visit: No Status: Chronic Qualifiers: Osteoporosis type: unspecified Presence of current pathological fracture: unspecified Qualified Code(s): M81.0 - Age-related osteoporosis without current pathological fracture (4) Oxygen dependent Current Visit: No Status: Chronic (5) Chronic kidney disease Current Visit: No Status: Chronic Qualifiers: Chronic kidney disease stage: stage 3 (moderate) Qualified Code(s): N18.3 - Chronic kidney disease, stage 3 (moderate) (6) CHF (congestive heart failure) Current Visit: No Status: Chronic Qualifiers: Congestive heart failure type: diastolic Congestive heart failure chronicity: unspecified Qualified Code(s): I50.30 - Unspecified diastolic ( congestive) heart failure (7) HLD (hyperlipidemia) Current Visit: No Status: Chronic Qualifiers: Hyperlipidemia type: unspecified Qualified Code(s): E78.5 - Hyperlipidemia , unspecified (8) HTN (hypertension) Current Visit: No Status: Chronic Qualifiers: Hypertension type: unspecified Qualified Code(s): I10 - Essential (primary ) hypertension (9) Chronic pain syndrome Current Visit: No Status: Chronic (10) Status post total hip replacement, left Current Visit: Yes Status: Acute Continue with postoperative care - d/w nurse Melany that dressing will need changed. Recommended that dressing be taken down, cleansed with either Hibiclens or soap and water then patted dry and iodine applied to incision then new honeycomb dressing placed. PT/OT needs to work with patient in bed if patient still restricted to bedrest - crucial for patient's recovery. Patient is resident at [facility] - discharge has been held secondary to cardiac issues I reviewed the XRAYS with the patient - hardware intact and components well aligned and fixed. Reviewed by Dr. Billingsley as well - no changes. Patient to keep outpatient follow up next week as scheduled. (11) Frail elderly Current Visit: No Status: Chronic Subjective Principal diagnosis: s/p L THR revision Interval history: Subjective: Patient was seen today and doing well without complaints. Patient denies chest pain, shortness of breath, dizziness, or palpitations. Objective: Afebrile. Vital signs variable with elevated HR. Patient has atrial fibrillation and is still inpatient secondary to continuing medical issues that have not yet been able to sustain control. On exam patient is awake and alert in bed, eating lunch. She denies any concerns or pain. Operative extremity: Neurovascularly intact Dressing appx 50% saturated with serous fluid Calves nontender Assessment: POD#10 L THR revision femoral component Jose Cruz 08/02/17 Plan: Continue with postoperative care - d/w nurse Melany that dressing will need changed. Recommended that dressing be taken down, cleansed with either Hibiclens or soap and water then patted dry and iodine applied to incision then new honeycomb dressing placed. PT/OT needs to work with patient in bed if patient still restricted to bedrest - crucial for patient's recovery. Patient is resident at [facility] - discharge has been held secondary to cardiac issues I reviewed the XRAYS with the patient - hardware intact and components well aligned and fixed. Reviewed by Dr. Billingsley as well - no changes. Patient to keep outpatient follow up next week as scheduled. Objective Vital signs: Vital Signs Temp Pulse Resp BP Pulse Ox 08/12/17 11:15 88 08/12/17 10:46 98.9 F 95 16 92/57 96 08/12/17 08:06 89 08/12/17 07:10 99.9 F H 89 16 89/55 96 08/12/17 05:02 100.0 F H 99 16 81/56 91 08/12/17 04:31 17 90 08/11/17 23:48 99.9 F H 111 16 84/59 89 08/11/17 22:18 16 96 08/11/17 22:00 128 112/63 08/11/17 21:30 141 123/89 08/11/17 20:30 131 82/65 08/11/17 20:00 121 95/51 08/11/17 19:45 130 97/67 08/11/17 19:20 98.7 F 111 91/57 94 08/11/17 19:15 107 91/57 08/11/17 18:45 109 18 107/69 96 08/11/17 18:30 116 97/82 08/11/17 18:13 98.2 F 116 18 96/65 95 08/11/17 17:57 113 18 122/78 100 08/11/17 17:48 135 18 116/79 98 08/11/17 17:41 118 18 96/65 96 08/11/17 17:36 97.6 F 124 18 105/64 97 08/11/17 16:00 18 90 08/11/17 15:58 98.3 F 78 18 125/86 90 08/11/17 15:56 97 Intake and Output 08/11/17 08/12/17 08/12/17 23:59 07:59 15:59 Intake Total 220 / 220 480 / 480 Output Total 380 / 380 Balance 220 / 220 100 / 100 Intake: IV Fluids 100 / 100 0.9 % Sodium Chloride 1,000 ML 100 / 100 @ 50 mls/hr IVC .Q20H HEIDI Rx#: [id number] Oral 120 / 120 480 / 480 Output: Urine 380 / 380 Other: Meal Dinner Lunch Percent of Meal Consumed 90% 50% Weight 67 kg Patient Weight 08/12/17 23:59 Weight 67 kg - Labs CBC & BMP: 08/12/17 03:46 08/12/17 03:46 Labs: Abnormal lab results RBC 3.28 M/mcL (3.82-4.97) L 08/12/17 03:46 Hgb 9.6 g/dL (11.5-15.4) L 08/12/17 03:46 Hct 30.5 % (35.3-44.9) L 08/12/17 03:46 MCHC 31.5 g/dL (31.6-35.5) L 08/12/17 03:46 RDW 17.2 % (11.5-14.5) H 08/12/17 03:46 Calcium 8.5 mg/dL (8.6-10.3) L 08/12/17 03:46 B-Natriuretic Peptide 341 pg/mL (Less than 100) H 08/05/17 10:25 Stool Occult Blood Positive (Negative) A 08/09/17 10:00 - VTE Documentation of Mechanical Device: Venous foot pump, device Consult Discharge Plan - Plan Referrals: Daniel Stringer MD [Primary Care Provider] -
--- NOTE | 2017-08-12 16:50 | Internal Med Progress Note ---
Date of Encounter: 08/12/17 Time of Encounter: 16:49 - Subjective Interval history: 86 year old female who underwent left revision femur of total hip replacement . She subsequently developed Afib with RVR. Cardiology was consulted and an amiodarone drip was Xarelto were started. Her hemaglobin dropped to 7.9 from 11.7 on 08/06 and she received 2 units PRBC and GI was consulted Following the transfusion her Hgb drifed down to 10-9.7 range without hematemesis, melena , or hematochezia. An U/S of her hip was done today to r/u hematoma as a cause of her anemia but it dd not show a hematoma. Her additional comorbid conditions include with CHF, COPD, HLD, HTN, and CKD 3 Interval changes: 08/10/2017: She is A&O and in no acute distress. 08/11/2017: She is A&O and in no acute distress. She had a BM today but per report no hematochezia or melana. No cp or SOB. No Abd bennett. Physical Exam: See below Assessment and Plan: Acute blood loss anemia: Possible colonoscopy. No hematoma form hip surgery. Cnontinue to monitor Hgb. Acute on chronic renal failure Creatinine now within normal limits. Continue to monitor (HFpEF) heart failure with preserved ejection fraction Well compensated. Continue current medications. S/P Hip replacement: On Dilaudid and Roxicodone for pain. Try to wean off narcotic medications. Continue PT/OT. contiunue bowel regimen. General appearance: Present: A&O X 3 - Head Head exam: Present: atraumatic, normocephalic - Eye Eye exam: Present: PERRL, conjuntiva pink, sclera anicteric Pupils: Present: PERRL - Neck Neck exam general surgery: Present: supple, trachea midline. Absent: lymphadenopathy - Respiratory Respiratory exam: Present: CTAB. Absent: accessory muscle use, rales, rhonchi, wheezes - Cardiovascular Cardiovascular exam: Present: RRR, +S1, +S2. Absent: diastolic murmur, gallop, rubs, systolic murmur - GI/Abdominal GI/Abdominal exam: Present: normal bowel sounds, soft, no peritoneal signs. Absent: distended, tenderness - Extremities Exam Extremities exam: Present: warm, radial pulses palpable and symmetrical. Absent : calf tenderness, cyanotic, pedal edema - Neurological Exam Neurological exam: Present: CN II-XII intact, oriented X3, no focal deficits. Absent: pronater drift, facial droop, speech deficit - Skin Skin exam: Present: dry, intact . - Constitutional Vitals: Temp Pulse Resp BP Pulse Ox 99.6 F 112 12 92/62 100 08/12/17 15:07 08/12/17 16:07 08/12/17 16:12 08/12/17 15:07 08/12/17 16:12 General appearance: Present: A&O X 3 Internal Medicine: Result - Labs CBC & Chem 7: 08/12/17 03:46 08/12/17 03:46 Labs: Short CBC 08/12/17 Range/Units 03:46 WBC 7.0 (4.3-11.1) K/mcL Hgb 9.6 L (11.5-15.4) g/dL Hct 30.5 L (35.3-44.9) % Plt Count 211 (140-400) K/mcL Neutrophils # 5.3 (1.6-8.9) K/mcL BMP 08/12/17 03:46 Sodium 138 Potassium 3.9 Chloride 103 Carbon Dioxide 29 BUN 19 Creatinine 0.81 Glucose 95 Calcium 8.5 L - Impressions Impressions Hip X-Ray 08/12/17 11:15 IMPRESSION: 1. Status post left hip arthroplasty revision. There is persistent soft tissue gas foci which may represent residual postsurgical change though given the timeframe concern for possible infection should be considered. 2. Stable acetabular component position which may relate to perforation of the pelvic quadrilateral plate. There is normal alignment with no acute osseous abnormality. D/ / 08/12/2017 13:09:29 Krishna Martines MD / efren Interpreting Provider: Krishna Martines MD - VTE Documentation of Mechanical Device: Venous foot pump, device Consult Discharge Plan - Plan Referrals: Daniel Stringer MD [Primary Care Provider] -
[2017-08-12] MEDS: Temazepam 15 MG CAPSULE PO PRN (21:05)
[2017-08-12] MEDS: Melatonin 3 MG TABLET PO PRN (21:06)
[2017-08-12] MEDS: *HR* OxyCODONE Immed Rel 15 MG TABLET PO PRN (21:06)
[2017-08-12] MEDS: Magnesium Oxide 400 MG TABLET PO SCH (21:07)
[2017-08-13] MEDS: *HR* OxyCODONE Immed Rel 5 MG TABLET PO PRN ×2 (00:13→10:37)
[2017-08-13] MEDS: Ipratropium/Albuterol Neb 3 ML IH SCH ×4 (04:19→22:33)
[2017-08-13] MEDS: *HR* OxyCODONE Immed Rel 15 MG TABLET PO PRN ×2 (05:57→21:07)
[2017-08-13] MEDS: Gabapentin 300 MG CAPSULE PO SCH ×2 (07:52→21:06)
[2017-08-13] MEDS: Furosemide 20 MG TABLET PO SCH (07:52)
[2017-08-13] MEDS: Ascorbic Acid 500 MG TABLET PO SCH ×2 (07:52→16:26)
[2017-08-13] MEDS: Multivit/Ca/Min/Fe/FA 1 TAB TABLET PO SCH (07:53)
[2017-08-13 08:19] LABS: BUN/Creatinine Ratio 20 (6-26); Blood Urea Nitrogen 17 mg/dL (8-23); Calcium 8.3 mg/dL (8.6-10.3); Carbon Dioxide 32 mEq/L (23-29); Chloride 103 mEq/L (98-107); Glucose 91 mg/dL (70-105); Osmolality,Calculated 285 (280-300); Potassium 3.9 mEq/L (3.5-5.1); Sodium 137 mEq/L (136-145); eGFR For African Americans > 60 (> 60); eGFR For Non-African Americans > 60 (> 60)
[2017-08-13] MEDS: *HR* Amiodarone 200 MG TABLET PO SCH ×2 (08:28→21:06)
[2017-08-13 08:42] LABS: Basophils % 0.6 %; Eosinophils # 0.3 K/mcL (0.0-0.6); Eosinophils % 5.2 %; Hematocrit 28.8 % (35.3-44.9); Hemoglobin 8.7 g/dL (11.5-15.4); Immature Granulocytes % 1.2 % (0-4); Lymphocytes % 20.7 %; Mean Corpuscular HGB Conc 30.2 g/dL (31.6-35.5); Mean Corpuscular Hemoglobin 28.5 pg (28.0-33.3); Mean Corpuscular Volume 94.4 fL (83.0-100.0); Mean Platelet Volume 10.1 fL (9.4-12.4); Monocytes # 0.6 K/mcL (0.0-1.3); Monocytes % 10.9 %; Neutrophils # 3.1 K/mcL (1.6-8.9); Platelet Count 200 K/mcL (140-400); Red Blood Count 3.05 M/mcL (3.82-4.97); Red Cell Distribution Width 17.7 % (11.5-14.5); Segmented Neutrophils % 61.4 %
[2017-08-13 09:10] LABS: Bilirubin,Urine Negative (Negative); Blood,Urine Negative (Negative); Clarity,Urine Cloudy (Clear); Color,Urine Yellow (Yellow); Glucose,Urine (UA) Normal (Normal); Ketones,Urine Negative (Negative); Leukocyte Esterase,Urine Negative (Negative); Nitrite,Urine Negative (Negative); Protein,Urine Negative (Neg-Trace); Specific Gravity,Urine 1.015 (1.010-1.025); Urobilinogen,Urine Normal (Normal)
[2017-08-13 09:13] LABS: Hyaline Casts,Urine None Seen per lpf (None-Few); RBC,Urine 0-3 per hpf (0-3); Squamous Epithelial Cell,Urine Many per lpf (None-Few)
[2017-08-13 09:23] LABS: Bacteria,Urine Few per hpf (None-Few); Yeast,Urine Few per hpf (None Seen)
--- NOTE | 2017-08-13 13:51 | Orthopedics Progress Note ---
Date of Encounter: 08/13/17 Time of Encounter: 13:50 - Assessment and Plan (1) Atrial fibrillation Current Visit: No Status: Chronic Qualifiers: Atrial fibrillation type: permanent Qualified Code(s): I48.2 - Chronic atrial fibrillation (2) Chronic kidney disease Current Visit: No Status: Chronic Qualifiers: Chronic kidney disease stage: stage 3 (moderate) Qualified Code(s): N18.3 - Chronic kidney disease, stage 3 (moderate) (3) CHF (congestive heart failure) Current Visit: No Status: Chronic Qualifiers: Congestive heart failure type: diastolic Congestive heart failure chronicity: unspecified Qualified Code(s): I50.30 - Unspecified diastolic ( congestive) heart failure (4) HLD (hyperlipidemia) Current Visit: No Status: Chronic Qualifiers: Hyperlipidemia type: unspecified Qualified Code(s): E78.5 - Hyperlipidemia , unspecified (5) HTN (hypertension) Current Visit: No Status: Chronic Qualifiers: Hypertension type: unspecified Qualified Code(s): I10 - Essential (primary ) hypertension (6) CKD (chronic kidney disease) stage 3, GFR 30-59 ml/min Current Visit: No Status: Chronic (7) Acute on chronic diastolic (congestive) heart failure Current Visit: No Status: Chronic (8) Chronic respiratory failure Current Visit: No Status: Acute Qualifiers: Respiratory failure complication: hypoxia Qualified Code(s): J96.11 - Chronic respiratory failure with hypoxia (9) Periprosthetic fracture around internal prosthetic hip joint Current Visit: No Status: Chronic Qualifiers: Encounter type: subsequent encounter Laterality: left Qualified Code(s): M97.02XD - Periprosthetic fracture around internal prosthetic left hip joint, subsequent encounter; T84.041D - Periprosthetic fracture around internal prosthetic left hip joint, subsequent encounter (10) Osteoporosis Current Visit: No Status: Chronic Qualifiers: Osteoporosis type: unspecified Presence of current pathological fracture: unspecified Qualified Code(s): M81.0 - Age-related osteoporosis without current pathological fracture (11) Oxygen dependent Current Visit: No Status: Chronic (12) Status post total hip replacement, left Current Visit: No Status: Chronic Subjective Principal diagnosis: s/p L THR revision Interval history: I saw the patient is morning she appeared to be doing well and was in no distress answering questions appropriate. \ Left lower extremity neurovascularly intact dressing clean dry and intact X-rays from yesterday reviewed abnormalities Patient is orthopedically stable for discharge for sometime now. We will follow up in a week. Objective Vital signs: Vital Signs Temp Pulse Resp BP Pulse Ox 08/13/17 11:30 97.9 F 80 18 102/84 92 08/13/17 11:27 97.9 F 80 18 102/84 92 08/13/17 10:58 18 94 08/13/17 07:45 97.9 F 90 18 94/62 94 08/13/17 07:42 97.9 F 90 18 94/62 94 08/13/17 04:19 18 92 08/13/17 03:51 98.5 F 126 19 89/57 99 08/13/17 03:30 110 08/13/17 00:05 116 08/12/17 23:26 99.1 F 137 20 103/57 99 08/12/17 22:38 20 100 08/12/17 20:30 116 08/12/17 20:10 99.3 F 123 19 99/66 97 08/12/17 16:12 12 100 08/12/17 16:07 112 08/12/17 15:07 99.6 F 108 16 92/62 96 Intake and Output 08/12/17 08/13/17 08/13/17 23:59 07:59 15:59 Intake Total 0 / 0 320 / 320 240 / 240 Output Total 300 / 300 250 / 250 400 / 400 Balance -300 / -300 70 / 70 -160 / -160 Intake: Oral 0 / 0 320 / 320 240 / 240 Output: Urine 300 / 300 250 / 250 400 / 400 Other: Meal Lunch Percent of Meal Consumed 50% # Urine Diapers 1 - Labs CBC & BMP: 08/13/17 07:44 08/13/17 07:44 Labs: Abnormal lab results RBC 3.05 M/mcL (3.82-4.97) L 08/13/17 07:44 Hgb 8.7 g/dL (11.5-15.4) L 08/13/17 07:44 Hct 28.8 % (35.3-44.9) L 08/13/17 07:44 MCHC 30.2 g/dL (31.6-35.5) L 08/13/17 07:44 RDW 17.7 % (11.5-14.5) H 08/13/17 07:44 Carbon Dioxide 32 mEq/L (23-29) H 08/13/17 07:44 Calcium 8.3 mg/dL (8.6-10.3) L 08/13/17 07:44 B-Natriuretic Peptide 341 pg/mL (Less than 100) H 08/05/17 10:25 Urine Clarity Cloudy (Clear) A 08/13/17 09:00 Urine Microscopic WBC 5-15 per hpf (0-3) H 08/13/17 09:00 Ur Squamous Epith Cells Many per lpf (None-Few) H 08/13/17 09:00 Urine Yeast Few per hpf (None Seen) H 08/13/17 09:00 Stool Occult Blood Positive (Negative) A 08/09/17 10:00 - VTE Documentation of Mechanical Device: Intermittent pneumatic compression device Consult Discharge Plan - Plan Referrals: Daniel Stringer MD [Primary Care Provider] -
--- NOTE | 2017-08-13 16:21 | Internal Med Progress Note ---
Date of Encounter: 08/13/17 Time of Encounter: 16:18 - Subjective Interval history: 86 year old female who underwent left revision femur of total hip replacement . She subsequently developed Afib with RVR. Cardiology was consulted and an amiodarone drip was Xarelto were started. Her hemaglobin dropped to 7.9 from 11.7 on 08/06 and she received 2 units PRBC and GI was consulted Following the transfusion her Hgb drifed down to 10-9.7 range without hematemesis, melena , or hematochezia. An U/S of her hip was done today to r/u hematoma as a cause of her anemia but it dd not show a hematoma. Her additional comorbid conditions include with CHF, COPD, HLD, HTN, and CKD 3 Interval changes: 08/10/2017: She is A&O and in no acute distress. 08/11/2017: She is A&O and in no acute distress. She had a BM today but per report no hematochezia or melana. No cp or SOB. No Abd bennett. Hgb stable 08/12/2017: She is A&O and in no acute distress. No hematochezia or melana. No cp or SOB. No Abd bennett. Hb stable 08/13/2017: She is A&O and in no acute distress. Her Hgb dropped ~1 gram from yesterday. No hematochezia or melana. No cp or SOB. No Abd bennett. Assessment and Plan: Acute blood loss anemia: Possible colonoscopy. No hematoma form hip surgery. Continue to monitor Hgb. GI called after Hgb today lower. Repeat H&H this afternoon and again in am recommended. Pending. Acute on chronic renal failure Creatinine now within normal limits. Continue to monitor (HFpEF) heart failure with preserved ejection fraction Well compensated. Continue current medications. S/P Hip replacement: Wean off narcotic medications. Continue PT/OT. Contiunue bowel regimen. Ortho pleased with healing. Physical exam: General appearance: Present: A&O X 3 - Head Head exam: Present: atraumatic, normocephalic - Eye Eye exam: Present: PERRL, conjuntiva pink, sclera anicteric Pupils: Present: PERRL - Neck Neck exam general surgery: Present: supple, trachea midline. Absent: lymphadenopathy - Respiratory Respiratory exam: Present: CTAB. Absent: accessory muscle use, rales, rhonchi, wheezes - Cardiovascular Cardiovascular exam: Present: RRR, +S1, +S2. Absent: diastolic murmur, gallop, rubs, systolic murmur - GI/Abdominal GI/Abdominal exam: Present: normal bowel sounds, soft, no peritoneal signs. Absent: distended, tenderness - Extremities Exam Extremities exam: Present: warm, radial pulses palpable and symmetrical. Absent : calf tenderness, cyanotic, pedal edema - Neurological Exam Neurological exam: Present: CN II-XII intact, oriented X3, no focal deficits. Absent: pronater drift, facial droop, speech deficit - Skin Skin exam: Present: dry, intact Labs: - Constitutional Vitals: Temp Pulse Resp BP Pulse Ox 98.9 F 102 18 107/69 92 08/13/17 16:13 08/13/17 16:13 08/13/17 16:13 08/13/17 16:13 08/13/17 16:13 General appearance: Present: A&O X 3 Internal Medicine: Result - Labs CBC & Chem 7: 08/13/17 17:51 08/13/17 07:44 Labs: Short CBC 08/13/17 Range/Units 07:44 WBC 5.0 (4.3-11.1) K/mcL Hgb 8.7 L (11.5-15.4) g/dL Hct 28.8 L (35.3-44.9) % Plt Count 200 (140-400) K/mcL Neutrophils # 3.1 (1.6-8.9) K/mcL BMP 08/13/17 07:44 Sodium 137 Potassium 3.9 Chloride 103 Carbon Dioxide 32 H BUN 17 Creatinine 0.83 Glucose 91 Calcium 8.3 L Urine 08/13/17 Range/Units 09:00 Urine Color Yellow (Yellow) Urine Clarity Cloudy A (Clear) Urine pH 6.0 (5.0-8.0) pH Units Ur Specific [place] 1.015 (1.010-1.025) Urine Protein Negative (Neg-Trace) mg/dL Urine Glucose (UA) Normal (Normal) mg/dL - Impressions Impressions Hip X-Ray 08/12/17 11:15 IMPRESSION: 1. Status post left hip arthroplasty revision. There is persistent soft tissue gas foci which may represent residual postsurgical change though given the timeframe concern for possible infection should be considered. 2. Stable acetabular component position which may relate to perforation of the pelvic quadrilateral plate. There is normal alignment with no acute osseous abnormality. D/ / 08/12/2017 13:09:29 Krishna Martines MD / efren Interpreting Provider: Krishna Martines MD - VTE Documentation of Mechanical Device: Intermittent pneumatic compression device Consult Discharge Plan - Plan Referrals: Daniel Stringer MD [Primary Care Provider] -
[2017-08-13 18:11] LABS: Basophils % 0.3 %; Eosinophils # 0.2 K/mcL (0.0-0.6); Eosinophils % 3.7 %; Hematocrit 33.9 % (35.3-44.9); Lymphocytes % 16.3 %; Mean Corpuscular HGB Conc 30.7 g/dL (31.6-35.5); Mean Corpuscular Hemoglobin 29.1 pg (28.0-33.3); Mean Platelet Volume 9.9 fL (9.4-12.4); Monocytes # 0.5 K/mcL (0.0-1.3); Monocytes % 8.6 %; Neutrophils # 4.3 K/mcL (1.6-8.9); Platelet Count 247 K/mcL (140-400); Red Blood Count 3.57 M/mcL (3.82-4.97); Red Cell Distribution Width 17.6 % (11.5-14.5); Segmented Neutrophils % 70.1 %
[2017-08-13 18:18] LABS: Hemoglobin 10.4 g/dL (11.5-15.4)
[2017-08-13] MEDS: Magnesium Oxide 400 MG TABLET PO SCH (21:07)
[2017-08-13] MEDS: Melatonin 3 MG TABLET PO PRN (21:07)
[2017-08-13] MEDS: Temazepam 15 MG CAPSULE PO PRN (21:07)
[2017-08-14] MEDS: *HR* OxyCODONE Immed Rel 15 MG TABLET PO PRN ×2 (03:30→20:54)
[2017-08-14 03:53] LABS: Basophils % 0.3 %; Eosinophils # 0.3 K/mcL (0.0-0.6); Eosinophils % 4.3 %; Hematocrit 30.6 % (35.3-44.9); Hemoglobin 9.4 g/dL (11.5-15.4); Lymphocytes # 1.1 K/mcL (0.6-4.6); Lymphocytes % 19.4 %; Mean Corpuscular HGB Conc 30.7 g/dL (31.6-35.5); Mean Corpuscular Hemoglobin 29.1 pg (28.0-33.3); Mean Corpuscular Volume 94.7 fL (83.0-100.0); Mean Platelet Volume 9.7 fL (9.4-12.4); Monocytes # 0.5 K/mcL (0.0-1.3); Monocytes % 8.8 %; Neutrophils # 3.8 K/mcL (1.6-8.9); Platelet Count 223 K/mcL (140-400); Red Blood Count 3.23 M/mcL (3.82-4.97); Red Cell Distribution Width 17.4 % (11.5-14.5); Segmented Neutrophils % 66.2 %
[2017-08-14] MEDS: Ipratropium/Albuterol Neb 3 ML IH SCH ×4 (04:21→22:22)
[2017-08-14] MEDS: Gabapentin 300 MG CAPSULE PO SCH ×2 (07:58→20:55)
[2017-08-14] MEDS: Multivit/Ca/Min/Fe/FA 1 TAB TABLET PO SCH (07:58)
[2017-08-14] MEDS: *HR* OxyCODONE Immed Rel 5 MG TABLET PO PRN ×2 (07:58→16:07)
[2017-08-14] MEDS: Ascorbic Acid 500 MG TABLET PO SCH ×2 (07:58→16:07)
[2017-08-14] MEDS: Furosemide 20 MG TABLET PO SCH (07:58)
[2017-08-14] MEDS: *HR* Amiodarone 200 MG TABLET PO SCH ×2 (08:08→20:54)
--- NOTE | 2017-08-14 12:01 | Internal Med Progress Note ---
Date of Encounter: 08/15/17 Time of Encounter: 11:58 - Subjective Interval history: 86 year old female who underwent left revision femur of total hip replacement . She subsequently developed Afib with RVR. Cardiology was consulted and an amiodarone drip was Xarelto were started. Her hemaglobin dropped to 7.9 from 11.7 on 08/06 and she received 2 units PRBC and GI was consulted Following the transfusion her Hgb drifed down to 10-9.7 range without hematemesis, melena , or hematochezia. An U/S of her hip was done today to r/u hematoma as a cause of her anemia but it dd not show a hematoma. Her additional comorbid conditions include with CHF, COPD, HLD, HTN, and CKD 3 Interval changes: 08/10/2017: She is A&O and in no acute distress. 08/11/2017: She is A&O and in no acute distress. She had a BM today but per report no hematochezia or melana. No cp or SOB. No Abd bennett. Hgb stable 08/12/2017: She is A&O and in no acute distress. No hematochezia or melana. No cp or SOB. No Abd bennett. Hb stable 08/13/2017: She is A&O and in no acute distress. Her Hgb dropped ~1 gram from yesterday. No hematochezia or melana. No cp or SOB. No Abd bennett. 08-14-2017:She is A&O and in no acute distress. Her repeat Hgb yesterday afternoon was higher than it had been for days. Likely the first value yesterday was a lab error. Assessment and Plan: Acute blood loss anemia: Possible colonoscopy. No hematoma form hip surgery. Continue to monitor Hgb. GI called after Hgb today lower. Repeat H&H this afternoon and again in am recommended. Repeat H&H Pending. I spoke with CHARY blandon and if Hgbstable again in am with nsigns of bleeding she can safely be d/c'd to rehab tomorrow and f/u as OP sometime when recoverd from surgery and have OP colonoscopy if still indicated. Acute on chronic renal failure Creatinine now within normal limits. Continue to monitor (HFpEF) heart failure with preserved ejection fraction Well compensated. Continue current medications. S/P Hip replacement: Wean off narcotic medications. Continue PT/OT. Contiunue bowel regimen. Ortho pleased with healing. VTE prophylaxis: Disposition: Likely okay to go to rehab if repeat hgb remains stable through tomorrow am. I' ve spoken with GI and he feels there is no urgent need for colonoscopy and she can have it done as OP when her hip has healed. Begin making plans for rehab Physical exam: General appearance: Present: A&O X 3 - Head Head exam: Present: atraumatic, normocephalic - Eye Eye exam: Present: PERRL, conjuntiva pink, sclera anicteric Pupils: Present: PERRL - Neck Neck exam general surgery: Present: supple, trachea midline. Absent: lymphadenopathy - Respiratory Respiratory exam: Present: CTAB. Absent: accessory muscle use, rales, rhonchi, wheezes - Cardiovascular Cardiovascular exam: Present: RRR, +S1, +S2. Absent: diastolic murmur, gallop, rubs, systolic murmur - GI/Abdominal GI/Abdominal exam: Present: normal bowel sounds, soft, no peritoneal signs. Absent: distended, tenderness - Extremities Exam Extremities exam: Present: warm, radial pulses palpable and symmetrical. Absent : calf tenderness, cyanotic, pedal edema - Neurological Exam Neurological exam: Present: CN II-XII intact, oriented X3, no focal deficits. Absent: pronater drift, facial droop, speech deficit - Skin Skin exam: Present: dry, intact Labs: - Constitutional Vitals: Temp Pulse Resp BP Pulse Ox 98.4 F 116 18 136/95 97 08/14/17 11:41 08/14/17 11:41 08/14/17 11:41 08/14/17 11:41 08/14/17 11:41 General appearance: Present: A&O X 3 Internal Medicine: Result - Labs CBC & Chem 7: 08/14/17 16:14 08/14/17 08:59 Labs: Short CBC 08/13/17 08/14/17 Range/Units 17:51 03:30 WBC 6.2 5.8 (4.3-11.1) K/mcL Hgb 10.4 L D 9.4 L (11.5-15.4) g/dL Hct 33.9 L 30.6 L (35.3-44.9) % Plt Count 247 223 (140-400) K/mcL Neutrophils # 4.3 3.8 (1.6-8.9) K/mcL - VTE Documentation of Mechanical Device: Venous foot pump, device Consult Discharge Plan - Plan Referrals: Daniel Stringer MD [Primary Care Provider] -
[2017-08-14 12:22] LABS: BUN/Creatinine Ratio 18 (6-26); Blood Urea Nitrogen 16 mg/dL (8-23); Calcium 8.7 mg/dL (8.6-10.3); Carbon Dioxide 30 mEq/L (23-29); Chloride 103 mEq/L (98-107); Glucose 89 mg/dL (70-105); Osmolality,Calculated 289 (280-300); Potassium 3.6 mEq/L (3.5-5.1); Sodium 139 mEq/L (136-145); eGFR For African Americans > 60 (> 60); eGFR For Non-African Americans 59 (> 60)
[2017-08-14 16:24] LABS: Basophils % 0.4 %; Eosinophils # 0.3 K/mcL (0.0-0.6); Eosinophils % 3.6 %; Hematocrit 33.3 % (35.3-44.9); Immature Granulocytes % 0.9 % (0-4); Lymphocytes # 0.9 K/mcL (0.6-4.6); Lymphocytes % 12.4 %; Mean Corpuscular Hemoglobin 28.7 pg (28.0-33.3); Mean Corpuscular Volume 95.4 fL (83.0-100.0); Mean Platelet Volume 9.6 fL (9.4-12.4); Monocytes # 0.5 K/mcL (0.0-1.3); Monocytes % 7.5 %; Neutrophils # 5.3 K/mcL (1.6-8.9); Platelet Count 261 K/mcL (140-400); Red Blood Count 3.49 M/mcL (3.82-4.97); Red Cell Distribution Width 17.8 % (11.5-14.5); Segmented Neutrophils % 75.2 %
[2017-08-14] MEDS: Temazepam 15 MG CAPSULE PO PRN (20:54)
[2017-08-14] MEDS: Melatonin 3 MG TABLET PO PRN (20:54)
[2017-08-14] MEDS: Magnesium Oxide 400 MG TABLET PO SCH (20:55)
[2017-08-15] MEDS: Ipratropium/Albuterol Neb 3 ML IH SCH ×4 (05:24→22:29)
[2017-08-15] MEDS: *HR* OxyCODONE Immed Rel 5 MG TABLET PO PRN ×2 (06:20→11:21)
[2017-08-15 08:28] LABS: Basophils # 0.1 K/mcL (0.0-0.2); Basophils % 0.8 %; Eosinophils # 0.3 K/mcL (0.0-0.6); Eosinophils % 4.2 %; Hematocrit 34.7 % (35.3-44.9); Hemoglobin 10.5 g/dL (11.5-15.4); Immature Granulocytes % 1.1 % (0-4); Lymphocytes # 1.1 K/mcL (0.6-4.6); Lymphocytes % 17.1 %; Mean Corpuscular HGB Conc 30.3 g/dL (31.6-35.5); Mean Corpuscular Hemoglobin 29.1 pg (28.0-33.3); Mean Corpuscular Volume 96.1 fL (83.0-100.0); Mean Platelet Volume 9.9 fL (9.4-12.4); Monocytes # 0.6 K/mcL (0.0-1.3); Monocytes % 8.5 %; Neutrophils # 4.4 K/mcL (1.6-8.9); Platelet Count 265 K/mcL (140-400); Red Blood Count 3.61 M/mcL (3.82-4.97); Red Cell Distribution Width 17.8 % (11.5-14.5); Segmented Neutrophils % 68.3 %
[2017-08-15 09:07] LABS: BUN/Creatinine Ratio 18 (6-26); Blood Urea Nitrogen 16 mg/dL (8-23); Calcium 8.9 mg/dL (8.6-10.3); Carbon Dioxide 30 mEq/L (23-29); Chloride 104 mEq/L (98-107); Glucose 89 mg/dL (70-105); Osmolality,Calculated 291 (280-300); Potassium 3.9 mEq/L (3.5-5.1); Sodium 140 mEq/L (136-145); eGFR For African Americans > 60 (> 60); eGFR For Non-African Americans > 60 (> 60)
[2017-08-15] MEDS: Multivit/Ca/Min/Fe/FA 1 TAB TABLET PO SCH (09:30)
[2017-08-15] MEDS: Gabapentin 300 MG CAPSULE PO SCH ×2 (09:30→20:50)
[2017-08-15] MEDS: *HR* Amiodarone 200 MG TABLET PO SCH ×2 (09:30→23:20)
[2017-08-15] MEDS: Ascorbic Acid 500 MG TABLET PO SCH ×2 (09:30→17:12)
[2017-08-15] MEDS: Furosemide 20 MG TABLET PO SCH (11:21)
--- NOTE | 2017-08-15 15:09 | Internal Med Progress Note ---
Date of Encounter: 08/15/17 Time of Encounter: 14:34 - Subjective Interval history: 86 year old female who underwent left revision femur of total hip replacement . She subsequently developed Afib with RVR. Cardiology was consulted and an amiodarone drip was Xarelto were started. Her hemaglobin dropped to 7.9 from 11.7 on 08/06 and she received 2 units PRBC and GI was consulted Following the transfusion her Hgb drifed down to 10-9.7 range without hematemesis, melena , or hematochezia. An U/S of her hip was done today to r/u hematoma as a cause of her anemia but it dd not show a hematoma. Her additional comorbid conditions include with CHF, COPD, HLD, HTN, and CKD 3 Interval changes: 08/10/2017: She is A&O and in no acute distress. 08/11/2017: She is A&O and in no acute distress. She had a BM today but per report no hematochezia or melana. No cp or SOB. No Abd bennett. Hgb stable 08/12/2017: She is A&O and in no acute distress. No hematochezia or melana. No cp or SOB. No Abd bennett. Hb stable 08/13/2017: She is A&O and in no acute distress. Her Hgb dropped ~1 gram from yesterday. No hematochezia or melana. No cp or SOB. No Abd bennett. 08-14-2017:She is A&O and in no acute distress. Her repeat Hgb yesterday afternoon was higher than it had been for days. Likely the first value yesterday was a lab error. 08-15-2017: She is A&O and in no acute distress. Repeat bg remains stable with no further melena Assessment and Plan: Acute blood loss anemia: Possible colonoscopy. No hematoma form hip surgery. Continue to monitor Hgb. GI called after Hgb today lower. Repeat H&H this afternoon and again in am recommended. Repeat H&H Pending. I spoke with GI jamia and if Hgbstable again in am with nsigns of bleeding she can safely be d/c'd to rehab tomorrow and f/u as OP sometime when recoverd from surgery and have OP colonoscopy if still indicated. Acute on chronic renal failure Creatinine now within normal limits. Continue to monitor (HFpEF) heart failure with preserved ejection fraction Well compensated. Continue current medications. S/P Hip replacement: Wean off narcotic medications. Continue PT/OT. Contiunue bowel regimen. Ortho pleased with healing. VTE prophylaxis: Disposition: Likely okay to go to rehab if repeat hgb remains stable through tomorrow am. I' ve spoken with GI and he feels there is no urgent need for colonoscopy and she can have it done as OP when her hip has healed. Begin making plans for rehab Physical exam: General appearance: Present: A&O X 3 - Head Head exam: Present: atraumatic, normocephalic - Eye Eye exam: Present: PERRL, conjuntiva pink, sclera anicteric Pupils: Present: PERRL - Neck Neck exam general surgery: Present: supple, trachea midline. Absent: lymphadenopathy - Respiratory Respiratory exam: Present: CTAB. Absent: accessory muscle use, rales, rhonchi, wheezes - Cardiovascular Cardiovascular exam: Present: RRR, +S1, +S2. Absent: diastolic murmur, gallop, rubs, systolic murmur - GI/Abdominal GI/Abdominal exam: Present: normal bowel sounds, soft, no peritoneal signs. Absent: distended, tenderness - Extremities Exam Extremities exam: Present: warm, radial pulses palpable and symmetrical. Absent : calf tenderness, cyanotic, pedal edema - Neurological Exam Neurological exam: Present: CN II-XII intact, oriented X3, no focal deficits. Absent: pronater drift, facial droop, speech deficit - Skin Skin exam: Present: dry, intact Labs: - Constitutional Vitals: Temp Pulse Resp BP Pulse Ox 97.7 F 95 15 106/66 95 08/15/17 11:14 08/15/17 11:27 08/15/17 11:14 08/15/17 11:14 08/15/17 11:27 General appearance: Present: A&O X 3 Internal Medicine: Result - Labs CBC & Chem 7: 08/15/17 08:06 08/15/17 08:06 Labs: Short CBC 08/14/17 08/15/17 Range/Units 16:14 08:06 WBC 7.0 6.5 (4.3-11.1) K/mcL Hgb 10.0 L 10.5 L (11.5-15.4) g/dL Hct 33.3 L 34.7 L (35.3-44.9) % Plt Count 261 265 (140-400) K/mcL Neutrophils # 5.3 4.4 (1.6-8.9) K/mcL BMP 08/15/17 08:06 Sodium 140 Potassium 3.9 Chloride 104 Carbon Dioxide 30 H BUN 16 Creatinine 0.87 Glucose 89 Calcium 8.9 - VTE Documentation of Mechanical Device: Venous foot pump, device Consult Discharge Plan - Plan Referrals: Daniel Stringer MD [Primary Care Provider] -
[2017-08-15] MEDS: *HR* OxyCODONE Immed Rel 15 MG TABLET PO PRN ×2 (15:17→20:50)
[2017-08-15] MEDS: Melatonin 3 MG TABLET PO PRN (20:50)
[2017-08-15] MEDS: Magnesium Oxide 400 MG TABLET PO SCH (20:50)
[2017-08-15] MEDS: Temazepam 15 MG CAPSULE PO PRN (20:50)
[2017-08-16] MEDS: *HR* OxyCODONE Immed Rel 15 MG TABLET PO PRN ×2 (04:51→15:47)
[2017-08-16] MEDS: Ipratropium/Albuterol Neb 3 ML IH SCH ×3 (05:19→16:18)
[2017-08-16 07:20] LABS: Basophils % 0.6 %; Eosinophils # 0.3 K/mcL (0.0-0.6); Hematocrit 28.7 % (35.3-44.9); Immature Granulocytes % 1.1 % (0-4); Lymphocytes # 1.4 K/mcL (0.6-4.6); Lymphocytes % 21.8 %; Mean Corpuscular Hemoglobin 28.5 pg (28.0-33.3); Mean Platelet Volume 10.1 fL (9.4-12.4); Monocytes # 0.6 K/mcL (0.0-1.3); Monocytes % 8.7 %; Neutrophils # 4.1 K/mcL (1.6-8.9); Platelet Count 260 K/mcL (140-400); Red Blood Count 3.02 M/mcL (3.82-4.97); Red Cell Distribution Width 18.3 % (11.5-14.5); Segmented Neutrophils % 63.8 %
[2017-08-16 07:48] LABS: Hemoglobin 8.6 g/dL (11.5-15.4)
[2017-08-16] MEDS: *HR* Amiodarone 200 MG TABLET PO SCH (08:27)
[2017-08-16] MEDS: Gabapentin 300 MG CAPSULE PO SCH (08:27)
[2017-08-16] MEDS: Multivit/Ca/Min/Fe/FA 1 TAB TABLET PO SCH (08:27)
[2017-08-16] MEDS: Ascorbic Acid 500 MG TABLET PO SCH (08:28)
[2017-08-16] MEDS: Furosemide 20 MG TABLET PO SCH (08:28)
[2017-08-16] MEDS: *HR* OxyCODONE Immed Rel 5 MG TABLET PO PRN ×2 (08:28→12:09)
[2017-08-16 09:51] LABS: BUN/Creatinine Ratio 19 (6-26); Blood Urea Nitrogen 16 mg/dL (8-23); Calcium 8.2 mg/dL (8.6-10.3); Carbon Dioxide 31 mEq/L (23-29); Chloride 102 mEq/L (98-107); Glucose 94 mg/dL (70-105); Osmolality,Calculated 287 (280-300); Potassium 3.6 mEq/L (3.5-5.1); Sodium 138 mEq/L (136-145); eGFR For African Americans > 60 (> 60); eGFR For Non-African Americans > 60 (> 60)
[2017-08-16 11:36] VITALS: BP 101/70
--- NOTE | 2017-08-16 12:54 | Physician Discharge Referral ---
Expected Duration of Placement: left hip fracture Prognosis: Good Aware of Diagnosis: Patient, Family Aware of Prognosis: Patient, Family - Transfer Medications Home Medications: Multivitamin [Multi-Day Vitamins] 1 each PO DAILY 04/25/15 [History] Calcium Carbonate [Calcium] 500 mg PO HS 03/31/17 [History] Furosemide [Lasix] 20 mg PO DAILY 03/31/17 [History] Magnesium Oxide [Mag-Ox] 400 mg PO HS 03/31/17 [History] [place]-3 Fatty Acids [Fish Oil] 600 mg PO DAILY 03/31/17 [History] Vit C/Vit E/Lutein/Min/[place]-3 [Ocuvite Softgel] 1 each PO HS 03/31/17 [History] Multivit/Ca/Min/Fe/FA [Thera M Plus] 1 tab PO DAILY tablet 04/16/17 [Rx] Rivaroxaban [Xarelto] 20 mg PO DAILY 06/01/17 [History] Amiodarone [Cordarone] 200 mg PO BID tablet 06/24/17 [Rx] Gabapentin [Neurontin] 300 mg PO BID capsule 06/24/17 [Rx] Oxycodone HCl [Roxicodone 30] 30 mg PO QID PRN #10 tablet 06/24/17 [Rx] Benzonatate [Tessalon] 100 mg PO TID 07/19/17 [History] Chloraseptic [place] [Chloraseptic] 1 spray MM Q2H PRN 07/19/17 [History] Guaifenesin [Mucinex] 1,200 mg PO BID 07/19/17 [History] Ipratropium/Albuterol Neb [Duoneb] 3 ml IH QID 07/19/17 [History] Ipratropium/Albuterol Neb [Duoneb] 3 ml IH QID PRN 07/19/17 [History] Melatonin [Melatin] 3 mg PO HS PRN 07/19/17 [History] Oxygen 2 l NS AD 07/19/17 [History] Simvastatin [Zocor] 10 mg PO HS 07/19/17 [History] Acetaminophen [Tylenol] 650 mg PO Q6HR PRN tablet 07/22/17 [Rx] Clindamycin HCl 600 mg PO TID #18 capsule 07/23/17 [Rx] Metoprolol [Lopressor] 75 mg PO TID #90 tablet 07/23/17 [Rx] Allergies/Adverse Reactions: 3 Allergy/AdvReac Type Severity Reaction Status Date / Time amlodipine Allergy See Verified 08/02/17 13:55 Comments aspirin Allergy Rash Verified 08/02/17 13:55 codeine Allergy Rash Verified 08/02/17 13:55 - Respiratory Orders Smoking Cessation: Smoking cessation has been advised. For more information, call the [place] Tobacco Quit Line at 5-630-IVRK-NOW. CERTIFICATION: I certify that the transfer of the above named patient to an Extended Care Facility is necessary for the continuing treatment of the diagnosis listed. The above information is true and accurate reflection of patient's current condition. Confidential - Redisclosure prohibited without a patient's written consent.
--- NOTE | 2017-08-16 12:59 | Discharge Summary ---
Date of Encounter: 08/17/17 Time of Encounter: 12:56 - Discharge Medications Prescriptions: Amiodarone [Cordarone] 400 mg PO BID 30 Days #120 tablet Metoprolol [Lopressor] 50 mg PO BID 30 Days #60 tablet Home Medications: Multivitamin [Multi-Day Vitamins] 1 each PO DAILY 04/25/15 [History] Calcium Carbonate [Calcium] 500 mg PO HS 03/31/17 [History] Furosemide [Lasix] 20 mg PO DAILY 03/31/17 [History] Magnesium Oxide [Mag-Ox] 400 mg PO HS 03/31/17 [History] [place]-3 Fatty Acids [Fish Oil] 600 mg PO DAILY 03/31/17 [History] Vit C/Vit E/[place]/Min/[place]-3 [Ocuvite Softgel] 1 each PO HS 03/31/17 [History] Multivit/Ca/Min/Fe/FA [Thera M Plus] 1 tab PO DAILY tablet 04/16/17 [Rx] Rivaroxaban [Xarelto] 20 mg PO DAILY 06/01/17 [History] Amiodarone [Cordarone] 200 mg PO BID tablet 06/24/17 [Rx] Gabapentin [Neurontin] 300 mg PO BID capsule 06/24/17 [Rx] Oxycodone HCl [Roxicodone 30] 30 mg PO QID PRN #10 tablet 06/24/17 [Rx] Benzonatate [Tessalon] 100 mg PO TID 07/19/17 [History] Chloraseptic [place] [Chloraseptic] 1 spray MM Q2H PRN 07/19/17 [History] Guaifenesin [Mucinex] 1,200 mg PO BID 07/19/17 [History] Ipratropium/Albuterol Neb [Duoneb] 3 ml IH QID 07/19/17 [History] Ipratropium/Albuterol Neb [Duoneb] 3 ml IH QID PRN 07/19/17 [History] Melatonin [Melatin] 3 mg PO HS PRN 07/19/17 [History] Oxygen 2 l NS AD 07/19/17 [History] Simvastatin [Zocor] 10 mg PO HS 07/19/17 [History] Acetaminophen [Tylenol] 650 mg PO Q6HR PRN tablet 07/22/17 [Rx] Amiodarone [Cordarone] 400 mg PO BID 30 Days #120 tablet 08/16/17 [Rx] Metoprolol [Lopressor] 50 mg PO BID 30 Days #60 tablet 08/16/17 [Rx] Allergies/Adverse Reactions: 3 Allergy/AdvReac Type Severity Reaction Status Date / Time amlodipine Allergy See Verified 08/02/17 13:55 Comments aspirin Allergy Rash Verified 08/02/17 13:55 codeine Allergy Rash Verified 08/02/17 13:55 Date of admission: 08/02/17 22:12 Primary care physician: Daniel Stringer MD Consults: 08/02/17 22:18 Consult to Nurse Navigator [CONS] Routine Comment: ortho navigator Consult to Occupational Therapy [CONS] Routine Comment: Evaluate, develop and implement POC Reason for Consult: total hip replacement Consult to Physical Therapy [CONS] Routine Comment: Evaluate, develop and implement POC Reason for Consult: total hip replacement Consult to Building Guard Deputy Sheriff [CONS] Routine Reason for SW Consult: post op joint replacement RT Post Op Consult [CONS] Routine 08/04/17 15:16 Consult to Hospitalist [CONS] Routine Consulting Provider: Hospitalist Melvin Reason for Consult: EKG changes Call Completed: Yes 08/04/17 16:47 Consult to Cardiology [CONS] Routine Comment: Consulting Provider: Cardiology Jeanette Reason for Consult: afib rvr Time Notified: 16:48 Call Completed: Yes 08/06/17 15:51 Consult to Invasive Line Access Team [CONS] Routine Reason for Consult: limitied vascular Line Type: EPIV 08/09/17 11:41 Consult to Gastroenterology [CONS] Routine Consulting Provider: Gastroenterology Jeanette Reason for Consult: anemia, postitive hemoccult Time Notified: 11:42 Call Completed: Yes Discharging clinician: Jimmy Tripathi - Patient Status Disposition: Transfer Inpatient Rehab Fac Condition: Good - Discharge Instructions Instructions: Atrial Fibrillation (DC) Follow Up With: Daniel Stringer MD [Primary Care Provider] - Interval History: Hospital Course: Ms. Francois is a 86 year old female patient who was admitted to the orthopedic surgery service for a revisoin of her prior left THR. The hospitalist service was subsequently consulted by orthopedic surgery for medical managemnt of her comorbid conditions. She has a history of hypertension hyperlipidemia diastolic heart failure paroxysmal atrial fibrillation and CKD3. She underwent left revision femur of total hip replacement Wednesday08/03/[address] Billingsley. She was doing well following the procedure until today when she began to experience sudden hypotension and tachycardia and developed and AKIon CKD-III. She was given 500 mL fluid bolus with no improvement in her symptoms. She was found to be in A. fib with a RVR. 120s she is in atrial fibrillation systolic blood pressure is 94 she denies any chest pain shortness of breath or palpitations at this time. Patient was given another 500 mL IV fluid bolus. Cardiology was also consulted and an amiodarone drip was started. Because of her stroke risk with -Fib Xarelto was started. Her hemaglobin thesuddenly dropped to 7.9 from 11.7 on 08/06. She received 2 units PRBC and GI was consulted Following the transfusion her Hgb drifed down to 10-9.7 range without hematemesis, melena, or hematochezia. An U/S of her hip was done to r/ u a hematoma as a cause of her anemia. It dd not show a hematoma at the surgical site. Innitially Xarelto was held and when her Hgb proved to be stable it was restart. At the time of her discharge to her Hgb had been stable and with no further reported melana or hematochezia. She will be discharged to OP rehab and at [facility] her discharge from rehab will need to up with GI and Cardiology in addition to orthopedic surgery. I've spoken with GI and he feels there is no urgent need for colonoscopy and she can have it done as OP when her hip has healed. Thoughout he recovery she was seen by PT/OT and will need more intensive rehab. Interval changes: She is A&O x3 and has no new complaints. Her pain is wll controled and she is ready for rehab. Physical exam: General appearance: Present: A&O X 3 - Head Head exam: Present: atraumatic, normocephalic - Eye Eye exam: Present: PERRL, conjuntiva pink, sclera anicteric Pupils: Present: PERRL - Neck Neck exam general surgery: Present: supple, trachea midline. Absent: lymphadenopathy - Respiratory Respiratory exam: Present: CTAB. Absent: accessory muscle use, rales, rhonchi, wheezes - Cardiovascular Cardiovascular exam: Present: RRR, +S1, +S2. Absent: diastolic murmur, gallop, rubs, systolic murmur - GI/Abdominal GI/Abdominal exam: Present: normal bowel sounds, soft, no peritoneal signs. Absent: distended, tenderness - Extremities Exam Extremities exam: Present: warm, radial pulses palpable and symmetrical. Absent : calf tenderness, cyanotic, pedal edema - Neurological Exam Neurological exam: Present: CN II-XII intact, oriented X3, no focal deficits. Absent: pronater drift, facial droop, speech deficit - Skin Skin exam: Present: dry, intact Assessment and Plan: 1. Acute blood loss anemia: Possible colonoscopy. No hematoma form hip surgery. Continue to monitor Hgb. GI called after Hgb today lower. Repeat H&H this afternoon and again in am recommended. Repeat H&H Pending. I spoke with GI jamia and if Hgbstable again in am with nsigns of bleeding she can safely be d/c'd to rehab tomorrow and f/u as OP sometime when recoverd from surgery and have OP colonoscopy if still indicated. 2. Acute on chronic renal failure Creatinine now within normal limits. Continue to monitor 3. (HFpEF) heart failure with preserved ejection fraction Well compensated. Continue current medications. 4. S/P Hip replacement: Wean off narcotic medications. Continue PT/OT. Contiunue bowel regimen. Ortho pleased with healing. 5. VTE prophylaxis: [facility] Hospital course: Ms. Francois is a 86 year old female Time spent discussing smoking cessation with patient: more than 10 minutes - Time Spent with Patient Total time spent providing and/or coordinating discharge services: - Constitutional Vitals: Vital Signs: Temp Pulse Resp BP Pulse Ox 98.8 F 110 18 101/70 98 08/16/17 11:45 08/16/17 11:45 08/16/17 11:45 08/16/17 11:45 08/16/17 11:45 Physical exam: General appearance: Present: A&O X 3 - Head Head exam: Present: atraumatic, normocephalic - Eye Eye exam: Present: PERRL, conjuntiva pink, sclera anicteric Pupils: Present: PERRL - Neck Neck exam general surgery: Present: supple, trachea midline. Absent: lymphadenopathy - Respiratory Respiratory exam: Present: CTAB. Absent: accessory muscle use, rales, rhonchi, wheezes - Cardiovascular Cardiovascular exam: Present: RRR, +S1, +S2. Absent: diastolic murmur, gallop, rubs, systolic murmur - GI/Abdominal GI/Abdominal exam: Present: normal bowel sounds, soft, no peritoneal signs. Absent: distended, tenderness - Extremities Exam Extremities exam: Present: warm, radial pulses palpable and symmetrical. Absent : calf tenderness, cyanotic, pedal edema - Neurological Exam Neurological exam: Present: CN II-XII intact, oriented X3, no focal deficits. Absent: pronater drift, facial droop, speech deficit - Skin Skin exam: Present: dry, intact General appearance: Present: A&O X 3 - VTE Documentation of Mechanical Device: Intermittent pneumatic compression device
== END 2017-08-16 16:30 | DRG 466 ==
LOC: SAMDAY 13:45 → SUATTDRO 22:12 → 3NENU 22:12 → 2NNU 08-06 15:12
PROVIDERS: ADMIT Orthopaedic Surgery; ATTEND Student in an Organized Health Care Education/Training Program

== ENCOUNTER 2017-09-02 12:03 | Inpatient (IN) ==
--- NOTE | 2017-09-02 12:12 | Emergency Department Note ---
Disposition Clinical Impression: Retroperitoneal hemorrhage, Anticoagulated Constipation Qualifiers: Constipation type: unspecified constipation type Qualified Code(s): K59.00 - Constipation, unspecified Anemia Qualifiers: Anemia type: unspecified type Qualified Code(s): D64.9 - Anemia, unspecified Disposition: Admitted As Inpatient Condition: Fair Referrals: Daniel Stringer MD [Primary Care Provider] - Forms: ED Satisfaction Letter, Work/School Release Time of Disposition: 13:48 Abdominal Pain HPI - General Chief Complaint: ED Abdominal Pain Stated Complaint: constipation Time Seen by Provider: 09/02/17 12:05 Source: patient Mode of arrival: ambulatory Limitations: no limitations Nursing Notes Reviewed: Yes Vital Signs Reviewed: Yes - History of Present Illness HPI Narrative: 86-year-old female presents for evaluation of right-sided abdominal pain. Patient notes a recent hip replacement surgery. Patient's been on Percocet to help control her pain. Patient has been having worsening right-sided abdominal pain for the past 3-4 days. Noticed to have no bowel movements. Patient presents from nursing care facility. Nursing staff noted the patient has been having bowel sounds. Patient denies any nausea or vomiting. Denies any chest pain. Denies any shortness of breath. No fevers. Patient has had a history of prior abdominal surgeries including appendectomy and cholecystectomy. Pain Scale: 0 - Related Data Home Medications Medication Instructions Recorded Confirmed Multivitamin [Multi-Day Vitamins] 1 each PO DAILY 04/25/15 09/02/17 Calcium Carbonate [Calcium] 500 mg PO HS 03/31/17 09/02/17 Furosemide [Lasix] 20 mg PO DAILY 03/31/17 09/02/17 Magnesium Oxide [Mag-Ox] 400 mg PO HS 03/31/17 09/02/17 [place]-3 Fatty Acids [Fish Oil] 600 mg PO DAILY 03/31/17 09/02/17 Vit C/Vit E/Lutein/Min/[place]-3 1 each PO HS 03/31/17 09/02/17 [Ocuvite Softgel] Rivaroxaban [Xarelto] 20 mg PO DAILY 06/01/17 09/02/17 Benzonatate [Tessalon] 100 mg PO TID 07/19/17 09/02/17 Chloraseptic [place] [Chloraseptic] 1 spray MM Q2H PRN 07/19/17 09/02/17 Guaifenesin [Mucinex] 1,200 mg PO BID 07/19/17 09/02/17 Ipratropium/Albuterol Neb [Duoneb] 3 ml IH QID PRN 07/19/17 09/02/17 Oxygen 2 l NS AD 07/19/17 09/02/17 Simvastatin [Zocor] 10 mg PO HS 07/19/17 09/02/17 Amiodarone [Cordarone] 200 mg PO DAILY 09/02/17 09/02/17 Metoprolol [Lopressor] 100 mg PO BID 09/02/17 09/02/17 Previous Rx's Medication Instructions Recorded Gabapentin [Neurontin] 300 mg PO BID capsule 06/24/17 Oxycodone HCl [Roxicodone 30] 30 mg PO QID PRN #10 tablet 06/24/17 Acetaminophen [Tylenol] 650 mg PO Q6HR PRN tablet 07/22/17 Allergies Allergy/AdvReac Type Severity Reaction Status Date / Time amlodipine Allergy See Verified 08/02/17 13:55 Comments aspirin Allergy Rash Verified 08/02/17 13:55 codeine Allergy Rash Verified 08/02/17 13:55 All systems ED: reviewed and negative except as stated. Constitutional: Denies: fever Cardiovascular: Denies: chest pain Respiratory: Denies: cough, dyspnea Gastrointestinal: Reports: abdominal pain, constipation. Denies: nausea, vomiting Abdominal Pain PMH - Past Medical History Medical history: Reports: atrial fibrillation, CHF, COPD, hyperlipidemia, hypertension, osteoporosis Female Surgical History: Reports: appendectomy, cholecystectomy Psychiatric history: Reports: anxiety - Social History Smoking status: Never smoker Alcohol use: Reports: none Drug use: Reports: none Physical Exam - General Limitations: no limitations General appearance: alert, in no apparent distress - Head Head exam: atraumatic, normocephalic, normal inspection - Eye Eye exam: Present: normal appearance, PERRL, EOMI - ENT ENT exam: normal exam, mucous membranes moist - Neck Neck exam: Present: normal inspection, trachea midline - Chest Chest inspection: Present: normal inspection, symmetric chest wall rise - Respiratory Respiratory exam: Present: normal lung sounds bilaterally. Absent: respiratory distress - Cardiovascular Cardiovascular exam: Present: regular rate, normal rhythm. 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 Absent: fecal impaction - Extremities Exam Extremities exam: Present: normal inspection - Back Exam Back exam: Present: normal inspection - Neurological Exam Neurological exam: Present: alert - Skin Skin exam: Present: warm, dry, intact, normal color Course Course Narrative: Patient will do basic lab work, patient will also get CT abdomen and pelvis. Disposition pending. - Consultations Consultation #1: With the radiologist about the scan. States these are typically spontaneous bleeds. Recommend reversing anticoagulation holding anticoagulation. Also discussed the case with interventional radiology states that they typically do not go in and it embolized. They states they would recommend reversing with trending H&H's. Patient continued to bleed obtain a CTA of the abdomen and pelvis. Time: 13:12 Vital Signs Temperature 98.4 F 09/02/17 12:04 Pulse Rate 120 09/02/17 12:04 Respiratory Rate 16 09/02/17 12:04 Blood Pressure 112/65 09/02/17 12:04 O2 Sat by Pulse Oximetry 94 09/02/17 12:04 Temperature 98.5 F 09/02/17 16:43 Pulse Rate 113 09/02/17 16:43 Respiratory Rate 14 09/02/17 16:43 Blood Pressure 112/78 09/02/17 16:43 O2 Sat by Pulse Oximetry 98 09/02/17 16:43 Oxygen Delivery Oxygen Delivery Room Air Abdominal Pain - MDM Narrative Medical decision making narrative: Patient presents with concerns of abdominal pain. Patient had a ED evaluation which showed an acute drop in hemoglobin over 2 g. Patient is on stroke though for presumed A. fib. Patient's CT scan of the abdomen and pelvis shows retroperitoneal hemorrhage with psoas hematoma. Spoke with radiology states that they typically do not embolize. Also spoke with interventional radiology who confirmed that they typically do not embolize. Recommend to reverse as well as trending hemoglobins. Also recommend to perform a repeat CT abdomen and pelvis with contrast if there is continued concern for active bleeding. States that these will just monitor. Patient was tachycardic and was given 2 units of packed red cells in the ER given the acute drop in hemoglobin. Patient will be admitted to the hospice service for further care and monitoring. Patient pain was addressed in the ER with minimal. Patient is postop from a left total hip. Patient resting comfortably. No acute distress. She was given PCC due to the concerns for active hemorrhage in the retroperitoneum. The patient was on Xarelto for A. fib. Risks versus benefit of reversal was weighed. [place] that the patient would best benefit from reversal acuity of her anticoagulation to avoid excessive hemorrhage into the retroperitoneal space. - Lab Data Lab results reviewed: Yes I reviewed the patient's lab results. Result diagrams: 09/02/17 12:53 09/02/17 12:53 Lab Results 09/02/17 09/02/17 09/02/17 Range/Units 12:53 12:53 12:53 WBC 11.2 H D (4.3-11.1) K/mcL RBC 2.86 L (3.82-4.97) M/mcL Hgb 8.6 L D (11.5-15.4) g/dL Hct 28.1 L (35.3-44.9) % MCV 98.3 (83.0-100.0) fL MCH 30.1 (28.0-33.3) pg MCHC 30.6 L (31.6-35.5) g/dL RDW 17.3 H (11.5-14.5) % Plt Count 260 (140-400) K/mcL MPV 10.2 (9.4-12.4) fL Immature Gran % 0.4 (0-4) % Seg Neutrophils % 82.0 % Lymphocytes % 8.3 % Monocytes % 7.6 % Eosinophils % 1.2 % Basophils % 0.5 % Neutrophils # 9.2 H (1.6-8.9) K/mcL Lymphocytes # 0.9 (0.6-4.6) K/mcL Monocytes # 0.9 (0.0-1.3) K/mcL Eosinophils # 0.1 (0.0-0.6) K/mcL Basophils # 0.1 (0.0-0.2) K/mcL PT 26.2 H (9.4-12.1) Seconds INR 2.4 Sodium 134 L (136-145) mEq/L Potassium 4.8 (3.5-5.1) mEq/L Chloride 100 (98-107) mEq/L Carbon Dioxide 28 (23-29) mEq/L BUN 35 H (8-23) mg/dL Creatinine 1.22 H (0.60-1.20) mg/dL Est GFR ( Amer) 51 L (> 60) Est GFR (Non-Af Amer) 42 L (> 60) BUN/Creatinine Ratio 29 H (6-26) Glucose 124 H (70-105) mg/dL Calculated Osmolality 287 (280-300) Lactic Acid (0.5-2.2) mmol/L Calcium 9.0 (8.6-10.3) mg/dL Total Bilirubin 0.9 (0.3-1.0) mg/dL AST 20 (13-39) Units/L ALT 8 (7-52) Units/L Alkaline Phosphatase 95 (34-104) Units/L Serum Total Protein 6.8 (6.4-8.9) g/dL Albumin 3.4 L (3.5-5.7) g/dL Globulin 3.4 (2.4-3.5) g/dL Albumin/Globulin Ratio 1.0 L (1.1-2.2) Lipase 41 (11-82) Units/L Blood Type Antibody Screen Antibody Identification MTS Gel Crossmatch 09/02/17 09/02/17 Range/Units 12:53 14:22 WBC (4.3-11.1) K/mcL RBC (3.82-4.97) M/mcL Hgb (11.5-15.4) g/dL Hct (35.3-44.9) % MCV (83.0-100.0) fL MCH (28.0-33.3) pg MCHC (31.6-35.5) g/dL RDW (11.5-14.5) % Plt Count (140-400) K/mcL MPV (9.4-12.4) fL Immature Gran % (0-4) % Seg Neutrophils % % Lymphocytes % % Monocytes % % Eosinophils % % Basophils % % Neutrophils # (1.6-8.9) K/mcL Lymphocytes # (0.6-4.6) K/mcL Monocytes # (0.0-1.3) K/mcL Eosinophils # (0.0-0.6) K/mcL Basophils # (0.0-0.2) K/mcL PT (9.4-12.1) Seconds INR Sodium (136-145) mEq/L Potassium (3.5-5.1) mEq/L Chloride (98-107) mEq/L Carbon Dioxide (23-29) mEq/L BUN (8-23) mg/dL Creatinine (0.60-1.20) mg/dL Est GFR ( Amer) (> 60) Est GFR (Non-Af Amer) (> 60) BUN/Creatinine Ratio (6-26) Glucose (70-105) mg/dL Calculated Osmolality (280-300) Lactic Acid 0.9 (0.5-2.2) mmol/L Calcium (8.6-10.3) mg/dL Total Bilirubin (0.3-1.0) mg/dL AST (13-39) Units/L ALT (7-52) Units/L Alkaline Phosphatase (34-104) Units/L Serum Total Protein (6.4-8.9) g/dL Albumin (3.5-5.7) g/dL Globulin (2.4-3.5) g/dL Albumin/Globulin Ratio (1.1-2.2) Lipase (11-82) Units/L Blood Type O POSITIVE Antibody Screen POSITIVE A Antibody Identification Inconclusive MTS Gel Crossmatch See Detail - Radiology Data Radiology results reviewed: Yes I reviewed the patient's radiology results. Abdomen/Pelvis CT 09/02/17 12:05 IMPRESSION: Marked heterogeneous enlargement of the right iliopsoas musculature consistent with hemorrhage. Additional right-sided retroperitoneal hemorrhage is present, and there is mild hemoperitoneum/free fluid. Critical results were called by Dr. Cory Mcclellan MD to Dr. Escobar on 09/02/2017 at 13:06. D/ / Cory Mcclellan MD / Cory Mcclellan MD Interpreting Provider: Cory Mcclellan MD - EKG Data EKG attestation: Yes I reviewed and interpreted this EKG. Rate: tachycardia Rhythm: A.Fib [place]/QRS: normal, RBBB T wave inversions noted in: v1, v2, v3 When compared to previous EKG there are: no significant changes Interpretation: nonspecific ST-T wave changes S.B.A.R. - S.B.A.R. Situation: Demographics Background: Presenting Complaint Assessment: Vital Signs, Course and respsone to treatment, Patient/Family Expectation Recommendation: Barrier(s) to disposition, Recommendation based on pending studies, treatments, or consults Cathy Report Given to: Dr. Bernardo Morgan Repor Time: 13:47 Attestation Statement - Attestation Attestation: I examined this patient and my medical decision-making was reviewed with the Resident Physician. I agree with the documented findings, disposition and treatment plan as described except to the extent set forth below. Patient to the ED complaining of right-sided abdominal pain and inability have a bowel movement. Patient status post recent hip surgery on the left. States she has not a bowel movement in 3 days. On examination she has no stool in the rectal wall. Abdomen soft with right-sided tenderness. Plan. Patient has CT of her abdomen shows a large right-sided retroperitoneal bleed. Patient is on Dilaudid. Hemodynamic stable. Hemoglobin has dropped 2 g. We will transfuse with PCC. Admitted to hospitalist. 40 minutes of critical care exclusive of separately billable procedures.
[2017-09-02 13:03] LABS: Basophils # 0.1 K/mcL (0.0-0.2); Basophils % 0.5 %; Eosinophils # 0.1 K/mcL (0.0-0.6); Eosinophils % 1.2 %; Hematocrit 28.1 % (35.3-44.9); Immature Granulocytes % 0.4 % (0-4); Lymphocytes # 0.9 K/mcL (0.6-4.6); Lymphocytes % 8.3 %; Mean Corpuscular HGB Conc 30.6 g/dL (31.6-35.5); Mean Corpuscular Hemoglobin 30.1 pg (28.0-33.3); Mean Corpuscular Volume 98.3 fL (83.0-100.0); Mean Platelet Volume 10.2 fL (9.4-12.4); Monocytes # 0.9 K/mcL (0.0-1.3); Monocytes % 7.6 %; Neutrophils # 9.2 K/mcL (1.6-8.9); Platelet Count 260 K/mcL (140-400); Red Blood Count 2.86 M/mcL (3.82-4.97); Red Cell Distribution Width 17.3 % (11.5-14.5)
[2017-09-02 13:09] LABS: INR 2.4; Prothrombin Time 26.2 Seconds (9.4-12.1)
[2017-09-02 13:21] LABS: Albumin 3.4 g/dL (3.5-5.7); Bilirubin,Total 0.9 mg/dL (0.3-1.0); Globulin 3.4 g/dL (2.4-3.5); Potassium 4.8 mEq/L (3.5-5.1); Total Protein 6.8 g/dL (6.4-8.9)
[2017-09-02 13:41] LABS: Hemoglobin 8.6 g/dL (11.5-15.4)
[2017-09-02] MEDS ORDERED: WATER FOR INJ IV ONE (14:00)
[2017-09-02] MEDS ORDERED: ANTI INHIBITOR COAGULANT COMP IV ONE (14:00)
[2017-09-02] MEDS ORDERED: *HR* FentaNYL (PF) 100 MCG/2 ML VIAL IVP ONE ×2 (14:17→17:58)
[2017-09-02] MEDS ORDERED: 0.9 % Sodium Chloride 250 ML ONE ×2 (16:36→19:38)
--- NOTE | 2017-09-02 18:19 | Internal Med History&Physical ---
Date of Encounter: 09/02/17 Time of Encounter: 14:00 Assessment and Plan (1) Chronic hypoxemic respiratory failure Current visit: Yes Status: Acute Supplemental oxygen by nasal cannula (2) Chronic diastolic heart failure Current visit: Yes Status: Acute Continue daily Lasix. No evidence of exacerbation. (3) Hemoperitoneum Current visit: Yes Status: Acute Secondary to [place]. We will monitor H&H. Monitor clinically. Consider surgery consult if significant hemoglobin drop or worsening abdominal distention. (4) Anticoagulated Current visit: Yes Status: Acute Stop Xarelto. Patient was given PCC in the emergency department to reverse the coagulopathy. Repeat PTT in a.m. (5) Constipation Current visit: Yes Status: Acute Bowel regimen Qualifiers: Constipation type: slow transit constipation Qualified Code(s): K59.01 - Slow transit constipation (6) Retroperitoneal hemorrhage Current visit: Yes Status: Acute 2 units PRBC. Stop anticoagulation. PCC infusion as above to reverse coagulopathy. Consider hematology consult if no improvement. (7) CKD (chronic kidney disease) stage 3, GFR 30-59 ml/min Current visit: No Status: Chronic At baseline. Avoid nephrotoxins. (8) Paroxysmal atrial fibrillation Current visit: No Status: Chronic Continue metoprolol. Internal Medicine - H&P: HPI Chief complaint: Abdominal pain Admitted From: Emergency Dept Plans for Post Hospital Care: Home History of present illness: Ms. Francois is a 86 year old female with past medical history significant for atrial fibrillation, CHF, COPD, paroxysmal atrial fibrillation on anticoagulation with Xarelto, hypertension and hyperlipidemia, status post fall hip fracture, status post left hip replacement, who was sent from nursing facility for evaluation of abdominal pain. Patient reports worsening dull, aching, 7/10 right lower quadrant abdominal pain associated with constipation for the last 2 days. Workup done in the emergency department revealed new retroperitoneal hematoma. Patient was already ordered blood transfusion and referred for admission. Family history was reviewed and found to be noncontributory. Past Med Surg Social Fam HX - Past Medical History Medical history: atrial fibrillation, CHF, COPD, hyperlipidemia, hypertension, osteoporosis Psychiatric history: anxiety - Past Surgical History Surgical History: cholecystectomy, hysterectomy, knee replacement, orthopedic, other - Social History Smoking Status: Never smoker Smokeless Tobacco Status: No Alcohol use: none Drug use: none - Family History Daughter Living Status: Hx Family Cancer: Yes Father Living Status: Hx Family Cardiac Disorders: Yes (heart attack) Internal Medicine - H&P: Meds Multivitamin [Multi-Day Vitamins] 1 each PO DAILY 04/25/15 [History] Calcium Carbonate [Calcium] 500 mg PO HS 03/31/17 [History] Furosemide [Lasix] 20 mg PO DAILY 03/31/17 [History] Magnesium Oxide [Mag-Ox] 400 mg PO HS 03/31/17 [History] [place]-3 Fatty Acids [Fish Oil] 600 mg PO DAILY 03/31/17 [History] Vit C/Vit E/Lutein/Min/[place]-3 [Ocuvite Softgel] 1 each PO HS 03/31/17 [History] Rivaroxaban [Xarelto] 20 mg PO DAILY 06/01/17 [History] Gabapentin [Neurontin] 300 mg PO BID capsule 06/24/17 [Rx] Oxycodone HCl [Roxicodone 30] 30 mg PO QID PRN #10 tablet 06/24/17 [Rx] Benzonatate [Tessalon] 100 mg PO TID 07/19/17 [History] Chloraseptic [place] [Chloraseptic] 1 spray MM Q2H PRN 07/19/17 [History] Guaifenesin [Mucinex] 1,200 mg PO BID 07/19/17 [History] Ipratropium/Albuterol Neb [Duoneb] 3 ml IH QID PRN 07/19/17 [History] Oxygen 2 l NS AD 07/19/17 [History] Simvastatin [Zocor] 10 mg PO HS 07/19/17 [History] Acetaminophen [Tylenol] 650 mg PO Q6HR PRN tablet 07/22/17 [Rx] Amiodarone [Cordarone] 200 mg PO DAILY 09/02/17 [History] Metoprolol [Lopressor] 100 mg PO BID 09/02/17 [History] 3 Allergy/AdvReac Type Severity Reaction Status Date / Time amlodipine Allergy See Verified 08/02/17 13:55 Comments aspirin Allergy Rash Verified 08/02/17 13:55 codeine Allergy Rash Verified 08/02/17 13:55 All Systems PM: A 10-system review of systems was performed and is negative for pertinent findings except as documented above in the HPI. - Constitutional Vitals: Temp Pulse Resp BP Pulse Ox 99.4 F 121 16 109/71 98 09/02/17 16:57 09/02/17 16:57 09/02/17 16:57 09/02/17 16:57 09/02/17 16:57 General appearance: Present: A&O X 3, no acute distress - Respiratory Respiratory exam: Present: decreased breath sounds, CTAB. Absent: accessory muscle use, rales, rhonchi, wheezes - Cardiovascular Cardiovascular exam: Present: RRR, +S1, +S2. Absent: diastolic murmur, gallop, rubs, systolic murmur - GI/Abdominal GI/Abdominal exam: Present: normal bowel sounds, soft, no peritoneal signs. Absent: distended, tenderness - Extremities Exam Extremities exam: Present: warm, radial pulses palpable and symmetrical. Absent : calf tenderness, cyanotic, pedal edema - Neurological Exam Neurological exam: Present: CN II-XII intact, oriented X3, no focal deficits. Absent: facial droop, speech deficit - Skin Skin exam: Present: dry, intact Internal Med - H&P Results - Labs CBC & Chem 7: 09/02/17 12:53 09/02/17 12:53
[2017-09-02] MEDS ORDERED: Chloraseptic Spray 177 ML BOTTLE MM PRN (19:34)
[2017-09-02] MEDS ORDERED: Ipratropium/Albuterol Neb 3 ML IH PRN (19:34)
[2017-09-02] MEDS ORDERED: Acetaminophen 325 MG TABLET PO PRN (19:38)
[2017-09-02] MEDS ORDERED: Naloxone 0.4 MG/ML INJ IVP PRN (19:38)
[2017-09-02] MEDS ORDERED: Furosemide 20 MG/2 ML VIAL IVP ONE (21:28)
[2017-09-02] MEDS: Gabapentin 300 MG CAPSULE PO SCH (22:24)
[2017-09-02] MEDS: Magnesium Oxide 400 MG TABLET PO SCH (22:24)
[2017-09-02] MEDS: Sennosides/Docusate Sodium TABLET PO SCH (23:13)
[2017-09-03 00:08] LABS: Basophils % 0.3 %; Eosinophils # 0.1 K/mcL (0.0-0.6); Eosinophils % 0.7 %; Hematocrit 34.8 % (35.3-44.9); Immature Granulocytes % 0.7 % (0-4); Lymphocytes # 0.9 K/mcL (0.6-4.6); Lymphocytes % 7.4 %; Mean Corpuscular HGB Conc 31.3 g/dL (31.6-35.5); Mean Corpuscular Hemoglobin 29.3 pg (28.0-33.3); Mean Corpuscular Volume 93.5 fL (83.0-100.0); Mean Platelet Volume 10.8 fL (9.4-12.4); Monocytes # 1.1 K/mcL (0.0-1.3); Neutrophils # 9.9 K/mcL (1.6-8.9); Platelet Count 236 K/mcL (140-400); Red Blood Count 3.72 M/mcL (3.82-4.97); Red Cell Distribution Width 17.2 % (11.5-14.5); Segmented Neutrophils % 81.9 %
[2017-09-03 00:29] LABS: Hemoglobin 10.9 g/dL (11.5-15.4)
[2017-09-03] MEDS: *HR* OxyCODONE Immed Rel 5 MG TABLET PO PRN ×5 (01:30→23:45)
[2017-09-03 04:32] LABS: Basophils # 0.1 K/mcL (0.0-0.2); Basophils % 0.4 %; Eosinophils # 0.1 K/mcL (0.0-0.6); Eosinophils % 0.8 %; Hematocrit 31.4 % (35.3-44.9); Hemoglobin 9.8 g/dL (11.5-15.4); Immature Granulocytes % 0.6 % (0-4); Mean Corpuscular HGB Conc 31.2 g/dL (31.6-35.5); Mean Corpuscular Hemoglobin 29.1 pg (28.0-33.3); Mean Corpuscular Volume 93.2 fL (83.0-100.0); Mean Platelet Volume 10.5 fL (9.4-12.4); Monocytes # 1.1 K/mcL (0.0-1.3); Monocytes % 9.5 %; Neutrophils # 9.1 K/mcL (1.6-8.9); Nucleated Red Blood Cells 0.2 /100 WBC (0); Platelet Count 208 K/mcL (140-400); Red Blood Count 3.37 M/mcL (3.82-4.97); Red Cell Distribution Width 17.2 % (11.5-14.5); Segmented Neutrophils % 79.7 %
[2017-09-03 05:07] LABS: BUN/Creatinine Ratio 31 (6-26); Blood Urea Nitrogen 31 mg/dL (8-23); Calcium 8.8 mg/dL (8.6-10.3); Carbon Dioxide 26 mEq/L (23-29); Chloride 99 mEq/L (98-107); Glucose 107 mg/dL (70-105); Magnesium 1.9 mg/dL (1.6-2.6); Osmolality,Calculated 283 (280-300); Potassium 3.9 mEq/L (3.5-5.1); Sodium 133 mEq/L (136-145); eGFR For African Americans > 60 (> 60); eGFR For Non-African Americans 52 (> 60)
[2017-09-03] MEDS: Sennosides/Docusate Sodium TABLET PO SCH ×2 (07:41→21:24)
[2017-09-03] MEDS: *HR* Amiodarone 200 MG TABLET PO SCH (07:42)
[2017-09-03] MEDS: Furosemide 20 MG TABLET PO SCH (07:42)
[2017-09-03] MEDS: Gabapentin 300 MG CAPSULE PO SCH ×2 (07:42→21:25)
--- NOTE | 2017-09-03 10:23 | Electrocardiograph Report ---
Wilkinson Shahab P. Tabatabai, Broker Test Date: 2017-09-02 Pat Name: Nelda Francois Department: 104 Room: 2N02 Gender: F Ecommerce Marketing Specialist: TMDavid : [id number] Requested By: Eric Escobar Order Number: [id number] Reading MD: Harlan Shelton MD Measurements Intervals [place] Rate: 115 P: NC: 0 QRS: 81 QRSD: 162 T: 26 QT: 329 QTc: 397 Interpretive Statements ATRIAL FIBRILLATION WITH RAPID VENTRICULAR RESPONSE RIGHT BUNDLE BRANCH BLOCK WARNING: DATA QUALITY MAY AFFECT INTERPRETATION Electronically Signed On 09-03-2017 10:21:53 EST by Harlan Shelton MD
[2017-09-03 10:36] LABS: Hematocrit 30.6 % (35.3-44.9); Hemoglobin 9.5 g/dL (11.5-15.4)
--- NOTE | 2017-09-03 19:21 | Internal Med Progress Note ---
Date of Encounter: 09/03/17 Time of Encounter: 11:00 - Assessment and plan (1) Retroperitoneal hemorrhage Current Visit: Yes Status: Acute Assessment and plan: -2 units of packed red blood cells given any anticoagulation discontinued; PCC infusion given -Hemoglobin stable; will continue to monitor (2) Hemoperitoneum Current Visit: Yes Status: Acute Assessment and plan: -As above; continue to monitor H&H (3) Chronic diastolic heart failure Current Visit: Yes Status: Acute Assessment and plan: Continue home medications (4) Chronic hypoxemic respiratory failure Current Visit: Yes Status: Acute Assessment and plan: Continue supplemental oxygenation (5) CKD (chronic kidney disease) stage 3, GFR 30-59 ml/min Current Visit: No Status: Chronic Assessment and plan: Stable; continue to monitor (6) Paroxysmal atrial fibrillation Current Visit: No Status: Chronic Assessment and plan: Continue beta gunner for rate control - Subjective Interval history: Patient hemodynamically stable and hemoglobin 9.5 this morning Anticoagulation for multiple DVTs currently being held due to retroperitoneal hematoma - Constitutional Vitals: Temp Pulse Resp BP Pulse Ox 98.3 F 116 18 101/61 93 09/03/17 16:05 09/03/17 18:43 09/03/17 18:43 09/03/17 18:43 09/03/17 16:05 General appearance: Present: A&O X 3, no acute distress - Respiratory Respiratory exam: Present: CTAB. Absent: accessory muscle use, rales, rhonchi, wheezes - Cardiovascular Cardiovascular exam: Present: RRR, +S1, +S2. Absent: diastolic murmur, gallop, rubs, systolic murmur Internal Medicine: Result - Labs CBC & Chem 7: 09/03/17 10:18 09/03/17 04:16 Labs: Short CBC 09/02/17 09/03/17 09/03/17 Range/Units 23:43 04:16 10:18 WBC 12.0 H 11.4 H (4.3-11.1) K/mcL Hgb 10.9 L D 9.8 L 9.5 L (11.5-15.4) g/dL Hct 34.8 L 31.4 L 30.6 L (35.3-44.9) % Plt Count 236 208 (140-400) K/mcL Neutrophils # 9.9 H 9.1 H (1.6-8.9) K/mcL BMP 09/03/17 04:16 Sodium 133 L Potassium 3.9 Chloride 99 Carbon Dioxide 26 BUN 31 H Creatinine 1.01 Glucose 107 H Calcium 8.8 - ABG Interpretation ABG results: PT/INR, D-dimer PT 26.2 Seconds (9.4-12.1) H 09/02/17 12:53 - VTE Documentation of Mechanical Device: Intermittent pneumatic compression device Consult Discharge Plan - Plan Referrals: Daniel Stringer MD [Primary Care Provider] -
[2017-09-03 19:44] LABS: Hematocrit 30.2 % (35.3-44.9); Hemoglobin 9.5 g/dL (11.5-15.4)
[2017-09-03] MEDS: Magnesium Oxide 400 MG TABLET PO SCH (21:24)
[2017-09-04] MEDS: *HR* Amiodarone 200 MG TABLET PO SCH (08:56)
[2017-09-04] MEDS: Furosemide 20 MG TABLET PO SCH (08:56)
[2017-09-04] MEDS: Gabapentin 300 MG CAPSULE PO SCH ×2 (08:57→22:15)
[2017-09-04] MEDS: Sennosides/Docusate Sodium TABLET PO SCH ×2 (08:57→22:15)
[2017-09-04] MEDS: *HR* OxyCODONE Immed Rel 5 MG TABLET PO PRN ×3 (08:57→23:33)
[2017-09-04 11:11] LABS: Basophils % 0.3 %; Eosinophils # 0.1 K/mcL (0.0-0.6); Hematocrit 27.7 % (35.3-44.9); Hemoglobin 8.8 g/dL (11.5-15.4); Immature Granulocytes % 0.8 % (0-4); Lymphocytes # 0.8 K/mcL (0.6-4.6); Lymphocytes % 7.6 %; Mean Corpuscular HGB Conc 31.8 g/dL (31.6-35.5); Mean Corpuscular Volume 94.5 fL (83.0-100.0); Mean Platelet Volume 10.6 fL (9.4-12.4); Monocytes # 1.1 K/mcL (0.0-1.3); Monocytes % 10.4 %; Neutrophils # 8.6 K/mcL (1.6-8.9); Platelet Count 197 K/mcL (140-400); Red Blood Count 2.93 M/mcL (3.82-4.97); Red Cell Distribution Width 16.7 % (11.5-14.5); Segmented Neutrophils % 79.9 %
[2017-09-04 11:51] LABS: BUN/Creatinine Ratio 35 (6-26); Blood Urea Nitrogen 36 mg/dL (8-23); Calcium 8.9 mg/dL (8.6-10.3); Carbon Dioxide 25 mEq/L (23-29); Chloride 98 mEq/L (98-107); Glucose 123 mg/dL (70-105); Osmolality,Calculated 284 (280-300); Potassium 4.1 mEq/L (3.5-5.1); Sodium 132 mEq/L (136-145); eGFR For African Americans > 60 (> 60); eGFR For Non-African Americans 50 (> 60)
[2017-09-04 17:31] LABS: Hematocrit 28.2 % (35.3-44.9); Hemoglobin 8.7 g/dL (11.5-15.4)
--- NOTE | 2017-09-04 17:46 | Internal Med Progress Note ---
Date of Encounter: 09/04/17 Time of Encounter: 11:00 - Assessment and plan (1) Retroperitoneal hemorrhage Current Visit: Yes Status: Acute Assessment and plan: -2 units of packed red blood cells given any anticoagulation discontinued; PCC infusion given -Hemoglobin stable but trending downward; will continue to monitor (2) Hemoperitoneum Current Visit: Yes Status: Acute Assessment and plan: -As above; continue to monitor H&H (3) Chronic diastolic heart failure Current Visit: Yes Status: Acute Assessment and plan: Continue home medications (4) Chronic hypoxemic respiratory failure Current Visit: Yes Status: Acute Assessment and plan: Continue supplemental oxygenation (5) CKD (chronic kidney disease) stage 3, GFR 30-59 ml/min Current Visit: No Status: Chronic Assessment and plan: Stable; continue to monitor (6) Paroxysmal atrial fibrillation Current Visit: No Status: Chronic Assessment and plan: Continue beta gunner for rate control - Subjective Interval history: She reports minimal improvement in abdominal discomfort Patient hemodynamically stable and hemoglobin 8.7 this morning; was 10.9 on admission Anticoagulation for multiple DVTs currently being held due to retroperitoneal hematoma - Constitutional Vitals: Temp Pulse Resp BP Pulse Ox 98.8 F 127 16 119/73 98 09/04/17 11:15 09/04/17 12:30 09/04/17 11:15 09/04/17 12:30 09/04/17 11:15 General appearance: Present: A&O X 3, no acute distress - Respiratory Respiratory exam: Present: CTAB. Absent: accessory muscle use, rales, rhonchi, wheezes - Cardiovascular Cardiovascular exam: Present: RRR, +S1, +S2. Absent: diastolic murmur, gallop, rubs, systolic murmur - GI/Abdominal GI/Abdominal exam: Present: soft, tenderness (Right-sided tenderness to palpation with involuntary guarding). Absent: distended Internal Medicine: Result - Labs CBC & Chem 7: 09/04/17 17:10 09/04/17 10:54 Labs: Short CBC 09/03/17 09/04/17 09/04/17 Range/Units 19:25 10:54 17:10 WBC 10.7 (4.3-11.1) K/mcL Hgb 9.5 L 8.8 L 8.7 L (11.5-15.4) g/dL Hct 30.2 L 27.7 L 28.2 L (35.3-44.9) % Plt Count 197 (140-400) K/mcL Neutrophils # 8.6 (1.6-8.9) K/mcL BMP 09/04/17 10:54 Sodium 132 L Potassium 4.1 Chloride 98 Carbon Dioxide 25 BUN 36 H Creatinine 1.04 Glucose 123 H Calcium 8.9 - ABG Interpretation ABG results: PT/INR, D-dimer PT 26.2 Seconds (9.4-12.1) H 09/02/17 12:53 - VTE Documentation of Mechanical Device: Intermittent pneumatic compression device Consult Discharge Plan - Plan Referrals: Daniel Stringer MD [Primary Care Provider] -
[2017-09-04] MEDS: Magnesium Oxide 400 MG TABLET PO SCH (22:15)
[2017-09-05 04:40] LABS: Basophils % 0.4 %; Eosinophils # 0.4 K/mcL (0.0-0.6); Eosinophils % 4.4 %; Hematocrit 26.4 % (35.3-44.9); Hemoglobin 8.2 g/dL (11.5-15.4); Immature Granulocytes % 0.7 % (0-4); Lymphocytes # 1.2 K/mcL (0.6-4.6); Lymphocytes % 13.9 %; Mean Corpuscular HGB Conc 31.1 g/dL (31.6-35.5); Mean Corpuscular Hemoglobin 29.9 pg (28.0-33.3); Mean Corpuscular Volume 96.4 fL (83.0-100.0); Mean Platelet Volume 10.5 fL (9.4-12.4); Monocytes # 0.9 K/mcL (0.0-1.3); Monocytes % 10.4 %; Neutrophils # 6.3 K/mcL (1.6-8.9); Platelet Count 189 K/mcL (140-400); Red Blood Count 2.74 M/mcL (3.82-4.97); Red Cell Distribution Width 16.8 % (11.5-14.5); Segmented Neutrophils % 70.2 %
[2017-09-05 05:15] LABS: Calcium 8.7 mg/dL (8.6-10.3); Potassium 4.1 mEq/L (3.5-5.1)
[2017-09-05] MEDS: Gabapentin 300 MG CAPSULE PO SCH ×2 (09:19→20:31)
[2017-09-05] MEDS: Furosemide 20 MG TABLET PO SCH (09:19)
[2017-09-05] MEDS: *HR* Amiodarone 200 MG TABLET PO SCH (09:19)
[2017-09-05] MEDS: *HR* OxyCODONE Immed Rel 5 MG TABLET PO PRN ×3 (09:19→20:56)
[2017-09-05] MEDS: Sennosides/Docusate Sodium TABLET PO SCH ×2 (09:19→20:32)
--- NOTE | 2017-09-05 13:35 | Cardiology Consult Note ---
Date of Encounter: 09/05/17 Time of Encounter: 13:33 Assessment and Plan (1) Atrial fibrillation Current Visit: No Status: Chronic AF currently with RVR. RP bleed, anticoagulation has been held. Anemia noted. Continue to hold AC. Aspirin allergy noted. Possibly consider Plavix in future if able. Regarding HR, BP limits how aggressive we can be. Recommend replace Hg as needed, which should help with RVR. Will load digoxin. Continue BB as tolerated. If needed, may need to consider reloading amiodarone IV. Thanks, Jose F Aguila DO, [facility] Qualifiers: Atrial fibrillation type: permanent Qualified Code(s): I48.2 - Chronic atrial fibrillation Discussion w patient/family: The assessment and plan as outlined above was discussed with the patient and/or family members who expressed understanding and agreement. All questions were answered. Thank you for involving us in the care of your patient. Please call with any questions. History of Present Illness Consult date: 09/05/17 Requesting physician: Adolfo Santamaria Consult reason: AF Chief complaint: AF History of present illness: Ms. Francois is a 86 year old female with known AF, COPD. Sent from halfway for abdominal pain - diagnosed with RP hematoma, on Xarleto. Anticoagulation has been held. AF with RVR, somewhat marginal BP - prompted consultation. Patient pleasant, no obvious distress. Denies palpitations. HR 120s. Past Med Surg Social Fam HX - Past Medical History Medical history: atrial fibrillation, CHF, COPD, hyperlipidemia, hypertension, osteoporosis Psychiatric history: anxiety - Past Surgical History Surgical History: cholecystectomy, hysterectomy, knee replacement, orthopedic, other - Social History Smoking Status: Never smoker Smokeless Tobacco Status: No Alcohol use: none Drug use: none - Family History Daughter Living Status: Hx Family Cancer: Yes Father Living Status: Hx Family Cardiac Disorders: Yes (heart attack) Medications and Allergies Multivitamin [Multi-Day Vitamins] 1 each PO DAILY 04/25/15 [History] Calcium Carbonate [Calcium] 500 mg PO HS 03/31/17 [History] Furosemide [Lasix] 20 mg PO DAILY 03/31/17 [History] Magnesium Oxide [Mag-Ox] 400 mg PO HS 03/31/17 [History] [place]-3 Fatty Acids [Fish Oil] 600 mg PO DAILY 03/31/17 [History] Vit C/Vit E/Lutein/Min/[place]-3 [Ocuvite Softgel] 1 each PO HS 03/31/17 [History] Rivaroxaban [Xarelto] 20 mg PO DAILY 06/01/17 [History] Gabapentin [Neurontin] 300 mg PO BID capsule 06/24/17 [Rx] Oxycodone HCl [Roxicodone 30] 30 mg PO QID PRN #10 tablet 06/24/17 [Rx] Benzonatate [Tessalon] 100 mg PO TID 07/19/17 [History] Chloraseptic [place] [Chloraseptic] 1 spray MM Q2H PRN 07/19/17 [History] Guaifenesin [Mucinex] 1,200 mg PO BID 07/19/17 [History] Ipratropium/Albuterol Neb [Duoneb] 3 ml IH QID PRN 07/19/17 [History] Oxygen 2 l NS AD 07/19/17 [History] Simvastatin [Zocor] 10 mg PO HS 07/19/17 [History] Acetaminophen [Tylenol] 650 mg PO Q6HR PRN tablet 07/22/17 [Rx] Amiodarone [Cordarone] 200 mg PO DAILY 09/02/17 [History] Metoprolol [Lopressor] 100 mg PO BID 09/02/17 [History] 3 Allergy/AdvReac Type Severity Reaction Status Date / Time amlodipine Allergy See Verified 08/02/17 13:55 Comments aspirin Allergy Rash Verified 08/02/17 13:55 codeine Allergy Rash Verified 08/02/17 13:55 All Systems Review: A 10-system review of systems was performed and is negative for pertinent findings except as documented above in the HPI. - Cardiovascular Cardiovascular: as per HPI Physical Examination Vital Signs, Last 4 Hours Temp Pulse Resp BP Pulse Ox 09/05/17 12:10 125 09/05/17 10:29 98.4 F 110 17 107/58 95 General: Conversant, No Apparent Distress, Other (Frail appearing) HEENT: Atraumatic, Normocephaly, Mucus Membranes Moist Neck: No JVD, Normal carotid pulses Cardiac: Other (Irregular rate and rhythm. ) Lungs: Normal Breath Sounds, No Wheeze, Rales, Rhonchi, Other (Shallow. ) Neuro: Alert and responsive, No focal deficits noted Abdomen: Soft, Non-Tender Skin: No rashes noted on visualized skin Musculoskeletal: No Chest Wall Tenderness Extremities: No Clubbing, No Cyanosis, No Edema Results 09/05/17 04:19 09/05/17 04:19 Lab Results 09/04/17 09/05/17 09/05/17 17:10 04:19 04:19 WBC 8.9 Hgb 8.7 L 8.2 L Hct 28.2 L 26.4 L Plt Count 189 Sodium 133 L Potassium 4.1 Chloride 98 Carbon Dioxide 31 H BUN 40 H Creatinine 1.12 Glucose 108 H Calcium 8.7 - Imaging and Cardiology Echo: report reviewed - EKG Interpretation EKG results cardiology: personally reviewed Consult Discharge Plan - Plan Referrals: Daniel Stringer MD [Primary Care Provider] -
[2017-09-05] MEDS: *HR* Digoxin 0.5 MG/2 ML AMPUL IVP SCH ×2 (14:21→20:32)
--- NOTE | 2017-09-05 19:02 | Internal Med Progress Note ---
Date of Encounter: 09/05/17 Time of Encounter: 11:00 - Assessment and plan (1) Retroperitoneal hemorrhage Current Visit: Yes Status: Acute Assessment and plan: -2 units of packed red blood cells given any anticoagulation discontinued; PCC infusion given -Hemoglobin stable but trending downward; will continue to monitor (2) Hemoperitoneum Current Visit: Yes Status: Acute Assessment and plan: -As above; continue to monitor H&H (3) Chronic diastolic heart failure Current Visit: Yes Status: Acute Assessment and plan: Continue home medications (4) Chronic hypoxemic respiratory failure Current Visit: Yes Status: Acute Assessment and plan: Continue supplemental oxygenation (5) CKD (chronic kidney disease) stage 3, GFR 30-59 ml/min Current Visit: No Status: Chronic Assessment and plan: Stable; continue to monitor (6) Paroxysmal atrial fibrillation Current Visit: No Status: Chronic Assessment and plan: Radiology consulted with recommendations to load with digoxin and to continue beta gunner as tolerates If needed, may need to consider reloading amiodarone IV. - Subjective Interval history: She reports minimal improvement in abdominal discomfort Patient hemodynamically stable and hemoglobin 8.9 this morning and was 8.8 yesterday; was 10.9 on admission Anticoagulation for multiple DVTs currently being held due to retroperitoneal hematoma - Constitutional Vitals: Temp Pulse Resp BP Pulse Ox 98.5 F 120 20 150/92 94 09/05/17 18:38 09/05/17 18:38 09/05/17 18:38 09/05/17 18:38 09/05/17 18:38 General appearance: Present: A&O X 3, no acute distress - Respiratory Respiratory exam: Present: CTAB. Absent: accessory muscle use, rales, rhonchi, wheezes - Cardiovascular Cardiovascular exam: Present: RRR, +S1, +S2. Absent: diastolic murmur, gallop, rubs, systolic murmur Internal Medicine: Result - Labs CBC & Chem 7: 09/05/17 04:19 09/05/17 04:19 Labs: Short CBC 09/05/17 Range/Units 04:19 WBC 8.9 (4.3-11.1) K/mcL Hgb 8.2 L (11.5-15.4) g/dL Hct 26.4 L (35.3-44.9) % Plt Count 189 (140-400) K/mcL Neutrophils # 6.3 (1.6-8.9) K/mcL BMP 09/05/17 04:19 Sodium 133 L Potassium 4.1 Chloride 98 Carbon Dioxide 31 H BUN 40 H Creatinine 1.12 Glucose 108 H Calcium 8.7 - ABG Interpretation ABG results: PT/INR, D-dimer PT 26.2 Seconds (9.4-12.1) H 09/02/17 12:53 - VTE Documentation of Mechanical Device: Intermittent pneumatic compression device Consult Discharge Plan - Plan Referrals: Daniel Stringer MD [Primary Care Provider] -
[2017-09-05] MEDS: Magnesium Oxide 400 MG TABLET PO SCH (20:32)
[2017-09-06] MEDS ORDERED: *HR* Digoxin 0.5 MG/2 ML AMPUL ONE (02:38)
[2017-09-06] MEDS: *HR* Digoxin 0.5 MG/2 ML AMPUL IVP SCH (03:17)
[2017-09-06] MEDS: *HR* OxyCODONE Immed Rel 5 MG TABLET PO PRN ×3 (04:33→22:27)
[2017-09-06 08:27] LABS: BUN/Creatinine Ratio 41 (6-26); Blood Urea Nitrogen 37 mg/dL (8-23); Calcium 8.7 mg/dL (8.6-10.3); Carbon Dioxide 31 mEq/L (23-29); Chloride 98 mEq/L (98-107); Glucose 96 mg/dL (70-105); Osmolality,Calculated 289 (280-300); Potassium 4.3 mEq/L (3.5-5.1); Sodium 135 mEq/L (136-145); eGFR For African Americans > 60 (> 60); eGFR For Non-African Americans 58 (> 60)
[2017-09-06] MEDS: Sennosides/Docusate Sodium TABLET PO SCH ×2 (08:46→22:27)
[2017-09-06] MEDS: Gabapentin 300 MG CAPSULE PO SCH ×2 (08:46→22:27)
[2017-09-06] MEDS: *HR* Amiodarone 200 MG TABLET PO SCH (08:46)
[2017-09-06] MEDS: Furosemide 20 MG TABLET PO SCH (08:46)
[2017-09-06 08:51] LABS: Basophils % 0.4 %; Eosinophils # 0.5 K/mcL (0.0-0.6); Eosinophils % 5.9 %; Hematocrit 25.5 % (35.3-44.9); Hemoglobin 7.8 g/dL (11.5-15.4); Immature Granulocytes % 0.4 % (0-4); Lymphocytes # 0.9 K/mcL (0.6-4.6); Lymphocytes % 11.6 %; Mean Corpuscular HGB Conc 30.6 g/dL (31.6-35.5); Mean Corpuscular Hemoglobin 29.7 pg (28.0-33.3); Mean Platelet Volume 10.4 fL (9.4-12.4); Monocytes # 0.7 K/mcL (0.0-1.3); Monocytes % 9.5 %; Neutrophils # 5.5 K/mcL (1.6-8.9); Platelet Count 201 K/mcL (140-400); Red Blood Count 2.63 M/mcL (3.82-4.97); Red Cell Distribution Width 16.7 % (11.5-14.5); Segmented Neutrophils % 72.2 %
--- NOTE | 2017-09-06 09:42 | General Surgery Consult Note ---
<Yesica Crisostomo - Last Filed: 09/06/17 11:37> Date of Encounter: 09/06/17 Time of Encounter: 09:42 Assessment and Plan (1) Retroperitoneal hemorrhage Status: Acute CT of the abdomen and pelvis (detailed below) notes right iliopsoas musculature retroperitoneal hemorrhage. Patient states are abdominal discomfort is no worse than typical. She does have a large colonics told Obrien noted also on the CT. Her vital signs are stable. Her hemoglobin is 7.8 and is being managed by the primary team. There is no acute surgical intervention indicated at this time. Anticoagulation management and hemoglobin management her primary team and cardiology. Recommend aggressive treatment for constipation is likely contributing to her abdominal discomfort i.e. Miralax BID and Dulcolax suppositories daily until having daily BMs that are mashed potatoes consistency, then may decrease to as needed Surgery will sign off at this time. Thank you for allowing us to participate in Miss Francois's care. Please call for questions or reconsult. (2) Constipation Status: Acute See a/p above Qualifiers: Constipation type: slow transit constipation Qualified Code(s): K59.01 - Slow transit constipation (3) Atrial fibrillation Status: Chronic Qualifiers: Atrial fibrillation type: permanent Qualified Code(s): I48.2 - Chronic atrial fibrillation (4) Chronic kidney disease Status: Chronic Qualifiers: Chronic kidney disease stage: stage 3 (moderate) Qualified Code(s): N18.3 - Chronic kidney disease, stage 3 (moderate) History of Present Illness Consult date: 09/06/17 (Dr. Alyx Peralta) Reason for consult: other Requesting physician: Adolfo Santamaria History of present illness: Consulted surgeon: Dr. Sean Peralta Reason for Consult: Recommendations regarding retroperitoneal hematoma Chacho is an 86-year-old female with notable past medical history of hypertension, hyperlipidemia, CHF, atrial fibrillation (s/p a-fib ablation), chronic anticoagulation with the round toe, recurrence of atrial fibrillation ( on amiodarone), COPD, anxiety, chronic abdominal pain (per patient report). She presented on 09/02/2017 for complaints of status post fall and hip fracture, status post left hip replacement, who is sent from the nursing facility for evaluation of abdominal pain reported as dull and aching 7/10 on the right lower quadrant associated with constipation for the past [address] of the abdomen and pelvis was obtained which noted right iliopsoas musculature consistent with hemorrhage/retroperitoneal hematoma. She has been transfused 2 units of packed red blood cells and her anticoagulation had been held. Cardiology recommended replacing hemoglobin as needed which would help with the RVR and loaded the patient with digoxin, continued beta gunner, and would possibly consider reloading with amiodarone IV. Presently, She denies fever, chills, headache, dizziness, CP, SOB, or worsening abdominal discomfort. She denies BM, but reports passing gas. She states her abdominal discomfort has not changed. She is unsure when her last BM was. Past Med Surg Social Fam HX - Past Medical History Medical history: atrial fibrillation, CHF, COPD, hyperlipidemia, hypertension, osteoporosis Psychiatric history: anxiety - Past Surgical History Surgical History: cholecystectomy, hysterectomy, knee replacement, orthopedic, other - Social History Smoking Status: Never smoker Smokeless Tobacco Status: No Alcohol use: none Drug use: none - Family History Daughter Living Status: Hx Family Cancer: Yes Father Living Status: Hx Family Cardiac Disorders: Yes (heart attack) Medications and Allergies Multivitamin [Multi-Day Vitamins] 1 each PO DAILY 04/25/15 [History] Calcium Carbonate [Calcium] 500 mg PO HS 03/31/17 [History] Furosemide [Lasix] 20 mg PO DAILY 03/31/17 [History] Magnesium Oxide [Mag-Ox] 400 mg PO HS 03/31/17 [History] [place]-3 Fatty Acids [Fish Oil] 600 mg PO DAILY 03/31/17 [History] Vit C/Vit E/Lutein/Min/[place]-3 [Ocuvite Softgel] 1 each PO HS 03/31/17 [History] Rivaroxaban [Xarelto] 20 mg PO DAILY 06/01/17 [History] Gabapentin [Neurontin] 300 mg PO BID capsule 06/24/17 [Rx] Oxycodone HCl [Roxicodone 30] 30 mg PO QID PRN #10 tablet 06/24/17 [Rx] Benzonatate [Tessalon] 100 mg PO TID 07/19/17 [History] Chloraseptic [place] [Chloraseptic] 1 spray MM Q2H PRN 07/19/17 [History] Guaifenesin [Mucinex] 1,200 mg PO BID 07/19/17 [History] Ipratropium/Albuterol Neb [Duoneb] 3 ml IH QID PRN 07/19/17 [History] Oxygen 2 l NS AD 07/19/17 [History] Simvastatin [Zocor] 10 mg PO HS 07/19/17 [History] Acetaminophen [Tylenol] 650 mg PO Q6HR PRN tablet 07/22/17 [Rx] Amiodarone [Cordarone] 200 mg PO DAILY 09/02/17 [History] Metoprolol [Lopressor] 100 mg PO BID 09/02/17 [History] Digoxin [Lanoxin] 0.125 mg PO DAILY #30 tablet 09/07/17 [Rx] OxyCODONE Immed Rel [Roxicodone 30 MG] 30 mg PO Q6H PRN 7 Days #28 tab 09/07/17 [Rx] 3 Allergy/AdvReac Type Severity Reaction Status Date / Time amlodipine Allergy See Verified 08/02/17 13:55 Comments aspirin Allergy Rash Verified 08/02/17 13:55 codeine Allergy Rash Verified 08/02/17 13:55 Review of Systems All systems PM: reviewed and no additional remarkable complaints except as stated All systems PM: A 10-system review of systems was performed and is negative for pertinent findings except as documented above in the HPI. General Surgery Exam Initial Vital Signs Temp Pulse Resp BP Pulse Ox 98.4 F 120 16 112/65 94 09/02/17 12:04 09/02/17 12:04 09/02/17 12:04 09/02/17 12:04 09/02/17 12:04 - General physical appearance moderate pain, chronically ill, other (Emaciated) - Eyes normal ocular movement (Glasses noted) - ENT atraumatic, normocephalic - Neck no masses - Respiratory normal respiratory effort, clear to auscultation, other (decreased) - Cardiovascular Cardiovascular exam: Present: irregular rhythm, murmurs - Abdomen Abdomen general surgery: Present: bowel sounds present, soft, distended, tender Hernia: Present: none - Integumentary Integumentary general surgery: Present: warm and dry - Neurologic Present: CN 2-12 grossly intact, normal coordination, normal sensation - Musculoskeletal Present: normal gait, normal posture - Psychiatric Psychiatric general surgery: Present: A&Ox3, appropriate, oriented to person, oriented to place, oriented to time, speech is normal, memory intact Exam Initial Vital Signs Temp Pulse Resp BP Pulse Ox 98.4 F 120 16 112/65 94 09/02/17 12:04 09/02/17 12:04 09/02/17 12:04 09/02/17 12:04 09/02/17 12:04 Results - Labs 09/06/17 08:00 09/06/17 08:00 Abnormal lab results RBC 2.63 M/mcL (3.82-4.97) L 09/06/17 08:00 Hgb 7.8 g/dL (11.5-15.4) L 09/06/17 08:00 Hct 25.5 % (35.3-44.9) L 09/06/17 08:00 MCHC 30.6 g/dL (31.6-35.5) L 09/06/17 08:00 RDW 16.7 % (11.5-14.5) H 09/06/17 08:00 Nucleated RBCs/100 WBC 0.2 /100 WBC (0) H 09/03/17 04:16 PT 26.2 Seconds (9.4-12.1) H 09/02/17 12:53 Sodium 135 mEq/L (136-145) L 09/06/17 08:00 Carbon Dioxide 31 mEq/L (23-29) H 09/06/17 08:00 BUN 37 mg/dL (8-23) H 09/06/17 08:00 Est GFR (Non-Af Amer) 58 (> 60) L 09/06/17 08:00 BUN/Creatinine Ratio 41 (6-26) H 09/06/17 08:00 POC Glucose 151 (58-89) H 09/05/17 15:40 Albumin 3.4 g/dL (3.5-5.7) L 09/02/17 12:53 Albumin/Globulin Ratio 1.0 (1.1-2.2) L 09/02/17 12:53 Antibody Screen POSITIVE A 09/02/17 12:53 Diabetes panel 09/06/17 Range/Units 08:00 Sodium 135 L (136-145) mEq/L Potassium 4.3 (3.5-5.1) mEq/L Chloride 98 (98-107) mEq/L Carbon Dioxide 31 H (23-29) mEq/L BUN 37 H (8-23) mg/dL Creatinine 0.91 (0.60-1.20) mg/dL Glucose 96 (70-105) mg/dL Calcium 8.7 (8.6-10.3) mg/dL Calcium panel 09/06/17 Range/Units 08:00 Calcium 8.7 (8.6-10.3) mg/dL Pituitary panel 09/06/17 Range/Units 08:00 Sodium 135 L (136-145) mEq/L Potassium 4.3 (3.5-5.1) mEq/L Chloride 98 (98-107) mEq/L Carbon Dioxide 31 H (23-29) mEq/L BUN 37 H (8-23) mg/dL Creatinine 0.91 (0.60-1.20) mg/dL Glucose 96 (70-105) mg/dL Calcium 8.7 (8.6-10.3) mg/dL Adrenal panel 09/06/17 Range/Units 08:00 Sodium 135 L (136-145) mEq/L Potassium 4.3 (3.5-5.1) mEq/L Chloride 98 (98-107) mEq/L Carbon Dioxide 31 H (23-29) mEq/L BUN 37 H (8-23) mg/dL Creatinine 0.91 (0.60-1.20) mg/dL Glucose 96 (70-105) mg/dL Calcium 8.7 (8.6-10.3) mg/dL All other labs normal. - Imaging CT scan - abdomen: report reviewed CT scan - pelvis: report reviewed Consult Discharge Plan - Plan Instructions: Digoxin (By mouth), Atrial Fibrillation (GEN) Referrals: Tip Billingsley MD [Partnered Physician] - 10/14/17 2:00 pm Daniel Stringer MD [Primary Care Provider] - (PATIENT IS FROM [facility] NO PCP APPOINTMENT NEEDED) Prescriptions: Digoxin [Lanoxin] 0.125 mg PO DAILY #30 tablet OxyCODONE Immed Rel [Roxicodone 30 MG] 30 mg PO Q6H PRN 7 Days #28 tab PRN Reason: Pain <Alyx Peralta - Last Filed: 09/09/17 08:43> Date of Encounter: 09/06/17 Review of Systems All systems PM: The remainder of the systems were reviewed and are negative General Surgery Exam Initial Vital Signs Temp Pulse Resp BP Pulse Ox 98.4 F 120 16 112/65 94 09/02/17 12:04 09/02/17 12:04 09/02/17 12:04 09/02/17 12:04 09/02/17 12:04 - General physical appearance no distress, no pain, chronically ill, other (patient sleeping soundly in bed) Exam Initial Vital Signs Temp Pulse Resp BP Pulse Ox 98.4 F 120 16 112/65 94 09/02/17 12:04 09/02/17 12:04 09/02/17 12:04 09/02/17 12:04 09/02/17 12:04 Results - Labs 09/07/17 08:53 09/06/17 08:00 Abnormal lab results RBC 2.99 M/mcL (3.82-4.97) L 09/07/17 08:53 Hgb 8.9 g/dL (11.5-15.4) L 09/07/17 08:53 Hct 29.2 % (35.3-44.9) L 09/07/17 08:53 MCHC 30.5 g/dL (31.6-35.5) L 09/07/17 08:53 RDW 16.5 % (11.5-14.5) H 09/07/17 08:53 Nucleated RBCs/100 WBC 0.2 /100 WBC (0) H 09/03/17 04:16 PT 12.2 Seconds (9.4-12.1) H D 09/07/17 15:55 Sodium 135 mEq/L (136-145) L 09/06/17 08:00 Carbon Dioxide 31 mEq/L (23-29) H 09/06/17 08:00 BUN 37 mg/dL (8-23) H 09/06/17 08:00 Est GFR (Non-Af Amer) 58 (> 60) L 09/06/17 08:00 BUN/Creatinine Ratio 41 (6-26) H 09/06/17 08:00 POC Glucose 112 (58-89) H 09/07/17 11:12 Albumin 3.4 g/dL (3.5-5.7) L 09/02/17 12:53 Albumin/Globulin Ratio 1.0 (1.1-2.2) L 09/02/17 12:53 Antibody Screen POSITIVE A 09/02/17 12:53 All other labs normal. - Attending Attestation I have personally performed a face to face evaluation on this patient. I have reviewed and agree with the care plan. History and Exam by me shows:
--- NOTE | 2017-09-06 10:12 | Cardiology Progress Note ---
Date of Encounter: 09/06/17 Time of Encounter: 10:11 Assessment and Plan (1) Atrial fibrillation Current Visit: Yes Status: Chronic AF RVR yesterday, was loaded with Digoxin. Currently rate controlled, HR 70s at bedside. 12 hr tele AVG HR 83, A-Fib. Continue Lopressor 50mg BID as BP tolerates, Amiodarone 200mg daily and will start PO daily Digoxin 125mcg. RP bleed, anticoagulation has been held. Anemia noted. Continue to hold AC. Aspirin allergy noted. Possibly consider Plavix in future if able. Replace HGB as needed. Cardiology signing off. Reconsult PRN. Will coordinate outpt follow-up in 2-3 weeks. Qualifiers: Qualified Code(s): I48.2 - Chronic atrial fibrillation Discussion w patient/family: The assessment and plan as outlined above was discussed with the patient and/or family members who expressed understanding and agreement. All questions were answered. Thank you for involving us in the care of your patient. Please call with any questions. Subjective Principal diagnosis: A-Fib RVR, RP bleed Interval history: Pt denies chest pain or dyspnea overnight. Loaded with Digoxin yesterday for A- Fib RVR, HR improved. 12 hr tele AVG HR 83, A-Fib. Current HR 70s at bedside. Objective Vital Signs, Last 4 Hours Temp Pulse Resp BP Pulse Ox 09/06/17 08:54 90 09/06/17 08:50 90 16 99 09/06/17 07:24 98.5 F 77 16 100/57 93 Vital Signs Temp Pulse Resp BP Pulse Ox 09/06/17 08:54 90 09/06/17 08:50 90 16 99 09/06/17 07:24 98.5 F 77 16 100/57 93 09/06/17 04:37 98.6 F 98 18 102/53 94 09/06/17 03:19 73 09/06/17 00:30 74 09/05/17 23:47 98.3 F 90 18 96/65 98 09/05/17 20:45 108 105/72 09/05/17 18:38 98.5 F 120 20 150/92 94 09/05/17 15:35 98 F 118 18 94/64 99 09/05/17 14:45 127 09/05/17 12:10 125 09/05/17 10:29 98.4 F 110 17 107/58 95 Intake and Output 09/05/17 09/06/17 09/06/17 23:59 07:59 15:59 Intake Total 250 / 250 200 / 200 Output Total 100 / 100 150 / 150 Balance -100 / -100 100 / 100 200 / 200 Intake: Oral 250 / 250 200 / 200 Output: Urine 100 / 100 150 / 150 Other: Meal Breakfast Percent of Meal Consumed 5% # Voids 1 Blood Glucose* 114 105 General: Conversant, No Apparent Distress HEENT: Atraumatic, Normocephaly, Mucus Membranes Moist Neck: No JVD, Normal carotid pulses Cardiac: Other (irregularly irregular rhythm) Lungs: Normal Breath Sounds, No Wheeze, Rales, Rhonchi Neuro: Alert and responsive, No focal deficits noted Abdomen: Soft, Non-Tender Skin: No rashes noted on visualized skin Musculoskeletal: No Chest Wall Tenderness Extremities: No Clubbing, No Cyanosis, No Edema, Normal Pulses Results 09/06/17 08:00 09/06/17 08:00 Lab Results 09/06/17 09/06/17 08:00 08:00 WBC 7.7 Hgb 7.8 L Hct 25.5 L Plt Count 201 Sodium 135 L Potassium 4.3 Chloride 98 Carbon Dioxide 31 H BUN 37 H Creatinine 0.91 Glucose 96 Calcium 8.7 Short CBC 09/06/17 Range/Units 08:00 WBC 7.7 (4.3-11.1) K/mcL Hgb 7.8 L (11.5-15.4) g/dL Hct 25.5 L (35.3-44.9) % Plt Count 201 (140-400) K/mcL Neutrophils # 5.5 (1.6-8.9) K/mcL BMP 09/06/17 Range/Units 08:00 Sodium 135 L (136-145) mEq/L Potassium 4.3 (3.5-5.1) mEq/L Chloride 98 (98-107) mEq/L Carbon Dioxide 31 H (23-29) mEq/L BUN 37 H (8-23) mg/dL Creatinine 0.91 (0.60-1.20) mg/dL Glucose 96 (70-105) mg/dL Calcium 8.7 (8.6-10.3) mg/dL Active Medications Acetaminophen (Tylenol) 650 mg PO Q6HR PRN PRN Reason: Mild Pain/Fever Stop: 03/04/18 19:39 Albuterol/Ipratropium (Duoneb) 3 ml IH QID PRN PRN Reason: Shortness of breath Stop: 03/04/18 19:35 Amiodarone HCl (Cordarone) 200 mg PO DAILY [facility] Stop: 03/05/18 09:01 Last Admin: 09/06/17 08:46 Dose: 200 mg Calcium Carbonate (Tums) 500 mg PO HS [facility] Stop: 03/04/18 21:01 Last Admin: 09/05/17 20:32 Dose: 500 mg Digoxin (Lanoxin) 0.125 mg PO DAILY [facility] Stop: 03/08/18 10:16 Furosemide (Lasix) 20 mg PO DAILY [facility] Stop: 03/05/18 09:01 Last Admin: 09/06/17 08:46 Dose: 20 mg Gabapentin (Neurontin) 300 mg PO BID [facility] Stop: 03/04/18 21:01 Last Admin: 09/06/17 08:46 Dose: 300 mg Magnesium Citrate (Citroma) 296 ml PO DAILY PRN PRN Reason: constipation Stop: 03/05/18 09:01 Magnesium Oxide (Mag-Ox) 400 mg PO [facility] PRN Reason: Protocol Stop: 03/04/18 21:01 Last Admin: 09/05/17 20:32 Dose: 400 mg Metoprolol Tartrate (Lopressor) 50 mg PO BID [facility] Stop: 03/04/18 21:01 Last Admin: 09/06/17 08:46 Dose: 50 mg Multi-Ingredient Mucositis [place] (Chloraseptic) 1 spray MM Q2H PRN PRN Reason: Sore Throat Stop: 03/04/18 19:35 Naloxone HCl (Narcan) 0.4 mg IVP Q2MIN PRN PRN Reason: SEE COMMENTS Stop: 03/04/18 19:39 Oxycodone HCl (Roxicodone) 30 mg PO Q6HR PRN PRN Reason: Severe Pain Stop: 03/05/18 09:31 Last Admin: 09/06/17 04:33 Dose: 30 mg Senna/Docusate Sodium (Senna Plus) 1 each PO BID [facility] PRN Reason: Protocol Stop: 03/04/18 21:31 Last Admin: 09/06/17 08:46 Dose: 1 each Simvastatin (Zocor) 10 mg PO HS [facility]IDI Stop: 03/04/18 21:01 Last Admin: 09/05/17 20:32 Dose: 10 mg - EKG Interpretation EKG results cardiology: other (12 hr tele AVG HR 83, A-Fib) - VTE Documentation of Mechanical Device: Intermittent pneumatic compression device Consult Discharge Plan - Plan Referrals: Daniel Stringer MD [Primary Care Provider] -
[2017-09-06] MEDS: *HR* Digoxin 0.125 MG TABLET PO SCH (10:17)
--- NOTE | 2017-09-06 17:28 | Internal Med Progress Note ---
Date of Encounter: 09/06/17 Time of Encounter: 11:00 - Assessment and plan (1) Retroperitoneal hemorrhage Current Visit: Yes Status: Acute Assessment and plan: -Hemoglobin stable but trending downward status post 2 units of packed red blood cells -PCC infusion given on admission for reversal of Xarelto which was discontinued -Will continue to monitor H&H (2) Hemoperitoneum Current Visit: Yes Status: Acute Assessment and plan: -As above; continue to monitor H&H (3) Paroxysmal atrial fibrillation Current Visit: No Status: Chronic Assessment and plan: Cardiology consulted with recommendations to continue Lopressor 50mg BID as BP tolerates, Amiodarone 200mg daily and will start PO daily Digoxin 125mcg. (4) Chronic diastolic heart failure Current Visit: Yes Status: Acute Assessment and plan: Continue home medications (5) Chronic hypoxemic respiratory failure Current Visit: Yes Status: Acute Assessment and plan: Continue supplemental oxygenation (6) DVT prophylaxis Current Visit: No Status: Acute Assessment and plan: -Hematology consulted for recommendations for fibrillation for age of fibrillation in the midst of retroperitoneal hemorrhage - Subjective Interval history: Patient will retroperitoneal hemorrhage; hemoglobin slowly trending downward but stable status post 2 units packed red blood cells Anticoagulation for multiple DVTs currently being held due to retroperitoneal hematoma and hematology consulted for recommendations - Constitutional Vitals: Temp Pulse Resp BP Pulse Ox 97.9 F 74 16 98/48 96 09/06/17 16:51 09/06/17 16:51 09/06/17 16:51 09/06/17 16:51 09/06/17 16:51 General appearance: Present: A&O X 3, no acute distress - Respiratory Respiratory exam: Present: CTAB. Absent: accessory muscle use, rales, rhonchi, wheezes - Cardiovascular Cardiovascular exam: Present: RRR, +S1, +S2. Absent: diastolic murmur, gallop, rubs, systolic murmur - GI/Abdominal GI/Abdominal exam: Present: soft, tenderness. Absent: distended Internal Medicine: Result - Labs CBC & Chem 7: 09/06/17 08:00 09/06/17 08:00 Labs: Short CBC 09/06/17 Range/Units 08:00 WBC 7.7 (4.3-11.1) K/mcL Hgb 7.8 L (11.5-15.4) g/dL Hct 25.5 L (35.3-44.9) % Plt Count 201 (140-400) K/mcL Neutrophils # 5.5 (1.6-8.9) K/mcL BMP 09/06/17 08:00 Sodium 135 L Potassium 4.3 Chloride 98 Carbon Dioxide 31 H BUN 37 H Creatinine 0.91 Glucose 96 Calcium 8.7 - ABG Interpretation ABG results: PT/INR, D-dimer PT 26.2 Seconds (9.4-12.1) H 09/02/17 12:53 - VTE Documentation of Mechanical Device: Intermittent pneumatic compression device Consult Discharge Plan - Plan Referrals: Daniel Stringer MD [Primary Care Provider] -
[2017-09-06] MEDS: Magnesium Oxide 400 MG TABLET PO SCH (22:27)
[2017-09-07] MEDS: *HR* OxyCODONE Immed Rel 5 MG TABLET PO PRN ×2 (06:29→12:24)
--- NOTE | 2017-09-07 08:21 | Internal Med Progress Note ---
<Nura Bernard - Last Filed: 09/07/17 12:58> Date of Encounter: 09/07/17 Time of Encounter: 08:15 - Assessment and plan (1) Retroperitoneal hemorrhage Current Visit: Yes Status: Acute Assessment and plan: Abdomen/Pelvic CT on 09/02/17 demonstrated the following: -Marked heterogeneous enlargement of the R iliopsoas musculature consistent with hemorrhage -Additional R-sided retroperitoneal hemorrhage -Mild hemoperitoneum/free fluid -Hemoglobin stable but trending downward status post 2 units of pRBCs -PCC infusion given on admission for reversal of Xarelto which was d/cd -Continue to monitor H&H -General surgery consulted (2) Paroxysmal atrial fibrillation Current Visit: No Status: Chronic Assessment and plan: Cardiology was consulted; Patient experienced AFib with RVR on 09/05/17. Was loaded with Digoxin. Per cardiology recommendations: -Continue Lopressor 50mg BID as BP tolerates -Amiodarone 200mg daily -Start PO daily Digoxin 125mcg -Possibly consider Plavix in future if able -Replace HGB as needed (3) Chronic diastolic heart failure Current Visit: Yes Status: Acute Assessment and plan: -Continue home medications -Cardiac diet -Lasix 20 mg PO daily (4) Chronic hypoxemic respiratory failure Current Visit: Yes Status: Acute Assessment and plan: -Continue supplemental O2 (5) DVT prophylaxis Current Visit: No Status: Acute Assessment and plan: -Hematology consulted for recommendations for DVT/Afib management in the setting of retroperitoneal bleed - Subjective Interval history: Ms. Francois is a 86 year old female with past medical history significant for atrial fibrillation, CHF, COPD, paroxysmal atrial fibrillation on anticoagulation with Xarelto, HTN and HLD, s/p fall hip fracture, s/p left hip replacement, who was sent from nursing facility for evaluation of abdominal pain. Reported worsening dull, aching, 7/10 RLQ abdominal pain associated w/ constipation x 2 days. Patient tachycardic on presentation at 120 bpm. Laboratory analysis demonstrated an acute drop in hemoglobin over [address] scan of the abdomen and pelvis shows retroperitoneal hemorrhage with psoas hematoma. Was given 2 units pRBCs in the ED. Patient experienced AFib with RVR on 09/05/17. Cardiology was consulted; Was loaded with Digoxin. Cardiology recommended continuing Lopressor 50mg BID as BP tolerates, Amiodarone 200mg daily, PO daily Digoxin 125mcg. General surgery has been consulted. Patient was seen and examined at bedside this morning. States that she has some mild abdominal tenderness. She is very hard of hearing; accompanied by daughter. No further complaints at this time. - Constitutional Vitals: Temp Pulse Resp BP Pulse Ox 99.1 F 100 14 120/58 99 09/07/17 07:08 09/07/17 07:08 09/07/17 07:08 09/07/17 07:08 09/07/17 07:08 General appearance: Present: A&O X 3, no acute distress - Head Head exam: Present: atraumatic, normocephalic - Eye Eye exam: Present: PERRL, conjuntiva pink, sclera anicteric Pupils: Present: PERRL - Neck Neck exam general surgery: Present: supple, trachea midline. Absent: lymphadenopathy - Respiratory Respiratory exam: Present: CTAB. Absent: accessory muscle use, rales, rhonchi, wheezes - Cardiovascular Cardiovascular exam: Present: +S1, +S2, tachycardia. Absent: diastolic murmur, gallop, rubs, systolic murmur - GI/Abdominal GI/Abdominal exam: Present: normal bowel sounds, soft, tenderness - Extremities Exam Extremities exam: Present: warm, radial pulses palpable and symmetrical. Absent : calf tenderness, cyanotic, pedal edema - Neurological Exam Neurological exam: Present: CN II-XII intact, oriented X3, no focal deficits. Absent: pronater drift, facial droop, speech deficit - Skin Skin exam: Present: dry, intact Internal Medicine: Result - Labs CBC & Chem 7: 09/07/17 08:53 09/06/17 08:00 Labs: Short CBC 09/06/17 Range/Units 08:00 WBC 7.7 (4.3-11.1) K/mcL Hgb 7.8 L (11.5-15.4) g/dL Hct 25.5 L (35.3-44.9) % Plt Count 201 (140-400) K/mcL Neutrophils # 5.5 (1.6-8.9) K/mcL BMP 09/06/17 08:00 Sodium 135 L Potassium 4.3 Chloride 98 Carbon Dioxide 31 H BUN 37 H Creatinine 0.91 Glucose 96 Calcium 8.7 - ABG Interpretation ABG results: PT/INR, D-dimer PT 26.2 Seconds (9.4-12.1) H 09/02/17 12:53 - VTE Documentation of Mechanical Device: Intermittent pneumatic compression device Consult Discharge Plan - Plan Instructions: Digoxin (By mouth), Atrial Fibrillation (GEN) Referrals: Tip Billingsley MD [Partnered Physician] - 10/14/17 2:00 pm Daniel Stringer MD [Primary Care Provider] - (PATIENT IS FROM [facility] NO PCP APPOINTMENT NEEDED) <Tadeo Lorenzana - Last Filed: 09/07/17 16:16> Date of Encounter: 09/07/17 - Constitutional Vitals: Temp Pulse Resp BP Pulse Ox 97.7 F 60 16 90/62 95 09/07/17 11:12 09/07/17 15:57 09/07/17 11:12 09/07/17 11:12 09/07/17 11:12 Internal Medicine: Result - Labs CBC & Chem 7: 09/07/17 08:53 09/06/17 08:00 Labs: Short CBC 09/07/17 Range/Units 08:53 WBC 8.5 (4.3-11.1) K/mcL Hgb 8.9 L (11.5-15.4) g/dL Hct 29.2 L (35.3-44.9) % Plt Count 240 (140-400) K/mcL Neutrophils # 6.6 (1.6-8.9) K/mcL - ABG Interpretation ABG results: PT/INR, D-dimer PT 26.2 Seconds (9.4-12.1) H 09/02/17 12:53 - Attending Attestation I personally interviewed and examined this patient. I agree with the findings, assessment, and plan of Dr. Bernard. Please see additional details on discharge summary.
[2017-09-07] MEDS: *HR* Digoxin 0.125 MG TABLET PO SCH (08:55)
[2017-09-07] MEDS: Furosemide 20 MG TABLET PO SCH (08:56)
[2017-09-07] MEDS: Gabapentin 300 MG CAPSULE PO SCH (08:56)
[2017-09-07] MEDS: *HR* Amiodarone 200 MG TABLET PO SCH (08:56)
[2017-09-07] MEDS: Sennosides/Docusate Sodium TABLET PO SCH (08:56)
[2017-09-07 09:16] LABS: Basophils % 0.4 %; Eosinophils # 0.3 K/mcL (0.0-0.6); Eosinophils % 3.8 %; Hematocrit 29.2 % (35.3-44.9); Hemoglobin 8.9 g/dL (11.5-15.4); Immature Granulocytes % 0.5 % (0-4); Lymphocytes # 0.8 K/mcL (0.6-4.6); Lymphocytes % 8.9 %; Mean Corpuscular HGB Conc 30.5 g/dL (31.6-35.5); Mean Corpuscular Hemoglobin 29.8 pg (28.0-33.3); Mean Corpuscular Volume 97.7 fL (83.0-100.0); Mean Platelet Volume 10.1 fL (9.4-12.4); Monocytes # 0.8 K/mcL (0.0-1.3); Monocytes % 9.7 %; Neutrophils # 6.6 K/mcL (1.6-8.9); Platelet Count 240 K/mcL (140-400); Red Blood Count 2.99 M/mcL (3.82-4.97); Red Cell Distribution Width 16.5 % (11.5-14.5); Segmented Neutrophils % 76.7 %
[2017-09-07 11:17] VITALS: BP 90/62
--- NOTE | 2017-09-07 14:49 | Oncology Inp Consult Note ---
<Cinthia Winter - Last Filed: 09/07/17 15:25> Date of Encounter: 09/07/17 Time of Encounter: 14:46 Assessment and Plan (1) Anticoagulation management encounter Status: Acute Assessment and plan: 1. Right iliopsoas musculature consistent with hemorrhage. Additional right- sided retroperitoneal hemorrhage. Given patients age, comorbidies and fall risk- Hematology would recommend stopping anticoagulation with no plan to restart anticoagulation in future. In evaluation of risk vs. benefit of anticoagulation given the above, as explained to patient/patients daughter, patients risk for associated bleeding due to anticoagulation outweigh benefits at this time. Patient and patients daughter understand and are agreeable to plan. Will order repeat PT/INR as PT/INR previously elevated for unknown cause (INR 2.4 on 09/02/17). May be due to prior Xarelto therapy although this is a greater elevation than typically seen, vitamin k deficiency is of question. Please refer to Dr. Olivares's attestation below for further details. - Data of Consult Patient: new to practice Consult date: 09/07/17 Requesting Physician: Adolfo Santamaria Primary Care Provider: Daniel Stringer MD - Consult Narrative Reason for consult: right iliopsoas & right retroperitoneal hemmorhage,anticoag recommendations History of present illness: Ms. Francois is a 86 year old female with past medical history significant for atrial fibrillation, CHF, COPD, paroxysmal atrial fibrillation on anticoagulation with Xarelto, hypertension and hyperlipidemia, status post fall hip fracture, status post left hip replacement on 08/03/2017. Ms. Francois was sent from nursing facility for further evaluation of worsening RLQ abdominal pain with associated constipation. Workup done in the emergency department with CT abd/pelvis revealed marked heterogeneous enlargement of the right iliopsoas musculature consistent with hemorrhage. Additional right-sided retroperitoneal hemorrhage is present, and there is mild hemoperitoneum/free fluid. Xarelto was stopped. Patient was given PCC in the emergency department to reverse the coagulopathy. Cardiology consult reviewed: Recommended continued hold of anticoagulation, continue to hold AC. Aspirin allergy noted. May possibly consider Plavix in future if able. Holding amiodarone as patient is not anticoagulated, continue with digoxin/metoprolol for rate control. Surgical consult reviewed: Found no need for acute surgical intervention indicated at this time, recommended aggressive treatment for constipation is likely contributing to her abdominal discomfort. Past Med Surg Social Fam HX - Past Medical History Medical history: atrial fibrillation, CHF, COPD, hyperlipidemia, hypertension, osteoporosis Psychiatric history: anxiety - Past Surgical History Surgical History: cholecystectomy, hysterectomy, knee replacement, orthopedic, other - Social History Smoking Status: Never smoker Smokeless Tobacco Status: No Alcohol use: none Drug use: none - Family History Daughter Living Status: Hx Family Cancer: Yes Father Living Status: Hx Family Cardiac Disorders: Yes (heart attack) Medications and Allergies Multivitamin [Multi-Day Vitamins] 1 each PO DAILY 04/25/15 [History] Calcium Carbonate [Calcium] 500 mg PO HS 03/31/17 [History] Furosemide [Lasix] 20 mg PO DAILY 03/31/17 [History] Magnesium Oxide [Mag-Ox] 400 mg PO HS 03/31/17 [History] Lydia-3 Fatty Acids [Fish Oil] 600 mg PO DAILY 03/31/17 [History] Vit C/Vit E/Lutein/Min/Lydia-3 [Ocuvite Softgel] 1 each PO HS 03/31/17 [History] Rivaroxaban [Xarelto] 20 mg PO DAILY 06/01/17 [History] Gabapentin [Neurontin] 300 mg PO BID capsule 06/24/17 [Rx] Oxycodone HCl [Roxicodone 30] 30 mg PO QID PRN #10 tablet 06/24/17 [Rx] Benzonatate [Tessalon] 100 mg PO TID 07/19/17 [History] Chloraseptic Spencer [Chloraseptic] 1 spray MM Q2H PRN 07/19/17 [History] Guaifenesin [Mucinex] 1,200 mg PO BID 07/19/17 [History] Ipratropium/Albuterol Neb [Duoneb] 3 ml IH QID PRN 07/19/17 [History] Oxygen 2 l NS AD 07/19/17 [History] Simvastatin [Zocor] 10 mg PO HS 07/19/17 [History] Acetaminophen [Tylenol] 650 mg PO Q6HR PRN tablet 07/22/17 [Rx] Amiodarone [Cordarone] 200 mg PO DAILY 09/02/17 [History] Metoprolol [Lopressor] 100 mg PO BID 09/02/17 [History] Digoxin [Lanoxin] 0.125 mg PO DAILY #30 tablet 09/07/17 [Rx] OxyCODONE Immed Rel [Roxicodone 30 MG] 30 mg PO Q6H PRN 7 Days #28 tab 09/07/17 [Rx] 3 Allergy/AdvReac Type Severity Reaction Status Date / Time amlodipine Allergy See Verified 08/02/17 13:55 Comments aspirin Allergy Rash Verified 08/02/17 13:55 codeine Allergy Rash Verified 08/02/17 13:55 Constitutional: Present: anorexia, frequent falls, weakness, weight loss. Absent: chills, fever(s) Eyes: Absent: change in vision Cardiovascular: Present: irregular heart rhythm. Absent: chest pain, palpitations Respiratory: Absent: cough, dyspnea Gastrointestinal: Present: as per HPI, abdominal pain, constipation. Absent: nausea, vomiting Genitourinary: Absent: dysuria Musculoskeletal: Present: as per HPI, abnormal gait, muscle weakness Additional comments: status post left hip replacement on 08/03/2017 Integumentary: Present: as per HPI Additional comments: surgical left hip incision Neurological: Absent: focal weakness, numbness, syncope, tingling Psychiatric: Present: change in appetite Hematologic/Lymphatic: Present: as per HPI Oncology - Exam - Constitutional Vitals: Temp Pulse Resp BP Pulse Ox 97.7 F 73 16 90/62 95 09/07/17 11:12 09/07/17 12:13 09/07/17 11:12 09/07/17 11:12 09/07/17 11:12 General appearance: cooperative, no acute distress, thin, no febrile - Head Head exam: Present: atraumatic - Respiratory Respiratory exam: Present: CTAB. Absent: respiratory distress - Cardiovascular Cardiovascular exam: Present: irregular rhythm - GI/Abdominal GI/Abdominal exam: Present: distended, normal bowel sounds, tenderness - Extremities Exam Extremities exam: Absent: calf tenderness - Neurological Exam Neurological exam: Present: alert, oriented X3, no focal deficits, strengths equal and symetr throughout - Psychiatric Psychiatric exam: Present: normal affect, normal mood - Skin Skin exam: Present: normal color, warm Additional comments: left hip incision not viewed at this assessment Oncology - Results Labs: Short CBC 09/07/17 Range/Units 08:53 WBC 8.5 (4.3-11.1) K/mcL Hgb 8.9 L (11.5-15.4) g/dL Hct 29.2 L (35.3-44.9) % Plt Count 240 (140-400) K/mcL Neutrophils # 6.6 (1.6-8.9) K/mcL Consult Discharge Plan - Plan Instructions: Digoxin (By mouth), Atrial Fibrillation (GEN) Referrals: Tip Billingsley MD [Partnered Physician] - 10/14/17 2:00 pm Daniel Stringer MD [Primary Care Provider] - (PATIENT IS FROM [facility] NO PCP APPOINTMENT NEEDED) Prescriptions: Digoxin [Lanoxin] 0.125 mg PO DAILY #30 tablet OxyCODONE Immed Rel [Roxicodone 30 MG] 30 mg PO Q6H PRN 7 Days #28 tab PRN Reason: Pain <Reese Olivares - Last Filed: 09/08/17 08:46> Date of Encounter: 09/07/17 - Data of Consult Requesting Physician: Adolfo Santamaria Primary Care Provider: Daniel Stringer MD - Consult Narrative History of present illness: Ms. Francois is a 86 year old female Oncology - Exam - Constitutional Vitals: Temp Pulse Resp BP Pulse Ox 97.7 F 60 16 90/62 95 09/07/17 11:12 09/07/17 15:57 09/07/17 11:12 09/07/17 11:12 09/07/17 11:12 Oncology - Results Labs: Short CBC 09/07/17 Range/Units 08:53 WBC 8.5 (4.3-11.1) K/mcL Hgb 8.9 L (11.5-15.4) g/dL Hct 29.2 L (35.3-44.9) % Plt Count 240 (140-400) K/mcL Neutrophils # 6.6 (1.6-8.9) K/mcL - Attending Attestation Seen and examined patient and agree with assessment and plan. d/c anticoagulation indefinitely. Risk of bleeding in light of recent RP bleed and falls outweigh benefit of stroke prophylaxis for A-fib.
--- NOTE | 2017-09-07 16:08 | Discharge Summary ---
<Kristen Bernardz - Last Filed: 09/07/17 16:06> Orders not resulted at time of discharge: Pending orders 09/07/17 15:55 PTT [Activated Partial Thrombo Time] [COAG] Routine Prothrombin Time INR [COAG] Routine Date of Encounter: 09/07/17 Time of Encounter: 09:15 - Discharge Diagnosis (1) Retroperitoneal hemorrhage Priority: Primary Status: Acute (2) Paroxysmal atrial fibrillation Priority: Secondary Status: Chronic (3) Chronic diastolic heart failure Priority: Secondary Status: Acute (4) Chronic hypoxemic respiratory failure Priority: Secondary Status: Acute (5) DVT prophylaxis Priority: Secondary Status: Acute Hospital course: Ms. Francois is a 86 year old female with past medical history significant for atrial fibrillation, CHF, COPD, paroxysmal atrial fibrillation on anticoagulation with Xarelto, HTN and HLD, s/p fall hip fracture, s/p left hip replacement, who was sent from nursing facility for evaluation of abdominal pain. Reported worsening dull, aching, 7/10 RLQ abdominal pain associated w/ constipation x 2 days. Patient tachycardic on presentation at 120 bpm. Laboratory analysis demonstrated an acute drop in hemoglobin over [address] scan of the abdomen and pelvis shows retroperitoneal hemorrhage with psoas hematoma. Was given 2 units pRBCs in the ED. Patient experienced AFib with RVR on 09/05/17. Cardiology was consulted; Was loaded with Digoxin. Cardiology recommended continuing Lopressor 50mg BID as BP tolerates, Amiodarone 200mg daily, PO daily Digoxin 125mcg. General surgery was consulted; did not recommend invasive procedure. Patient was seen and examined at bedside the morning of . Stated that she has some mild abdominal tenderness. She is very hard of hearing; accompanied by daughter. No further complaints at this time. Hemoglobin improved since admission; 8.9 today. - Time Spent with Patient Total time spent providing and/or coordinating discharge services: Greater than 30 minutes (42 minutes) - Discharge Medications Home Medications: Multivitamin [Multi-Day Vitamins] 1 each PO DAILY 04/25/15 [History] Calcium Carbonate [Calcium] 500 mg PO HS 03/31/17 [History] Furosemide [Lasix] 20 mg PO DAILY 03/31/17 [History] Magnesium Oxide [Mag-Ox] 400 mg PO HS 03/31/17 [History] [place]-3 Fatty Acids [Fish Oil] 600 mg PO DAILY 03/31/17 [History] Vit C/Vit E/Lutein/Min/[place]-3 [Ocuvite Softgel] 1 each PO HS 03/31/17 [History] Rivaroxaban [Xarelto] 20 mg PO DAILY 06/01/17 [History] Gabapentin [Neurontin] 300 mg PO BID capsule 06/24/17 [Rx] Oxycodone HCl [Roxicodone 30] 30 mg PO QID PRN #10 tablet 06/24/17 [Rx] Benzonatate [Tessalon] 100 mg PO TID 07/19/17 [History] Chloraseptic [place] [Chloraseptic] 1 spray MM Q2H PRN 07/19/17 [History] Guaifenesin [Mucinex] 1,200 mg PO BID 07/19/17 [History] Ipratropium/Albuterol Neb [Duoneb] 3 ml IH QID PRN 07/19/17 [History] Oxygen 2 l NS AD 07/19/17 [History] Simvastatin [Zocor] 10 mg PO HS 07/19/17 [History] Acetaminophen [Tylenol] 650 mg PO Q6HR PRN tablet 07/22/17 [Rx] Amiodarone [Cordarone] 200 mg PO DAILY 09/02/17 [History] Metoprolol [Lopressor] 100 mg PO BID 09/02/17 [History] Allergies/Adverse Reactions: 3 Allergy/AdvReac Type Severity Reaction Status Date / Time amlodipine Allergy See Verified 08/02/17 13:55 Comments aspirin Allergy Rash Verified 08/02/17 13:55 codeine Allergy Rash Verified 08/02/17 13:55 Date of admission: 09/02/17 18:13 Primary care physician: Daniel Stringer MD Consults: 09/02/17 19:41 Consult to Occupational Therapy [CONS] Routine Comment: Evaluate, develop and implement POC Reason for Consult: Weakness Consult to Self Propelled Mining Machine Operator [CONS] Routine Reason for SW Consult: Placement 09/02/17 19:42 Consult to Physical Therapy [CONS] Routine Comment: Evaluate, develop and implement POC Reason for Consult: Weakness 09/05/17 10:01 Consult to Cardiology [CONS] Routine Comment: Consulting Provider: Cardiology [place] Reason for Consult: TO CONTROL AFIB Call Completed: Yes 09/06/17 08:23 Consult to Surgery [CONS] Routine Consulting Provider: [facility] Reason for Consult: Retroperitoneal hemorrhage Time Notified: 08:00 Call Completed: Yes 09/06/17 16:22 Consult to Oncology Hematology [CONS] Routine Consulting Provider: Cinthia Winter Reason for Consult: Anticoagulation therapy for atrial fibrillation with retroperitoneal bleed Time Notified: 16:00 Call Completed: Yes Discharging clinician: Nura Bernard Anticipated date of discharge: 09/07/17 - Constitutional Vitals: Temp Pulse Resp BP Pulse Ox 97.7 F 60 16 90/62 95 09/07/17 11:12 09/07/17 15:57 09/07/17 11:12 09/07/17 11:12 09/07/17 11:12 General appearance: Present: A&O X 3, no acute distress - Head Head exam: Present: atraumatic, normocephalic - Eye Eye exam: Present: PERRL, conjuntiva pink, sclera anicteric Pupils: Present: PERRL - Neck Neck exam general surgery: Present: supple, trachea midline. Absent: lymphadenopathy - Respiratory Respiratory exam: Present: CTAB. Absent: accessory muscle use, rales, rhonchi, wheezes - Cardiovascular Cardiovascular exam: Present: RRR, +S1, +S2. Absent: diastolic murmur, gallop, rubs, systolic murmur - GI/Abdominal GI/Abdominal exam: Present: normal bowel sounds, soft, tenderness, no peritoneal signs. Absent: distended - Extremities Exam Extremities exam: Present: warm, radial pulses palpable and symmetrical. Absent : calf tenderness, cyanotic, pedal edema - Neurological Exam Neurological exam: Present: CN II-XII intact, oriented X3, no focal deficits. Absent: pronater drift, facial droop, speech deficit - Skin Skin exam: Present: dry, intact - Patient Status Disposition: Home, Self-Care Condition: Fair Overall status at discharge: patient is progressing back to baseline - Discharge Instructions Instructions: Digoxin (By mouth), Atrial Fibrillation (GEN) Follow Up With: Tip Billingsley MD [Partnered Physician] - 10/14/17 2:00 pm Daniel Stringer MD [Primary Care Provider] - (PATIENT IS FROM [facility] NO PCP APPOINTMENT NEEDED) - Diet and Activity Activity: increase activity as tolerated Diet: advance to your usual diet - VTE Documentation of Mechanical Device: Intermittent pneumatic compression device <Tadeo Lorenzana R - Last Filed: 09/07/17 16:15> Orders not resulted at time of discharge: Pending orders 09/07/17 15:55 PTT [Activated Partial Thrombo Time] [COAG] Routine Prothrombin Time INR [COAG] Routine Date of Encounter: 09/07/17 Hospital course: Ms. Francois is a 86 year old female - Time Spent with Patient Total time spent providing and/or coordinating discharge services: Date of admission: 09/02/17 18:13 Primary care physician: Daniel Stringer MD Consults: 09/02/17 19:41 Consult to Occupational Therapy [CONS] Routine Comment: Evaluate, develop and implement POC Reason for Consult: Weakness Consult to Self Propelled Mining Machine Operator [CONS] Routine Reason for SW Consult: Placement 09/02/17 19:42 Consult to Physical Therapy [CONS] Routine Comment: Evaluate, develop and implement POC Reason for Consult: Weakness 09/05/17 10:01 Consult to Cardiology [CONS] Routine Comment: Consulting Provider: Cardiology [facility] Reason for Consult: TO CONTROL AFIB Call Completed: Yes 09/06/17 08:23 Consult to Surgery [CONS] Routine Consulting Provider: Surgery [facility] Reason for Consult: Retroperitoneal hemorrhage Time Notified: 08:00 Call Completed: Yes 09/06/17 16:22 Consult to Oncology Hematology [CONS] Routine Consulting Provider: Cinthia Winter Reason for Consult: Anticoagulation therapy for atrial fibrillation with retroperitoneal bleed Time Notified: 16:00 Call Completed: Yes - Constitutional Vitals: Temp Pulse Resp BP Pulse Ox 97.7 F 60 16 90/62 95 09/07/17 11:12 09/07/17 15:57 09/07/17 11:12 09/07/17 11:12 09/07/17 11:12 - Attending Attestation I personally interviewed and examined this patient. I agree with the findings, assessment, and plan of Dr. Bernard, internal medicine resident. Patient will follow-up with hematology. Ultimately may need to reconsider anticoagulation, possibly with aspirin alone given her bleed. For the time being she will remain off all anticoagulants. Patient's hemoglobin has been stable and she is otherwise deemed stable for discharge. All else as outlined per discharge summary.
[2017-09-07 16:17] LABS: Activated Partial Thrombo Time 29.3 Seconds (26.0-36.0)
[2017-09-07 16:58] LABS: INR 1.1; Prothrombin Time 12.2 Seconds (9.4-12.1)
--- NOTE | 2017-09-07 17:00 | Physician Discharge Referral ---
[facility] Referral Info Provider in Charge after Transfer: PCP Institutional Level of Care: Intermediate - Diagnosis (1) Retroperitoneal hemorrhage Priority: Primary Status: Acute (2) Paroxysmal atrial fibrillation Priority: Secondary Status: Chronic (3) Chronic diastolic heart failure Priority: Secondary Status: Acute (4) Chronic hypoxemic respiratory failure Priority: Secondary Status: Acute (5) DVT prophylaxis Priority: Secondary Status: Acute - Transfer Medications Prescriptions: Digoxin [Lanoxin] 0.125 mg PO DAILY #30 tablet OxyCODONE Immed Rel [Roxicodone 30 MG] 30 mg PO Q6H PRN 7 Days #28 tab PRN Reason: Pain Home Medications: Multivitamin [Multi-Day Vitamins] 1 each PO DAILY 04/25/15 [History] Calcium Carbonate [Calcium] 500 mg PO HS 03/31/17 [History] Furosemide [Lasix] 20 mg PO DAILY 03/31/17 [History] Magnesium Oxide [Mag-Ox] 400 mg PO HS 03/31/17 [History] [place]-3 Fatty Acids [Fish Oil] 600 mg PO DAILY 03/31/17 [History] Vit C/Vit E/Lutein/Min/[place]-3 [Ocuvite Softgel] 1 each PO HS 03/31/17 [History] Rivaroxaban [Xarelto] 20 mg PO DAILY 06/01/17 [History] Gabapentin [Neurontin] 300 mg PO BID capsule 06/24/17 [Rx] Oxycodone HCl [Roxicodone 30] 30 mg PO QID PRN #10 tablet 06/24/17 [Rx] Benzonatate [Tessalon] 100 mg PO TID 07/19/17 [History] Chloraseptic [place] [Chloraseptic] 1 spray MM Q2H PRN 07/19/17 [History] Guaifenesin [Mucinex] 1,200 mg PO BID 07/19/17 [History] Ipratropium/Albuterol Neb [Duoneb] 3 ml IH QID PRN 07/19/17 [History] Oxygen 2 l NS AD 07/19/17 [History] Simvastatin [Zocor] 10 mg PO HS 07/19/17 [History] Acetaminophen [Tylenol] 650 mg PO Q6HR PRN tablet 07/22/17 [Rx] Amiodarone [Cordarone] 200 mg PO DAILY 09/02/17 [History] Metoprolol [Lopressor] 100 mg PO BID 09/02/17 [History] Digoxin [Lanoxin] 0.125 mg PO DAILY #30 tablet 09/07/17 [Rx] OxyCODONE Immed Rel [Roxicodone 30 MG] 30 mg PO Q6H PRN 7 Days #28 tab 09/07/17 [Rx] Allergies/Adverse Reactions: 3 Allergy/AdvReac Type Severity Reaction Status Date / Time amlodipine Allergy See Verified 08/02/17 13:55 Comments aspirin Allergy Rash Verified 08/02/17 13:55 codeine Allergy Rash Verified 08/02/17 13:55 - Respiratory Orders Smoking Cessation: Smoking cessation has been advised. For more information, call the [place] Tobacco Quit Line at 3-516-IUYQNOW. CERTIFICATION: I certify that the transfer of the above named patient to an Extended Care Facility is necessary for the continuing treatment of the diagnosis listed. The above information is true and accurate reflection of patient's current condition. Confidential - Redisclosure prohibited without a patient's written consent.
== END 2017-09-07 18:15 | disposition home or self-care (01) | DRG 314 ==
LOC: EMEROO 12:03 → 2NNU 18:13 → SUATTDRO 18:13 → 2NNU 21:01
PROVIDERS: ADMIT Internal Medicine; ATTEND Hospitalist

== ENCOUNTER 2018-01-08 17:32 | Inpatient (IN) ==
--- NOTE | 2018-01-08 17:53 | Emergency Department Note ---
Disposition Clinical Impression: Bradycardia, Shortness of breath Disposition: Admitted As Inpatient Condition: Fair Time of Disposition: 20:39 General Adult HPI - General Chief complaint: ED Arrhythmia/Palpitations Stated complaint: bradycardia Time Seen by Provider: 01/08/18 17:32 Source: patient, EMS Limitations: no limitations Nursing Notes Reviewed: Yes Vital Signs Reviewed: Yes - History of Present Illness HPI Narrative: Patient is an 79-year-old female with a past medical history of atrial fibrillation, CHF, COPD, HTN, HLD, DM presents for evaluation of palpitations by squad. According to the EMS the patient was having breakfast this morning she said that she could feel her heart beating abnormally and she also felt mildly short of breath. She states that her symptoms continued throughout the day so she called EMS. EMS arrived at her home and noted her heart rate to be in the 30s. Blood pressure was stable. No interventions were performed during squad. The patient states that the only medication she takes her vitamins and OxyContin for osteoporosis. States that she does not take any of blood pressure or rate control medications. No blood thinners. She denies any fevers , chills, chest pain, abdominal pain, nausea, vomiting, diaphoresis, diarrhea or any other associated symptoms at this time. Pain Scale: 0 - Related Data Home Medications Medication Instructions Recorded Confirmed Multivitamin [Multi-Day Vitamins] 1 each PO DAILY 04/25/15 09/02/17 Calcium Carbonate [Calcium] 500 mg PO HS 03/31/17 09/02/17 Furosemide [Lasix] 20 mg PO DAILY 03/31/17 09/02/17 Magnesium Oxide [Mag-Ox] 400 mg PO HS 03/31/17 09/02/17 [place]-3 Fatty Acids [Fish Oil] 600 mg PO DAILY 03/31/17 09/02/17 Vit C/Vit E/Lutein/Min/[place]-3 1 each PO HS 03/31/17 09/02/17 [Ocuvite Softgel] Rivaroxaban [Xarelto] 20 mg PO DAILY 06/01/17 09/02/17 Benzonatate [Tessalon] 100 mg PO TID 07/19/17 09/02/17 Chloraseptic [place] [Chloraseptic] 1 spray MM Q2H PRN 07/19/17 09/02/17 Guaifenesin [Mucinex] 1,200 mg PO BID 07/19/17 09/02/17 Ipratropium/Albuterol Neb [Duoneb] 3 ml IH QID PRN 07/19/17 09/02/17 Oxygen 2 l NS AD 07/19/17 09/02/17 Simvastatin [Zocor] 10 mg PO HS 07/19/17 09/02/17 Amiodarone [Cordarone] 200 mg PO DAILY 09/02/17 09/02/17 Metoprolol [Lopressor] 100 mg PO BID 09/02/17 09/02/17 Previous Rx's Medication Instructions Recorded Gabapentin [Neurontin] 300 mg PO BID capsule 06/24/17 Oxycodone HCl [Roxicodone 30] 30 mg PO QID PRN #10 tablet 06/24/17 Acetaminophen [Tylenol] 650 mg PO Q6HR PRN tablet 07/22/17 Digoxin [Lanoxin] 0.125 mg PO DAILY #30 tablet 09/07/17 OxyCODONE Immed Rel [Roxicodone 30 30 mg PO Q6H PRN 7 Days #28 tab 09/07/17 MG] Allergies Allergy/AdvReac Type Severity Reaction Status Date / Time amlodipine Allergy See Verified 08/02/17 13:55 Comments aspirin Allergy Rash Verified 08/02/17 13:55 codeine Allergy Rash Verified 08/02/17 13:55 All systems ED: reviewed and negative except as stated. Review of Systems: As Per HPI Constitutional: Denies: fever, chills Cardiovascular: Reports: palpitations, dyspnea on exertion. Denies: chest pain , orthopnea, edema, syncope, paroxysmal nocturnal dyspnea Respiratory: Reports: dyspnea. Denies: cough, wheezes, hemoptysis Gastrointestinal: Denies: abdominal pain, nausea, vomiting Genitourinary: Denies: urgency, dysuria Musculoskeletal: Reports: back pain (Chronic from osteoporosis). Denies: neck pain Integumentary: Denies: rash Past Medical History - Past Medical History Attestation: Yes The following information was validated with the patient. Medical history: Reports: non-contributory, atrial fibrillation, CHF, COPD, hyperlipidemia, hypertension, osteoporosis Surgical history: Reports: cholecystectomy, hysterectomy, knee replacement, orthopedic, other Psychiatric history: Reports: anxiety - Social History Smoking Status: Never smoker Smokeless Tobacco Status: No Alcohol use: Reports: none Drug use: Reports: none Physical Exam CONSTITUTIONAL: Well-appearing; well-nourished; A&O X 3, in no apparent distress vital signs are bradycardia in the 40s to 50s, and blood pressure is 110s/80s, otherwise normal. HEAD: Normocephalic; atraumatic EYES: PERRL, no scleral icterus NOSE: The nose is normal in appearance without rhinorrhea NECK: No JVD or distended neck veins RESP: Normal chest excursion with respiration; breath sounds clear and equal bilaterally; no wheezes, rhonchi, or rales CARD: Irregular rhythm with bradycardia, without murmurs, rub or gallop ABD: Non-distended; non-tender, soft, without rigidity, rebound or guarding,no pulsatile mass CHEST: No pain with palpation SKIN: Normal for age and race; warm and dry without diaphoresis ; no apparent lesions EXTREMITIES: Pulses are 2 plus and equal times 4 extremities, no peripheral edema or calf muscle pain. Patient does have bruising diffusely over her shins. - General Limitations: no limitations Course Course Narrative: Patient presents for bradycardia that is currently symptom at it. Upon chart review the patient was seen here in August 2017 in which she was treated for atrial fibrillation with RVR. Notes state that she was treated with amiodarone , digoxin and also Lopressor. Patient's EKG shows sinus bradycardia at a rate of 43 with pauses in between beats intermittently. I discussed the patient's case with Dr. Aguila, emergency department big machine consultant, he states as long as the patient's blood pressure remained stable he is okay with not starting any medications at this time. He states if she is becoming hypotensive we can start a dopamine drip. He states that he will see the patient in the morning on admission and he agrees with the current labwork ordered. He states to call if there are any significant abnormalities in her lab work. - Reevaluation(s) Reevaluation #1: Patient's arrived to bedside. He states that the patient was seen by cardiology after being discharged the hospital in August and was found to have a low heart rate at that time and they discontinued her rate control medications as well as her blood pressure medications discussed that she may need a pacemaker in the future. Patient continues to remain stable at this time. Patient's d-dimer did come back elevated. Plan is to perform a CTA of the chest to rule out pulmonary embolism. Time: 18:07 Reevaluation #2: CTA was negative for pulmonary embolism. Patient will be admitted to the hospital. Time: 21:58 Vital Signs Temperature 98.1 F 01/08/18 17:36 Pulse Rate 39 01/08/18 17:36 Respiratory Rate 22 01/08/18 17:36 Blood Pressure 118/55 01/08/18 17:36 O2 Sat by Pulse Oximetry 97 01/08/18 17:36 Temperature 98 F 01/08/18 21:46 Pulse Rate 54 01/08/18 21:46 Respiratory Rate 16 01/08/18 21:46 Blood Pressure 138/69 01/08/18 21:46 O2 Sat by Pulse Oximetry 97 01/08/18 21:46 Oxygen Delivery Oxygen Delivery Nasal Cannula Medical Decision Making - Medical Records Medical records reviewed: Yes I reviewed the patient's medical records. - Lab Data Lab results reviewed: Yes I reviewed the patient's lab results. Result diagrams: 01/08/18 17:46 01/08/18 17:46 Lab Results 01/08/18 01/08/18 01/08/18 Range/Units 17:46 17:46 18:12 WBC 6.0 (4.3-11.1) K/mcL RBC 3.91 (3.82-4.97) M/mcL Hgb 12.2 (11.5-15.4) g/dL Hct 38.5 (35.3-44.9) % MCV 98.5 (83.0-100.0) fL MCH 31.2 (28.0-33.3) pg MCHC 31.7 (31.6-35.5) g/dL RDW 14.3 (11.5-14.5) % Plt Count 152 (140-400) K/mcL MPV 10.9 (9.4-12.4) fL Immature Gran % 0.3 (0-4) % Seg Neutrophils % 70.7 % Lymphocytes % 18.3 % Monocytes % 7.9 % Eosinophils % 2.3 % Basophils % 0.5 % Neutrophils # 4.2 (1.6-8.9) K/mcL Lymphocytes # 1.1 (0.6-4.6) K/mcL Monocytes # 0.5 (0.0-1.3) K/mcL Eosinophils # 0.1 (0.0-0.6) K/mcL Basophils # 0.0 (0.0-0.2) K/mcL PT 11.6 (9.4-12.1) Seconds INR 1.1 APTT 28.4 (26.0-36.0) Seconds D-Dimer 1150 H (0-500) ng/mLFEU Sodium 137 (136-145) mEq/L Potassium 4.6 (3.5-5.1) mEq/L Chloride 102 (98-107) mEq/L Carbon Dioxide 31 H (23-29) mEq/L BUN 32 H (8-23) mg/dL Creatinine 1.21 H (0.60-1.20) mg/dL Est GFR ( Amer) 51 L (> 60) Est GFR (Non-Af Amer) 42 L (> 60) BUN/Creatinine Ratio 26 (6-26) Glucose 141 H (70-105) mg/dL Calculated Osmolality 293 (280-300) Calcium 9.2 (8.6-10.3) mg/dL Troponin I < 0.03 (< 0.04) ng/mL TSH 65.100 H (0.340-5.600) mcIU/mL Urine Color (Yellow) Urine Clarity (Clear) Urine pH (5.0-8.0) pH Units Ur Specific [place] (1.010-1.025) Urine Protein (Neg-Trace) mg/dL Urine Glucose (UA) (Normal) mg/dL Urine Ketones (Negative) mg/dL Urine Blood (Negative) Urine Nitrite (Negative) Urine Bilirubin (Negative) Urine Urobilinogen (Normal) mg/dL Ur Leukocyte Esterase (Negative) Ur Culture Indicated? (NO) Digoxin < 0.3 L (0.8-2.0) ng/mL Urine Opiates Screen (Whdlqu=190) ng/mL Ur Barbiturates Screen (Bavxcx=370) ng/mL Ur Phencyclidine Scrn (Cutoff=25) ng/mL Ur Amphetamines Screen (Fodcfm=9281) ng/mL U Benzodiazepines Scrn (Nyzmks=376) ng/mL Urine Cocaine Screen (Cutoff= 300) ng/mL U Marijuana (THC) Screen (Cutoff = 50) ng/mL 01/08/18 01/08/18 Range/Units 19:52 19:54 WBC (4.3-11.1) K/mcL RBC (3.82-4.97) M/mcL Hgb (11.5-15.4) g/dL Hct (35.3-44.9) % MCV (83.0-100.0) fL MCH (28.0-33.3) pg MCHC (31.6-35.5) g/dL RDW (11.5-14.5) % Plt Count (140-400) K/mcL MPV (9.4-12.4) fL Immature Gran % (0-4) % Seg Neutrophils % % Lymphocytes % % Monocytes % % Eosinophils % % Basophils % % Neutrophils # (1.6-8.9) K/mcL Lymphocytes # (0.6-4.6) K/mcL Monocytes # (0.0-1.3) K/mcL Eosinophils # (0.0-0.6) K/mcL Basophils # (0.0-0.2) K/mcL PT (9.4-12.1) Seconds INR APTT (26.0-36.0) Seconds D-Dimer (0-500) ng/mLFEU Sodium (136-145) mEq/L Potassium (3.5-5.1) mEq/L Chloride (98-107) mEq/L Carbon Dioxide (23-29) mEq/L BUN (8-23) mg/dL Creatinine (0.60-1.20) mg/dL Est GFR ( Amer) (> 60) Est GFR (Non-Af Amer) (> 60) BUN/Creatinine Ratio (6-26) Glucose (70-105) mg/dL Calculated Osmolality (280-300) Calcium (8.6-10.3) mg/dL Troponin I (< 0.04) ng/mL TSH (0.340-5.600) mcIU/mL Urine Color Yellow (Yellow) Urine Clarity Clear (Clear) Urine pH 7.0 (5.0-8.0) pH Units Ur Specific [place] 1.017 (1.010-1.025) Urine Protein Negative (Neg-Trace) mg/dL Urine Glucose (UA) Normal (Normal) mg/dL Urine Ketones Negative (Negative) mg/dL Urine Blood Negative (Negative) Urine Nitrite Negative (Negative) Urine Bilirubin Negative (Negative) Urine Urobilinogen Normal (Normal) mg/dL Ur Leukocyte Esterase Negative (Negative) Ur Culture Indicated? NO (NO) Digoxin (0.8-2.0) ng/mL Urine Opiates Screen Positive H (Erhwoh=234) ng/mL Ur Barbiturates Screen Negative (Xpbbem=143) ng/mL Ur Phencyclidine Scrn Negative (Cutoff=25) ng/mL Ur Amphetamines Screen Negative (Phiylp=0375) ng/mL U Benzodiazepines Scrn Negative (Sbfioj=631) ng/mL Urine Cocaine Screen Negative (Cutoff= 300) ng/mL U Marijuana (THC) Screen Negative (Cutoff = 50) ng/mL - EKG Data EKG #1 EKG attestation: Yes I reviewed and interpreted this EKG. EKG results narrative: EKG shows sinus bradycardia rate of 43 beats per minutes. MT is 204, QRS is 95 , QT is 554, and QTc is 499. QT is prolonged due to intermittent pauses in the patient's rhythm. She has no ST elevation, ST depression, Q waves or signs of ischemia on EKG. This EKG was done at 17:42 and is changed from her EKG that was done on September 022017. Old EKG shows atrial fibrillation with RVR and rate of 115. Critical Care Time Critical Care Time: Yes Total Critical Care Time: 35 Attestation: Critical care time 35 minutes managing patient's bradycardia. Attestation Statement - Attestation Attestation: Patient was seen with resident physician. I reviewed the history, physical, assessment and plan, and agree with the findings. I also personally evaluated this patient and had [id number] time with this patient. 87-year-old female presents to the emergency department with heart palpitations since breakfast. Patient states that she has had a funny feeling in her chest. Denies chest pain. Mild shortness of breath. Patient says she has a history of A. fib. Denies other complaints but there may be a component of dementia this patient has multiple medical problems. Review of systems as above remainder negative. Physical exam vital signs patient's bradycardic with a heart rate of 41. Blood pressure stable. Lungs are clear. Abdomen is soft and nontender. Heart bradycardic regular rhythm. Neurologically alert moves all extremities no focal deficits. Skin Bruising throughout the lower extremities. Psych normal. Initial EKG shows a sinus bradycardia, when compared to prior she has had atrial fibrillation with rapid ventricular response. Patient denies being on any medication other than pain medicine, but her record indicates other. We will contact cardiology almost immediately to help determine guidance for this patient. We will also place the pacer pads on the patient this in case it required through the course of her stay. Cardiology recommended not giving any medications unless her blood pressure dropped below 100 systolic. Initially she was a little bit low but she received a fluid bolus in route and that improved her blood pressure substantially. Her rate varied from 35-55 while she was in the emergency department. Her EKG showed no acute ischemic changes. Other lab testing was largely unremarkable except for d-dimer which was positive. This prompted a CT scan of the chest to rule out PE which it did. Patient otherwise was stable throughout her stay in the emergency department. We discussed case with hospitalist service agreed to admit the patient. She will eventually be admitted to the hospitalist service for further evaluation and treatment. I agree with the resident physician assessment and plan. Critical care time was 35 minutes.
[2018-01-08 18:39] LABS: Basophils % 0.5 %; Eosinophils # 0.1 K/mcL (0.0-0.6); Eosinophils % 2.3 %; Hematocrit 38.5 % (35.3-44.9); Hemoglobin 12.2 g/dL (11.5-15.4); Immature Granulocytes % 0.3 % (0-4); Lymphocytes # 1.1 K/mcL (0.6-4.6); Lymphocytes % 18.3 %; Mean Corpuscular HGB Conc 31.7 g/dL (31.6-35.5); Mean Corpuscular Hemoglobin 31.2 pg (28.0-33.3); Mean Corpuscular Volume 98.5 fL (83.0-100.0); Mean Platelet Volume 10.9 fL (9.4-12.4); Monocytes # 0.5 K/mcL (0.0-1.3); Monocytes % 7.9 %; Neutrophils # 4.2 K/mcL (1.6-8.9); Platelet Count 152 K/mcL (140-400); Red Blood Count 3.91 M/mcL (3.82-4.97); Red Cell Distribution Width 14.3 % (11.5-14.5); Segmented Neutrophils % 70.7 %
[2018-01-08 18:47] LABS: INR 1.1; Prothrombin Time 11.6 Seconds (9.4-12.1)
[2018-01-08 18:49] LABS: Activated Partial Thrombo Time 28.4 Seconds (26.0-36.0)
[2018-01-08 19:00] LABS: Troponin I < 0.03 ng/mL (< 0.04)
[2018-01-08 19:08] LABS: BUN/Creatinine Ratio 26 (6-26); Blood Urea Nitrogen 32 mg/dL (8-23); Calcium 9.2 mg/dL (8.6-10.3); Carbon Dioxide 31 mEq/L (23-29); Chloride 102 mEq/L (98-107); Digoxin < 0.3 ng/mL (0.8-2.0); Glucose 141 mg/dL (70-105); Osmolality,Calculated 293 (280-300); Potassium 4.6 mEq/L (3.5-5.1); Sodium 137 mEq/L (136-145); eGFR For Non-African Americans 42 (> 60)
[2018-01-08] MEDS ORDERED: Isovue-370 500 ML INFUS..BTL IV ONE (19:10)
[2018-01-08] MEDS ORDERED: *HR* OxyCODONE ER (12 HR) 20 MG TABLET PO STA (19:28)
[2018-01-08 20:09] LABS: Bilirubin,Urine Negative (Negative); Blood,Urine Negative (Negative); Clarity,Urine Clear (Clear); Color,Urine Yellow (Yellow); Glucose,Urine (UA) Normal (Normal); Ketones,Urine Negative (Negative); Leukocyte Esterase,Urine Negative (Negative); Nitrite,Urine Negative (Negative); Protein,Urine Negative (Neg-Trace); Specific Gravity,Urine 1.017 (1.010-1.025); Urobilinogen,Urine Normal (Normal)
[2018-01-08 20:45] LABS: Amphetamine Screen,Urine Negative ng/mL (Cutoff=1000); Barbiturate Screen,Urine Negative ng/mL (Cutoff=200); Benzodiazepines Screen,Urine Negative ng/mL (Cutoff=200); Cannabinoid Screen,Urine Negative ng/mL (Cutoff = 50); Cocaine Screen,Urine Negative ng/mL (Cutoff= 300); Opiate Screen,Urine Positive ng/mL (Cutoff=300); Phencyclidine Screen,Urine Negative ng/mL (Cutoff=25)
[2018-01-08] MEDS ORDERED: Naloxone 0.4 MG/ML INJ IVP PRN (21:12)
[2018-01-08] MEDS ORDERED: Acetaminophen 325 MG TABLET PO PRN (21:12)
--- NOTE | 2018-01-08 21:53 | Internal Med History&Physical ---
Date of Encounter: 01/08/18 Time of Encounter: 20:00 Internal Medicine - H&P: HPI Chief complaint: Palpitation History of present illness: Ms. Francois is a 87 year old female brought to ER by EMS with complaint of palpitation and a chest discomfort. Past medical history is significant for A. fib, hypertension, COPD, CHF. Patient said since that this morning after breakfast, she started feels chest discomfort with feeling of palpitation. Patient has mild shortness of breath. She denies chest pain but says it is funny feeling. Patient denies dizziness, nausea, or vomiting. EMS was called and patient was found bradycardia with heart rate 30s. Patient has normal BP. In the emergency room, cardiology consult was called, recommend hold any medications that will slow down heart rate. Admit patient for close monitoring. If BP drops, consider dopamine drip. Patient was admitted for further management. Past Med Surg Social Fam HX - Past Medical History Medical history: non-contributory, atrial fibrillation, CHF, COPD, hyperlipidemia, hypertension, osteoporosis Additional medical history: DJD. Allergic Rhinitis. Rectocele. Lumbar stenosis. Acute on Chronic Diastolic CHF Psychiatric history: anxiety - Past Surgical History Surgical History: cholecystectomy, hysterectomy, knee replacement, orthopedic, other Additional surgical history: bilateral knee replacement. left shoulder replacement. left hip replacement - Social History Smoking Status: Never smoker Smokeless Tobacco Status: No Alcohol use: none Drug use: none - Family History Daughter Living Status: Hx Family Cancer: Yes Father Living Status: Hx Family Cardiac Disorders: Yes (heart attack) Internal Medicine - H&P: Meds Multivitamin [Multi-Day Vitamins] 1 each PO DAILY 04/25/15 [History] Calcium Carbonate [Calcium] 500 mg PO HS 03/31/17 [History] Furosemide [Lasix] 20 mg PO DAILY 03/31/17 [History] Magnesium Oxide [Mag-Ox] 400 mg PO HS 03/31/17 [History] [place]-3 Fatty Acids [Fish Oil] 600 mg PO DAILY 03/31/17 [History] Vit C/Vit E/Lutein/Min/[place]-3 [Ocuvite Softgel] 1 each PO HS 03/31/17 [History] Rivaroxaban [Xarelto] 20 mg PO DAILY 06/01/17 [History] Gabapentin [Neurontin] 300 mg PO BID capsule 12/07/17 [Rx] Oxycodone HCl [Roxicodone 30] 30 mg PO QID PRN #10 tablet 06/24/17 [Rx] Benzonatate [Tessalon] 100 mg PO TID 07/19/17 [History] Chloraseptic [place] [Chloraseptic] 1 spray MM Q2H PRN 07/19/17 [History] Guaifenesin [Mucinex] 1,200 mg PO BID 07/19/17 [History] Ipratropium/Albuterol Neb [Duoneb] 3 ml IH QID PRN 07/19/17 [History] Oxygen 2 l NS AD 07/19/17 [History] Simvastatin [Zocor] 10 mg PO HS 07/19/17 [History] Acetaminophen [Tylenol] 650 mg PO Q6HR PRN tablet 07/22/17 [Rx] Amiodarone [Cordarone] 200 mg PO DAILY 09/02/17 [History] Metoprolol [Lopressor] 100 mg PO BID 09/02/17 [History] Digoxin [Lanoxin] 0.125 mg PO DAILY #30 tablet 09/07/17 [Rx] OxyCODONE Immed Rel [Roxicodone 30 MG] 30 mg PO Q6H PRN 7 Days #28 tab 09/07/17 [Rx] 3 Allergy/AdvReac Type Severity Reaction Status Date / Time amlodipine Allergy See Verified 08/02/17 13:55 Comments aspirin Allergy Rash Verified 08/02/17 13:55 codeine Allergy Rash Verified 08/02/17 13:55 All Systems PM: A 10-system review of systems was performed and is negative for pertinent findings except as documented above in the HPI. - Constitutional Vitals: Temp Pulse Resp BP Pulse Ox 98 F 54 16 138/69 97 01/08/18 21:46 01/08/18 21:46 01/08/18 21:46 01/08/18 21:46 01/08/18 21:46 General appearance: Present: A&O X 3, no acute distress, answers questions appropriately - Head Head exam: Present: atraumatic, normocephalic - Eye Eye exam: Present: PERRL, conjuntiva pink, sclera anicteric Pupils: Present: PERRL - Neck Neck exam general surgery: Present: supple, trachea midline. Absent: lymphadenopathy - Respiratory Respiratory exam: Present: CTAB. Absent: accessory muscle use, rales, rhonchi, wheezes - Cardiovascular Cardiovascular exam: Present: bradycardia, RRR, +S1, +S2. Absent: diastolic murmur, gallop, rubs, systolic murmur - GI/Abdominal GI/Abdominal exam: Present: normal bowel sounds, soft, no peritoneal signs. Absent: distended, tenderness - Extremities Exam Extremities exam: Present: warm, radial pulses palpable and symmetrical. Absent : calf tenderness, cyanotic, pedal edema - Neurological Exam Neurological exam: Present: CN II-XII intact, oriented X3, no focal deficits. Absent: pronater drift, facial droop, speech deficit - Skin Skin exam: Present: dry, intact Internal Med - H&P Results - Labs CBC & Chem 7: 01/08/18 17:46 01/08/18 17:46 - Assessment and plan (1) Chest discomfort Current Visit: Yes Status: Acute Assessment and plan: Probably due to bradycardia. Patient has normal SPO2. No wheezing on exam. - Continue closely monitoring - No further treatment as patient symptoms has improved. - Track 3 sets of troponin - Echocardiogram in a.m. (2) Bradycardia Current Visit: Yes Status: Acute Assessment and plan: Etiology is undetermined. Patient is on beta gunner, digoxin, and amiodarone. Will hold all these medications. Closely monitor patient. Will consider dopamine drip if BP drops, per cardiology recommendation. Consult cardiology in a.m. (3) (HFpEF) heart failure with preserved ejection fraction Current Visit: No Status: Acute Assessment and plan: Appears euvolemic. Continue home medication Lasix 20 mg daily (4) Atrial fibrillation Current Visit: No Status: Chronic Assessment and plan: Right now sinus bradycardia. Hold medications that will slow down HR. patient is not on any anticoagulation because of history of GI bleed. Qualifiers: Atrial fibrillation type: permanent Qualified Code(s): I48.2 - Chronic atrial fibrillation (5) CKD (chronic kidney disease) stage 3, GFR 30-59 ml/min Current Visit: No Status: Chronic Assessment and plan: Creatinine is at baseline. Will start low rate saline IV as patient had CTA today. Avoid the nephrotoxic medications (6) HTN (hypertension) Current Visit: No Status: Chronic Assessment and plan: BP is not high. Hold hypertensive medications because of bradycardia Qualifiers: Hypertension type: essential hypertension Qualified Code(s): I10 - Essential (primary) hypertension (7) Elevated TSH Current Visit: Yes Status: Acute Assessment and plan: Patient denies history of thyroid disease. Elevated TSH, probably due to a newly developed primary hypothyroidism. We will check T3/T4 level in a.m. (8) Elevated d-dimer Current Visit: Yes Status: Acute Assessment and plan: CTA shows negative for PE. Will check Doppler bilateral leg to rule out DVT. (9) DVT prophylaxis Current Visit: Yes Status: Acute Assessment and plan: EPCDs - Time Spent With Patient Total time spent is greater than 50% in coordination of care (as documented) at patient's floor/unit and/or counseling patient: 40 minutes Greater than 35 minutes
[2018-01-08] MEDS ORDERED: 0.9 % Sodium Chloride 1,000 ML ONE (22:08)
[2018-01-08] MEDS ORDERED: Ipratropium/Albuterol Neb 3 ML IH PRN (23:00)
[2018-01-08] MEDS: 0.9 % Sodium Chloride 1,000 ML IVC SCH (23:17)
[2018-01-09] MEDS ORDERED: *HR* OxyCODONE Immed Rel 5 MG TABLET PO ONE (02:35)
[2018-01-09 04:06] LABS: Basophils % 0.6 %; Eosinophils # 0.2 K/mcL (0.0-0.6); Eosinophils % 3.1 %; Hematocrit 37.1 % (35.3-44.9); Hemoglobin 11.8 g/dL (11.5-15.4); Immature Granulocytes % 0.4 % (0-4); Lymphocytes # 1.2 K/mcL (0.6-4.6); Lymphocytes % 24.4 %; Mean Corpuscular HGB Conc 31.8 g/dL (31.6-35.5); Mean Corpuscular Hemoglobin 31.2 pg (28.0-33.3); Mean Corpuscular Volume 98.1 fL (83.0-100.0); Mean Platelet Volume 12.3 fL (9.4-12.4); Monocytes # 0.5 K/mcL (0.0-1.3); Nucleated Red Blood Cells 0.6 /100 WBC (0); Platelet Count 101 K/mcL (140-400); Red Blood Count 3.78 M/mcL (3.82-4.97); Red Cell Distribution Width 14.4 % (11.5-14.5); Segmented Neutrophils % 61.5 %
[2018-01-09 04:27] LABS: Chol/HDL Ratio 2.3 (0-4.9); Phosphorous 3.5 mg/dL (2.7-4.5); Potassium 4.7 mEq/L (3.5-5.1)
[2018-01-09 04:45] LABS: Triiodothyronine (T3) Free 2.1 pg/mL (2.50-3.90)
[2018-01-09 04:49] LABS: Triiodothyronine (T3) Total 0.58 ng/mL (0.87-1.78)
[2018-01-09] MEDS: Furosemide 20 MG TABLET PO SCH (08:33)
[2018-01-09] MEDS: Gabapentin 300 MG CAPSULE PO SCH ×2 (08:33→20:44)
--- NOTE | 2018-01-09 12:50 | Cardiology Consult Note ---
Date of Encounter: 01/09/18 Time of Encounter: 12:45 Assessment and Plan (1) PAF (paroxysmal atrial fibrillation) Current Visit: Yes Status: Acute History of PAF, currently sinus bradycardia with heart rates in the 30s. Outpatient medication adjustments noted, most recently on sotalol therapy per primary head of transport logistics. Bradycardia has occurred in the setting of hypothyroidism. Recommend continue to hold negative chronotropic agents. Your internal medicine management regarding hypothyroidism. Patient previously deemed a poor anticoagulation candidate secondary to anemia, advanced age, and fall risk. Reported allergy to aspirin. We will continue to monitor. No clinical indication for intervention at this time. Hopefully, heart rate will improve as thyroid is treated. (2) Sinus bradycardia Current Visit: Yes Status: Acute See comments under PAF. Discussion w patient/family: The assessment and plan as outlined above was discussed with the patient and/or family members who expressed understanding and agreement. All questions were answered. Thank you for involving us in the care of your patient. Please call with any questions. History of Present Illness Consult date: 01/09/18 Requesting physician: Petra Boss Consult reason: Bradycardia Chief complaint: Abnormal heart rhythm History of present illness: Ms. Francois is a 87 year old female with a history of PAF, COPD, HTN, and DM II. Previous inpatient cardiology evaluations regarding atrial fibrillation. Recently 08/2017. AF with RVR at that time in the setting of anemia and relative hypotension. Patient was placed on digoxin, amiodarone, a low-dose beta gunner therapy. Since that time, she has been managed by Dr. Kingston in the outpatient setting. All of her previous AF medications were stopped and she was transitioned to sotalol therapy. She has been deemed a poor Coumadin candidate due to anemia. Presented to the ER with complaints abnormal heart rate sensation and dyspnea. Patient noted to be bradycardic in the ER - heart rate 30s. ECG reviewed and demonstrated sinus mechanism with PACs. Labs obtained, TSH noted to be 65.1. Overnight, heart rate remained bradycardic, but stable. Blood pressure is normal. Patient in no acute distress. TTE 07/2017: LVEF 60%. Past Med Surg Social Fam HX - Past Medical History Medical history: non-contributory, atrial fibrillation, CHF, COPD, hyperlipidemia, hypertension, osteoporosis Additional medical history: DJD. Allergic Rhinitis. Rectocele. Lumbar stenosis. Acute on Chronic Diastolic CHF Psychiatric history: anxiety - Past Surgical History Surgical History: cholecystectomy, hysterectomy, knee replacement, orthopedic, other Additional surgical history: bilateral knee replacement. left shoulder replacement. left hip replacement - Social History Smoking Status: Never smoker Smokeless Tobacco Status: No Alcohol use: none Drug use: none - Family History Daughter Living Status: Hx Family Cancer: Yes Father Living Status: Hx Family Cardiac Disorders: Yes (heart attack) Medications and Allergies Calcium Carbonate [Calcium] 500 mg PO HS 03/31/17 [History] Furosemide [Lasix] 20 mg PO DAILY 03/31/17 [History] Magnesium Oxide [Mag-Ox] 400 mg PO HS 03/31/17 [History] [place]-3 Fatty Acids [Fish Oil] 600 mg PO DAILY 03/31/17 [History] Vit C/Vit E/Lutein/Min/[place]-3 [Ocuvite Softgel] 1 each PO HS 03/31/17 [History] Benzonatate [Tessalon] 100 mg PO TID 07/19/17 [History] Guaifenesin [Mucinex] 1,200 mg PO BID 07/19/17 [History] Ipratropium/Albuterol Neb [Duoneb] 3 ml IH QID PRN 07/19/17 [History] Oxygen 2 l NS AD 07/19/17 [History] Simvastatin [Zocor] 10 mg PO HS 07/19/17 [History] OxyCODONE Immed Rel [Roxicodone 30 MG] 30 mg PO Q6H PRN 7 Days #28 tab 09/07/17 [Rx] Gabapentin [Neurontin] 600 mg PO TID 01/09/18 [History] Sotalol [Betapace] 80 mg PO Q12H 01/09/18 [History] 3 Allergy/AdvReac Type Severity Reaction Status Date / Time amlodipine Allergy See Verified 08/02/17 13:55 Comments aspirin Allergy Rash Verified 08/02/17 13:55 codeine Allergy Rash Verified 08/02/17 13:55 All Systems Review: The remainder of the systems were reviewed and are negative - Constitutional Constitutional: fatigue - Cardiovascular Cardiovascular: as per HPI, dyspnea at rest, palpitations Physical Examination Vital Signs, Last 4 Hours Temp Pulse Resp BP Pulse Ox 01/09/18 12:26 97 01/09/18 11:55 97.9 F 51 18 127/61 96 General: Conversant, No Apparent Distress HEENT: Atraumatic, Normocephaly, Mucus Membranes Moist Neck: No JVD Cardiac: Other (Bradycardia noted. No significant murmurs appreciated.) Neuro: Alert and responsive, No focal deficits noted Abdomen: Soft, Non-Tender Skin: No rashes noted on visualized skin Musculoskeletal: No Chest Wall Tenderness Extremities: No Clubbing, No Cyanosis, No Edema Results 01/09/18 03:20 01/09/18 03:20 Lab Results 01/08/18 01/09/18 01/09/18 22:01 03:20 03:20 WBC 4.8 Hgb 11.8 Hct 37.1 Plt Count 101 L Sodium 137 Potassium 4.7 Chloride 105 Carbon Dioxide 29 BUN 32 H Creatinine 1.15 Glucose 96 Calcium 9.0 Magnesium 2.0 Troponin I < 0.03 01/09/18 03:20 WBC Hgb Hct Plt Count Sodium Potassium Chloride Carbon Dioxide BUN Creatinine Glucose Calcium Magnesium Troponin I < 0.03 - Imaging and Cardiology Echo: report reviewed - EKG Interpretation EKG results cardiology: personally reviewed Consult Discharge Plan - Plan
[2018-01-09] MEDS ORDERED: Albuterol 2.5 MG/3 ML NEBULIZER IH PRN (16:23)
[2018-01-09] MEDS: 0.9 % Sodium Chloride 1,000 ML IVC SCH (18:48)
--- NOTE | 2018-01-09 21:49 | Internal Med Progress Note ---
Date of Encounter: 01/09/18 Time of Encounter: 21:46 - Assessment and plan (1) Chest discomfort Current Visit: Yes Status: Acute (2) Bradycardia Current Visit: Yes Status: Acute (3) Hypothyroidism Current Visit: Yes Status: Acute Qualifiers: Hypothyroidism type: acquired Qualified Code(s): E03.9 - Hypothyroidism, unspecified (4) PAF (paroxysmal atrial fibrillation) Current Visit: Yes Status: Chronic (5) Hypertensive renal disease with renal failure Current Visit: Yes Status: Acute - Time Spent With Patient Total time spent is greater than 50% in coordination of care (as documented) at patient's floor/unit and/or counseling patient: 25 - 35 minutes - Subjective Interval history: .. The patient feels weak. Otherwise, she is not voicing any symptoms at this time. She did not have any chest pain after admitting her to the floor. Denies difficulty breathing, coughing and wheezing. Denies abdominal pain, nausea and vomiting. She has normal urination. OBJECTIVE: .. See below.. ASSESSMENT AND PLAN: .. Chest discomfort. Has subsided. Her troponins are normal. EKG looks normal, too. No treatment is needed at this time. Bradycardia. We stopped her Sotalol. We will observe her in telemetry floor. Her last heart rate was 51. Hypothyroidism. New onset. Will put her on Synthroid at 50 mcg daily. Paroxysmal atrial fibrillation. Her Sotalol is on hold. See notes from cardiology. Hypertensive renal disease with renal failure. Currently her blood pressure is under control without any medications. We will be watching her blood pressure closely. - Constitutional Vitals: Temp Pulse Resp BP Pulse Ox 97.2 F L 46 16 139/55 97 01/09/18 18:39 01/09/18 18:39 01/09/18 18:39 01/09/18 18:39 01/09/18 18:39 General appearance: Present: A&O X 3, no acute distress, answers questions appropriately - Respiratory Respiratory exam: Present: CTAB. Absent: accessory muscle use, rales, rhonchi, wheezes - Cardiovascular Cardiovascular exam: Present: RRR, +S1, +S2. Absent: diastolic murmur, gallop, rubs, systolic murmur - GI/Abdominal GI/Abdominal exam: Present: normal bowel sounds, soft, no peritoneal signs. Absent: distended, tenderness - Skin Skin exam: Present: dry, intact Internal Medicine: Result - Labs CBC & Chem 7: 01/09/18 03:20 01/09/18 03:20 - ABG Interpretation ABG results: PT/INR, D-dimer PT 11.6 Seconds (9.4-12.1) 01/08/18 18:12 D-Dimer 1150 ng/mLFEU (0-500) H 01/08/18 18:12 - VTE Deep Vein Thrombosis/Pulmonary Embolism Present on Admission: No Consult Discharge Plan - Plan Referrals: Ernst Schuler MD [Primary Care Provider] - (web request 01/09/2018)
[2018-01-09] MEDS ORDERED: OXYCODONE Oral CONC 10 MG/0.5 ML ORAL.SYG SL ONE (22:58)
--- NOTE | 2018-01-10 07:08 | Electrocardiograph Report ---
[place] [id number] Test Date: 2018-01-08 Pat Name: Nelda Francois Department: 104 Room: 2A32 Gender: F Desktop Technician: : [id number] Requested By: Joe Ness Order Number: [id number] Reading MD: Tato Rico Measurements Intervals North Rate: 43 P: 73 MN: 204 QRS: 46 QRSD: 95 T: 25 QT: 554 QTc: 499 Interpretive Statements SINUS BRADYCARDIA WITH OCCASIONAL VENTRICULAR PREMATURE COMPLEXES PROLONGED QT INTERVAL Electronically Signed On 01-10-2018 7:07:26 EDT by Tato Rico
[2018-01-10] MEDS: Gabapentin 300 MG CAPSULE PO SCH ×2 (09:24→21:24)
[2018-01-10] MEDS: Furosemide 20 MG TABLET PO SCH (09:24)
--- NOTE | 2018-01-10 09:51 | Cardiology Progress Note ---
Date of Encounter: 01/10/18 Time of Encounter: 08:15 Assessment and Plan (1) PAF (paroxysmal atrial fibrillation) Current Visit: Yes Status: Chronic Per cardiology: -History of PAF, currently sinus bradycardia with average heart rate in the 50s. Minimum HR 39. -Outpatient medication adjustments noted, most recently on sotalol therapy per primary gas singer. -Bradycardia has occurred in the setting of hypothyroidism. -Recommend continue to hold negative chronotropic agents. -Your internal medicine management regarding hypothyroidism. -Patient previously deemed a poor anticoagulation candidate secondary to anemia , RP bleed, advanced age, and fall risk. Educated and aware of increased risk of CVA/embolic event. -Reported allergy to aspirin. -BP stable. -Denies dizziness/lightheadedness. -TTE with LVEF 60-65%, severely dilated LA, indeterminate diastolic function, mild-moderate AR, mild-moderate TE, severe pulmonary hypertension, no segmental wall motion abnormalities. -We will continue to monitor. -No clinical indication for intervention at this time. -Continue to hold AV kelly blockers at this time. (2) Sinus bradycardia Current Visit: Yes Status: Acute Per cardiology: -SB as above. -Average HR 50, SB. -Denies dizziness, lightheadedness. -BP stable. -Alert and oriented x3. -Continue to hold AV kelly blockers. -Continue telemetry. Discussion w patient/family: The assessment and plan as outlined above was discussed with the patient who expressed understanding and agreement. All questions were answered. Thank you for involving us in the care of your patient. Please call with any questions. Discussed and reviewed with . Subjective Principal diagnosis: sinus bradycardia Interval history: Patient states she feels fine today. Denies dizziness, lightheadedness. Denies complaints. Objective Vital Signs, Last 4 Hours Temp Pulse Resp BP Pulse Ox 01/10/18 06:48 97.5 F L 63 16 137/74 100 General: Conversant, No Apparent Distress HEENT: Atraumatic, Normocephaly, Mucus Membranes Moist Neck: No JVD, Normal carotid pulses Cardiac: Reg Rate and Rhythm, Normal S1 and S2, No Murmur Lungs: Normal Breath Sounds, No Wheeze, Rales, Rhonchi Neuro: Alert and responsive, No focal deficits noted Abdomen: Soft, Non-Tender Skin: No rashes noted on visualized skin Musculoskeletal: No Chest Wall Tenderness Extremities: No Clubbing, No Cyanosis, No Edema, Normal Pulses Results 01/09/18 03:20 01/09/18 03:20 Impressions Echocardiogram 01/09/18 13:00 Impressions: Sinus bradycardia. HR 40s. LVEF 60-65%. Normal LV chamber size, wall thickness and function. Normal right ventricular structure and function. Severely dilated left atrium. Indeterminate diastolic function. Mild-moderate mitral regurgitation. Mild-moderate tricuspid regurgitation. Severe pulmonary hypertension. Estimated RVSP is 58-63 mmHg. Left Ventricular Wall Motion: Rest Echo Findings All wall segments showed normal motion. Findings: Study Quality * Technically adequate exam. ECG Findings * Sinus bradycardia. HR 40s. Left Ventricle * LVEF 60-65%. * Normal LV chamber size, wall thickness and function. * Indeterminate diastolic function. Right Ventricle * Normal right ventricular structure and function. Left Atrium * Severely dilated left atrium. Right Atrium * Moderately dilated right atrium. Aortic Valve * Trileaflet aortic valve. * Mildly sclerotic aortic valve leaflets. * Trace aortic regurgitation. * No aortic stenosis. Mitral Valve * Mildly thickened mitral valve leaflets. * Mild mitral annular calcification * Mild-moderate mitral regurgitation. * No mitral stenosis. Tricuspid Valve * Normal tricuspid valve structure. * Mild-moderate tricuspid regurgitation. * Severe pulmonary hypertension. * Estimated RVSP is 58-63 mmHg. Pulmonic Valve * Normal pulmonic valve structure. * Mild pulmonic regurgitation. Aorta * Normally sized aortic root. Pericardium * The pericardium appears normal. IVC * The IVC is not dilated. * < 50% respiratory change. Pulmonary Artery * Normal visualized portions of the main pulmonary artery. Active Medications Acetaminophen (Tylenol) 650 mg PO Q6HR PRN PRN Reason: Mild Pain/Fever Stop: 07/10/18 21:13 Albuterol Sulfate (Proventil Neb) 2.5 mg IH [id number] PRN; Protocol PRN Reason: Shortness Of Breath/Wheezing Stop: 07/11/18 16:24 Furosemide (Lasix) 20 mg PO DAILY HEIDI Stop: 07/11/18 09:01 Last Admin: 01/10/18 09:24 Dose: 20 mg Gabapentin (Neurontin) 300 mg PO BID HEIDI Stop: 07/11/18 09:01 Last Admin: 01/10/18 09:24 Dose: 300 mg Sodium Chloride (0.9 % Sodium Chloride) 1,000 mls @ 50 mls/hr IVC .Q20H HEIDI Stop: 07/10/18 22:01 Last Admin: 01/09/18 18:48 Dose: 50 mls/hr Levothyroxine Sodium (Synthroid) 50 mcg PO 0630 HEIDI Stop: 07/12/18 06:31 Last Admin: 01/10/18 06:09 Dose: 50 mcg Naloxone HCl (Narcan) 0.4 mg IVP Q2MIN PRN PRN Reason: SEE COMMENTS Stop: 07/10/18 21:13 Laboratory Tests 01/08/18 01/08/18 01/09/18 17:46 22:01 03:20 Hgb 11.8 Potassium Creatinine Magnesium Troponin I < 0.03 < 0.03 TSH 65.100 H 01/09/18 01/09/18 03:20 03:20 Hgb Potassium 4.7 Creatinine 1.15 Magnesium 2.0 Troponin I < 0.03 TSH - Imaging and Cardiology Chest Xray: report reviewed Echo: report reviewed - EKG Interpretation EKG results cardiology: personally reviewed (ECG with sinus bradycardia, HR 43. PACs noted.), other (Telemetry reviewed with average HR previous 12 hours noted to be 50, SB. Minmum HR 39. Frequent PACs noted.) - VTE Deep Vein Thrombosis/Pulmonary Embolism Present on Admission: No Consult Discharge Plan - Plan Referrals: Estefani Luque CNP [Advanced Practice Nurse] - 01/18/18 11:00 am Doreen Cummings, PAC [Physician Parachute Supervisor] - 02/01/18 1:30 pm
[2018-01-10] MEDS: 0.9 % Sodium Chloride 1,000 ML IVC SCH (15:14)
[2018-01-10] MEDS: Ibuprofen 400 MG TABLET PO PRN (15:14)
[2018-01-10] MEDS ORDERED: *HR* LORazepam 0.5 MG TABLET PO PRN (16:45)
--- NOTE | 2018-01-10 23:20 | Internal Med Progress Note ---
Date of Encounter: 01/10/18 Time of Encounter: 23:20 - Assessment and plan (1) Chest discomfort Current Visit: Yes Status: Acute (2) Bradycardia Current Visit: Yes Status: Acute (3) PAF (paroxysmal atrial fibrillation) Current Visit: Yes Status: Chronic (4) Hypothyroidism Current Visit: Yes Status: Acute Qualifiers: Hypothyroidism type: acquired Qualified Code(s): E03.9 - Hypothyroidism, unspecified (5) Hypertensive renal disease with renal failure Current Visit: Yes Status: Acute - Time Spent With Patient Total time spent is greater than 50% in coordination of care (as documented) at patient's floor/unit and/or counseling patient: - Subjective Interval history: .. The patient feels weak. Otherwise, she is not voicing any symptoms at this time. Denies chest pain. Denies difficulty breathing, coughing and wheezing. Denies abdominal pain, nausea and vomiting. She has normal urination. OBJECTIVE: Skin: Free of rash and discoloration ENMT: Oral/pharyngeal mucosa is normal in appearance. Eyes: Sclera is white. There is no discharge from eyes. Respiratory: Normal breath sounds; no crackles or wheezes. CV: Heart is regular. It is mildly tachycardic. I cannot hear any gallop or murmur. GI: Abdomen is soft and not tender. There is no palpable mass or visceromegaly. Neuro: There is no focal deficits. ASSESSMENT AND PLAN: .. Chest discomfort. Has subsided. Her troponins are normal. EKG looks normal, too. No treatment is needed at this time. Bradycardia. We stopped her Sotalol. Bradycardia subsided. She is mildly tachycardic. See notes from cardiology. Paroxysmal atrial fibrillation. Her Sotalol is on hold. See notes from cardiology. Hypothyroidism. New onset. We started her on Synthroid yesterday. Hypertensive renal disease with renal failure. Currently her blood pressure is under control without any medications. We will be watching her blood pressure closely. NOTES: .. DISPOSITION: Tentative discharge home is tomorrow. - Constitutional Vitals: Temp Pulse Resp BP Pulse Ox 98.5 F 104 16 154/78 100 01/10/18 18:48 01/10/18 18:48 01/10/18 18:48 01/10/18 18:48 01/10/18 18:48 General appearance: Present: A&O X 3, no acute distress, answers questions appropriately Internal Medicine: Result - Labs CBC & Chem 7: 01/09/18 03:20 01/09/18 03:20 - ABG Interpretation ABG results: PT/INR, D-dimer PT 11.6 Seconds (9.4-12.1) 01/08/18 18:12 D-Dimer 1150 ng/mLFEU (0-500) H 01/08/18 18:12 - VTE Deep Vein Thrombosis/Pulmonary Embolism Present on Admission: No Consult Discharge Plan - Plan Referrals: Estefani Luque CNP [Advanced Practice Nurse] - 01/18/18 11:00 am Doreen Cummings PAC [Physician Vocal Artist] - 02/01/18 1:30 pm
[2018-01-11] MEDS: Furosemide 20 MG TABLET PO SCH (08:42)
[2018-01-11] MEDS: Ibuprofen 400 MG TABLET PO PRN (08:42)
[2018-01-11] MEDS: Gabapentin 300 MG CAPSULE PO SCH (08:42)
[2018-01-11] MEDS ORDERED: Lisinopril 20 MG TABLET PO SCH (09:15)
--- NOTE | 2018-01-11 10:27 | Cardiology Progress Note ---
Date of Encounter: 01/11/18 Time of Encounter: 09:30 Assessment and Plan (1) PAF (paroxysmal atrial fibrillation) Current Visit: Yes Status: Chronic Per cardiology: -History of PAF, currently sinus bradycardia with average heart rate 103, PAF noted. -Outpatient medication adjustments noted, most recently on sotalol therapy per primary grinder hand. -Your internal medicine management regarding hypothyroidism. -Patient previously deemed a poor anticoagulation candidate secondary to anemia , RP bleed, advanced age, and fall risk. Educated and aware of increased risk of CVA/embolic event. -Reported allergy to aspirin. -TTE with LVEF 60-65%, severely dilated LA, indeterminate diastolic function, mild-moderate AR, mild-moderate TE, severe pulmonary hypertension, no segmental wall motion abnormalities. -Discussed and reviewed with , will start low dose BB. -Cardiology will sign off and will follow in outpatient setting. Follow up set. (2) Sinus bradycardia Current Visit: Yes Status: Acute Per cardiology: -SB as above. -Denies dizziness, lightheadedness. -BP stable. -Alert and oriented x3. -Average HR 103. Discussion w patient/family: The assessment and plan as outlined above was discussed with the patient who expressed understanding and agreement. All questions were answered. Thank you for involving us in the care of your patient. Please call with any questions. Discussed and reviewed with . Subjective Principal diagnosis: sinus bradycardia Interval history: Patient states she feels fine today. Denies dizziness, lightheadedness. Reports headache this morning and was given tylenol by RN, states improving. Patient anxious to go home. Objective Vital Signs, Last 4 Hours Temp Pulse Resp BP Pulse Ox 01/11/18 07:17 98.9 F 99 17 165/92 98 General: Conversant, No Apparent Distress HEENT: Atraumatic, Normocephaly, Mucus Membranes Moist Neck: No JVD, Normal carotid pulses Cardiac: Reg Rate and Rhythm, Normal S1 and S2, No Murmur Lungs: Normal Breath Sounds, No Wheeze, Rales, Rhonchi Neuro: Alert and responsive, No focal deficits noted Abdomen: Soft, Non-Tender Skin: No rashes noted on visualized skin Musculoskeletal: No Chest Wall Tenderness Extremities: No Clubbing, No Cyanosis, No Edema, Normal Pulses Results 01/09/18 03:20 01/09/18 03:20 Active Medications Acetaminophen (Tylenol) 650 mg PO Q6HR PRN PRN Reason: Mild Pain/Fever Stop: 07/10/18 21:13 Last Admin: 01/11/18 10:25 Dose: 650 mg Albuterol Sulfate (Proventil Neb) 2.5 mg IH [id number] PRN; Protocol PRN Reason: Shortness Of Breath/Wheezing Stop: 07/11/18 16:24 Furosemide (Lasix) 20 mg PO DAILY HEIDI Stop: 07/11/18 09:01 Last Admin: 01/11/18 08:42 Dose: 20 mg Gabapentin (Neurontin) 300 mg PO BID HEIDI Stop: 07/11/18 09:01 Last Admin: 01/11/18 08:42 Dose: 300 mg Ibuprofen (Motrin) 400 mg PO Q6HR PRN PRN Reason: Mild Pain Stop: 07/12/18 14:34 Last Admin: 01/11/18 08:42 Dose: 400 mg Levothyroxine Sodium (Synthroid) 50 mcg PO 0630 HEIDI Stop: 07/12/18 06:31 Last Admin: 01/11/18 06:06 Dose: 50 mcg Lisinopril (Zestril) 20 mg PO DAILY HEIDI PRN Reason: Protocol Stop: 07/13/18 09:16 Last Admin: 01/11/18 10:25 Dose: 20 mg Lorazepam (Ativan) 0.5 mg PO Q6HR PRN PRN Reason: Anxiety Stop: 07/12/18 16:46 Last Admin: 01/10/18 16:53 Dose: 0.5 mg Metoprolol Tartrate (Lopressor) 25 mg PO BID [facility] Stop: 07/13/18 10:31 Naloxone HCl (Narcan) 0.4 mg IVP Q2MIN PRN PRN Reason: SEE COMMENTS Stop: 07/10/18 21:13 Laboratory Tests 01/09/18 01/09/18 03:20 03:20 Hgb 11.8 Creatinine 1.15 - Imaging and Cardiology Chest Xray: report reviewed Echo: report reviewed - EKG Interpretation EKG results cardiology: other (Telemetry reviewed with average HR previous 12 hours noted to be 103, ST. PAF noted. PVCs and PACs noted.) - VTE Deep Vein Thrombosis/Pulmonary Embolism Present on Admission: No Consult Discharge Plan - Plan Referrals: Rebel,Estefani, CONE TENDER [Advanced Practice Nurse] - 01/18/18 11:00 am Doreen Cummings, PAC [Physician Resource Manager] - 02/01/18 1:30 pm
--- NOTE | 2018-01-11 10:50 | Discharge Summary ---
- NOTES TO OUTPATIENT PROVIDER Notes to Outpatient Provider: Patient was admitted for symptomatic bradycardia, sotalol was discontinued by cardiology, incidental finding of hypothyroidism with TSH of 65 and low T3 and T4, patient started on low dose synthroid, she has been started on metoprolol 25mg BID, and lisinopril 20mg daily Date of Encounter: 01/11/18 Time of Encounter: 10:47 - Discharge Diagnosis (1) Atrial fibrillation Priority: Primary Status: Chronic Qualifiers: Atrial fibrillation type: permanent Qualified Code(s): I48.2 - Chronic atrial fibrillation (2) HTN (hypertension) Priority: Secondary Status: Chronic Qualifiers: Hypertension type: essential hypertension Qualified Code(s): I10 - Essential (primary) hypertension (3) CKD (chronic kidney disease) stage 3, GFR 30-59 ml/min Priority: Secondary Status: Chronic (4) (HFpEF) heart failure with preserved ejection fraction Priority: Secondary Status: Acute (5) Bradycardia Priority: Primary Status: Resolved (6) Chest discomfort Priority: Primary Status: Resolved (7) Elevated TSH Priority: Primary Status: Acute (8) Elevated d-dimer Priority: Primary Status: Acute (9) DVT prophylaxis Priority: Primary Status: Acute Hospital course: Ms. Francois is a 87 year old female with PMH of PAF on sotalol, COPD, HTN, DM II She was admitted with symptomatic bradycardia with HR in the 30s in the ER. As part of the work up, TSH noted to be 65.1, blood pressure was stable on arrival , other labs unremarkable,cardiology was consulted for recommendations and recommended discontinuation of patient's home dose of sotalol. TTE with LVEF 60- 65%, severely dilated LA, indeterminate diastolic function, mild-moderate AR, mild-moderate TE, severe pulmonary hypertension, no segmental wall motion abnormalities. For hypothyroidism, she was started on low dose synthroid, this a.m, HR increased to 10-120, and cardiology recommended starting on low doese metoprolol to be further adjusted in the outpatient setting She is seen and evaluated at the bedside and her only concern was a headache and requesting to be discharged home, physical exam is unremarkable She has also been started on lisinopril for blood pressure control She is discharged home in stable clinical condition , for follow up with PCP and cardiology Discharge discussed with: patient, family, nurse, social work, case management, clinical practice consultant - Time Spent with Patient Total time spent providing and/or coordinating discharge services: Greater than 30 minutes - Discharge Medications Prescriptions: Levothyroxine [Synthroid] 50 mcg PO 0630 #30 tablet Lisinopril [Zestril] 20 mg PO DAILY #30 tablet Metoprolol [Lopressor] 25 mg PO BID #60 tablet Home Medications: Calcium Carbonate [Calcium] 500 mg PO HS 03/31/17 [History] Furosemide [Lasix] 20 mg PO DAILY 03/31/17 [History] Magnesium Oxide [Mag-Ox] 400 mg PO HS 03/31/17 [History] [place]-3 Fatty Acids [Fish Oil] 600 mg PO DAILY 03/31/17 [History] Vit C/Vit E/Lutein/Min/[place]-3 [Ocuvite Softgel] 1 each PO HS 03/31/17 [History] Benzonatate [Tessalon] 100 mg PO TID 07/19/17 [History] Guaifenesin [Mucinex] 1,200 mg PO BID 07/19/17 [History] Ipratropium/Albuterol Neb [Duoneb] 3 ml IH QID PRN 07/19/17 [History] Oxygen 2 l NS AD 07/19/17 [History] Simvastatin [Zocor] 10 mg PO HS 07/19/17 [History] OxyCODONE Immed Rel [Roxicodone 30 MG] 30 mg PO Q6H PRN 7 Days #28 tab 09/07/17 [Rx] Gabapentin [Neurontin] 600 mg PO TID 01/09/18 [History] Gabapentin [Neurontin] 300 mg PO BID capsule 01/11/18 [Rx] Levothyroxine [Synthroid] 50 mcg PO 0630 #30 tablet 01/11/18 [Rx] Lisinopril [Zestril] 20 mg PO DAILY #30 tablet 01/11/18 [Rx] Metoprolol [Lopressor] 25 mg PO BID #60 tablet 01/11/18 [Rx] Allergies/Adverse Reactions: 3 Allergy/AdvReac Type Severity Reaction Status Date / Time amlodipine Allergy See Verified 08/02/17 13:55 Comments aspirin Allergy Rash Verified 08/02/17 13:55 codeine Allergy Rash Verified 08/02/17 13:55 Date of admission: 06/24/18 15:31 Primary care physician: Ernst Schuler MD Discharging clinician: Lamont Potts Anticipated date of discharge: 01/11/18 - Constitutional Vitals: Temp Pulse Resp BP Pulse Ox 98.9 F 99 17 165/92 98 01/11/18 07:17 01/11/18 07:17 01/11/18 07:17 01/11/18 07:17 01/11/18 07:17 General appearance: Present: A&O X 3, no acute distress, answers questions appropriately - Head Head exam: Present: atraumatic, normocephalic - Eye Eye exam: Present: PERRL, conjuntiva pink, sclera anicteric Pupils: Present: PERRL - Neck Neck exam general surgery: Present: supple, trachea midline. Absent: lymphadenopathy - Respiratory Respiratory exam: Present: CTAB. Absent: accessory muscle use, rales, rhonchi, wheezes - Cardiovascular Cardiovascular exam: Present: RRR, +S1, +S2. Absent: diastolic murmur, gallop, rubs, systolic murmur - GI/Abdominal GI/Abdominal exam: Present: normal bowel sounds, soft, no peritoneal signs. Absent: distended, tenderness - Extremities Exam Extremities exam: Present: warm, radial pulses palpable and symmetrical. Absent : calf tenderness, cyanotic, pedal edema - Neurological Exam Neurological exam: Present: alert, CN II-XII intact, oriented X3, no focal deficits. Absent: pronater drift, facial droop, speech deficit - Skin Skin exam: Present: dry, intact - Patient Status Disposition: Home, Self-Care Condition: Good Functional capacity at discharge: independent ambulation Overall status at discharge: patient is progressing back to baseline - Discharge Instructions Follow Up With: Estefani Luque CNP [Advanced Practice Nurse] - 01/18/18 11:00 am Droeen Cummings PAC [Physician Journalism Professor] - 02/01/18 1:30 pm Forms: ED Satisfaction Letter - Diet and Activity Activity: resume usual activities as tolerated Diet: low salt diet - VTE Deep Vein Thrombosis/Pulmonary Embolism Present on Admission: No
[2018-01-11] MEDS ORDERED: *HR* OxyCODONE Immed Rel 15 MG TABLET PO ONE (10:51)
[2018-01-11 13:31] VITALS: BP 113/72
== END 2018-01-11 15:35 | disposition home or self-care (01) | DRG 308 ==
LOC: 2ANU 17:32 → EMEROO 17:32 → SUATTDRO 20:37 → 2ANU 21:35 → SUATTDRO 01-09 15:31
PROVIDERS: ADMIT Internal Medicine Nephrology; ATTEND Internal Medicine

== ENCOUNTER 2018-02-11 13:19 | Observation (INO) ==
--- NOTE | 2018-02-11 13:33 | Emergency Department Note ---
Disposition Clinical Impression: NSTEMI (non-ST elevated myocardial infarction) Syncope Qualifiers: Syncope type: unspecified Qualified Code(s): R55 - Syncope and collapse Chest pain Qualifiers: Chest pain type: unspecified Qualified Code(s): R07.9 - Chest pain, unspecified Pneumonia Qualifiers: Pneumonia type: due to unspecified organism Laterality: left Lung location: unspecified part of lung Qualified Code(s): J18.9 - Pneumonia, unspecified organism Disposition: Home, Self-Care Condition: Fair Referrals: Ernst Schuler MD [Primary Care Provider] - Forms: ED Satisfaction Letter Time of Disposition: 19:10 Fall HPI - General Chief Complaint: ED Fall Stated Complaint: Fall Time Seen by Provider: 02/11/18 13:29 Source: patient Mode of arrival: ambulatory Limitations: no limitations Nursing Notes Reviewed: Yes Vital Signs Reviewed: Yes - History of Present Illness HPI Narrative: Patient is an 87-year-old female with past medical history of CHF, CAD, A. fib, hypertension, hyperlipidemia. She presents today due to syncope, fall. Patient is poor historian due to dementia. No family at bedside. She states that she was at [facility] and passed out, was called by nurses. However, EMS states that family was there and witnessed that she had an episode of syncope and then fell and hit her head. The patient denies hitting her head. Denies any current symptoms of numbness, tingling, weakness. She is complaining of some mild left-sided chest pain that radiated to her left shoulder. Denied any shortness of breath, nausea, vomiting, fevers, diarrhea, abdominal pain, dysuria , hematuria. No injuries to any extremities. Denies any neck or back pain. - Related Data Home Medications Medication Instructions Recorded Confirmed Furosemide [Lasix] 20 mg PO DAILY 03/31/17 01/21/18 Oxygen 2 l NS AD 07/19/17 01/21/18 Simvastatin [Zocor] 10 mg PO HS 07/19/17 01/21/18 Gabapentin [Neurontin] 600 mg PO TID 01/09/18 01/21/18 Sotalol [Betapace] 80 mg PO Q12H 01/21/18 01/21/18 Previous Rx's Medication Instructions Recorded OxyCODONE Immed Rel [Roxicodone 30 30 mg PO Q6H PRN 7 Days #28 tab 09/07/17 MG] Levothyroxine [Synthroid] 50 mcg PO 0630 #30 tablet 01/11/18 Lisinopril [Zestril] 20 mg PO DAILY #30 tablet 01/11/18 Metoprolol [Lopressor] 25 mg PO BID #60 tablet 01/11/18 Digoxin [Lanoxin] 0.125 mg PO DAILY #30 tablet 02/04/18 Allergies Allergy/AdvReac Type Severity Reaction Status Date / Time amlodipine Allergy See Verified 02/11/18 13:38 Comments aspirin Allergy Rash Verified 02/11/18 13:38 codeine Allergy Rash Verified 02/11/18 13:38 All systems ED: reviewed and negative except as stated. Constitutional: Denies: fever Cardiovascular: Reports: chest pain. Denies: palpitations Respiratory: Denies: cough, dyspnea, wheezes Gastrointestinal: Denies: abdominal pain, nausea, vomiting, diarrhea Genitourinary: Denies: urgency, dysuria, frequency, hematuria Neurological: Reports: other (syncope). Denies: headache, weakness, numbness, paresthesias Fall PMH - Past Medical History Medical history: Reports: non-contributory, atrial fibrillation, CHF, COPD, hyperlipidemia, hypertension, osteoporosis Surgical history: Reports: cholecystectomy, hysterectomy, knee replacement, orthopedic, other Psychiatric history: Reports: anxiety - Social History Smoking Status: Never smoker Alcohol use: Reports: none Drug use: Reports: none Physical Exam - General Limitations: no limitations General appearance: alert, in no apparent distress - Head Head exam: atraumatic, normocephalic, normal inspection - Eye Eye exam: Present: normal appearance, PERRL, EOMI - ENT ENT exam: normal exam, normal oropharynx, mucous membranes moist - Neck Neck exam: Present: normal inspection, full ROM, trachea midline. Absent: tenderness - Chest Chest inspection: Present: normal inspection, symmetric chest wall rise - Respiratory Respiratory exam: Present: normal lung sounds bilaterally - Cardiovascular Cardiovascular exam: Present: regular rate, normal rhythm, normal heart sounds - Abdominal Exam Abdominal exam: Present: soft, Non-Tender. Absent: tenderness, distention, guarding, rebound, rigidity - Extremities Exam Extremities exam: Present: normal inspection, full ROM. Absent: tenderness, pedal edema - Back Exam Back exam: Absent: vertebral tenderness - Neurological Exam Neurological exam: Present: alert, oriented X3 - Psychiatric Psychiatric exam: Present: normal affect, normal mood - Skin Skin exam: Present: warm, dry, intact, normal color Course Course Narrative: Chest X-Ray 02/11/18 13:31 IMPRESSION: 1. No active pulmonary disease. 2. Stable cardiomegaly without overt failure. D/ / Gamaliel Bahena MD / Gamaliel Bahena MD Interpreting Provider: Gamaliel Bahena MD Cervical Spine CT 02/11/18 13:32 IMPRESSION: No acute fracture is suspected. Chronic fracture C2, at the base of the dens with mild posterior subsidence. Mild anterolisthesis and retrolisthesis is noted at multiple levels, associated with severe spondylosis and facet arthropathy. Critical results were called by Dr. Star Ontiveros MD to Ernst Schroeder on 02/11/2018 at 14:47. D/ / Star Ontiveros MD / Star Ontiveros MD Interpreting Provider: Star Ontiveros MD Head CT 02/11/18 13:32 IMPRESSION: No acute intracranial abnormality. D/ / Oksana Barbour MD / Oksana Barbour MD Interpreting Provider: Oksana Barbour MD Abdomen/Pelvis CTA 02/11/18 14:18 IMPRESSION: No evidence of an acute aortic syndrome. Negative for acute pulmonary embolism to the lobar level. Mild interstitial edema and trace left pleural effusion (mild heart failure?), slightly increased compared with prior exam. More focal atelectasis at the medial left lung base is consistent with atelectasis, however some areas a demonstrates subtle decreased enhancement which could indicate superimposed airspace disease such as aspiration or pneumonia. No acute abdominopelvic findings. Moderate colonic stool without evidence of obstruction. Osteopenia with unchanged lower thoracic compression deformities. No new compression deformity. D/ / Nick Morfin / Nick Morfin Interpreting Provider: Nick Morfin Chest CTA 02/11/18 14:18 IMPRESSION: No evidence of an acute aortic syndrome. Negative for acute pulmonary embolism to the lobar level. Mild interstitial edema and trace left pleural effusion (mild heart failure?), slightly increased compared with prior exam. More focal atelectasis at the medial left lung base is consistent with atelectasis, however some areas a demonstrates subtle decreased enhancement which could indicate superimposed airspace disease such as aspiration or pneumonia. No acute abdominopelvic findings. Moderate colonic stool without evidence of obstruction. Osteopenia with unchanged lower thoracic compression deformities. No new compression deformity. D/ / Nick Morfin / Nick Morfin Interpreting Provider: Nick Morfin Vital Signs O2 Sat by Pulse Oximetry 88 02/11/18 13:39 Temperature 98.7 F 02/11/18 13:43 Pulse Rate 60 02/11/18 18:19 Respiratory Rate 16 02/11/18 18:19 Blood Pressure 96/65 02/11/18 18:19 O2 Sat by Pulse Oximetry 97 02/11/18 18:19 Oxygen Delivery Oxygen Delivery Nasal Cannula Fall - [facility] Narrative Medical decision making narrative: Patient was hypertensive on presentation. 2 L normal saline started. She is also hypoxic, placed on 2 L nasal cannula oxygen. Patient is complaining of chest pain, has hypertension, radiates to left shoulder/back. Currently concern for dissection. CT chest abdomen pelvis ordered. Labs show elevated creatinine. However, will hydrate fluid aggressively which will help also with hypertension. Benefit outweighs risk of missing a dissection at this time. Rate of 78. Left axis deviation. Troponin elevated at 0.11. Elevation may be secondary to elevated creatinine but still concerned for ACS. Holding aspirin until we get a CT chest abdomen pelvis back. 18:04 CTA chest abdomen pelvis negative for dissection, negative for PE. There is concern for possible aspiration pneumonia. We will start the patient on clindamycin and Rocephin. Patient has an allergy to aspirin, reported rash. She does have an elevated troponin 0.11. We will speak with cardiology to see about starting the patient on heparin. EKG showed paced rhythm with acute T wave inversions in aVL. We will admit for chest discomfort, hypertension, elevated troponin level, possible aspiration pneumonia. Repeat blood pressure is now systolic 100s. 19:[address] Pretty who has accepted for admission. I also spoke with Dr. Montalvo With cardiology, discussed patient presentation, EKG, troponin level. She agrees with starting heparin at this time due to possible NSTEMI. Heparin orders are in. - Medical Records Medical records reviewed: Yes I reviewed the patient's medical records. - Lab Data Lab results reviewed: Yes I reviewed the patient's lab results. Result diagrams: 02/11/18 14:55 02/11/18 13:48 Lab Results 02/11/18 02/11/18 02/11/18 Range/Units 13:48 13:48 13:48 WBC (4.3-11.1) K/mcL RBC (3.82-4.97) M/mcL Hgb (11.5-15.4) g/dL Hct (35.3-44.9) % MCV (83.0-100.0) fL MCH (28.0-33.3) pg MCHC (31.6-35.5) g/dL RDW (11.5-14.5) % Plt Count (140-400) K/mcL MPV (9.4-12.4) fL Immature Gran % (0-4) % Seg Neutrophils % % Lymphocytes % % Monocytes % % Eosinophils % % Basophils % % Neutrophils # (1.6-8.9) K/mcL Lymphocytes # (0.6-4.6) K/mcL Monocytes # (0.0-1.3) K/mcL Eosinophils # (0.0-0.6) K/mcL Basophils # (0.0-0.2) K/mcL PT 12.4 H (9.4-12.1) Seconds INR 1.1 APTT 19.9 L (26.0-36.0) Seconds Sodium 137 (136-145) mEq/L Potassium 4.7 (3.5-5.1) mEq/L Chloride 103 (98-107) mEq/L Carbon Dioxide 30 H (23-29) mEq/L BUN 38 H (8-23) mg/dL Creatinine 2.13 H (0.60-1.20) mg/dL Est GFR ( Amer) 27 L (> 60) Est GFR (Non-Af Amer) 22 L (> 60) BUN/Creatinine Ratio 18 (6-26) Glucose 112 H (70-105) mg/dL Calculated Osmolality 294 (280-300) Lactic Acid 0.8 (0.5-2.2) mmol/L Calcium 9.5 (8.6-10.3) mg/dL Troponin I 0.11 H* (< 0.04) ng/mL Urine Color (Yellow) Urine Clarity (Clear) Urine pH (5.0-8.0) pH Units Ur Specific [place] (1.010-1.025) Urine Protein (Neg-Trace) mg/dL Urine Glucose (UA) (Normal) mg/dL Urine Ketones (Negative) mg/dL Urine Blood (Negative) Urine Nitrite (Negative) Urine Bilirubin (Negative) Urine Urobilinogen (Normal) mg/dL Ur Leukocyte Esterase (Negative) Urine Microscopic RBC (0-3) per hpf Urine Microscopic WBC (0-3) per hpf Ur Squamous Epith Cells (None-Few) per lpf Urine Bacteria (None-Few) per hpf Hyaline Casts (None-Few) per lpf Specimen Rejected 02/11/18 02/11/18 02/11/18 Range/Units 13:48 14:55 17:15 WBC 7.0 (4.3-11.1) K/mcL RBC 3.16 L (3.82-4.97) M/mcL Hgb 9.8 L (11.5-15.4) g/dL Hct 31.5 L (35.3-44.9) % MCV 99.7 D (83.0-100.0) fL MCH 31.0 (28.0-33.3) pg MCHC 31.1 L (31.6-35.5) g/dL RDW 14.5 (11.5-14.5) % Plt Count 169 (140-400) K/mcL MPV 10.7 (9.4-12.4) fL Immature Gran % 0.3 (0-4) % Seg Neutrophils % 70.3 % Lymphocytes % 15.1 % Monocytes % 9.1 % Eosinophils % 4.6 % Basophils % 0.6 % Neutrophils # 4.9 (1.6-8.9) K/mcL Lymphocytes # 1.1 (0.6-4.6) K/mcL Monocytes # 0.6 (0.0-1.3) K/mcL Eosinophils # 0.3 (0.0-0.6) K/mcL Basophils # 0.0 (0.0-0.2) K/mcL PT (9.4-12.1) Seconds INR APTT (26.0-36.0) Seconds Sodium (136-145) mEq/L Potassium (3.5-5.1) mEq/L Chloride (98-107) mEq/L Carbon Dioxide (23-29) mEq/L BUN (8-23) mg/dL Creatinine (0.60-1.20) mg/dL Est GFR ( Amer) (> 60) Est GFR (Non-Af Amer) (> 60) BUN/Creatinine Ratio (6-26) Glucose (70-105) mg/dL Calculated Osmolality (280-300) Lactic Acid (0.5-2.2) mmol/L Calcium (8.6-10.3) mg/dL Troponin I (< 0.04) ng/mL Urine Color Yellow (Yellow) Urine Clarity Clear (Clear) Urine pH 5.0 (5.0-8.0) pH Units Ur Specific [place] > 1.030 H (1.010-1.025) Urine Protein Trace (Neg-Trace) mg/dL Urine Glucose (UA) Normal (Normal) mg/dL Urine Ketones Negative (Negative) mg/dL Urine Blood Negative (Negative) Urine Nitrite Negative (Negative) Urine Bilirubin Small H (Negative) Urine Urobilinogen Normal (Normal) mg/dL Ur Leukocyte Esterase Negative (Negative) Urine Microscopic RBC 0-3 (0-3) per hpf Urine Microscopic WBC 0-3 (0-3) per hpf Ur Squamous Epith Cells Many H (None-Few) per lpf Urine Bacteria None Seen (None-Few) per hpf Hyaline Casts Many H (None-Few) per lpf Specimen Rejected MCV Delta - Radiology Data Radiology results reviewed: Yes I reviewed the patient's radiology results. Chest X-Ray 02/11/18 13:31 IMPRESSION: 1. No active pulmonary disease. 2. Stable cardiomegaly without overt failure. D/ / Gamaliel Bahena MD / Gamaliel Bahena MD Interpreting Provider: Gamaliel Bahena MD Cervical Spine CT 02/11/18 13:32 IMPRESSION: No acute fracture is suspected. Chronic fracture C2, at the base of the dens with mild posterior subsidence. Mild anterolisthesis and retrolisthesis is noted at multiple levels, associated with severe spondylosis and facet arthropathy. Critical results were called by Dr. Star Ontiveros MD to Ernst Schroeder on 02/11/2018 at 14:47. D/ / Star Ontiveros MD / Star Ontiveros MD Interpreting Provider: Star Ontiveros MD Head CT 02/11/18 13:32 IMPRESSION: No acute intracranial abnormality. D/ / Oksana Barbour MD / Oksana Barbour MD Interpreting Provider: Oksana Barbour MD Abdomen/Pelvis CTA 02/11/18 14:18 IMPRESSION: No evidence of an acute aortic syndrome. Negative for acute pulmonary embolism to the lobar level. Mild interstitial edema and trace left pleural effusion (mild heart failure?), slightly increased compared with prior exam. More focal atelectasis at the medial left lung base is consistent with atelectasis, however some areas a demonstrates subtle decreased enhancement which could indicate superimposed airspace disease such as aspiration or pneumonia. No acute abdominopelvic findings. Moderate colonic stool without evidence of obstruction. Osteopenia with unchanged lower thoracic compression deformities. No new compression deformity. D/ / Nick Morfin / Nick Morfin Interpreting Provider: Nick Morfin Chest CTA 02/11/18 14:18 IMPRESSION: No evidence of an acute aortic syndrome. Negative for acute pulmonary embolism to the lobar level. Mild interstitial edema and trace left pleural effusion (mild heart failure?), slightly increased compared with prior exam. More focal atelectasis at the medial left lung base is consistent with atelectasis, however some areas a demonstrates subtle decreased enhancement which could indicate superimposed airspace disease such as aspiration or pneumonia. No acute abdominopelvic findings. Moderate colonic stool without evidence of obstruction. Osteopenia with unchanged lower thoracic compression deformities. No new compression deformity. D/ / Nick Morfin / Nick Morfin Interpreting Provider: Nick Morfin - EKG Data EKG attestation: Yes I reviewed and interpreted this EKG. EKG results narrative: Paced rhythm. Rate 70. She was 160. QTc 170. T-wave inversion in lead aVL. No other acute ST changes. S.B.A.R. - S.B.A.R. Situation: Demographics, MOA Background: Presenting Complaint, Relevant PMH, Meds, & Allergies Assessment: Vital Signs, Course and respsone to treatment, Exam Concerns, Patient/Family Expectation, Pertinant Lab Results Recommendation: Barrier(s) to disposition, Recommendation based on pending studies, treatments, or consults S.B.A.R. Report Given to: Dr. Pretty
[2018-02-11] MEDS ORDERED: 0.9 % Sodium Chloride 1,000 ML IVC ONE ×2 (13:51→14:56)
--- NOTE | 2018-02-11 13:58 | Emergency Department Note ---
Disposition Clinical Impression: NSTEMI (non-ST elevated myocardial infarction) Syncope Qualifiers: Syncope type: unspecified Qualified Code(s): R55 - Syncope and collapse Chest pain Qualifiers: Chest pain type: unspecified Qualified Code(s): R07.9 - Chest pain, unspecified Pneumonia Qualifiers: Pneumonia type: due to unspecified organism Laterality: left Lung location: unspecified part of lung Qualified Code(s): J18.9 - Pneumonia, unspecified organism Disposition: Home, Self-Care Condition: Fair General Adult HPI - General Chief complaint: ED Fall Stated complaint: Fall Time Seen by Provider: 02/11/18 13:29 Source: patient Mode of arrival: ambulatory Limitations: no limitations - Related Data Home Medications Medication Instructions Recorded Confirmed Furosemide [Lasix] 20 mg PO DAILY 03/31/17 02/11/18 Oxygen 2 l NS AD 07/19/17 02/11/18 Simvastatin [Zocor] 10 mg PO HS 07/19/17 02/11/18 Gabapentin [Neurontin] 600 mg PO TID 01/09/18 02/11/18 Previous Rx's Medication Instructions Recorded OxyCODONE Immed Rel [Roxicodone 30 30 mg PO Q6H PRN 7 Days #28 tab 09/07/17 MG] Levothyroxine [Synthroid] 50 mcg PO 0630 #30 tablet 01/11/18 Lisinopril [Zestril] 20 mg PO DAILY #30 tablet 01/11/18 Metoprolol [Lopressor] 25 mg PO BID #60 tablet 01/11/18 Digoxin [Lanoxin] 0.125 mg PO DAILY #30 tablet 02/04/18 Allergies Allergy/AdvReac Type Severity Reaction Status Date / Time amlodipine Allergy See Verified 02/11/18 13:38 Comments aspirin Allergy Rash Verified 02/11/18 13:38 codeine Allergy Rash Verified 02/11/18 13:38 Past Medical History - Past Medical History Medical history: Reports: non-contributory, atrial fibrillation, CHF, COPD, hyperlipidemia, hypertension, osteoporosis Surgical history: Reports: cholecystectomy, hysterectomy, knee replacement, orthopedic, other Psychiatric history: Reports: anxiety - Social History Smoking Status: Never smoker Smokeless Tobacco Status: No Alcohol use: Reports: none Drug use: Reports: none Physical Exam - General Limitations: no limitations Course Vital Signs O2 Sat by Pulse Oximetry 88 02/11/18 13:39 Temperature 97.4 F L 02/12/18 04:21 Pulse Rate 60 02/12/18 04:21 Respiratory Rate 15 02/12/18 04:21 Blood Pressure 107/64 02/12/18 04:21 O2 Sat by Pulse Oximetry 94 02/12/18 04:21 Oxygen Delivery Oxygen Delivery Nasal Cannula Medical Decision Making - Lab Data Result diagrams: 02/12/18 03:24 02/12/18 03:24 Lab Results 02/11/18 02/11/18 02/11/18 Range/Units 13:48 13:48 13:48 WBC (4.3-11.1) K/mcL RBC (3.82-4.97) M/mcL Hgb (11.5-15.4) g/dL Hct (35.3-44.9) % MCV (83.0-100.0) fL MCH (28.0-33.3) pg MCHC (31.6-35.5) g/dL RDW (11.5-14.5) % Plt Count (140-400) K/mcL MPV (9.4-12.4) fL Immature Gran % (0-4) % Seg Neutrophils % % Lymphocytes % % Monocytes % % Eosinophils % % Basophils % % Neutrophils # (1.6-8.9) K/mcL Lymphocytes # (0.6-4.6) K/mcL Monocytes # (0.0-1.3) K/mcL Eosinophils # (0.0-0.6) K/mcL Basophils # (0.0-0.2) K/mcL PT 12.4 H (9.4-12.1) Seconds INR 1.1 APTT 19.9 L (26.0-36.0) Seconds Heparin Anti-Xa, Unfract (0.30-0.70) IU/mL Sodium 137 (136-145) mEq/L Potassium 4.7 (3.5-5.1) mEq/L Chloride 103 (98-107) mEq/L Carbon Dioxide 30 H (23-29) mEq/L BUN 38 H (8-23) mg/dL Creatinine 2.13 H (0.60-1.20) mg/dL Est GFR ( Amer) 27 L (> 60) Est GFR (Non-Af Amer) 22 L (> 60) BUN/Creatinine Ratio 18 (6-26) Glucose 112 H (70-105) mg/dL Calculated Osmolality 294 (280-300) Lactic Acid 0.8 (0.5-2.2) mmol/L Calcium 9.5 (8.6-10.3) mg/dL Troponin I 0.11 H* (< 0.04) ng/mL Urine Color (Yellow) Urine Clarity (Clear) Urine pH (5.0-8.0) pH Units Ur Specific [place] (1.010-1.025) Urine Protein (Neg-Trace) mg/dL Urine Glucose (UA) (Normal) mg/dL Urine Ketones (Negative) mg/dL Urine Blood (Negative) Urine Nitrite (Negative) Urine Bilirubin (Negative) Urine Urobilinogen (Normal) mg/dL Ur Leukocyte Esterase (Negative) Urine Microscopic RBC (0-3) per hpf Urine Microscopic WBC (0-3) per hpf Ur Squamous Epith Cells (None-Few) per lpf Urine Bacteria (None-Few) per hpf Hyaline Casts (None-Few) per lpf Specimen Rejected 02/11/18 02/11/18 02/11/18 Range/Units 13:48 14:55 17:15 WBC 7.0 (4.3-11.1) K/mcL RBC 3.16 L (3.82-4.97) M/mcL Hgb 9.8 L (11.5-15.4) g/dL Hct 31.5 L (35.3-44.9) % MCV 99.7 D (83.0-100.0) fL MCH 31.0 (28.0-33.3) pg MCHC 31.1 L (31.6-35.5) g/dL RDW 14.5 (11.5-14.5) % Plt Count 169 (140-400) K/mcL MPV 10.7 (9.4-12.4) fL Immature Gran % 0.3 (0-4) % Seg Neutrophils % 70.3 % Lymphocytes % 15.1 % Monocytes % 9.1 % Eosinophils % 4.6 % Basophils % 0.6 % Neutrophils # 4.9 (1.6-8.9) K/mcL Lymphocytes # 1.1 (0.6-4.6) K/mcL Monocytes # 0.6 (0.0-1.3) K/mcL Eosinophils # 0.3 (0.0-0.6) K/mcL Basophils # 0.0 (0.0-0.2) K/mcL PT (9.4-12.1) Seconds INR APTT (26.0-36.0) Seconds Heparin Anti-Xa, Unfract (0.30-0.70) IU/mL Sodium (136-145) mEq/L Potassium (3.5-5.1) mEq/L Chloride (98-107) mEq/L Carbon Dioxide (23-29) mEq/L BUN (8-23) mg/dL Creatinine (0.60-1.20) mg/dL Est GFR ( Amer) (> 60) Est GFR (Non-Af Amer) (> 60) BUN/Creatinine Ratio (6-26) Glucose (70-105) mg/dL Calculated Osmolality (280-300) Lactic Acid (0.5-2.2) mmol/L Calcium (8.6-10.3) mg/dL Troponin I (< 0.04) ng/mL Urine Color Yellow (Yellow) Urine Clarity Clear (Clear) Urine pH 5.0 (5.0-8.0) pH Units Ur Specific [place] > 1.030 H (1.010-1.025) Urine Protein Trace (Neg-Trace) mg/dL Urine Glucose (UA) Normal (Normal) mg/dL Urine Ketones Negative (Negative) mg/dL Urine Blood Negative (Negative) Urine Nitrite Negative (Negative) Urine Bilirubin Small H (Negative) Urine Urobilinogen Normal (Normal) mg/dL Ur Leukocyte Esterase Negative (Negative) Urine Microscopic RBC 0-3 (0-3) per hpf Urine Microscopic WBC 0-3 (0-3) per hpf Ur Squamous Epith Cells Many H (None-Few) per lpf Urine Bacteria None Seen (None-Few) per hpf Hyaline Casts Many H (None-Few) per lpf Specimen Rejected MCV Delta 02/11/18 Range/Units 19:57 WBC (4.3-11.1) K/mcL RBC (3.82-4.97) M/mcL Hgb (11.5-15.4) g/dL Hct (35.3-44.9) % MCV (83.0-100.0) fL MCH (28.0-33.3) pg MCHC (31.6-35.5) g/dL RDW (11.5-14.5) % Plt Count (140-400) K/mcL MPV (9.4-12.4) fL Immature Gran % (0-4) % Seg Neutrophils % % Lymphocytes % % Monocytes % % Eosinophils % % Basophils % % Neutrophils # (1.6-8.9) K/mcL Lymphocytes # (0.6-4.6) K/mcL Monocytes # (0.0-1.3) K/mcL Eosinophils # (0.0-0.6) K/mcL Basophils # (0.0-0.2) K/mcL PT (9.4-12.1) Seconds INR APTT (26.0-36.0) Seconds Heparin Anti-Xa, Unfract 0.94 H (0.30-0.70) IU/mL Sodium (136-145) mEq/L Potassium (3.5-5.1) mEq/L Chloride (98-107) mEq/L Carbon Dioxide (23-29) mEq/L BUN (8-23) mg/dL Creatinine (0.60-1.20) mg/dL Est GFR ( Amer) (> 60) Est GFR (Non-Af Amer) (> 60) BUN/Creatinine Ratio (6-26) Glucose (70-105) mg/dL Calculated Osmolality (280-300) Lactic Acid (0.5-2.2) mmol/L Calcium (8.6-10.3) mg/dL Troponin I (< 0.04) ng/mL Urine Color (Yellow) Urine Clarity (Clear) Urine pH (5.0-8.0) pH Units Ur Specific [place] (1.010-1.025) Urine Protein (Neg-Trace) mg/dL Urine Glucose (UA) (Normal) mg/dL Urine Ketones (Negative) mg/dL Urine Blood (Negative) Urine Nitrite (Negative) Urine Bilirubin (Negative) Urine Urobilinogen (Normal) mg/dL Ur Leukocyte Esterase (Negative) Urine Microscopic RBC (0-3) per hpf Urine Microscopic WBC (0-3) per hpf Ur Squamous Epith Cells (None-Few) per lpf Urine Bacteria (None-Few) per hpf Hyaline Casts (None-Few) per lpf Specimen Rejected Attestation Statement - Attestation Attestation: I examined this patient and my medical decision-making was reviewed with the CARTRIDGE GAUGER/PA/Advanced Practice Nurse/Resident Physician. I agree with the documented findings, disposition and treatment plan as described except to the extent set forth below. I did see the patient immediately upon arrival and also spoke with the paramedics and spoke the patient. She is bright and alert and oriented. She said she does not know how she fell but according to the paramedics the patient did have a syncopal episode and the caught her on the way down. The patient denies any pain in the head, neck, chest, abdomen or back. No vomiting or diarrhea. No blood in the urine or stool. No fever. I did examine the patient. There is no pulsatile abdominal mass. She has good radial pulse. Color is good. She is mentating well and bright and alert however she is hypotensive and hypoxemic and workup is in progress including chest x-ray, labs , IV fluids, lactate, blood cultures, urine testing and the patient will be watched closely here in the emergency department. I did review her EKG showing a paced rhythm with a rate of 78 1358
[2018-02-11] MEDS ORDERED: Isovue-370 500 ML INFUS..BTL IV ONE (14:18)
[2018-02-11 14:22] LABS: INR 1.1; Prothrombin Time 12.4 Seconds (9.4-12.1)
[2018-02-11 14:25] LABS: Activated Partial Thrombo Time 19.9 Seconds (26.0-36.0); Calcium 9.5 mg/dL (8.6-10.3); Potassium 4.7 mEq/L (3.5-5.1)
[2018-02-11 14:32] LABS: Troponin I 0.11 ng/mL (< 0.04)
[2018-02-11 15:27] LABS: Basophils % 0.6 %; Eosinophils # 0.3 K/mcL (0.0-0.6); Eosinophils % 4.6 %; Hematocrit 31.5 % (35.3-44.9); Hemoglobin 9.8 g/dL (11.5-15.4); Immature Granulocytes % 0.3 % (0-4); Lymphocytes # 1.1 K/mcL (0.6-4.6); Lymphocytes % 15.1 %; Mean Corpuscular HGB Conc 31.1 g/dL (31.6-35.5); Mean Corpuscular Volume 99.7 fL (83.0-100.0); Mean Platelet Volume 10.7 fL (9.4-12.4); Monocytes # 0.6 K/mcL (0.0-1.3); Monocytes % 9.1 %; Neutrophils # 4.9 K/mcL (1.6-8.9); Platelet Count 169 K/mcL (140-400); Red Blood Count 3.16 M/mcL (3.82-4.97); Red Cell Distribution Width 14.5 % (11.5-14.5); Segmented Neutrophils % 70.3 %
[2018-02-11 18:06] LABS: Bilirubin,Urine Small (Negative); Blood,Urine Negative (Negative); Clarity,Urine Clear (Clear); Color,Urine Yellow (Yellow); Glucose,Urine (UA) Normal (Normal); Ketones,Urine Negative (Negative); Leukocyte Esterase,Urine Negative (Negative); Nitrite,Urine Negative (Negative); Protein,Urine Trace mg/dL (Neg-Trace); Specific Gravity,Urine > 1.030 (1.010-1.025); Urobilinogen,Urine Normal (Normal)
[2018-02-11] MEDS ORDERED: cefTRIAXone 1,000 MG in Water for inj. (sterile) 20 ML 10 ML IVP ONE (18:07)
[2018-02-11] MEDS ORDERED: Clindamycin 900 MG/50 ML 900 MG/50 ML IV.SOLN IVPB ONE (18:07)
[2018-02-11 18:10] LABS: Bacteria,Urine None Seen per hpf (None-Few); RBC,Urine 0-3 per hpf (0-3); Squamous Epithelial Cell,Urine Many per lpf (None-Few); WBC,Urine 0-3 per hpf (0-3)
[2018-02-11 18:17] LABS: Hyaline Casts,Urine Many per lpf (None-Few)
[2018-02-11] MEDS ORDERED: *HR* Heparin 5,000 UNIT/ML VIAL IVP PRN ×2 (18:57)
[2018-02-11] MEDS ORDERED: *HR* Heparin 5,000 UNIT/ML VIAL IVP ONE (18:57)
[2018-02-11] MEDS ORDERED: Heparin 25,000 UNIT/500 ML D5W 25,000 UNIT/500 ML BAG IVC SCH (19:00)
[2018-02-11] MEDS ORDERED: Levofloxacin 500 MG/100 ML 500 MG/100 ML BAG IVPB SCH (22:00)
[2018-02-11 22:28] LABS: Magnesium 2.1 mg/dL (1.6-2.6); Phosphorous 4.1 mg/dL (2.7-4.5)
--- NOTE | 2018-02-11 22:34 | Internal Med History&Physical ---
Date of Encounter: 02/12/18 Time of Encounter: 19:30 Internal Medicine - H&P: HPI Chief complaint: Syncope Admitted From: Home Plans for Post Hospital Care: Home History of present illness: Ms. Francois is a 87 year old female PAF, tachy lizz syndrome s/p pacemaker, COPD , HTN, and DM II, spontaneous RP bleed in aug 2017 presented to the ED with complaint of a syncope. As per patient she was sitting in her chair but tried to get up to go get some reading material as she reached for her walker she syncopized and cannot remember what happened but denies mechanical fall. She denies tongue biting, bowel or bladder incontinence or abnormal shaking upper extremities. The only thing she remembers is that her and the Aids were attending to her. She denies any head trauma, she cannot recall what happened. Her decided to call the EMS and she was brought to the ED for further evaluation. While in the ED she was alert and oriented 4 she was found to be hypoxemic and hypotensive so she was started on IV fluids, on labs troponin was elevated so she was started on heparin drip by the ED physician. CT head was done at that time and it was negative for any acute intracranial hemorrhage. In addition to CT head CTA of the chest and abdomen was done as she was hypoxemic, CTA was negative for any pulmonary embolism or aneurysm but it did show her space disease concerning for pneumonia. She was endorsed for further evaluation of her syncope she denied any headache or vision changes, she denied chest pain, shortness of breath, palpitations, N/v?D Past Med Surg Social Fam HX - Past Medical History Medical history: non-contributory, atrial fibrillation, CHF, COPD, hyperlipidemia, hypertension, osteoporosis Additional medical history: DJD. Allergic Rhinitis. Rectocele. Lumbar stenosis. Acute on Chronic Diastolic CHF Psychiatric history: anxiety - Past Surgical History Surgical History: cholecystectomy, hysterectomy, knee replacement, orthopedic, other Additional surgical history: bilateral knee replacement. left shoulder replacement. left hip replacement - Social History Smoking Status: Never smoker Smokeless Tobacco Status: No Alcohol use: none Drug use: none - Family History Daughter Living Status: Hx Family Cancer: Yes Father Living Status: Hx Family Cardiac Disorders: Yes (heart attack) Internal Medicine - H&P: Meds RX: Furosemide [Lasix] 20 mg PO DAILY 03/31/17 [History] RX: Oxygen 2 l NS AD 07/19/17 [History] RX: Simvastatin [Zocor] 10 mg PO HS 07/19/17 [History] RX: OxyCODONE Immed Rel [Roxicodone 30 MG] 30 mg PO Q6H PRN 7 Days #28 tab 09/07 [Rx] RX: Gabapentin [Neurontin] 600 mg PO TID 01/09/18 [History] RX: Levothyroxine [Synthroid] 50 mcg PO 0630 #30 tablet 01/11/18 [Rx] RX: Lisinopril [Zestril] 20 mg PO DAILY #30 tablet 01/11/18 [Rx] RX: Metoprolol [Lopressor] 25 mg PO BID #60 tablet 01/11/18 [Rx] RX: Digoxin [Lanoxin] 0.125 mg PO DAILY #30 tablet 02/04/18 [Rx] 3 Allergy/AdvReac Type Severity Reaction Status Date / Time amlodipine Allergy See Verified 02/11/18 13:38 Comments aspirin Allergy Rash Verified 02/11/18 13:38 codeine Allergy Rash Verified 02/11/18 13:38 All Systems PM: review of systems was performed and is negative for pertinent findings except as documented above in the HPI. - Constitutional Vitals: Temp Pulse Resp BP Pulse Ox 97.1 F L 65 15 132/73 96 02/11/18 21:33 02/11/18 21:33 02/11/18 21:33 02/11/18 21:33 02/11/18 20:00 - Other Additional findings: General: Patient is alert, oriented, no acute distress, Head: atraumatic, normocephalic, Eye: normal appearance, PERRL, no scleral icterus, no conjunctival injection ENT: mucous membranes moist, normal external ear exam Neck: normal inspection, trachea midline, full ROM, no carotid bruits Chest: normal inspection, symmetric chest rise Respiratory: Good respiratory effort. decreased breath sounds bilaterarily, no crackles or wheezing heard Cardiovascular: Regular rate and rhythm. s1 and s2 No clicks, rubs, gallops, or murmors. Abdomen: Bowel sounds present normoactive x-4 quadrants. Abdomen is soft, nondistended. Epigastric tenderness. No guarding or rebound. No organomegaly noted musculoskeletal: Spontaneously moving all extremities. no edema, no calf tenderness Skin: warm, dry, intact. Neuro: Alert and oriented x4. Sensation light touch intact. Cranial nerves 2- 12 is intact. Not aphasic, strength is 5/5 in all extremities Psych: Patient's affect is normal Internal Med - H&P Results - Labs CBC & Chem 7: 02/11/18 14:55 02/11/18 13:48 - EKG Data -: EKG Interpreted by Myself (ventricular paced ) - Assessment and plan (1) Syncope Current Visit: Yes Status: Acute Assessment and plan: syncope r/o arrhythmia vs vasovagal ( was hypotensive) was dehdyrated - has MODESTA UA negative Ct head and neck negative for any acute abnormalities CTA of the abdomen and pelvis ruled out PE and annuerysm will continue hydration- received 2l bolus in the ED - all ABx are IVP for gentle hydration. TTE was done on 01/13/18- HFpEF s/p pace maker- cardiology on board for possible interrogation. will follow troponins x 2 more times first one was mildly elevated UA negative held all BP meds as she was hypotensive- consider starting in the AM if BP permits Qualifiers: Syncope type: unspecified Qualified Code(s): R55 - Syncope and collapse (2) HCAP (healthcare-associated pneumonia) Current Visit: Yes Status: Acute Assessment and plan: CTA suggesting PNA cannot rule out aspiration PNA multiple recent hospitalizations started on vanco, zosyn, levaquin sputum cx urine antigens Bcx sent oxygen via nasal cannula Duo-neb (3) Elevated troponin I level Current Visit: Yes Status: Acute Assessment and plan: currently patient never complained of any chest pain, ? tachycardia induced? mildly elevated troponin in setting of [place] on CKD w/o significant EKG changes. had RP bleed in August and has not been anticoagulated for Afib secondary to bleed - risk and benefits were discussed with patient at that time and she understood the risks associated with no AC was started on heparin drip in the ED for elevated troponin- will stop the heparin drip as described above. will follow troponis Q6H x 2 more times along with EKG and if significant increase in her troponin will consider starting her on Anticoagulation cardiology consulted - will follow recommendations in the AM (4) Tachy-lizz syndrome Current Visit: No Status: Acute Assessment and plan: S/p pace maker 01/24/18 will continue tele monitoring (5) Atrial fibrillation Current Visit: No Status: Acute Assessment and plan: multiple admissions for Afib s/p pacemaker for tachy lizz syndrome on last admission. was orginally treated with sotolol which was changed to digoxin last admission. Chads 2vasc score 5 (age, gender, HTN, CHF) had previously been on anticoagulation, however is not currently on due to spontaneous RP bleed. she understands the risks associated with not being on Anticoagulation for Afib. not on ASA due to allergy currently in paced rhythm cardiology consulted Qualifiers: Atrial fibrillation type: persistent Qualified Code(s): I48.1 - Persistent atrial fibrillation (6) Acute on chronic renal failure Current Visit: No Status: Resolved Assessment and plan: CTA of [facility] abdomen did not show any annuerysms and there was no hydronephrosis or obstruction most likely secondary to hypotension and hypoperfusion will continue hydration- received 2l bolus in the ED - all ABx are IVP for gentle hydration. will follow BMP in the AM avoid nephrotoxic drugs held lasix and ACEI secondary to MODESTA Qualifiers: Acute renal failure type: unspecified Chronic kidney disease stage: stage 3 (moderate) Qualified Code(s): N17.9 - Acute kidney failure, unspecified; N18.3 - Chronic kidney disease, stage 3 (moderate) (7) Chronic anemia Current Visit: Yes Status: Acute Assessment and plan: will follow CBC closely type and cross currently hemodynamically stable (8) DVT prophylaxis Current Visit: No Status: Acute Assessment and plan: was on heparin drip- stopped now started hheparin Sc 5000 units Q8H since heparin drip was stopped - Time Spent With Patient Total time spent is greater than 50% in coordination of care (as documented) at patient's floor/unit and/or counseling patient:
[2018-02-12] MEDS ORDERED: Piperacillin/Tazobactam 3.375 GM in 0.9 % Sodium Chloride Mini Bag 100 ML IVPB SCH
[2018-02-12] MEDS ORDERED: Dextrose Gel 15 GM/37.5 ML TUBE PO PRN ×2 (00:48)
[2018-02-12] MEDS ORDERED: *HR* Dextrose 50 % in Water (Syg) 50 ML SYRINGE IVP PRN (00:48)
[2018-02-12] MEDS ORDERED: D5% in Water 1,000 ML IVC PRN (00:48)
--- NOTE | 2018-02-12 02:36 | Event Note ---
Date of Encounter: 02/12/18 Time of Encounter: 02:00 Ct cervical spine reviewed- patient has chronic C2 fracture at the base of the dens with mild posterior subsidence along with severe spondylosis and facet arthropathy. [facility] transfer center was called awaiting call back from neuro surgery currently patient is moving all her extremities, denies any neck pain / no restriction of ROM. Spoke to neurosurgery team - about findings will transfer the patient awaiting accepting physician C-Collar ordered for precaution for transfer. nurse notified will notify patient
[2018-02-12] MEDS ORDERED: *HR* Heparin 5,000 UNIT/ML VIAL SQ SCH (04:00)
[2018-02-12 04:25] VITALS: BP 107/64
[2018-02-12 04:54] LABS: Basophils % 0.4 %; Eosinophils # 0.2 K/mcL (0.0-0.6); Eosinophils % 4.9 %; Hematocrit 33.2 % (35.3-44.9); Hemoglobin 10.5 g/dL (11.5-15.4); Immature Granulocytes % 0.4 % (0-4); Lymphocytes # 0.7 K/mcL (0.6-4.6); Mean Corpuscular HGB Conc 31.6 g/dL (31.6-35.5); Mean Corpuscular Hemoglobin 31.7 pg (28.0-33.3); Mean Corpuscular Volume 100.3 fL (83.0-100.0); Mean Platelet Volume 11.3 fL (9.4-12.4); Monocytes # 0.4 K/mcL (0.0-1.3); Monocytes % 7.5 %; Neutrophils # 3.4 K/mcL (1.6-8.9); Platelet Count 164 K/mcL (140-400); Red Blood Count 3.31 M/mcL (3.82-4.97); Red Cell Distribution Width 14.1 % (11.5-14.5); Segmented Neutrophils % 71.8 %
[2018-02-12 05:03] LABS: Calcium 8.7 mg/dL (8.6-10.3); Potassium 4.3 mEq/L (3.5-5.1)
[2018-02-12] MEDS ORDERED: Insulin LISPRO 300 UNITS/3 ML VIAL SQ SCH (06:00)
[2018-02-12] MEDS ORDERED: Aminoglycoside Consult 1 EACH MC ONE (06:20)
[2018-02-12] MEDS ORDERED: *HR* Digoxin 0.125 MG TABLET PO SCH (09:00)
[2018-02-12] MEDS ORDERED: Gabapentin 300 MG CAPSULE PO SCH (09:00)
[2018-02-13] MEDS ORDERED: Levofloxacin 500 MG/100 ML 500 MG/100 ML BAG IVPB SCH (21:00)
--- NOTE | 2018-02-14 17:54 | Electrocardiograph Report ---
[place] [id number] Test Date: 2018-02-11 Pat Name: Nelda Francois Department: 103 Room: 2NE24 Gender: F Ash Collector: DAMARIS : [id number] Requested By: Ernst Schroeder Order Number: [id number] Reading MD: Kayla Montalvo Measurements Intervals [place] Rate: 78 P: CT: 0 QRS: -71 QRSD: 160 T: 84 QT: 438 QTc: 472 Interpretive Statements ELECTRONIC VENTRICULAR PACEMAKER ABNORMAL RHYTHM ECG Electronically Signed On 02-14-2018 17:52:58 EDT by Kayla Montalvo
--- NOTE | 2018-02-16 17:10 | Discharge Summary ---
- NOTES TO OUTPATIENT PROVIDER Notes to Outpatient Provider: was transferred to [facility]- [facility] Date of Encounter: 02/12/18 Time of Encounter: 17:08 - Discharge Diagnosis (1) Syncope Priority: Primary Status: Acute Qualifiers: Syncope type: unspecified Qualified Code(s): R55 - Syncope and collapse (2) HCAP (healthcare-associated pneumonia) Priority: Secondary Status: Acute (3) Elevated troponin I level Priority: Secondary Status: Acute (4) Tachy-lizz syndrome Priority: Secondary Status: Acute (5) Atrial fibrillation Priority: Secondary Status: Acute Qualifiers: Atrial fibrillation type: persistent Qualified Code(s): I48.1 - Persistent atrial fibrillation (6) Acute on chronic renal failure Priority: Secondary Status: Resolved Qualifiers: Acute renal failure type: unspecified Chronic kidney disease stage: stage 3 (moderate) Qualified Code(s): N17.9 - Acute kidney failure, unspecified; N18.3 - Chronic kidney disease, stage 3 (moderate) (7) Chronic anemia Priority: Secondary Status: Acute (8) DVT prophylaxis Priority: Secondary Status: Acute (9) C2 cervical fracture Priority: Secondary Status: Acute Qualifiers: Encounter type: initial encounter Fracture type: closed Fracture morphology: other dens Fracture alignment: displaced Qualified Code(s): S12.120A - Other displaced dens fracture, initial encounter for closed fracture Hospital course: Ms. Francois is a 87 year old female PAF, tachy lizz syndrome s/p pacemaker, COPD , HTN, and DM II, spontaneous RP bleed in aug 2017 presented to the ED with complaint of a syncope. As per patient she was sitting in her chair but tried to get up to go get some reading material as she reached for her walker she syncopized and cannot remember what happened but denies mechanical fall. She denies tongue biting, bowel or bladder incontinence or abnormal shaking upper extremities. The only thing she remembers is that her and the Aids were attending to her. She denies any head trauma, she cannot recall what happened. Her decided to call the EMS and she was brought to the ED for further evaluation. While in the ED she was alert and oriented 4 she was found to be hypoxemic and hypotensive so she was started on IV fluids, on labs troponin was elevated so she was started on heparin drip by the ED physician. CT head was done at that time and it was negative for any acute intracranial hemorrhage. In addition to CT head CTA of the chest and abdomen was done as she was hypoxemic, CTA was negative for any pulmonary embolism or aneurysm but it did show her space disease concerning for pneumonia. She was endorsed for further evaluation of her syncope she denied any headache or vision changes, she denied chest pain, shortness of breath, palpitations, N/v?D Ct cervical spine reviewed- patient has chronic C2 fracture at the base of the dens with mild posterior subsidence along with severe spondylosis and facet arthropathy. [facility] transfer center was called awaiting call back from neuro surgery currently patient is moving all her extremities, denies any neck pain / no restriction of ROM. Spoke to neurosurgery team - about findings will transfer the patient awaiting accepting physician C-Collar ordered for precaution for transfer. nurse notified will notify patient - Time Spent with Patient Total time spent providing and/or coordinating discharge services: - Discharge Medications Home Medications: Furosemide [Lasix] 20 mg PO DAILY 03/31/17 [History] Oxygen 2 l NS AD 07/19/17 [History] Simvastatin [Zocor] 10 mg PO HS 07/19/17 [History] OxyCODONE Immed Rel [Roxicodone 30 MG] 30 mg PO Q6H PRN 7 Days #28 tab 09/07/17 [Rx] Gabapentin [Neurontin] 600 mg PO TID 01/09/18 [History] Levothyroxine [Synthroid] 50 mcg PO 0630 #30 tablet 01/11/18 [Rx] Lisinopril [Zestril] 20 mg PO DAILY #30 tablet 01/11/18 [Rx] Metoprolol [Lopressor] 25 mg PO BID #60 tablet 01/11/18 [Rx] Digoxin [Lanoxin] 0.125 mg PO DAILY #30 tablet 02/04/18 [Rx] Allergies/Adverse Reactions: 3 Allergy/AdvReac Type Severity Reaction Status Date / Time amlodipine Allergy See Verified 02/11/18 13:38 Comments aspirin Allergy Rash Verified 02/11/18 13:38 codeine Allergy Rash Verified 02/11/18 13:38 Date of admission: 02/11/18 20:16 Primary care physician: Ernst Schuler MD - Constitutional Vitals: Temp Pulse Resp BP Pulse Ox 97.4 F L 60 15 107/64 94 02/12/18 04:21 02/12/18 04:21 02/12/18 04:21 02/12/18 04:21 02/12/18 04:21 Exam: General: Patient is alert, oriented, no acute distress, Head: atraumatic, normocephalic, Eye: normal appearance, PERRL, no scleral icterus, no conjunctival injection ENT: mucous membranes moist, normal external ear exam Neck: normal inspection, trachea midline, full ROM, no carotid bruits Chest: normal inspection, symmetric chest rise Respiratory: Good respiratory effort. decreased breath sounds bilaterarily, no crackles or wheezing heard Cardiovascular: Regular rate and rhythm. s1 and s2 No clicks, rubs, gallops, or murmors. Abdomen: Bowel sounds present normoactive x-4 quadrants. Abdomen is soft, nondistended. Epigastric tenderness. No guarding or rebound. No organomegaly noted musculoskeletal: Spontaneously moving all extremities. no edema, no calf tenderness Skin: warm, dry, intact. Neuro: Alert and oriented x4. Sensation light touch intact. Cranial nerves 2- 12 is intact. Not aphasic, strength is 5/5 in all extremities Psych: Patient's affect is normal - Patient Status Disposition: Transfer Critical Access Hosp Condition: Fair Overall status at discharge: other - Discharge Instructions Follow Up With: Ernst Schuler MD [Primary Care Provider] - - Diet and Activity Activity: other Diet: other
== END 2018-02-12 06:21 | disposition critical access hospital (66) ==
LOC: 2NENU 13:19 → EMEROO 13:19 → 2NENU 21:08
PROVIDERS: ADMIT Internal Medicine; ATTEND Internal Medicine

== ENCOUNTER 2018-11-02 09:26 | Observation (INO) ==
[2018-11-02] MEDS ORDERED: Isovue-370 500 ML BOTTLE IVP ONE (09:41)
--- NOTE | 2018-11-02 09:45 | Emergency Department Note ---
Disposition Clinical Impression: Dehydration, Acute renal insufficiency, Nausea vomiting and diarrhea Disposition: Admitted As Inpatient Condition: Fair Time of Disposition: 11:45 General Adult HPI - General Chief complaint: ED Nausea/Vomiting/Diarrhea Stated complaint: weakness Time Seen by Provider: 11/02/18 09:28 Source: EMS Limitations: no limitations Nursing Notes Reviewed: Yes Vital Signs Reviewed: Yes - History of Present Illness HPI Narrative: Ms. Francois is a 88F who since today complaining of generalized weakness. She reports that approximately 4 days ago she began experiencing nausea, vomiting a nd diarrhea. Reports she has remained mainly in bed during this time is feeling weak. She reports no falls, increased difficulty ambulating, or trauma. Denies any headache, numbness, or tingling. Changes in vision. She reports bilious emesis without blood. She is unaware if her diarrhea was bloody and she did not check at home. Denies any fever, chills, chest pain, or shortness of breath. Pain Scale: 0 - Related Data Home Medications Medication Instructions Recorded Confirmed Furosemide [Lasix] 20 mg PO DAILY 03/31/17 11/02/18 Simvastatin [Zocor] 10 mg PO HS 07/19/17 11/02/18 Digoxin [Lanoxin] 0.0625 mg PO DAILY 07/15/18 11/02/18 Gabapentin [Neurontin] 300 mg PO TID 07/15/18 11/02/18 Levothyroxine Sodium 25 mcg PO QAM 07/15/18 11/02/18 Oxycodone HCl/Acetaminophen 1 tab PO 5XD PRN 09/23/18 11/02/18 [Percocet 10-325 mg Tablet] Metoprolol Tartrate [Lopressor] 50 mg PO BID 11/02/18 11/02/18 Previous Rx's Medication Instructions Recorded Lisinopril [Zestril] 20 mg PO DAILY #30 tablet 01/11/18 Clindamycin HCl [Cleocin HCl] 300 mg PO TID #30 cap 10/24/18 Allergies Allergy/AdvReac Type Severity Reaction Status Date / Time amlodipine Allergy See Verified 10/24/18 15:28 Comments aspirin Allergy Rash Verified 10/24/18 15:28 codeine Allergy Rash Verified 10/24/18 15:28 All systems ED: reviewed and negative except as stated. Review of Systems: As Per HPI Constitutional: Reports: weakness. Denies: fever, chills Gastrointestinal: Reports: nausea, vomiting, diarrhea. Denies: constipation, hematemesis, melena, hematochezia Genitourinary: Denies: dysuria, frequency, hematuria Neurological: Denies: headache, weakness, numbness, paresthesias, abnormal gait, vertigo Past Medical History - Past Medical History Attestation: Yes The following information was validated with the patient. Source: patient, old records reviewed, nursing notes reviewed Medical history: Reports: atrial fibrillation, osteoporosis Surgical history: Reports: cholecystectomy, hysterectomy, knee replacement, orthopedic, other Psychiatric history: Reports: anxiety - Social History Smoking Status: Never smoker Smokeless Tobacco Status: No Alcohol use: Reports: none Drug use: Reports: none Physical Exam - General Limitations: no limitations General appearance: alert, in no apparent distress - Head Head exam: atraumatic, normocephalic, normal inspection - Eye Eye exam: Present: normal appearance, PERRL, EOMI. Absent: scleral icterus - Chest Chest inspection: Present: normal inspection, symmetric chest wall rise, other (pacemaker on left chest ) - Respiratory Respiratory exam: Present: normal lung sounds bilaterally. Absent: respiratory distress, wheezes, accessory muscle use - Cardiovascular Cardiovascular exam: Present: regular rate, normal rhythm, normal heart sounds, +S1, +S2. Absent: rubs, gallop - Abdominal Exam Abdominal exam: Present: soft, Non-Tender. Absent: tenderness, distention, guarding, rebound, rigidity - Extremities Exam Extremities exam: Present: normal inspection, full ROM. Absent: tenderness, pedal edema, calf tenderness - Back Exam Back exam: Present: normal inspection, full ROM. Absent: tenderness, CVA tenderness (R), CVA tenderness (L) - Neurological Exam Neurological exam: Present: alert, oriented X3 - Skin Skin exam: Present: warm, dry, intact, normal color, other (healing lacerations noted on right forearm, pt attributes to her cat ) Course Course Narrative: Initial history and physical exam revealed concern for possible infectious proc ess, or metabolic derangement. Initial evaluation included CBC, CMP, lipase, troponin, and UA. EKG, CXR, and CT abdomen/pelvis were also ordered. Labs revealed decreased eGFR of 33. Based on chart review of previous records, pt likely has JESÚS possibly due to dehydration. Will give 500mL IV fluids at this time. CXR revealed cardiomegaly with mild pulmonary congestion. CT abdomen and pelvis revealed possible duodenitis vs peptic ulcer disease. Pt was subsequently given a dose of IV protonix. Discussed pt's case with hospitalist, Herve Browning, who accepted pt for admission for weakness with possible dehydration due to nausea and vomiting. Pt agreeable to this treatment plan. Stable to transfer to floor. - Reevaluation(s) Reevaluation #1: Pt has no new complaints at this time. Discussed labs, CXR, and EKG with pt. She is currently receiving IV fluids as ordered. Agreeable for hospital admission. Time: 11:00 - Consultations Consultation #1: Discussed pt's case with hospitalist, Dr Edgar, who accepted the pt for admission. Time: 11:20 Vital Signs Temperature 98.5 F 11/02/18 09:30 Pulse Rate 88 11/02/18 09:30 Respiratory Rate 20 11/02/18 09:30 Blood Pressure 159/85 11/02/18 09:30 O2 Sat by Pulse Oximetry 100 11/02/18 09:30 Temperature 98.2 F 11/02/18 17:18 Pulse Rate 96 11/02/18 17:18 Respiratory Rate 16 11/02/18 17:18 Blood Pressure 153/91 11/02/18 17:18 O2 Sat by Pulse Oximetry 96 11/02/18 17:18 Oxygen Delivery Oxygen Delivery Room Air Medical Decision Making - Medical Records Medical records reviewed: Yes I reviewed the patient's medical records. - Lab Data Lab results reviewed: Yes I reviewed the patient's lab results. Result diagrams: 11/02/18 09:48 11/02/18 09:48 Lab Results 11/02/18 11/02/18 11/02/18 Range/Units 09:48 09:48 09:48 WBC 11.1 (4.3-11.1) K/mcL RBC 4.24 (3.82-4.97) M/mcL Hgb 13.1 (11.5-15.4) g/dL Hct 40.9 (35.3-44.9) % MCV 96.5 (83.0-100.0) fL MCH 30.9 (28.0-33.3) pg MCHC 32.0 (31.6-35.5) g/dL RDW 14.5 (11.5-14.5) % Plt Count 176 (140-400) K/mcL MPV 10.7 (9.4-12.4) fL Immature Gran % 0.3 (0-4) % Seg Neutrophils % 90.2 % Lymphocytes % 4.6 % Monocytes % 4.4 % Eosinophils % 0.2 % Basophils % 0.3 % Neutrophils # 10.0 H (1.6-8.9) K/mcL Lymphocytes # 0.5 L (0.6-4.6) K/mcL Monocytes # 0.5 (0.0-1.3) K/mcL Eosinophils # 0.0 (0.0-0.6) K/mcL Basophils # 0.0 (0.0-0.2) K/mcL Sodium 135 L (136-145) mEq/L Potassium 4.8 (3.5-5.1) mEq/L Chloride 103 (98-107) mEq/L Carbon Dioxide 22 L (23-29) mEq/L BUN 41 H (8-23) mg/dL Creatinine 1.47 H (0.60-1.20) mg/dL Est GFR ( Amer) 41 L (> 60) Est GFR (Non-Af Amer) 33 L (> 60) BUN/Creatinine Ratio 28 H (6-26) Glucose 123 H (70-105) mg/dL Calculated Osmolality 291 (280-300) Lactic Acid (0.5-2.2) mmol/L Calcium 9.9 (8.6-10.3) mg/dL Total Bilirubin 0.9 (0.3-1.0) mg/dL AST 55 H (13-39) Units/L ALT 69 H (7-52) Units/L Alkaline Phosphatase 103 (34-104) Units/L Troponin I 0.03 (< 0.04) ng/mL B-Natriuretic Peptide 661 H (Less than 100) pg/mL Serum Total Protein 7.2 (6.4-8.9) g/dL Albumin 4.2 (3.5-5.7) g/dL Globulin 3.0 (2.4-3.5) g/dL Albumin/Globulin Ratio 1.4 (1.1-2.2) Lipase 35 (11-82) Units/L Urine Color (Yellow) Urine Clarity (Clear) Urine pH (5.0-8.0) pH Units Ur Specific [place] (1.010-1.025) Urine Protein (Neg-Trace) mg/dL Urine Glucose (UA) (Normal) mg/dL Urine Ketones (Negative) mg/dL Urine Blood (Negative) Urine Nitrite (Negative) Urine Bilirubin (Negative) Urine Urobilinogen (Normal) mg/dL Ur Leukocyte Esterase (Negative) Urine Microscopic RBC (0-3) per hpf Urine Microscopic WBC (0-3) per hpf Ur Squamous Epith Cells (None-Few) per lpf Urine Bacteria (None-Few) per hpf Hyaline Casts (None-Few) per lpf Ur Culture Indicated? (NO) 11/02/18 11/02/18 Range/Units 10:45 10:57 WBC (4.3-11.1) K/mcL RBC (3.82-4.97) M/mcL Hgb (11.5-15.4) g/dL Hct (35.3-44.9) % MCV (83.0-100.0) fL MCH (28.0-33.3) pg MCHC (31.6-35.5) g/dL RDW (11.5-14.5) % Plt Count (140-400) K/mcL MPV (9.4-12.4) fL Immature Gran % (0-4) % Seg Neutrophils % % Lymphocytes % % Monocytes % % Eosinophils % % Basophils % % Neutrophils # (1.6-8.9) K/mcL Lymphocytes # (0.6-4.6) K/mcL Monocytes # (0.0-1.3) K/mcL Eosinophils # (0.0-0.6) K/mcL Basophils # (0.0-0.2) K/mcL Sodium (136-145) mEq/L Potassium (3.5-5.1) mEq/L Chloride (98-107) mEq/L Carbon Dioxide (23-29) mEq/L BUN (8-23) mg/dL Creatinine (0.60-1.20) mg/dL Est GFR ( Amer) (> 60) Est GFR (Non-Af Amer) (> 60) BUN/Creatinine Ratio (6-26) Glucose (70-105) mg/dL Calculated Osmolality (280-300) Lactic Acid 1.8 (0.5-2.2) mmol/L Calcium (8.6-10.3) mg/dL Total Bilirubin (0.3-1.0) mg/dL AST (13-39) Units/L ALT (7-52) Units/L Alkaline Phosphatase (34-104) Units/L Troponin I (< 0.04) ng/mL B-Natriuretic Peptide (Less than 100) pg/mL Serum Total Protein (6.4-8.9) g/dL Albumin (3.5-5.7) g/dL Globulin (2.4-3.5) g/dL Albumin/Globulin Ratio (1.1-2.2) Lipase (11-82) Units/L Urine Color Yellow (Yellow) Urine Clarity Clear (Clear) Urine pH 5.5 (5.0-8.0) pH Units Ur Specific [place] 1.022 (1.010-1.025) Urine Protein 100 H (Neg-Trace) mg/dL Urine Glucose (UA) Normal (Normal) mg/dL Urine Ketones 15 H (Negative) mg/dL Urine Blood Negative (Negative) Urine Nitrite Negative (Negative) Urine Bilirubin Small H (Negative) Urine Urobilinogen Normal (Normal) mg/dL Ur Leukocyte Esterase Negative (Negative) Urine Microscopic RBC 0-3 (0-3) per hpf Urine Microscopic WBC 0-3 (0-3) per hpf Ur Squamous Epith Cells Many H (None-Few) per lpf Urine Bacteria None Seen (None-Few) per hpf Hyaline Casts None Seen (None-Few) per lpf Ur Culture Indicated? NO (NO) - Radiology Data Radiology results reviewed: Yes I reviewed the patient's radiology results. Abdomen/Pelvis CT 11/02/18 09:41 IMPRESSION: 1. Small pleural effusions with mild interstitial edema. 2. There is some bowel wall thickening in the duodenum which could be due to duodenitis or potentially peptic ulcer disease. D/ / Umesh Johnson MD / Umesh Johnson MD Interpreting Provider: Umesh Johnson MD Chest X-Ray 11/02/18 09:41 IMPRESSION: Borderline cardiomegaly with mild pulmonary vascular congestion. D/ / Guilherme Soto MD / Guilherme Soto MD Interpreting Provider: Guilherme Soto MD - EKG Data EKG #1 EKG attestation: Yes I reviewed and interpreted this EKG. Rate: normal Rhythm: A.Fib [place]/QRS: normal Interpretation: unchanged when compared to prior tracing (date) (10/03/2018) Attestation Statement - Attestation Attestation: I, Ash Raymond DO, examined this patient [id number] and my medical decision-making was reviewed with Myles POOLE-1, Resident Physician. I agree with the documented findings, disposition and treatment plan as described except to the extent set forth below. I personally supervised and was present for the aragon/critical portions of the procedures completed by the resident documented below. Please see my progress notes for details.
[2018-11-02 10:00] LABS: Basophils % 0.3 %; Eosinophils % 0.2 %; Hematocrit 40.9 % (35.3-44.9); Hemoglobin 13.1 g/dL (11.5-15.4); Immature Granulocytes % 0.3 % (0-4); Lymphocytes # 0.5 K/mcL (0.6-4.6); Lymphocytes % 4.6 %; Mean Corpuscular Hemoglobin 30.9 pg (28.0-33.3); Mean Corpuscular Volume 96.5 fL (83.0-100.0); Mean Platelet Volume 10.7 fL (9.4-12.4); Monocytes # 0.5 K/mcL (0.0-1.3); Monocytes % 4.4 %; Platelet Count 176 K/mcL (140-400); Red Blood Count 4.24 M/mcL (3.82-4.97); Red Cell Distribution Width 14.5 % (11.5-14.5); Segmented Neutrophils % 90.2 %
[2018-11-02 10:16] LABS: Albumin 4.2 g/dL (3.5-5.7); Albumin/Globulin Ratio 1.4 (1.1-2.2); Bilirubin,Total 0.9 mg/dL (0.3-1.0); Calcium 9.9 mg/dL (8.6-10.3); Potassium 4.8 mEq/L (3.5-5.1); Total Protein 7.2 g/dL (6.4-8.9)
[2018-11-02] MEDS ORDERED: 0.9 % Sodium Chloride 500 ML IVC ONE (10:22)
[2018-11-02 10:33] LABS: Troponin I 0.03 ng/mL (< 0.04)
[2018-11-02 10:56] LABS: Bilirubin,Urine Small (Negative); Blood,Urine Negative (Negative); Clarity,Urine Clear (Clear); Color,Urine Yellow (Yellow); Glucose,Urine (UA) Normal (Normal); Ketones,Urine 15 mg/dL (Negative); Leukocyte Esterase,Urine Negative (Negative); Nitrite,Urine Negative (Negative); PH,Urine 5.5 pH Units (5.0-8.0); Protein,Urine 100 mg/dL (Neg-Trace); Specific Gravity,Urine 1.022 (1.010-1.025); Urobilinogen,Urine Normal (Normal)
[2018-11-02 10:57] LABS: Bacteria,Urine None Seen per hpf (None-Few); Hyaline Casts,Urine None Seen per lpf (None-Few); RBC,Urine 0-3 per hpf (0-3); Squamous Epithelial Cell,Urine Many per lpf (None-Few); WBC,Urine 0-3 per hpf (0-3)
--- NOTE | 2018-11-02 11:51 | Emergency Department Note ---
Disposition Clinical Impression: Dehydration, Acute renal insufficiency, Nausea vomiting and diarrhea Disposition: Admitted As Inpatient Condition: Fair Time of Disposition: 13:11 General Adult HPI - General Chief complaint: ED Nausea/Vomiting/Diarrhea Stated complaint: weakness Time Seen by Provider: 11/02/18 09:28 Source: EMS Limitations: no limitations - History of Present Illness Pain Scale: 0 - Related Data Home Medications Medication Instructions Recorded Confirmed Furosemide [Lasix] 20 mg PO DAILY 03/31/17 09/23/18 Simvastatin [Zocor] 10 mg PO HS 07/19/17 09/23/18 Digoxin [Lanoxin] 0.0625 mg PO DAILY 07/15/18 09/23/18 Gabapentin [Neurontin] 300 mg PO TID 07/15/18 09/23/18 Levothyroxine Sodium 25 mcg PO DAILY 07/15/18 09/23/18 Oxycodone HCl/Acetaminophen 1 tab PO 5XD 09/23/18 09/23/18 [Percocet 10-325 mg Tablet] Metoprolol Tartrate [Lopressor] 50 mg PO BID 11/02/18 11/02/18 Previous Rx's Medication Instructions Recorded Lisinopril [Zestril] 20 mg PO DAILY #30 tablet 01/11/18 Clindamycin HCl [Cleocin HCl] 300 mg PO TID #30 cap 10/24/18 Allergies Allergy/AdvReac Type Severity Reaction Status Date / Time amlodipine Allergy See Verified 10/24/18 15:28 Comments aspirin Allergy Rash Verified 10/24/18 15:28 codeine Allergy Rash Verified 10/24/18 15:28 Constitutional: Reports: weakness. Denies: fever, chills Gastrointestinal: Reports: nausea, vomiting, diarrhea. Denies: constipation, hematemesis, melena, hematochezia Genitourinary: Denies: dysuria, frequency, hematuria Neurological: Denies: headache, weakness, numbness, paresthesias, abnormal gait, vertigo Past Medical History - Past Medical History Medical history: Reports: atrial fibrillation, osteoporosis Surgical history: Reports: cholecystectomy, hysterectomy, knee replacement, orthopedic, other Psychiatric history: Reports: anxiety - Social History Smoking Status: Never smoker Smokeless Tobacco Status: No Alcohol use: Reports: none Drug use: Reports: none Physical Exam - General Limitations: no limitations General appearance: alert, in no apparent distress Course Vital Signs Temperature 98.5 F 11/02/18 09:30 Pulse Rate 88 11/02/18 09:30 Respiratory Rate 20 11/02/18 09:30 Blood Pressure 159/85 11/02/18 09:30 O2 Sat by Pulse Oximetry 100 11/02/18 09:30 Temperature 98.5 F 11/02/18 09:30 Pulse Rate 90 11/02/18 11:35 Respiratory Rate 16 11/02/18 11:35 Blood Pressure 163/108 11/02/18 11:35 O2 Sat by Pulse Oximetry 96 11/02/18 11:35 Oxygen Delivery Oxygen Delivery Room Air Medical Decision Making - Lab Data Result diagrams: 11/02/18 09:48 11/02/18 09:48 Lab Results 11/02/18 11/02/18 11/02/18 Range/Units 09:48 09:48 10:45 WBC 11.1 (4.3-11.1) K/mcL RBC 4.24 (3.82-4.97) M/mcL Hgb 13.1 (11.5-15.4) g/dL Hct 40.9 (35.3-44.9) % MCV 96.5 (83.0-100.0) fL MCH 30.9 (28.0-33.3) pg MCHC 32.0 (31.6-35.5) g/dL RDW 14.5 (11.5-14.5) % Plt Count 176 (140-400) K/mcL MPV 10.7 (9.4-12.4) fL Immature Gran % 0.3 (0-4) % Seg Neutrophils % 90.2 % Lymphocytes % 4.6 % Monocytes % 4.4 % Eosinophils % 0.2 % Basophils % 0.3 % Neutrophils # 10.0 H (1.6-8.9) K/mcL Lymphocytes # 0.5 L (0.6-4.6) K/mcL Monocytes # 0.5 (0.0-1.3) K/mcL Eosinophils # 0.0 (0.0-0.6) K/mcL Basophils # 0.0 (0.0-0.2) K/mcL Sodium 135 L (136-145) mEq/L Potassium 4.8 (3.5-5.1) mEq/L Chloride 103 (98-107) mEq/L Carbon Dioxide 22 L (23-29) mEq/L BUN 41 H (8-23) mg/dL Creatinine 1.47 H (0.60-1.20) mg/dL Est GFR ( Amer) 41 L (> 60) Est GFR (Non-Af Amer) 33 L (> 60) BUN/Creatinine Ratio 28 H (6-26) Glucose 123 H (70-105) mg/dL Calculated Osmolality 291 (280-300) Lactic Acid (0.5-2.2) mmol/L Calcium 9.9 (8.6-10.3) mg/dL Total Bilirubin 0.9 (0.3-1.0) mg/dL AST 55 H (13-39) Units/L ALT 69 H (7-52) Units/L Alkaline Phosphatase 103 (34-104) Units/L Troponin I 0.03 (< 0.04) ng/mL Serum Total Protein 7.2 (6.4-8.9) g/dL Albumin 4.2 (3.5-5.7) g/dL Globulin 3.0 (2.4-3.5) g/dL Albumin/Globulin Ratio 1.4 (1.1-2.2) Lipase 35 (11-82) Units/L Urine Color Yellow (Yellow) Urine Clarity Clear (Clear) Urine pH 5.5 (5.0-8.0) pH Units Ur Specific [place] 1.022 (1.010-1.025) Urine Protein 100 H (Neg-Trace) mg/dL Urine Glucose (UA) Normal (Normal) mg/dL Urine Ketones 15 H (Negative) mg/dL Urine Blood Negative (Negative) Urine Nitrite Negative (Negative) Urine Bilirubin Small H (Negative) Urine Urobilinogen Normal (Normal) mg/dL Ur Leukocyte Esterase Negative (Negative) Urine Microscopic RBC 0-3 (0-3) per hpf Urine Microscopic WBC 0-3 (0-3) per hpf Ur Squamous Epith Cells Many H (None-Few) per lpf Urine Bacteria None Seen (None-Few) per hpf Hyaline Casts None Seen (None-Few) per lpf Ur Culture Indicated? NO (NO) 11/02/18 Range/Units 10:57 WBC (4.3-11.1) K/mcL RBC (3.82-4.97) M/mcL Hgb (11.5-15.4) g/dL Hct (35.3-44.9) % MCV (83.0-100.0) fL MCH (28.0-33.3) pg MCHC (31.6-35.5) g/dL RDW (11.5-14.5) % Plt Count (140-400) K/mcL MPV (9.4-12.4) fL Immature Gran % (0-4) % Seg Neutrophils % % Lymphocytes % % Monocytes % % Eosinophils % % Basophils % % Neutrophils # (1.6-8.9) K/mcL Lymphocytes # (0.6-4.6) K/mcL Monocytes # (0.0-1.3) K/mcL Eosinophils # (0.0-0.6) K/mcL Basophils # (0.0-0.2) K/mcL Sodium (136-145) mEq/L Potassium (3.5-5.1) mEq/L Chloride (98-107) mEq/L Carbon Dioxide (23-29) mEq/L BUN (8-23) mg/dL Creatinine (0.60-1.20) mg/dL Est GFR ( Amer) (> 60) Est GFR (Non-Af Amer) (> 60) BUN/Creatinine Ratio (6-26) Glucose (70-105) mg/dL Calculated Osmolality (280-300) Lactic Acid 1.8 (0.5-2.2) mmol/L Calcium (8.6-10.3) mg/dL Total Bilirubin (0.3-1.0) mg/dL AST (13-39) Units/L ALT (7-52) Units/L Alkaline Phosphatase (34-104) Units/L Troponin I (< 0.04) ng/mL Serum Total Protein (6.4-8.9) g/dL Albumin (3.5-5.7) g/dL Globulin (2.4-3.5) g/dL Albumin/Globulin Ratio (1.1-2.2) Lipase (11-82) Units/L Urine Color (Yellow) Urine Clarity (Clear) Urine pH (5.0-8.0) pH Units Ur Specific [place] (1.010-1.025) Urine Protein (Neg-Trace) mg/dL Urine Glucose (UA) (Normal) mg/dL Urine Ketones (Negative) mg/dL Urine Blood (Negative) Urine Nitrite (Negative) Urine Bilirubin (Negative) Urine Urobilinogen (Normal) mg/dL Ur Leukocyte Esterase (Negative) Urine Microscopic RBC (0-3) per hpf Urine Microscopic WBC (0-3) per hpf Ur Squamous Epith Cells (None-Few) per lpf Urine Bacteria (None-Few) per hpf Hyaline Casts (None-Few) per lpf Ur Culture Indicated? (NO) Attestation Statement - Attestation Attestation: I, Ash Raymond DO, examined this patient [id number] and my medical decision-making was reviewed with Myles POOLE-1, Resident Physician. I agree with the documented findings, disposition and treatment plan as described except to the extent set forth below. I personally supervised and was present for the aragon/critical portions of the procedures completed by the resident do cumented below. Please see my progress notes for details. 88-year-old female presents emergency room with complaint of nausea vomiting and diarrhea along with generalized malaise. Patient's had this for several days. She lives at home by herself. She is concerned decided to come in for evalua tion. At this time she is denying chest pain, shortness breath, headache, vision changes. Denies any fevers or chills. She has not fallen or injured herself at home. She has not been taking any new medications. She has not traveled outside the country. She has not take any blood thinners. Vital signs are stable on presentation. Patient is alert she is oriented and answering questions appropriately. Mucosa is dry. Trachea is midline. Oropharynx is patent. Lungs are clear to auscultation. Heart is regular. Abdomen is soft with no guarding no rigidity no peritoneal symptoms. Patient describes mild cramping. Denies any vaginal discharge or bleeding. Denies any rectal pain or blood in her stool. Extremities are normal. No signs of rashes ulcers or lesions. Patient will be monitored closely in the emergency room as detailed workup is completed for metabolic derangements and then CT imaging the abdomen is resulted. Fluids nausea medication along with CBC chemistry liver function testing lipase and urinalysis along with imaging modalities will be resulted. Chest x-ray and EKG will also be collected. Patient is otherwise asymptomatic at this time. See detailed documentation of the physical exam, medical intervention, medical decision-making and disposition in the resident physician's note. No critical care provider the patient's treatment course at this time. 1125 Patient has laboratory workup that is consistent with dehydration with no specific electrolye abnormalities. Acute renal insufficiency as noted. CT imaging the abdomen is still pending at this time. Chest x-ray is unremarkable. Hospitalist Dr. Tsai reviewed the case. Patient will be held here in the emergency Department of the CT imaging is completed and resulted. Concern is noted for possible other underlying etiology that would not be addressed prior to admission. We will monitor here until that is completed. 1300 CT scan confirms inflammation the proximal duodenum consistent with duodenitis versus peptic ulcer disease. Single dose of Protonix will be given. Otherwise the patient is stable pleural effusions consistent with her presentation of shortness of breath abdominal discomfort with nausea and vomiting. Patient will be admitted for acute renal insufficiency and symptomatic generalized weakness. No other concerns or issues no this time. Patient will be transported to the floor.
[2018-11-02] MEDS ORDERED: Naloxone 0.4 MG/ML INJ IVP PRN ×2 (11:54→14:02)
[2018-11-02] MEDS ORDERED: traMADol 50 MG TABLET PO PRN (11:54)
[2018-11-02] MEDS ORDERED: Ondansetron 4 MG/2 ML VIAL IVP PRN (11:56)
[2018-11-02] MEDS ORDERED: Pantoprazole 40 MG VIAL IVP ONE (13:09)
--- NOTE | 2018-11-02 14:00 | Internal Med History&Physical ---
Date of Encounter: 11/02/18 Time of Encounter: 13:55 Internal Medicine - H&P: HPI Chief complaint: nausea and vomiting Admitted From: Emergency Dept Plans for Post Hospital Care: Home History of present illness: Ms. Francois is a 88 year old female with history of A. fib, CHF, COPD, CKD3, hyperlipidemia, hypertension, osteoporosis, pacemaker with complaints of nausea, vomiting, and diarrhea for about 3-4 days. My week ago or so the patient was started on clindamycin for what I presume is left lower extremity cellulitis from an urgent care based on what the tells me. She has been having generalized weakness with associated abdominal discomfort in the epigastric area. She has had 3 loose stools today with not bloody. She has had no hematemesis but did have some bilious emesis since 3-4 days ago. She is not been able to keep PO. She denies any fevers, chills, headache, blurry vision, chest pain, shortness of breath, constipation, urinary symptoms, or neurological symptoms. In the ED the patient is somewhat tachycardic and was in the room with heart rate in the 90s to 105. Other vitals were unremarkable she was afebrile. Laboratory workup showed acute kidney injury as well as mild elevation of liver function tests. WBC count around 11. Had a CT abdomen and pelvis which showed some bowel wall thickening of the duodenum which could be due to duodenitis or potential peptic ulcer disease. The patient was given PPI IV in the ED as well as 500 mL normal saline bolus. Past Med Surg Social Fam HX - Past Medical History Medical history: atrial fibrillation, osteoporosis Additional medical history: DJD. Allergic Rhinitis. Rectocele. Lumbar stenosis. Acute on Chronic Diastolic CHF Psychiatric history: anxiety - Past Surgical History Surgical History: cholecystectomy, hysterectomy, knee replacement, orthopedic, other Additional surgical history: bilateral knee replacement. left shoulder replacement. left hip replacement - Social History Smoking Status: Never smoker Smokeless Tobacco Status: No Alcohol use: none Drug use: none - Family History Daughter Living Status: Hx Family Cancer: Yes Father Living Status: Hx Family Cardiac Disorders: Yes (heart attack) Internal Medicine - H&P: Meds Furosemide [Lasix] 20 mg PO DAILY 03/31/17 [History] Simvastatin [Zocor] 10 mg PO HS 01/01/18 [History] Lisinopril [Zestril] 20 mg PO DAILY #30 tablet 01/11/18 [Rx] Digoxin [Lanoxin] 0.0625 mg PO DAILY 07/15/18 [History] Gabapentin [Neurontin] 300 mg PO TID 07/15/18 [History] Levothyroxine Sodium 25 mcg PO QAM 07/15/18 [History] Oxycodone HCl/Acetaminophen [Percocet 10-325 mg Tablet] 1 tab PO 5XD PRN 09/23/18 [History] Clindamycin HCl [Cleocin HCl] 300 mg PO TID #30 cap 10/24/18 [Rx] Metoprolol Tartrate [Lopressor] 50 mg PO BID 11/02/18 [History] Allergy/AdvReac Type Severity Reaction Status Date / Time amlodipine Allergy See Verified 10/24/18 15:28 Comments aspirin Allergy Rash Verified 10/24/18 15:28 codeine Allergy Rash Verified 10/24/18 15:28 All Systems PM: A 10-system review of systems was performed and is negative for pertinent findings except as documented above in the HPI. Review of systems: All systems reviewed are negative except as mentioned above - Constitutional Vitals: Temp Pulse Resp BP Pulse Ox 98.5 F 90 20 146/86 96 11/02/18 09:30 11/02/18 11:35 11/02/18 13:31 11/02/18 13:31 11/02/18 11:35 Exam: GEN: NAD HEENT: AT, NC, No cyanosis, oral mucosa is dry, No JVD Lymphatics: No lymphadenoapthy Eyes: Extrocular muscles intact, anicteric CVS: Irregular and tachycardic. S1, S2, No m/r/g RESP: CTAB ABD: Soft, NT, ND, +BS EXT: No edema, No rashes, 2+ DP NEURO: Nonfocal, CN II-XII intact, No focal motor or sensory deficits Psych: Cooperative, Not anxious or depressed Internal Med - H&P Results - Labs CBC & Chem 7: 11/02/18 09:48 11/02/18 09:48 Labs: Short CBC 11/02/18 Range/Units 09:48 WBC 11.1 (4.3-11.1) K/mcL Hgb 13.1 (11.5-15.4) g/dL Hct 40.9 (35.3-44.9) % Plt Count 176 (140-400) K/mcL Neutrophils # 10.0 H (1.6-8.9) K/mcL BMP 11/02/18 09:48 Sodium 135 L Potassium 4.8 Chloride 103 Carbon Dioxide 22 L BUN 41 H Creatinine 1.47 H Glucose 123 H Calcium 9.9 Cardiac Enzymes 11/02/18 Range/Units 09:48 Troponin I 0.03 (< 0.04) ng/mL Liver Function 11/02/18 Range/Units 09:48 Total Bilirubin 0.9 (0.3-1.0) mg/dL AST 55 H (13-39) Units/L ALT 69 H (7-52) Units/L Alkaline Phosphatase 103 (34-104) Units/L Albumin 4.2 (3.5-5.7) g/dL Urine 11/02/18 Range/Units 10:45 Urine Color Yellow (Yellow) Urine Clarity Clear (Clear) Urine pH 5.5 (5.0-8.0) pH Units Ur Specific [place] 1.022 (1.010-1.025) Urine Protein 100 H (Neg-Trace) mg/dL Urine Glucose (UA) Normal (Normal) mg/dL - Impressions ITS Impressions Abdomen/Pelvis CT 11/02/18 09:41 IMPRESSION: 1. Small pleural effusions with mild interstitial edema. 2. There is some bowel wall thickening in the duodenum which could be due to duodenitis or potentially peptic ulcer disease. D/ / Umesh Johnson MD / Umesh Johnson MD Interpreting Provider: mUesh Johnson MD Chest X-Ray 11/02/18 09:41 IMPRESSION: Borderline cardiomegaly with mild pulmonary vascular congestion. D/ / Guilherme Soto MD / Guilherme Soto MD Interpreting Provider: Guilherme Stoo MD - Assessment and Plan (1) Dehydration Current Visit: Yes Status: Acute Assessment and plan: The patient on gentle hydration. Likely due to GI losses. (2) Nausea vomiting and diarrhea Current Visit: Yes Status: Acute Assessment and plan: We will treat conservatively with IV fluids, antiemetics, pain control. CT abdomen pelvis showed signs of duodenitis. Patient was on clindamycin that was started last week. We will send for stool panel rule out C. difficile. We will place patient on IV Cipro and Flagyl prophylactically for now. Patient was given IV PPI and ED and also the patient on IV PPI on admission and eventually switch to oral. (3) Acute on chronic renal insufficiency Current Visit: No Status: Acute Assessment and plan: Avoid nephrotoxins. IV fluids for now. Check labs in the morning. (4) Transaminitis Current Visit: No Status: Acute Assessment and plan: Likely due to dehydration and fluid losses. We will check labs again tomorrow. Likely to improve with IV fluids. (5) Atrial fibrillation Current Visit: No Status: Chronic Assessment and plan: Continue home meds. Heart rate in the 90s to low 100s. Was on 105 while was evaluated the patient. We will continue to monitor. Qualifiers: Atrial fibrillation type: chronic Qualified Code(s): I48.2 - Chronic atrial fibrillation (6) HLD (hyperlipidemia) Current Visit: No Status: Chronic Assessment and plan: Continue home meds Qualifiers: Hyperlipidemia type: unspecified Qualified Code(s): E78.5 - Hyperlipidemia, unspecified (7) HTN (hypertension) Current Visit: No Status: Chronic Assessment and plan: Continue with home meds Qualifiers: Hypertension type: essential hypertension Qualified Code(s): I10 - Essential (primary) hypertension (8) DVT prophylaxis Current Visit: No Status: Acute Assessment and plan: Heparin subcutaneous - Time Spent With Patient Total time spent is greater than 50% in coordination of care (as documented) at patient's floor/unit and/or counseling patient:
[2018-11-02] MEDS ORDERED: 0.9 % Sodium Chloride 1,000 ML ONE (15:17)
[2018-11-02] MEDS: MetroNIDAZOLE 500 MG/100 ML 500 MG/100 ML BAG IVPB SCH ×2 (16:40→23:19)
[2018-11-02] MEDS: 0.9 % Sodium Chloride 1,000 ML IVC SCH (16:41)
[2018-11-02] MEDS: *HR* Heparin 5,000 UNIT/ML VIAL SQ SCH (16:41)
[2018-11-02] MEDS: Ondansetron 4 MG/2 ML VIAL IVP PRN (17:50)
[2018-11-02] MEDS: *HR* HYDROcodone/Acet 5/325 mg TABLET PO PRN (17:50)
[2018-11-03] MEDS: *HR* HYDROcodone/Acet 5/325 mg TABLET PO PRN ×3 (03:31→23:56)
[2018-11-03] MEDS: Ondansetron 4 MG/2 ML VIAL IVP PRN ×2 (03:31→11:15)
[2018-11-03] MEDS: 0.9 % Sodium Chloride 1,000 ML IVC SCH ×3 (03:55→20:18)
[2018-11-03 04:01] LABS: Basophils % 0.4 %; Eosinophils # 0.1 K/mcL (0.0-0.6); Eosinophils % 0.6 %; Hematocrit 37.4 % (35.3-44.9); Hemoglobin 12.2 g/dL (11.5-15.4); Immature Granulocytes % 0.3 % (0-4); Lymphocytes # 0.8 K/mcL (0.6-4.6); Mean Corpuscular HGB Conc 32.6 g/dL (31.6-35.5); Mean Corpuscular Hemoglobin 31.4 pg (28.0-33.3); Mean Corpuscular Volume 96.4 fL (83.0-100.0); Mean Platelet Volume 10.7 fL (9.4-12.4); Monocytes # 0.7 K/mcL (0.0-1.3); Monocytes % 8.5 %; Neutrophils # 6.3 K/mcL (1.6-8.9); Platelet Count 158 K/mcL (140-400); Red Blood Count 3.88 M/mcL (3.82-4.97); Red Cell Distribution Width 14.6 % (11.5-14.5); Segmented Neutrophils % 80.2 %
[2018-11-03 04:26] LABS: Albumin 3.8 g/dL (3.5-5.7); Albumin/Globulin Ratio 1.4 (1.1-2.2); Bilirubin,Total 0.7 mg/dL (0.3-1.0); Calcium 9.1 mg/dL (8.6-10.3); Globulin 2.8 g/dL (2.4-3.5); Magnesium 1.7 mg/dL (1.6-2.6); Phosphorous 3.4 mg/dL (2.7-4.5); Potassium 4.5 mEq/L (3.5-5.1); Total Protein 6.6 g/dL (6.4-8.9)
[2018-11-03] MEDS: *HR* Heparin 5,000 UNIT/ML VIAL SQ SCH ×2 (05:55→22:10)
--- NOTE | 2018-11-03 06:29 | Electrocardiograph Report ---
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
--- NOTE | 2018-11-03 09:30 | Internal Med Progress Note ---
<Nate Jya - Last Filed: 11/03/18 11:04> Hospitalist Progress Note - Encounter Date of Encounter: 11/03/18 Time of Encounter: 09:28 - Subjective Interval History: Ms. Francois is a 88 year old female with history of A. fib, CHF, COPD, CKD3, hyperlipidemia, hypertension, osteoporosis, pacemaker with complaints of nausea, vomiting, and diarrhea for about 3-4 days. 1 week ago, the patient was started on clindamycin for what sounds like left lower extremity cellulitis from an urgent care. She has been having generalized weakness with associated abdominal discomfort in the epigastric area. Multiple loose stools for the last 3 days. She has had no hematemesis but did have some bilious emesis since 4 days ago. She was not able to tolerate PO intake. She denies any fevers, chills, headache, blurry vision, chest pain, shortness of breath, constipation, urinary symptoms, or neurological symptoms. In the ED the patient was tachycardic with HR 90s to 105. Other vitals were unremarkable. Laboratory workup significant for acute kidney injury and transaminitis. Had a CT abdomen and pelvis which showed some bowel wall thickening of the duodenum which could be due to duodenitis or potential peptic ulcer disease. The patient was given PPI IV in the ED as well as 500 mL normal saline bolus. Today, patient reports improvement of symptoms. She has not had any episodes of nausea, vomiting, or diarrhea since her admission. She denies any chest pain or SOB. She continues have difficulty with PO intake and was only able to eat a small portion of toast in the morning. Does report that she feels hungry. Denies any fever, chills, nausea, vomiting, abdominal pain. Voiding without difficulty. - Exam Vitals: Temp Pulse Resp BP Pulse Ox 98.3 F 86 16 147/81 93 11/03/18 07:06 11/03/18 07:06 11/03/18 07:06 11/03/18 07:06 11/03/18 07:06 Exam: GEN: NAD HEENT: AT, NC, No cyanosis, oral mucosa is dry, No JVD Lymphatics: No lymphadenoapthy Eyes: Extrocular muscles intact, anicteric CVS: Irregular and tachycardic. S1, S2, No m/r/g RESP: CTAB ABD: Soft, NT, ND, +BS EXT: No edema, No rashes, 2+ DP NEURO: Nonfocal, CN II-XII intact, No focal motor or sensory deficits Psych: Cooperative, Not anxious or depressed - Assessment and Plan (1) Nausea vomiting and diarrhea Current Visit: Yes Status: Acute Assessment and Plan: We will treat conservatively with IV fluids, antiemetics, pain control. CT abdomen pelvis showed signs of duodenitis. Patient was on clindamycin that was started last week. Pending GI panel for C. difficile. Continue with IV Cipro and Flagyl prophylactically for now. Patient was given IV PPI and ED and also the patient on IV PPI on admission and eventually switch to oral. Continues to have difficulty with PO intake. Will start full liquid diet and escalate as tolerated. (2) Dehydration Current Visit: Yes Status: Acute Assessment and plan: Likely secondary to GI loses. The patient is on gentle hydration. Continue to monitor with AM labs. (3) Acute on chronic renal insufficiency Current Visit: No Status: Acute Assessment and plan: Improving. Creatinine 1.47 -> 1.1 Avoid nephrotoxins. Continue IV fluids for now. Check labs in the morning. Expecting this to continue improving (4) Transaminitis Current Visit: No Status: Acute Assessment and plan: Likely due to dehydration and fluid losses. Resolved and back to baseline with IV fluids. (5) Atrial fibrillation Current Visit: No Status: Chronic Assessment and plan: Stable. Continue home meds. Heart rate in the 90s to low 100s. Was on 105 while was evaluated the patient. We will continue to monitor. Qualifiers: Atrial fibrillation type: chronic Qualified Code(s): I48.2 - Chronic atrial fibrillation (6) HLD (hyperlipidemia) Current Visit: No Status: Chronic Assessment and plan: Continue home meds Qualifiers: Hyperlipidemia type: unspecified Qualified Code(s): E78.5 - Hyperlipidemia, unspecified (7) HTN (hypertension) Current Visit: No Status: Chronic Assessment and plan: Stable. Continue with home meds Qualifiers: Hypertension type: essential hypertension Qualified Code(s): I10 - Essential (primary) hypertension (8) DVT prophylaxis Current Visit: No Status: Acute Assessment and plan: Heparin subcutaneous - Time Spent with Patient Total time spent is greater than 50% in coordination of care (as documented) at patient's floor/unit and/or counseling patient: Greater than 35 minutes Plan of Care Discussed with: patient Internal Medicine: Result - Labs CBC & Chem 7: 11/03/18 03:15 11/03/18 03:15 Labs: Short CBC 11/02/18 11/03/18 Range/Units 09:48 03:15 WBC 11.1 7.8 (4.3-11.1) K/mcL Hgb 13.1 12.2 (11.5-15.4) g/dL Hct 40.9 37.4 (35.3-44.9) % Plt Count 176 158 (140-400) K/mcL Neutrophils # 10.0 H 6.3 (1.6-8.9) K/mcL BMP 11/02/18 11/03/18 09:48 03:15 Sodium 135 L 139 Potassium 4.8 4.5 Chloride 103 106 Carbon Dioxide 22 L 22 L BUN 41 H 32 H Creatinine 1.47 H 1.10 Glucose 123 H 88 Calcium 9.9 9.1 Cardiac Enzymes 11/02/18 Range/Units 09:48 Troponin I 0.03 (< 0.04) ng/mL Liver Function 11/02/18 11/03/18 Range/Units 09:48 03:15 Total Bilirubin 0.9 0.7 (0.3-1.0) mg/dL AST 55 H 37 (13-39) Units/L ALT 69 H 50 (7-52) Units/L Alkaline Phosphatase 103 85 (34-104) Units/L Albumin 4.2 3.8 (3.5-5.7) g/dL Urine 11/02/18 Range/Units 10:45 Urine Color Yellow (Yellow) Urine Clarity Clear (Clear) Urine pH 5.5 (5.0-8.0) pH Units Ur Specific [place] 1.022 (1.010-1.025) Urine Protein 100 H (Neg-Trace) mg/dL Urine Glucose (UA) Normal (Normal) mg/dL - Impressions Impressions Abdomen/Pelvis CT 11/02/18 09:41 IMPRESSION: 1. Small pleural effusions with mild interstitial edema. 2. There is some bowel wall thickening in the duodenum which could be due to duodenitis or potentially peptic ulcer disease. D/ / Umesh Johnson MD / Umesh Johnson MD Interpreting Provider: Umesh Johnson MD Chest X-Ray 11/02/18 09:41 IMPRESSION: Borderline cardiomegaly with mild pulmonary vascular congestion. D/ / Guilherme Soto MD / Guilherme Soto MD Interpreting Provider: Guilherme Soto MD Consult Discharge Plan - Plan Referrals: Ernst Schuler MD [Primary Care Provider] - 11/10/18 11:30 am <Graham Nicole - Last Filed: 11/03/18 15:13> Hospitalist Progress Note - Encounter Date of Encounter: 11/03/18 - Exam Vitals: Temp Pulse Resp BP Pulse Ox 98.5 F 88 16 155/89 93 11/03/18 11:40 11/03/18 11:40 11/03/18 11:40 11/03/18 11:40 11/03/18 11:40 - Assessment and Plan (1) Atrial fibrillation Current Visit: No Status: Chronic (2) DVT prophylaxis Current Visit: No Status: Acute (3) HLD (hyperlipidemia) Current Visit: No Status: Chronic (4) HTN (hypertension) Current Visit: No Status: Chronic (5) Transaminitis Current Visit: No Status: Acute (6) Acute on chronic renal insufficiency Current Visit: No Status: Acute (7) Dehydration Current Visit: Yes Status: Acute (8) Nausea vomiting and diarrhea Current Visit: Yes Status: Acute - Time Spent with Patient Total time spent is greater than 50% in coordination of care (as documented) at patient's floor/unit and/or counseling patient: Internal Medicine: Result - Labs CBC & Chem 7: 11/03/18 03:15 11/03/18 03:15 Labs: Short CBC 11/03/18 Range/Units 03:15 WBC 7.8 (4.3-11.1) K/mcL Hgb 12.2 (11.5-15.4) g/dL Hct 37.4 (35.3-44.9) % Plt Count 158 (140-400) K/mcL Neutrophils # 6.3 (1.6-8.9) K/mcL BMP 11/03/18 03:15 Sodium 139 Potassium 4.5 Chloride 106 Carbon Dioxide 22 L BUN 32 H Creatinine 1.10 Glucose 88 Calcium 9.1 Liver Function 11/03/18 Range/Units 03:15 Total Bilirubin 0.7 (0.3-1.0) mg/dL AST 37 (13-39) Units/L ALT 50 (7-52) Units/L Alkaline Phosphatase 85 (34-104) Units/L Albumin 3.8 (3.5-5.7) g/dL - Attending Attestation I examined this patient and my medical decision-making was reviewed with the Resident Physician Dr. Jay. I agree with the documented findings, disposition and treatment plan as described except to the extent set forth below. Ms. Francois is a 88 year old female with history of A. fib, CHF, COPD, CKD3, hyperlipidemia, hypertension, osteoporosis, s/p pacemaker patient presented to ER with intractable nausea vomiting and diarrhea about 3 to 4 days. Patient was recently treated with oral antibiotic clindamycin for left lower extremity cellulitis. She was admitted in the hospital and placed her on media coordinator. Started on IV hydration. Her CT abdomen and pelvis which showed small bowel wall thickening of the duodenum which could be due to duodenitis or potential peptic ulcer disease. Started her on PPI and empirical abx Cipro and Flagyl. Will add carafate. Will check C. Diff inf Gen: A, A, O x 3 Chest: Diminished BS b/l, no crackles Heart: S1S2+ RRR Abd: Soft, Mild tender in epigastric region <Graham Nicole - Last Filed: 11/03/18 15:13> (1) Atrial fibrillation Qualifiers: Atrial fibrillation type: chronic Qualified Code(s): I48.2 - Chronic atrial fibrillation (3) HLD (hyperlipidemia) Qualifiers: Hyperlipidemia type: unspecified Qualified Code(s): E78.5 - Hyperlipidemia, unspecified (4) HTN (hypertension) Qualifiers: Hypertension type: essential hypertension Qualified Code(s): I10 - Essential (primary) hypertension
[2018-11-03] MEDS: Pantoprazole 40 MG VIAL IVP SCH (11:15)
[2018-11-03] MEDS: MetroNIDAZOLE 500 MG/100 ML 500 MG/100 ML BAG IVPB SCH ×3 (11:16→23:56)
[2018-11-03] MEDS ORDERED: Acetaminophen 325 MG TABLET PO PRN (16:14)
[2018-11-03] MEDS: Sucralfate 1 GM TABLET PO SCH ×2 (20:17→22:10)
[2018-11-04] MEDS: *HR* OxyCODONE/APAP 5/325 TABLET PO PRN ×2 (01:08→07:46)
[2018-11-04] MEDS: *HR* Heparin 5,000 UNIT/ML VIAL SQ SCH (05:09)
[2018-11-04 07:21] VITALS: BP 165/89
[2018-11-04] MEDS: Sucralfate 1 GM TABLET PO SCH ×2 (07:46→12:33)
[2018-11-04] MEDS: MetroNIDAZOLE 500 MG/100 ML 500 MG/100 ML BAG IVPB SCH (07:47)
[2018-11-04] MEDS: Pantoprazole 40 MG VIAL IVP SCH (07:48)
--- NOTE | 2018-11-04 10:15 | Discharge Summary ---
<Nate Jay - Last Filed: 11/04/18 10:29> - NOTES TO OUTPATIENT PROVIDER Notes to Outpatient Provider: Patient now on Prilosec and Sucralfate for duodenitis vs peptic ulcer disease. Date of Encounter: 11/04/18 Time of Encounter: 10:12 - Discharge Diagnosis (1) Nausea vomiting and diarrhea Priority: Primary Status: Acute (2) Peptic ulcer disease Priority: Primary Status: Acute (3) Atrial fibrillation Priority: Secondary Status: Chronic Qualifiers: Atrial fibrillation type: chronic Qualified Code(s): I48.2 - Chronic atrial fibrillation (4) HLD (hyperlipidemia) Priority: Secondary Status: Chronic Qualifiers: Hyperlipidemia type: unspecified Qualified Code(s): E78.5 - Hyperlipidemia, unspecified (5) HTN (hypertension) Priority: Secondary Status: Chronic Qualifiers: Hypertension type: essential hypertension Qualified Code(s): I10 - Essential (primary) hypertension (6) Transaminitis Priority: Secondary Status: Acute (7) Acute on chronic renal insufficiency Priority: Secondary Status: Acute (8) Dehydration Priority: Primary Status: Acute Hospital course: Ms. Francois is a 88 year old female with history of A. fib, CHF, COPD, CKD3, hyperlipidemia, hypertension, osteoporosis, pacemaker with complaints of nausea, vomiting, and diarrhea for about 3-4 days. 1 week ago, the patient was started on clindamycin for what sounds like left lower extremity cellulitis from an urgent care. She has been having generalized weakness with associated abdominal discomfort in the epigastric area. Multiple loose stools for the last 3 days. She has had no hematemesis but did have some bilious emesis since 4 days ago. She was not able to tolerate PO intake. She denies any fevers, chills, headache, blurry vision, chest pain, shortness of breath, constipation, urinary symptoms, or neurological symptoms. In the ED the patient was tachycardic with HR 90s to 105. Other vitals were unremarkable. Laboratory workup significant for acute kidney injury and transaminitis. Had a CT abdomen and pelvis which showed some bowel wall thickening of the duodenum which could be due to duodeni tis or potential peptic ulcer disease. The patient was given PPI IV in the ED as well as 500 mL normal saline bolus. Patient's symptoms have improved with IVF, PPI, sucralfate. She has not had any episodes of nausea, vomiting, or diarrhea since her admission. She denies any chest pain or SOB. She continues have difficulty with PO intake and was only able to eat a small portion of toast in the morning. Does report that she feels hungry. Denies any fever, chills, nausea, vomiting, abdominal pain. Voiding without difficulty. Will discontinue antibiotics and send patient home with sucralfate and prilosec with follow up with PCP. Patient is instructed to avoid NSAIDs, ASA. She does not smoke or use alcoho. She will obtain work up for H. Pylori outpatient. Patient is agreeable. Discharge discussed with: patient - Time Spent with Patient Total time spent providing and/or coordinating discharge services: Time spent: Greater than 30 minutes - Discharge Medications Prescriptions: New Omeprazole [PriLOSEC] 40 mg PO DAILY #30 cap RX: Sucralfate [Carafate] 1 gm PO QIDAC 30 Days #120 tablet Continue RX: Furosemide [Lasix] 20 mg PO DAILY RX: Simvastatin [Zocor] 10 mg PO HS RX: Lisinopril [Zestril] 20 mg PO DAILY #30 tablet RX: Digoxin [Lanoxin] 0.0625 mg PO DAILY RX: Gabapentin [Neurontin] 300 mg PO TID RX: Levothyroxine Sodium 25 mcg PO QAM RX: Oxycodone HCl/Acetaminophen [Percocet 10-325 mg Tablet] 1 tab PO 5XD PRN PRN Reason: Pain RX: Metoprolol Tartrate [Lopressor] 50 mg PO BID Discontinued RX: Clindamycin HCl [Cleocin HCl] 300 mg PO TID #30 cap Home Medications: RX: Furosemide [Lasix] 20 mg PO DAILY 03/31/17 [History] RX: Simvastatin [Zocor] 10 mg PO HS 07/19/17 [History] RX: Lisinopril [Zestril] 20 mg PO DAILY #30 tablet 01/11/18 [Rx] RX: Digoxin [Lanoxin] 0.0625 mg PO DAILY 07/15/18 [History] RX: Gabapentin [Neurontin] 300 mg PO TID 07/15/18 [History] RX: Levothyroxine Sodium 25 mcg PO QAM 07/15/18 [History] RX: Oxycodone HCl/Acetaminophen [Percocet 10-325 mg Tablet] 1 tab PO 5XD PRN 09/23/18 [History] RX: Metoprolol Tartrate [Lopressor] 50 mg PO BID 11/02/18 [History] Omeprazole [PriLOSEC] 40 mg PO DAILY #30 cap 11/04/18 [Rx] RX: Sucralfate [Carafate] 1 gm PO QIDAC 30 Days #120 tablet 11/04/18 [Rx] Allergies/Adverse Reactions: Allergy/AdvReac Type Severity Reaction Status Date / Time amlodipine Allergy See Verified 10/24/18 15:28 Comments aspirin Allergy Rash Verified 10/24/18 15:28 codeine Allergy Rash Verified 10/24/18 15:28 Date of admission: 11/02/18 12:35 Primary care physician: Ernst Schuler MD Consults: 11/02/18 14:01 Consult to Occupational Therapy [CONS] Routine Comment: Evaluate, develop and implement POC Reason for Consult: therapy/placement needs Does patient have active BEDREST order?: No Is patient medically & hemodynamically stable?: Yes Consult to Physical Therapy [CONS] Routine Comment: Evaluate, develop and implement POC Reason for Consult: PT eval Does patient have active BEDREST order?: No Is patient medically & hemodynamically stable?: Yes Discharging clinician: Nate Jay Anticipated date of discharge: 11/04/18 - Constitutional Vitals: Temp Pulse Resp BP Pulse Ox 97.6 F 94 16 165/89 93 11/04/18 07:21 11/04/18 07:21 11/04/18 07:21 11/04/18 07:21 11/04/18 07:21 General appearance: Present: A&O X 3 Exam: GEN: NAD HEENT: AT, NC, No cyanosis, oral mucosa is dry, No JVD Lymphatics: No lymphadenoapthy Eyes: Extrocular muscles intact, anicteric CVS: Irregular and tachycardic. S1, S2, No m/r/g RESP: CTAB ABD: Soft, NT, ND, +BS EXT: No edema, No rashes, 2+ DP NEURO: Nonfocal, CN II-XII intact, No focal motor or sensory deficits Psych: Cooperative, Not anxious or depressed - Patient Status Disposition: Home, Self-Care Condition: Fair Functional capacity at discharge: independent ambulation Overall status at discharge: patient is back to baseline - Discharge Instructions Instructions: Sucralfate (By mouth), Omeprazole (By mouth) Follow Up With: Ernst Schuler MD [Primary Care Provider] - 11/10/18 11:30 am Alison Smith MD [Partnered Physician] - (Appointment has been requested. Our offices will call with an appointment time and date. If you do not hear from us please call, ) - Diet and Activity Activity: resume usual activities as tolerated <Graham Nicole - Last Filed: 11/04/18 15:11> Date of Encounter: 11/04/18 - Discharge Diagnosis (1) Atrial fibrillation Status: Chronic Qualifiers: Atrial fibrillation type: chronic Qualified Code(s): I48.2 - Chronic atrial fibrillation (2) DVT prophylaxis Status: Acute (3) HLD (hyperlipidemia) Status: Chronic Qualifiers: Hyperlipidemia type: unspecified Qualified Code(s): E78.5 - Hyperlipidemia, unspecified (4) HTN (hypertension) Status: Chronic Qualifiers: Hypertension type: essential hypertension Qualified Code(s): I10 - Essential (primary) hypertension (5) Transaminitis Status: Acute (6) Acute on chronic renal insufficiency Status: Acute (7) Dehydration Status: Acute (8) Nausea vomiting and diarrhea Status: Acute Hospital course: Ms. Francois is a 88 year old female - Time Spent with Patient Total time spent providing and/or coordinating discharge services: Date of admission: 11/02/18 12:35 Primary care physician: Ernst Schuler MD Consults: 11/02/18 14:01 Consult to Occupational Therapy [CONS] Routine Comment: Evaluate, develop and implement POC Reason for Consult: therapy/placement needs Does patient have active BEDREST order?: No Is patient medically & hemodynamically stable?: Yes Consult to Physical Therapy [CONS] Routine Comment: Evaluate, develop and implement POC Reason for Consult: PT eval Does patient have active BEDREST order?: No Is patient medically & hemodynamically stable?: Yes - Constitutional Vitals: Temp Pulse Resp BP Pulse Ox 97.6 F 94 16 165/89 93 11/04/18 07:21 11/04/18 07:21 11/04/18 07:21 11/04/18 07:21 11/04/18 07:21 - Attending Attestation I examined this patient and my medical decision-making was reviewed with the Resident Physician Dr. Jay. I agree with the documented findings, disposition and treatment plan as described except to the extent set forth below. Ms. Francois is a 88 year old female with history of A. fib, CHF, COPD, CKD3, hyperlipidemia, hypertension, osteoporosis, s/p pacemaker patient presented to ER with intractable nausea vomiting and diarrhea about 3 to 4 days. Patient was recently treated with oral antibiotic clindamycin for left lower extremity cellulitis. She was admitted in the hospital and placed her on front desk monitor. Started on IV hydration. Her CT abdomen and pelvis which showed small bowel wall thickening of the duodenum which could be due to duodenitis or potential peptic ulcer disease. Started her on PPI and Carafate. She does not have any more diarrhea. Denied any abd pain. Tolerating PO intake well. Her kidney failure also improved with IV hydration. Patient was evaluated by PT/OT, who recommend ECF transfer for short term rehab. However pt refused to go to ECF and wanted to home with home health services. Will d/c home today. Chest: Diminished BS b/l, no crackles Heart: S1S2+ RRR Abd: Soft, Mild tender in epigastric region
--- NOTE | 2018-11-04 11:01 | Physician Discharge Referral ---
Home Health/Hosp Referral Info Transfer to: Home Health - Diagnosis (1) Nausea vomiting and diarrhea Status: Acute (2) Peptic ulcer disease Status: Acute (3) Atrial fibrillation Status: Chronic (4) HLD (hyperlipidemia) Status: Chronic (5) HTN (hypertension) Status: Chronic (6) Transaminitis Status: Acute (7) Acute on chronic renal insufficiency Status: Acute (8) Dehydration Status: Acute - Respiratory Orders Smoking Cessation: Smoking cessation has been advised. For more information, call the [place] Tobacco Quit Line at 2-863-SNJK-NOW. - Diet/Nutrition Diet/Nutrition Orders: Regular - Activity Activity Orders: Walker - Services Needed Following services are medically necessary services: Home Health Aide, Physical Therapy, Occupational Therapy - Transfer Medications Prescriptions: Omeprazole [PriLOSEC] 40 mg PO DAILY #30 cap Sucralfate [Carafate] 1 gm PO QIDAC 30 Days #120 tablet Home Medications: Furosemide [Lasix] 20 mg PO DAILY 03/31/17 [History] Simvastatin [Zocor] 10 mg PO HS 07/19/17 [History] Lisinopril [Zestril] 20 mg PO DAILY #30 tablet 01/11/18 [Rx] Digoxin [Lanoxin] 0.0625 mg PO DAILY 07/15/18 [History] Gabapentin [Neurontin] 300 mg PO TID 07/15/18 [History] Levothyroxine Sodium 25 mcg PO QAM 07/15/18 [History] Oxycodone HCl/Acetaminophen [Percocet 10-325 mg Tablet] 1 tab PO 5XD PRN 09/23/18 [History] Metoprolol Tartrate [Lopressor] 50 mg PO BID 11/02/18 [History] Omeprazole [PriLOSEC] 40 mg PO DAILY #30 cap 11/04/18 [Rx] Sucralfate [Carafate] 1 gm PO QIDAC 30 Days #120 tablet 11/04/18 [Rx] Allergies/Adverse Reactions: Allergy/AdvReac Type Severity Reaction Status Date / Time amlodipine Allergy See Verified 10/24/18 15:28 Comments aspirin Allergy Rash Verified 10/24/18 15:28 codeine Allergy Rash Verified 10/24/18 15:28 Certification: Further, I certify that my clinical findings support that this patient is homebound (i.e. absences from home require considerable and taxing effort and are for medical reasons or spiritism services or infrequently or short duration when for other reasons) because: Homebound Reason: Patient requires assistance of a person or device to safely leave home Attestation: My signature below is to certify that this patient is under my care and that I, or nurse practitioner, or a physician's administrative office assistant working with me, has a [id number] encounter with this patient.
== END 2018-11-04 13:24 | disposition home or self-care (01) ==
LOC: EMEROOARM 09:26 → 3BNU 09:26 → SUATTDRO 12:35 → 3BNU 14:02
PROVIDERS: ADMIT Internal Medicine; ATTEND Family Medicine